=== PATIENT | female | born 1935 | race Caucasian/White ===

== ENCOUNTER → 2018-02-09 09:22 | Outpatient (CLI) | payer MEDICARE, OTHER, SELFPAY ==
[2018-02-09 09:40] VITALS: BP 161/68; PULSE 70; RESP 16; O2SAT 99; BMI 23.6
--- NOTE | 2018-02-09 11:05 | RAD_ITS ---
STUDY: X-RAY CHEST REASON FOR EXAM: Female, 82 years old. PICC line placement. TECHNIQUE: Single AP portable view of the chest. COMPARISON: None. FINDINGS: A right-sided PICC line catheter has been placed. The tip is at the junction of the superior vena cava and right atrium. Hyperinflation. Scattered calcified granulomas. There is no demonstrated pleural abnormality. Sternal cerclage wires are present from a prior sternotomy. A left-sided dual-chamber pacemaker is seen. Normal mediastinum and nilesh. Normal visualized pulmonary arteries. There is atherosclerotic calcification of the aortic arch with tortuosity. Normal visualized thoracic spine. Normal visualized ribs, clavicles, and shoulders. There is no demonstrated abnormality of the visualized soft tissue structures of the upper abdomen. RAD/CXR for Line Placement IMPRESSION: The tip of the right PICC line catheter is at the junction of the superior vena cava and right atrium. Electronically Signed: Abiodun Mock MD at 11:52 EST Tel [phone], Service support ,
== END ==
PROVIDERS: Family Provider Pathology Anatomic Pathology & Clinical Pathology; PCP Pathology Anatomic Pathology & Clinical Pathology; Referring Provider Internal Medicine Hematology & Oncology; Visit Provider Internal Medicine Hematology & Oncology
DX: C83.39 Diffuse large B-cell lymphoma, extranodal and solid organ sites (principal)
CPT/HCPCS: 36569; 71045

== ENCOUNTER → 2018-03-01 08:03 | Outpatient (CLI) | payer MEDICARE, OTHER, SELFPAY ==
[2018-02-09 09:40] VITALS: BMI 23.6
[2018-03-01 08:34] VITALS: BP 145/62; PULSE 85; RESP 16; TEMP 36.4; O2SAT 100; BMI 24.5
[2018-03-01 08:55] VITALS: BP 133/52; PULSE 62; RESP 16; TEMP 36.4; O2SAT 100
[2018-03-01 09:55] VITALS: BP 129/42; PULSE 60; RESP 16; TEMP 36.4; O2SAT 100
[2018-03-01 10:36] VITALS: BP 147/50; PULSE 68; RESP 16; TEMP 36.2; O2SAT 100
[2018-03-01] MEDS: Furosemide 20 MG/2 ML VIAL IV (10:42)
[2018-03-01 11:18] VITALS: BP 149/54; PULSE 67; RESP 16; TEMP 36.3; O2SAT 100
[2018-03-01 12:53] VITALS: BP 151/44; PULSE 62; RESP 16; TEMP 36.4; O2SAT 100
--- OUTSIDE RECORDS SUMMARY | 2018-04-17 01:06 | XMS RPT_ITS ---
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 Plan of Care Type Date Detail Appointment 03:45 PM Praveen Luna MD, [address] [facility], [address], [place], [address], Appointment 01:00 PM Praveen Luna MD, [address] [facility], [address], [place], [address], Appointment 08:30 AM Roberto Abernathy MD, [address] [facility] [address], [place], [address], Patient education \cps-sql1\CPS_PtEducation\ht n.pdf, \cps-sql1\CPS_PtEducation\ht n.pdf Medications Medication Instructions Start Stop Generic Name NDC Provider Date Date CEPHALEXIN 500 1 tablet every / CEPHALEXIN 38220188193 A Ricardo MG TABS 12 hours Jeremy BRIGGS CRESTOR 5 MG take 1 tablet / ROSUVASTATIN 87609402296 Melinda TABS once daily 24 CALCIUM [place] TOWNSEND CALCIUM 600+D take 1 tablet / CALCIUM 35966578267 Melinda TABS once daily 24 CARB-CHOLECALCI Mone LUISN FEROL TABS LISINOPRIL 20 take 1 tablet / LISINOPRIL 01154923174 Melinda MG TABS once daily 24 [place] SALES REVIEW CLERK FERROUS take 1 tablet / FERROUS SULFATE 52268636327 Melinda SULFATE 325 once daily 10 Mone LUISN (65 Fe) MG TABS SYSTANE 1 drop to both / PROPYLENE 74534437417 Melinda BALANCE SOLN eyes once daily 25 GLYCOL SOLN Mone SALES REVIEW CLERK ASPIRIN 81 MG take 1 tablet / ASPIRIN 43728876094 Melinda ORAL TABLET once daily 13 Mone SALES REVIEW CLERK AMIODARONE HCL take 1 tablet / AMIODARONE HCL 99727919636 Melinda 200 MG TABS once daily 13 Mone LUISN FUROSEMIDE 20 take 1 tablet / FUROSEMIDE 13767078443 Melinda MG TABS once daily 13 Mone LUISN POTASSIUM take 1 tablet / POTASSIUM 04666833952 Melinda CHLORIDE DOUGLAS once daily 13 CHLORIDE DOUGLAS Mone SALES REVIEW CLERK ER 20 MEQ CR CR-TABS WARFARIN take 1 tablet / WARFARIN SODIUM 80615486807 Melinda SODIUM 1 MG every other day, 13 Mone SALES REVIEW CLERK TABS alternate with 1/2 tablet Conditions or Problems Problem Name Problem Code Onset Status Entry Provider Comment Standard Annotate Date Date Description 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, Jeremy (clinical) History of 745952528 Active A H/O: Coumadin (SNOMED CT) 0 0 Ricardo anticoagulant therapy Jeremy therapy Cardiac 333231580 Active A Cardiac pacemaker (SNOMED CT) 0 0 Ricardo pacemaker in [place] situ Atrial 87135625 Active A Atrial fibrillation (SNOMED CT) 0 0 Ricardo fibrillation Jeremy BRIGGS H/O aortic 2102262957827 Active A 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 [place] replacement MD Infection of 877406330 Active Roberto M 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 of 390576987 Active Roberto M 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 Vital Signs Date Name Value Unit Description BMI (Body Mass 22.79 kg/m2 Body Mass Index Index) [Ratio] Preliminary vital sign data, not yet signed by the author as of BP Diastolic 87 mm[Hg] blood pressure, diastolic Preliminary vital sign data, not yet signed by the author as of BP Diastolic 72 mm[Hg] blood pressure, diastolic, second observation Preliminary vital sign data, not yet signed by the author as of BP Systolic 152 mm[Hg] blood pressure, systolic Preliminary vital sign data, not yet signed by the author as of BP Systolic 155 mm[Hg] blood pressure, systolic, second observation Preliminary vital sign data, not yet signed by the author as of Heart Rate 68 /min pulse rate E&M Preliminary vital sign data, not yet signed by the author as of Height 170 cm height in centimeters E&M Preliminary vital sign data, not yet signed by the author as of Height 67 [in_us] height E&M Preliminary vital sign data, not yet signed by the author as of Weight Measured 66 kg weight in kilograms E&M Preliminary vital sign data, not yet signed by the author as of Weight Measured 145 [lb_av] weight E&M Preliminary vital sign data, not yet signed by the author as of Results Date Name Value Unit Range Flag Description Office Visit: Follow-up by tran, Rm: MEDS REVIEW Done Documentation of current medications (procedure) Preliminary observation data, not yet signed by the author as of Preliminary observation data, not yet signed by the author as of Clinical Summary: [facility] account number Procedures Code Procedure Name Date Entry Date G8732 Pain assessment not documented - reason not given G8427 Current medications documented 1036F Tobacco screening was negative - non user G8420 BMI documented within normal parameters - no follow-up plan is required G8950 Blood pressure outside of normal parameters - follow-up documented [facility]-[id number] Patient Encounter Medications Administered No information available. Immunizations No information available. Advance Directives There may be information available, but it has not been provided by the sender. Assessments There may be information available, but it has not been provided by the sender. Review of Systems There may be information available, but it has not been provided by the sender. Family History There may be information available, but it has not been provided by the sender. History of Past Illness There may be information available, but it has not been provided by the sender. History of Present Illness There may be information available, but it has not been provided by the sender.
--- OUTSIDE RECORDS SUMMARY | 2018-04-17 01:06 | XMS RPT_ITS ---
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 on 12/12/2017 Preliminary chief complaint data, not yet signed by the author as of Instructions No information available. Plan of Care Type Date Detail Appointment 08:45 AM Roberto Abernathy MD, [address], [place], [address], Appointment 08:30 AM Roberto Abernathy MD, [address], [place], [address], Medications Medication Instructions Start Stop Generic Name NDC Provider Date Date OCUVITE EYE + one tablet once / MULTIPLE [id number] Roberto Graham MULTI TABS daily 01 VITAMINS-ANTHONYA Michela BRIGGS LS CRESTOR 5 MG take 1 tablet / ROSUVASTATIN 52444520223 Melinda TABS once daily 24 CALCIUM Mone TRAFFIC ROUTING ENGINEER CALCIUM 600+D take 1 tablet / CALCIUM 67491213836 Melinda TABS once daily 24 CARB-CHOLECALCI Mone TRAFFIC ROUTING ENGINEER FEROL TABS LISINOPRIL 20 take 1 tablet / LISINOPRIL 88203328883 Melinda MG TABS once daily 24 [place] TRAFFIC ROUTING ENGINEER FERROUS take 1 tablet / FERROUS SULFATE 31011257937 Melinda SULFATE 325 once daily 10 [place] TRAFFIC ROUTING ENGINEER (65 Fe) MG TABS SYSTANE 1 drop to both / PROPYLENE 62018762497 Melinda BALANCE SOLN eyes once daily 25 GLYCOL SOLN [place] TRAFFIC ROUTING ENGINEER ASPIRIN 81 MG take 1 tablet / ASPIRIN 56157550734 Melinda ORAL TABLET once daily 13 Mone TRAFFIC ROUTING ENGINEER AMIODARONE HCL take 1 tablet / AMIODARONE HCL 34254696997 Melinda 200 MG TABS once daily 13 [place] TRAFFIC ROUTING ENGINEER FUROSEMIDE 20 take 1 tablet / FUROSEMIDE 99371720396 Melinda MG TABS once daily 13 [place] TRAFFIC ROUTING ENGINEER POTASSIUM take 1 tablet / POTASSIUM 39590455746 Melinda CHLORIDE DOUGLAS once daily 13 CHLORIDE DOUGLAS Mone TRAFFIC ROUTING ENGINEER ER 20 MEQ CR CR-TABS WARFARIN take 1 tablet / WARFARIN SODIUM 59852347036 Melinda SODIUM 1 MG every other day, 13 [place] TRAFFIC ROUTING ENGINEER TABS alternate with 1/2 tablet Conditions or Problems Problem Name Problem Onset Status Entry Provider Comment Standard Annotate Code Date Date Description Infection of 759319288 Active Roberto M 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) /12/07 Michela total knee replacement MD joint prosthesis Presence of left 794485723 Active Roberto M Infection of artificial knee (SNOMED CT) /12/07 Michela total knee joint MD joint prosthesis Infection and 268039302 Active Roberto M Infection of inflammatory (SNOMED CT) /12/07 Michela total knee reaction due to MD joint internal left prosthesis knee prosthesis, initial encounter Primary 115882759 Active Roberto M Primary osteoarthritis (SNOMED CT) /04/04 Michela gonarthrosis of both knees MD , bilateral Allergies, Adverse Reactions, Alerts Allergy Name Reaction Start Date Severity Status Provider Description SPLENDA mouth swelling Critical Active Melinda Mone TRAFFIC ROUTING ENGINEER Social History No information available. Vital Signs Date Name Value Unit Description BMI (Body Mass 22.68 kg/m2 Body Mass Index Index) [Ratio] Preliminary vital sign data, not yet signed by the author as of BP Diastolic 68 mm[Hg] blood pressure, diastolic Preliminary vital sign data, not yet signed by the author as of BP Systolic 114 mm[Hg] blood pressure, systolic Preliminary vital sign data, not yet signed by the author as of Heart Rate 71 /min pulse rate E&M Preliminary vital sign data, not yet signed by the author as of Height 69 [in_us] height E&M Preliminary vital sign data, not yet signed by the author as of Height 175 cm height in centimeters E&M Preliminary vital sign data, not yet signed by the author as of Weight Measured 153 [lb_av] weight E&M Preliminary vital sign data, not yet signed by the author as of Weight Measured 70 kg weight in kilograms E&M Preliminary vital sign data, not yet signed by the author as of Results Date Name Value Unit Range Flag Description Office Visit: Postop - 1st visit, Rm: 2 MEDS REVIEW Done Documentation of current medications (procedure) Preliminary observation data, not yet signed by the author as of Preliminary observation data, not yet signed by the author as of XRAY HX of the right knee xray history on 12/29/[address] [facility] Preliminary observation data, not yet signed by the author as of Clinical Summary: [facility]ID [facility] account number Procedures Code Procedure Name Date Entry Date CPT-83773 XR KNEE 3VWS-RT G8730 Pain assessment documented as positive - follow-up documented G8427 Current medications documented 1036F Tobacco screening was negative - non user G8420 BMI documented within normal parameters - no follow-up plan is required G8783 Blood pressure within normal parameters - no follow-up required [facility]-[id number] Patient Encounter Medications Administered No information available. [...]
--- OUTSIDE RECORDS SUMMARY | 2018-04-17 01:06 | XMS RPT_ITS ---
:1935 Author Organization [employer] [facility] Address [address] [place] [address] Phone Care Team Providers Name Role Phone Michela BRIGGS, Roberto Graham Unavailable Reason for Visit Reason For Visit Description Start Date Follow-up by complaint Preliminary reason for visit data, not yet signed by the author as of right knee pain Preliminary reason for visit data, not yet signed by the author as of Chief Complaint Chief Complaint Description Start Date right knee pain Preliminary chief complaint data, not yet signed by the author as of Instructions Instruction Description Start Date Please follow-up with Primary Care Physician or Pathological Technician for treatment or adjustment of medication regarding elevated blood pressure. Plan of Care Type Date Detail Appointment 10:30 AM Roberto Abernathy MD, [address], [address], Patient education \cps-sql1\CPS_PtEducation\CD C_[email or web address].pdf, \cps-sql1\CPS_PtEducation\ht n.pdf Medications Medication Instructions Start Stop Generic Name NDC Provider Date Date OCUVITE EYE + one tablet once / MULTIPLE 09942701854 Roberto Graham MULTI TABS daily 01 VITAMINS-ANTHONYA Michela BRIGGS LS CRESTOR 5 MG take 1 tablet / ROSUVASTATIN 98759744878 Melinda TABS once daily 24 CALCIUM Mone TOWNSEND CALCIUM 600+D take 1 tablet / CALCIUM 89427680773 Melinda TABS once daily 24 CARB-CHOLECALCI Mone SUBWAREHOUSE SUPERVISOR FEROL TABS LISINOPRIL 20 take 1 tablet / LISINOPRIL 47837292735 Melinda MG TABS once daily 24 Mone SUBWAREHOUSE SUPERVISOR FERROUS take 1 tablet / FERROUS SULFATE 43740565325 Melinda SULFATE 325 once daily 10 [place] SUBWAREHOUSE SUPERVISOR (65 Fe) MG TABS SYSTANE 1 drop to both / PROPYLENE 24075375631 Melinda BALANCE SOLN eyes once daily 25 GLYCOL SOLN Mone SUBWAREHOUSE SUPERVISOR ASPIRIN 81 MG take 1 tablet / ASPIRIN 12361140666 Melinda ORAL TABLET once daily 13 [place] SUBWAREHOUSE SUPERVISOR AMIODARONE HCL take 1 tablet / AMIODARONE HCL 09449091407 Melinda 200 MG TABS once daily 13 Mone SUBWAREHOUSE SUPERVISOR FUROSEMIDE 20 take 1 tablet / FUROSEMIDE 66153346951 Melinda MG TABS once daily 13 Mone SUBWAREHOUSE SUPERVISOR POTASSIUM take 1 tablet / POTASSIUM 83259343099 Melinda CHLORIDE DOUGLAS once daily 13 CHLORIDE DOUGLAS Mone SUBWAREHOUSE SUPERVISOR ER 20 MEQ CR CR-TABS WARFARIN take 1 tablet / WARFARIN SODIUM 74581994967 Melinda SODIUM 1 MG every other day, 13 [place] SUBWAREHOUSE SUPERVISOR TABS alternate with 1/2 tablet Conditions or Problems Problem Name Problem Onset Status Entry Provider Comment Standard Annotate Code Date Date Description Primary 182524845 Active Roberto M Primary osteoarthritis (SNOMED CT) /16 04/04 Michela gonarthrosis of both knees MD , bilateral Allergies, Adverse Reactions, Alerts Allergy Name Reaction Start Date Severity Status Provider Description SPLENDA mouth swelling Critical Active Melinda Mone SUBWAREHOUSE SUPERVISOR Social History No information available. Vital Signs Date Name Value Unit Description BMI (Body Mass 22.68 kg/m2 Body Mass Index Index) [Ratio] Preliminary vital sign data, not yet signed by the author as of BP Diastolic 83 mm[Hg] blood pressure, diastolic Preliminary vital sign data, not yet signed by the author as of BP Diastolic 78 mm[Hg] blood pressure, diastolic, second observation Preliminary vital sign data, not yet signed by the author as of BP Systolic 156 mm[Hg] blood pressure, systolic Preliminary vital sign data, not yet signed by the author as of BP Systolic 152 mm[Hg] blood pressure, systolic, second observation Preliminary vital sign data, not yet signed by the author as of Heart Rate 78 /min pulse rate E&M Preliminary vital sign [...] Range Flag Description Office Visit: Follow-up by complaint, Rm: 4 MEDS REVIEW Done Documentation of current medications (procedure) Preliminary observation data, not yet signed by the author as of XRAY HX of the bilateral xray history knee on 08/18/2017 at [facility] Preliminary observation data, not yet signed by the author as of Preliminary observation data, not yet signed by the author as of Clinical Summary[facility] Office Visit: Follow-up by complaint, Rm: 5 MEDS REVIEW Done Documentation of current medications (procedure) XRAY HX of the bilateral xray history knee on 08/18/2017 at [facility] Clinical Summary: [facility] account number Procedures Code Procedure Name Date Entry Date CPT-12877 Major Joint or Bursa injection/aspiration - Left G8730 Pain assessment documented as positive - follow-up documented G8427 Current medications documented 1036F Tobacco screening was negative - non user G8420 BMI documented within normal parameters - no follow-up plan is required G8950 Blood pressure outside of normal parameters - follow-up documented 1006F Osteoarthritis symptoms and functional status assessed 1100F Fallen more than twice or injured themselves from a fall documented 3288F Falls risk assessment documented 0518F Falls plan of care documented [facility]-[id number] Patient Encounter Medications Administered No information available. [...]
--- OUTSIDE RECORDS SUMMARY | 2018-04-17 01:07 | XMS RPT_ITS ---
:1935 Author Organization [facility] [employer] Address [address] [place] [address] Phone Care Team Providers Name Role Phone Michela BRIGGS, Roberto Graham Unavailable Reason for Visit Reason For Visit Description Start Date Follow-up by complaint Preliminary reason for visit data, not yet signed by the author as of bilateral knee pain Preliminary reason for visit data, not yet signed by the author as of Chief Complaint Chief Complaint Description Start Date bilateral knee pain Preliminary chief complaint data, not yet signed by the author as of Instructions Instruction Description Start Date Please follow-up with Primary Care Physician or Machine Shop Instructor for treatment or adjustment of medication regarding elevated blood pressure. Plan of Care Type Date Detail Appointment 08:15 AM Roberto Abernathy MD, [address], [address], Patient education \cps-sql1\CPS_PtEducation\ht n.pdf Medications Medication Instructions Start Stop Generic Name NDC Provider Date Date MEDROL 4 MG Take as [id number] Roberto Graham TBPK directed 05 Michela BRIGGS OCUVITE EYE + one tablet once / MULTIPLE 66562432256 Roberto Graham MULTI TABS daily 01 VITAMINS-MINERALS Michela BRIGGS CRESTOR 5 MG take 1 tablet / ROSUVASTATIN CALCIUM 25545959725 Melinda TABS once daily 24 [place] AIRCRAFT QUALITY CONTROL INSPECTOR CALCIUM 600+D take 1 tablet / CALCIUM 19540827509 Melinda TABS once daily 24 CARB-CHOLECALCIFEROL Mone AIRCRAFT QUALITY CONTROL INSPECTOR TABS LISINOPRIL 20 take 1 tablet / LISINOPRIL 10204312568 Melinda MG TABS once daily 24 [place] AIRCRAFT QUALITY CONTROL INSPECTOR FERROUS take 1 tablet / FERROUS SULFATE 80731737820 Melinda SULFATE 325 once daily 10 [place] AIRCRAFT QUALITY CONTROL INSPECTOR (65 Fe) MG TABS SYSTANE 1 drop to both / PROPYLENE GLYCOL 83407347444 Melinda BALANCE SOLN eyes once daily 25 SOLN [place] AIRCRAFT QUALITY CONTROL INSPECTOR ASPIRIN 81 MG take 1 tablet / ASPIRIN 97488616751 Melinda ORAL TABLET once daily 13 [place] AIRCRAFT QUALITY CONTROL INSPECTOR AMIODARONE take 1 tablet / AMIODARONE HCL 57181243268 Melinda HCL 200 MG once daily 13 Mone AIRCRAFT QUALITY CONTROL INSPECTOR TABS FUROSEMIDE 20 take 1 tablet / FUROSEMIDE 80191519183 Melinda MG TABS once daily 13 M[place] AIRCRAFT QUALITY CONTROL INSPECTOR POTASSIUM take 1 tablet / POTASSIUM CHLORIDE 68173011279 Melinda CHLORIDE DOUGLAS once daily 13 [place] CR Mone AIRCRAFT QUALITY CONTROL INSPECTOR ER 20 MEQ CR-TABS WARFARIN take 1 tablet / WARFARIN SODIUM 21682914084 Melinda SODIUM 1 MG every other 13 Mone AIRCRAFT QUALITY CONTROL INSPECTOR TABS day, alternate with 1/2 tablet Conditions or Problems Problem Name Problem Onset Status Entry Provider Comment Standard Annotate Code Date Date Description Primary 912588361 Active Roberto M Primary osteoarthritis (SNOMED CT) /16 04/04 Michela gonarthrosis of both knees MD , bilateral Allergies, Adverse Reactions, Alerts Allergy Name Reaction Start Date Severity Status Provider Description SPLENDA mouth swelling Critical Active Melinda Mone AIRCRAFT QUALITY CONTROL INSPECTOR Social History No information available. Vital Signs Date Name Value Unit Description BMI (Body Mass 22.68 kg/m2 Body Mass Index Index) [Ratio] Preliminary vital sign data, not yet signed by the author as of BP Diastolic 80 mm[Hg] blood pressure, diastolic Preliminary vital sign data, not yet signed by the author as of BP Diastolic 74 mm[Hg] blood pressure, diastolic, second observation Preliminary vital sign data, not yet signed by the author as of BP Systolic 159 mm[Hg] blood pressure, systolic Preliminary vital sign data, not yet signed by the author as of BP Systolic 149 mm[Hg] blood pressure, systolic, second observation Preliminary vital sign data, not yet signed by the author as of Heart Rate 85 /min pulse rate E&M Preliminary vital sign [...] Range Flag Description Office Visit: Follow-up by tran Rm: 7 MEDS REVIEW Done Documentation of current medications (procedure) Preliminary observation data, not yet signed by the author as of XRAY HX of the bilateral xray history knee on 08/18/2017 at [facility] Preliminary observation data, not yet signed by the author as of Preliminary observation data, not yet signed by the author as of Clinical Summary: HMSPatientID [facility] account number Procedures Code Procedure Name Date Entry Date G8730 Pain assessment documented as positive - follow-up documented G8427 Current medications documented 1036F Tobacco screening was negative - non user G8420 BMI documented within normal parameters - no follow-up plan is required G8950 Blood pressure outside of normal parameters - follow-up documented 1006F Osteoarthritis symptoms and functional status assessed [facility]-[id number] Patient Encounter Medications Administered No information available. [...]
--- OUTSIDE RECORDS SUMMARY | 2018-04-17 01:07 | XMS RPT_ITS ---
:1935 Author Organization [employer] Address [address] [place] [address] Phone Care Team Providers Name Role Phone [...] Plan of Care Type Date Detail Appointment 09:30 AM Roberto Abernathy MD, [address], [address], Patient education \cps-sql1\CPS_PtEducation\CD C_[email or web address].pdf, \cps-sql1\CPS_PtEducation\ht n.pdf Medications Medication Instructions Start Stop Generic Name NDC Provider Date Date MEDROL 4 MG Take as / METHYLPREDNISOLONE [id number] Roberto Graham TBPK directed 05 Michela BRIGGS OCUVITE EYE + one tablet once / MULTIPLE [id number] Roberto Graham MULTI TABS daily 01 VITAMINS-MINERALS Michela BRIGGS CRESTOR 5 MG take 1 tablet / ROSUVASTATIN CALCIUM 18802317838 Melinda TABS once daily 24 Mone BATTERY CONTAINER TESTER CALCIUM 600+D take 1 tablet / CALCIUM 56322416387 Melinda TABS once daily 24 CARB-CHOLECALCIFEROL [place] BATTERY CONTAINER TESTER TABS LISINOPRIL 20 take 1 tablet / LISINOPRIL 25007434949 Melinda MG TABS once daily 24 Mone BATTERY CONTAINER TESTER FERROUS take 1 tablet / FERROUS SULFATE 06950546426 Melinda SULFATE 325 once daily 10 [place] BATTERY CONTAINER TESTER (65 Fe) MG TABS SYSTANE 1 drop to both / PROPYLENE GLYCOL 40379182139 Melinda BALANCE SOLN eyes once daily 25 SOLN Mone BATTERY CONTAINER TESTER ASPIRIN 81 MG take 1 tablet / ASPIRIN 72253972871 Melinda ORAL TABLET once daily 13 [place] BATTERY CONTAINER TESTER AMIODARONE take 1 tablet / AMIODARONE HCL 42067058383 Melinda HCL 200 MG once daily 13 [place] BATTERY CONTAINER TESTER TABS FUROSEMIDE 20 take 1 tablet / FUROSEMIDE 71682991857 Melinda MG TABS once daily 13 [place] BATTERY CONTAINER TESTER POTASSIUM take 1 tablet / POTASSIUM CHLORIDE 89198465646 Melinda CHLORIDE DOUGLAS once daily 13 DOUGLAS CR Mone BATTERY CONTAINER TESTER ER 20 MEQ CR-TABS WARFARIN take 1 tablet / WARFARIN SODIUM 14962076722 Melinda SODIUM 1 MG every other 13 Mone BATTERY CONTAINER TESTER TABS day, alternate with 1/2 tablet Conditions or Problems Problem Name Problem Onset Status Entry Provider Comment Standard Annotate Code Date Date Description Primary [id number] Active Roberto M 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 Vital Signs Date Name Value Unit Description BMI (Body Mass 22.68 kg/m2 Body Mass Index Index) [Ratio] Preliminary vital sign data, not yet signed by the author as of BP Diastolic 80 mm[Hg] blood pressure, diastolic Preliminary vital sign data, not yet signed by the author as of BP Diastolic 75 mm[Hg] blood pressure, diastolic, second observation Preliminary vital sign data, not yet signed by the author as of BP Systolic 144 mm[Hg] blood pressure, systolic Preliminary vital sign data, not yet signed by the author as of BP Systolic 148 mm[Hg] blood pressure, systolic, second observation Preliminary vital sign data, not yet signed by the author as of Heart Rate 65 /min pulse rate E&M Preliminary vital sign [...] Description Office Visit: Follow-up by complaint, Rm: 5 MEDS REVIEW Done Documentation of current medications (procedure) Preliminary observation data, not yet signed by the author as of Preliminary observation data, not yet signed by the author as of XRAY HX of the bilateral xray history knee on 08/18/2017 at [facility] Preliminary observation data, not yet signed by the author as of Clinical Summary: [facility] account number Procedures Code Procedure Name Date Entry Date CPT-41256 Major Joint or Bursa injection/aspiration - Right G8730 Pain assessment documented as positive - follow-up documented G8427 Current medications documented 1036F Tobacco screening was negative - non user G8420 BMI documented within normal parameters - no follow-up plan is required G8952 Blood pressure outside of normal parameters - follow-up not documented 1006F Osteoarthritis symptoms and functional status assessed 1100F Fallen more than twice or injured themselves from a fall documented 3288F Falls risk assessment documented 0518F Falls plan of care documented [facility]-[id number] Patient Encounter Medications Administered No information available. [...]
--- OUTSIDE RECORDS SUMMARY | 2018-04-17 01:07 | XMS RPT_ITS ---
:1935 Author Organization [employer] Address [address] [place] [address] Phone Care Team Providers Name Role Phone Michela BRIGGS, Roberto Graham Unavailable Reason for Visit Reason For Visit Description Start Date New Complaint Preliminary reason for visit data, not yet signed by the author as of bilateral knee pain Preliminary reason for visit data, not yet signed by the author as of Chief Complaint Chief Complaint Description Start Date bilateral knee pain Preliminary chief complaint data, not yet signed by the author as of Instructions No information available. Plan of Care Type Date Detail Appointment 10:00 AM Roberto Abernathy MD, [address], [place], [address], Appointment 08:15 AM Roberto Abernathy MD, [address], [place], [address], Medications Medication Instructions Start Stop Generic Name [facility] Provider Date Date OCUVITE EYE + one tablet once / MULTIPLE [id number] Roberto Graham MULTI TABS daily VITAMINS-MIRIAM Abernathy MD LS CRESTOR 5 MG take 1 tablet / ROSUVASTATIN 16262085647 Melinda TABS once daily 24 CALCIUM Mone LUISN CALCIUM 600+D take 1 tablet / CALCIUM 68050424674 Melinda TABS once daily 24 CARB-CHOLECALCI Mone EVENT MANAGEMENT CONSULTANT FEROL TABS LISINOPRIL 20 take 1 tablet / LISINOPRIL 48803485763 Melinda MG TABS once daily 24 Mone EVENT MANAGEMENT CONSULTANT FERROUS take 1 tablet / FERROUS SULFATE 46111672447 Melinda SULFATE 325 once daily 10 [place] EVENT MANAGEMENT CONSULTANT (65 Fe) MG TABS SYSTANE 1 drop to both / PROPYLENE 70476123930 Melinda BALANCE SOLN eyes once daily 25 GLYCOL SOLN Mone EVENT MANAGEMENT CONSULTANT ASPIRIN 81 MG take 1 tablet / ASPIRIN 33491979518 Melinda TABS once daily 13 [place] EVENT MANAGEMENT CONSULTANT AMIODARONE HCL take 1 tablet / AMIODARONE HCL 56953531034 Melinda 200 MG TABS once daily 13 Mone EVENT MANAGEMENT CONSULTANT FUROSEMIDE 20 take 1 tablet / FUROSEMIDE 17362586171 Melinda MG TABS once daily 13 Mone EVENT MANAGEMENT CONSULTANT POTASSIUM take 1 tablet / POTASSIUM 08340540924 Melinda CHLORIDE DOUGLAS once daily 13 CHLORIDE DOUGLAS Mone EVENT MANAGEMENT CONSULTANT ER 20 MEQ CR CR-TABS WARFARIN take 1 tablet / WARFARIN SODIUM 25979500448 Melinda SODIUM 1 MG every other day, 13 [place]one EVENT MANAGEMENT CONSULTANT TABS alternate with 1/2 tablet Conditions or Problems Problem Name Problem Onset Status Entry Provider Comment Standard Annotate Code Date Date Description Primary [id number] Active Roberto M 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 Vital Signs Date Name Value Unit Description BMI (Body Mass 22.68 kg/m2 Body Mass Index Index) [Ratio] Preliminary vital sign data, not yet signed by the author as of BP Diastolic 75 mm[Hg] blood pressure, diastolic Preliminary vital sign data, not yet signed by the author as of BP Systolic 136 mm[Hg] blood pressure, systolic Preliminary vital sign data, not yet signed by the author as of Heart Rate 83 /min pulse rate E&M Preliminary vital sign [...] Value Unit Range Flag Description Office Visit: New Complaint, Rm: 4 MEDS REVIEW Done Documentation of current medications (procedure) Preliminary observation data, not yet signed by the author as of Preliminary observation data, not yet signed by the author as of Clinical Summary: [facility] account number Clinical Lists Update: Preload Extended SMOK STATUS former smoker Tobacco smoking status IDIS Procedures Code Procedure Name Date Entry Date CPT-35219 XR KNEE 3VWS-RT CPT-27906 XR KNEE 3VWS-LT G8730 Pain assessment documented as positive - follow-up documented G8427 Current medications documented 1036F Tobacco screening was negative - non user G8420 BMI documented within normal parameters - no follow-up plan is required G8783 Blood pressure within normal parameters - no follow-up required 1006F Osteoarthritis symptoms and functional status assessed [facility]-[id number] Patient Encounter Medications Administered No information available. [...]
--- OUTSIDE RECORDS SUMMARY | 2018-04-17 01:08 | XMS RPT_ITS ---
:1935 Author Organization OHIP Support Name Relationship Address Phone KLINECT, LAMAR Unavailable Unavailable + KLINECT, LAMAR Unavailable Unavailable Unavailable Klinect, Zaid Unavailable Unavailable + KLINECT, LAMAR Unavailable Unavailable + R Unavailable Unavailable Unavailable KLINECT, LAMAR Unavailable Unavailable + R Unavailable Unavailable Unavailable KLINECT, LAMAR Unavailable Unavailable + KLINECT, LAMAR Unavailable Unavailable Unavailable KLINECT, LAMAR Unavailable Unavailable + KLINECT, LAMAR Unavailable Unavailable Unavailable KLINECT, LAMAR Unavailable Unavailable + KLINECT, LAMAR Unavailable Unavailable Unavailable KLINECT, LAMAR Unavailable Unavailable Unavailable KLINECT, LAMAR Unavailable Unavailable + KLINECT, LAMAR Unavailable Unavailable + KLINECT, LAMAR Unavailable Unavailable Unavailable Klinect, Zaid Unavailable Unavailable + KLINECT, LAMAR Unavailable Unavailable + KLINECT, LAMAR Unavailable Unavailable Unavailable KLINECT, LAMAR Unavailable Unavailable + KLINECT, LAMAR Unavailable Unavailable + KLINECT, LAMAR Unavailable Unavailable Unavailable KLINECT, LAMAR Unavailable Unavailable + KLINECT, LAMAR Unavailable Unavailable + KLINECT, LAMAR Unavailable Unavailable Unavailable KLINECT, LAMAR Unavailable Unavailable + KLINECT, LAMAR Unavailable Unavailable + KLINECT, LAMAR Unavailable Unavailable Unavailable KLINECT, LAMAR Unavailable Unavailable + KLINECT, LAMAR Unavailable Unavailable + KLINECT, LAMAR Unavailable Unavailable Unavailable KLINECT, LAMAR Unavailable Unavailable + KLINECT, LAMAR Unavailable Unavailable + KLINECT, LAMAR Unavailable Unavailable Unavailable KLINECT, LAMAR Unavailable Unavailable + KLINECT, LAMAR Unavailable Unavailable + KLINECT, LAMAR Unavailable Unavailable Unavailable KLINECT, LAMAR Unavailable Unavailable + KLINECT, LAMAR Unavailable Unavailable + KLINECT, LAMAR Unavailable Unavailable Unavailable KLINECT, LAMAR Unavailable Unavailable + KLINECT, LAMAR Unavailable Unavailable + KLINECT, LAMAR Unavailable Unavailable Unavailable KLINECT, LAMAR Unavailable Unavailable + KLINECT, LAMAR Unavailable Unavailable + KLINECT, LAMAR Unavailable Unavailable Unavailable KLINECT, LAMAR Unavailable Unavailable + KLINECT, LAMAR Unavailable Unavailable + KLINECT, LAMAR Unavailable Unavailable Unavailable KLINECT, LAMAR Unavailable Unavailable + KLINECT, LAMAR Unavailable Unavailable + KLINECT, LAMAR Unavailable Unavailable Unavailable KLINECT, LAMAR Unavailable Unavailable + KLINECT, LAMAR Unavailable Unavailable + KLINECT, LAMAR Unavailable Unavailable Unavailable KLINECT, LAMAR Unavailable Unavailable + KLINECT, LAMAR Unavailable Unavailable + KLINECT, LAMAR Unavailable Unavailable Unavailable KLINECT, LAMAR Unavailable Unavailable + KLINECT, LAMAR Unavailable Unavailable + KLINECT, LAMAR Unavailable Unavailable Unavailable Care Team Providers Name Role Phone ESTEVAN ALONZO Attending Unavailable Praveen LUNA Referring Unavailable Lu ROWE Primary Care Unavailable Ricardo Luna Attending Unavailable Rowe, Sathya Referring Unavailable Rowe, Sathya Primary Care Unavailable ALANA FAJARDO Attending Unavailable Rowe, Sathya Referring Unavailable Rowe, Sathya Primary Care Unavailable JULIENNE, ANDREA G Admitting Unavailable JULIENNE, ANDREA G Attending Unavailable MASCI, RAYMUNDO Morton Referring Unavailable MASCI, RAYMUNDO Morton Referring Unavailable Masci, aRymundo Attending Unavailable Masci, Raymundo Referring Unavailable Rowe, Red Primary Care Unavailable Masci, Raymundo Attending Unavailable Masci, Raymundo Referring Unavailable Rowe, Red Primary Care Unavailable MASCI, RAYMUNDO Morton Attending Unavailable MASCI, RAYMUNDO A Referring Unavailable MASCI, RAYMUNDO A Admitting Unavailable MASCI, RAYMUNDO Morton Attending Unavailable MASCI, RAYMUNDO A Referring Unavailable MASCI, RAYMUNDO A Referring Unavailable MASCI, RAYMUNDO A Referring Unavailable MASCI, RAYMUNDO A Referring Unavailable MASCI, RAYMUNDO A Referring Unavailable MASCI, RAYMUNDO A Referring Unavailable MASCI, RAYMUNDO A Referring Unavailable MASCI, RAYMUNDO A Referring Unavailable HILDA BARNETT (BIN WORKER) Attending Unavailable MASCI, RAYMUNDO Morton Referring Unavailable HILDA BARNETT (BIN WORKER) Referring Unavailable MASCI, RAYMUNDO A Referring Unavailable MASCI, RAYMUNDO A Attending Unavailable MASCI, RAYMUNDO A Referring Unavailable MASCI, RAYMUNDO A Referring Unavailable MASCI, RAYMUNDO A Referring Unavailable MASCI, RAYMUNDO A Referring Unavailable MASCI, RAYMUNDO A Attending Unavailable MASCI, RAYMUNDO A Referring Unavailable MASCI, RAYMUNDO A Referring Unavailable MASCI, RAYMUNDO A Referring Unavailable PARKER BRIGGS, THAN Attending Unavailable PARKER BRIGGS, THAN Primary Care Unavailable PARKER BRIGGS, THAN Attending Unavailable PARKER BRIGGS, THAN Primary Care Unavailable PARKER BRIGGS, THAN Attending Unavailable PARKER BRIGGS, THAN Primary Care Unavailable PARKER BRIGGS, THAN Attending Unavailable PARKER BRIGGS, THAN Primary Care Unavailable PARKER BRIGGS, THAN Attending Unavailable PARKER BRIGGS, THAN Primary Care Unavailable PARKER BRIGGS, THAN Attending Unavailable PARKER BRIGGS, THAN Primary Care Unavailable PARKER BRIGGS, THAN Attending Unavailable PARKER BRIGGS, THAN Primary Care Unavailable YADIRA NIELSON MD Attending Unavailable PARKER BRIGGS, THAN Primary Care Unavailable PARKER BRIGGS, THAN Attending Unavailable PARKER BRIGGS, THAN Primary Care Unavailable PARKER BRIGGS, THAN Attending Unavailable PARKER BRIGGS, THAN Primary Care Unavailable PARKER BRIGGS, THAN Attending Unavailable PARKER BRIGGS, THAN Primary Care Unavailable PARKER BRIGGS, THAN Attending Unavailable PARKER BRIGGS, THAN Primary Care Unavailable PARKER BRIGGS, THAN Attending Unavailable PARKER BRIGGS, THAN Primary Care Unavailable PARKER BRIGGS, THAN Attending Unavailable PARKER BRIGGS, THAN Primary Care Unavailable PARKER BRIGGS, THAN Attending Unavailable PARKER BRIGGS, THAN Primary Care Unavailable PARKER BRIGGS, THAN Attending Unavailable PARKER BRIGGS, THAN Primary Care Unavailable PARKER BRIGGS, THAN Attending Unavailable PARKER BRIGGS, THAN Primary Care Unavailable PARKER BRIGGS, THAN Attending Unavailable PARKER BRIGGS, THAN Primary Care Unavailable PARKER BRIGGS, THAN Attending Unavailable PARKER BRIGGS, THAN Primary Care Unavailable PARKER BRIGGS, THAN Attending Unavailable PARKER BRIGGS, THAN Primary Care Unavailable PROBLEMS PROBLEMS DATE TYPE CONDITION / CODE ATTENDING STATUS SOURCE 02/06/2018 Active 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 / [place] I11.0(ICD-10) Repository 02/06/2018 Active 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, lymph [place] nodes of inguinal Repository region and lower limb / C85.25(ICD-10) 02/06/2018 Active Nonrheumatic aortic NA Active [facility] valve disorder, Clinic Main unspecified / [place] I35.9(ICD-10) Repository 02/02/2018 Active Diffuse large b-cell NA Active [facility] lymphoma, extranodal Clinic Other and solid organ [place] sites / Repository C83.39(ICD-10) 01/11/2018 Admitting Disorder of the skin Cervino, Active [facility] Diagnosis and subcutaneous [facility] tissue, unspecified Repository / L98.9(ICD-10) 12/26/2017 Active Acute JULIENNE, Active [facility] posthemorrhagic [facility] Other anemia / D62(ICD-10) [place] Repository 12/26/2017 Active Paroxysmal atrial JULIENNE, Active [facility] fibrillation / [facility] Other I48.0(ICD-10) [place] Repository 12/26/2017 Active Presence of right JULIENNE, 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 HPI: The patient is a 83-year-old female with PMH significant for aortic valve replacement (bovine valve; on long-term warfarin) and recent infected knee replacement status post extended antibiotic therapy whose had a growth on her mid left upper arm for at least 3-4 months. More recently the mass on the arm had started to ooze blood and the patient underwent an evaluation. Biopsy completed by Dr. Luna at [facility]. 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 COMMENT: SUZIE-stained tissue sections show a markedly atypical infiltrate involving superficial and deep dermis, composed of large cells with vesicular chromatin and one to few nucleoli. Increased mitotic figures are seen. No epidermotropism is present. Immunohistochemical stains show the abnormal cell are CD20+, PAX5+, BCL6+, BCL2+ MUM1+and weak CD10+??with a proliferation index of 80-90% by Ki-67+ nuclei. The same population is negative for EBV (JONAH), light chains (JONAH), CD21, CD30, and CD15. Background T-cells are CD3+, CD4+, CD5+ and CD8+. 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 However, systemic workup is recommended to exclude secondary skin involvement by a primary yael/systemic DLBCL. Current therapy: 1) R-CHOP. Presents for ongoing oncologic management. Interim history: PET scan revealed liver metastasis. She required a 2 unit red blood cell transfusion on 02/28 which was partially week after her first cycle. She received the second cycle and had no untoward side effect other than occasional fatigue. She's not had any nausea or vomiting. Appetite seems to fluctuate. No episode of fever. No night sweats. Denies symptoms of cardiomyopathy including chest pain/pressure, palpitations, shortness of breath at rest or with exertion, lower extremity swelling/edema, PND or orthopnea. She has some occasional tingling around the knees. However she's had chronic knee pain for a while. She denies other symptoms of sensory neuropathy. PMH, medications and allergies personally reviewed by me today. Any changes documented in appropriate section. ROS: Constitutional: See above. Neuro: Denies WALKER, vertigo, dizziness and imbalance. HEENT: No recent change in voice, vision or hearing. Resp: Denies cough, wheeze and hemoptysis. CVS: See above. GI: Denies dysgeusia. Denies symptoms of stomatitis. Denies dysphagia and odynophagia. Denies reflux, n/v, change in bowel habits and abdominal pain. : Denies dysuria or gross hematuria. No symptoms of bladder outlet obstruction. Endo: Denies hot flashes. Denies polyuria and polydipsia. Denies heat and cold intolerance. Musculoskeletal: Denies bone, back, joint and muscular pain. Derm: Denies rash. Denies jaundice and diffuse pruritis. Heme: See above. Psych: Normal mood. PHYSICAL EXAM: Vitals: Blood pressure 155/66, pulse 65, temperature 36.6 ?C (97.9 ?F), temperature source Oral, weight 67.4 kg (148 lb 8 oz). Well-appearing and in no acute distress. EYES: Sclerae are anicteric bilaterally. ENT: Oral mucosa is unremarkable. There is no sign of thrush or mucositis. NECK: Supple. No enlargement of thyroid. LYMPHATIC: There is no palpable cervical, supraclavicular, axillary or inguinal adenopathy. RESPIRATORY: Inspiratory breath sounds are of normal intensity in all massey. No rales, wheezes or rhonchi. CARDIOVASCULAR: Rhythm is regular. Normal intensity S1/S2. Soft systolic murmur. ABDOMEN: The abdomen is nondistended. No organomegaly. No tenderness. Extremities: Tumor is resolved. Small area of ulceration without bleeding. NEUROLOGIC: [employer] or [employer] II-XII are grossly intact. No focal motor weakness. DTRs are symmetric and normal. MUSCULOSKELETAL: No muscle wasting. 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 -KPS is 100%. -Tolerating chemotherapy symptomatically well thus far, but has required RBC transfusion following first cycle. -Very good response thus far. No longer having life-threatening bleeding (she required a blood transfusion due to bleeding upfront). -Discussed plan to complete [address] scan of abdomen and pelvis following cycle #[address] scan with PET scan after cycle 6. Plan: -Okay for cycle #3 tomorrow. Will dose reduce vincristine due to previous need for transfusion. -Remove PICC after chemotherapy tomorrow. -Replace PICC for cycle #4. Raymundo Dozier DO CNOVSP Observed: 03/26/2018 Status: COMPLETED Source: [place] 10:30 AM [facility] REPOSITORY Visit (SP) Office ([place]) JENNIFER WHITLOCK ([id number]) 1935 F Date Time Provider Department 03/26/18 10:30 AM RAYMUNDO DOZIER During your visit today, we recorded the following information about you: Temperature Pulse Blood pressure Weight 97.9 degrees 65/minute 155/66 67.4 kg Raymundo Dozier DO 03/26/2018 11:16 AM Signed Diagnosis: 1) DLBC NHL. HPI: The patient is a 83-year-old female with PMH significant for aortic valve replacement (bovine valve; on long-term warfarin) and recent infected knee replacement status post extended antibiotic therapy whose had a growth on her mid left upper arm for at least 3-4 months. More recently the mass on the arm had started to ooze blood and the patient underwent an evaluation. Biopsy completed by Dr. Luna at [facility]. 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 COMMENT: SUZIE-stained tissue sections show a markedly atypical infiltrate involving superficial and deep dermis, composed of large cells with vesicular chromatin and one to few nucleoli. Increased mitotic figures are seen. No epidermotropism is present. Immunohistochemical stains show the abnormal cell are CD20+, PAX5+, BCL6+, BCL2+ MUM1+and weak CD10+??with a proliferation index of 80-90% by Ki-67+ nuclei. The same population is negative for EBV (JONAH), light chains (JONAH), CD21, CD30, and CD15. Background T-cells are CD3+, CD4+, CD5+ and CD8+. 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 However, systemic workup is recommended to exclude secondary skin involvement by a primary yael/systemic DLBCL. Current therapy: 1) R-CHOP. Presents for ongoing oncologic management. Interim history: PET scan revealed liver metastasis. She required a 2 unit red blood cell transfusion on 02/28 which was partially week after her first cycle. She received the second cycle and had no untoward side effect other than occasional fatigue. She's not had any nausea or vomiting. Appetite seems to fluctuate. No episode of fever. No night sweats. Denies symptoms of cardiomyopathy including chest pain/pressure, palpitations, shortness of breath at rest or with exertion, lower extremity swelling/edema, PND or orthopnea. She has some occasional tingling around the knees. However she's had chronic knee pain for a while. She denies other symptoms of sensory neuropathy. PMH, medications and allergies personally reviewed by me today. Any changes documented in appropriate section. ROS: Constitutional: See above. Neuro: Denies WALKER, vertigo, dizziness and imbalance. HEENT: No recent change in voice, vision or hearing. Resp: Denies cough, wheeze and hemoptysis. CVS: See above. GI: Denies dysgeusia. Denies symptoms of stomatitis. Denies dysphagia and odynophagia. Denies reflux, n/v, change in bowel habits and abdominal pain. : Denies dysuria or gross hematuria. No symptoms of bladder outlet obstruction. Endo: Denies hot flashes. Denies polyuria and polydipsia. Denies heat and cold intolerance. Musculoskeletal: Denies bone, back, joint and muscular pain. Derm: Denies rash. Denies jaundice and diffuse pruritis. Heme: See above. Psych: Normal mood. PHYSICAL EXAM: Vitals: Blood pressure 155/66, pulse 65, temperature 36.6 ?C (97.9 ?F), temperature source Oral, weight 67.4 kg (148 lb 8 oz). Well-appearing and in no acute distress. EYES: Sclerae are anicteric bilaterally. ENT: Oral mucosa is unremarkable. There is no sign of thrush or mucositis. NECK: Supple. No enlargement of thyroid. LYMPHATIC: There is no palpable cervical, supraclavicular, axillary or inguinal adenopathy. RESPIRATORY: Inspiratory breath sounds are of normal intensity in all massey. No rales, wheezes or rhonchi. CARDIOVASCULAR: Rhythm is regular. Normal intensity S1/S2. Soft systolic murmur. ABDOMEN: The abdomen is nondistended. No organomegaly. No tenderness. Extremities: Tumor is resolved. Small area of ulceration without bleeding. NEUROLOGIC: [employer] or [employer] II-XII are grossly intact. No focal motor weakness. DTRs are symmetric and normal. MUSCULOSKELETAL: No muscle wasting. 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 -KPS is 100%. -Tolerating chemotherapy symptomatically well thus far, but has required RBC transfusion following first cycle. -Very good response thus far. No longer having life-threatening bleeding (she required a blood transfusion due to bleeding upfront). -Discussed plan to complete [address] scan of abdomen and pelvis following cycle #[address] scan with PET scan after cycle 6. Plan: -Okay for cycle #3 tomorrow. Will dose reduce vincristine due to previous need for transfusion. -Remove PICC after chemotherapy tomorrow. -Replace PICC for cycle #4. 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 (HCC) [C83.39] Follow-up and Disposition History Recorded Prescriptions as of 03/26/2018 Sig: PREDNISONE 50 MG TABLET Take 2 tablets with breakfast* ONDANSETRON HCL 8 MG TABLET Take 1 tablet by mouth every * CEPHALEXIN 500 MG CAPSULE Take 500 mg by mouth twice da* WARFARIN 1 MG TABLET Take 0.5 tablets by mouth onc* FUROSEMIDE 80 MG TABLET Take 0.5 tablets by mouth onc* AMLODIPINE 5 MG TABLET Take 1 tablet by mouth once d* LACTOBACILLUS RHAMNOSUS GG 10* Take 1 capsule by mouth once * METOPROLOL TARTRATE 50 MG TAB* Take 1 tablet by mouth every * CYANOCOBALAMIN (VIT B-12) 1,0* Take 1 tablet by mouth once d* PANTOPRAZOLE 40 MG TABLET,DEL* Take 1 tablet by mouth DAILY * FERROUS SULFATE 325 MG (65 MG* Take 325 mg by mouth once rina* POTASSIUM CHLORIDE ER 20 MEQ * Take 20 mEq by mouth as direc* AMIODARONE 200 MG TABLET Take 200 mg by mouth once rina* CALCIUM PHOSPHATE-VITAMIN D3 * Take 2 tablets by mouth once * ROSUVASTATIN 5 MG TABLET Take 5 mg by mouth once daily. PRESERVISION LUTEIN ORAL Take 1 mg by mouth once daily. PROPYLENE GLYCOL 0.6 % EYE DR* Use 1 Drop in both eyes once * POLYETHYLENE GLYCOL 3350 17 G* Take 1 Packet by mouth once d* Patient not taking: Reported on 03/05/2018 Medication notes this encounter PREDNISONE 50 MG TABLET >> Teodora Copeland MA 03/26/2018 10:13 AM >> TEODORA COPELAND MA Mon Mar 26, 2018 10:13 AM Taking as directed. Problem List As Of Date 03/26/2018 Noted Resolved OA (osteoarthritis) of knee [M17.10] INVALID FOR* Knee pain, chronic [M25.569, G89.29] INVALID FOR* GI bleed [K92.2] INVALID FOR* Colitis [K52.9] INVALID FOR* Orthopedic aftercare [Z47.89] INVALID FOR*12/26/2017 Status post revision of total replacement of ri*INVALID FOR* Paroxysmal atrial fibrillation (HCC) [I48.0] INVALID FOR* Arm mass, left [R22.32] INVALID FOR* Acute blood loss anemia [D62] INVALID FOR* Leg mass, right [R22.41] INVALID FOR* Diffuse large B-cell lymphoma of extranodal sit*INVALID FOR* More... Diffuse follicle center lymphoma of extranodal *INVALID FOR* Encounter Status:Closed by RAYMUNDO DOZIER DO on 03/26/18 RAUL ABS GR + CBC Collected: 03/26/2018 Status: F Source: [place] 10:20 AM [facility] REPOSITORY TYPE CODE TESTS RESULT OUT OF REFERENCE UNITS RANGE LAB WWBC 3.70-11.00 k/uL Raul WBC 9.49 LAB WRBC 3.90-5.20 m/uL Low Raul RBC 3.17 LAB WHGB 11.5-15.5 g/dL Low Raul Hemoglobin 8.4 LAB WHCT 36.0-46.0 % Low Raul Hematocrit 27.5 LAB WMCV 80.0-100.0 fL Raul MCV 86.8 LAB WMCH 26.0-34.0 pg [place] MCH 26.5 LAB WMCHC 30.5-36.0 g/dL Raul MCHC 30.5 LAB WRDW 11.5-15.0 % Raul High RDW 16.4 LAB WPLT 150-400 k/uL [place] High Platelet Cnt 408 LAB WMPV 9.0-12.7 fL Raul MPV 10.7 Result Comment: Test performed at: [facility], [address] [place] [address] Rd[address] [place] [address]. LAB ABGRAN 1.45-7.50 k/uL Absol Gran 7.44 Count COMP METABOLIC PANEL Collected: 03/26/2018 Status: F Source: [place] 10:[address] [facility] [place] REPOSITORY TYPE CODE TESTS RESULT OUT OF REFERENCE UNITS RANGE LAB TP 6.3-8.0 g/dL Protein, Total 6.4 LAB ALB 3.9-4.9 g/dL Albumin Low 3.5 LAB CA 8.5-10.2 mg/dL Calcium, Total 9.5 LAB TBIL 0.2-1.3 mg/dL Bilirubin, Total 0.2 LAB ALKP 34-123 U/L Alkaline Phosphatase 95 LAB AST 13-35 U/L AST 13 LAB GLU 74-99 mg/dL Glucose High 118 LAB BUN 7-21 mg/dL BUN High 26 LAB CRET 0.58-0.96 mg/dL Creatinine High 1.14 LAB NA 136-144 mmol/L Sodium Low 134 LAB K 3.7-5.1 mmol/L Potassium 4.5 LAB CL 97-105 mmol/L Chloride 101 LAB CO2 22-30 mmol/L CO2 24 LAB AGAP mmol/L Anion Gap 9 LAB ALT 7-38 U/L ALT 7 LAB GFRAA eGFR- 55 Amer. LAB GFRNAA . eGFR-All Other Races 45 Result Comment: eGFR (Estimated GFR) Units of measure: mL/min/1.73 meters squared eGFR is derived from the reexpressed MDRD Study equation using the following parameters: serum creatinine, age, gender and race. The creatinine assay has been calibrated to be traceable to IDMS. An eGFR <60 mL/min/1.73m2 for >3 months is consistent with chronic kidney disease. Refer to KDOQI guidelines for clinical interpretation. In patients with unstable renal function, e.g. those with acute kidney injury, the eGFR may not accurately reflect actual GFR. CNOVSP Observed: 03/05/2018 Status: COMPLETED Source: [place] 10:30 AM [facility] REPOSITORY Visit (SP) Office ([place]) JENNIFER WHITLOCK ([id number]) 1935 F Date Time Provider Department 03/05/18 10:30 AM RAYMUNDO DOZIER During your visit today, we recorded the following information about you: Temperature Pulse Blood pressure Weight 98.5 degrees 62/minute 170/72 68.5 kg Maki Swann LPN 03/05/2018 10:38 AM Signed Est patient. Discuss recent labs, treatment tomorrow. Maki Dozier DO 03/05/2018 10:47 AM Signed Diagnosis: 1) DLBC NHL. HPI: The patient is a 83-year-old female with PMH significant for aortic valve replacement (bovine valve; on long-term warfarin) and recent infected knee replacement status post extended antibiotic therapy whose had a growth on her mid left upper arm for at least 3-4 months. More recently the mass on the arm had started to ooze blood and the patient underwent an evaluation. Biopsy completed by Dr. Luna at [facility]. 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 COMMENT: SUZIE-stained tissue sections show a markedly atypical infiltrate involving superficial and deep dermis, composed of large cells with vesicular chromatin and one to few nucleoli. Increased mitotic figures are seen. No epidermotropism is present. Immunohistochemical stains show the abnormal cell are CD20+, PAX5+, BCL6+, BCL2+ MUM1+and weak CD10+??with a proliferation index of 80-90% by Ki-67+ nuclei. The same population is negative for EBV (JONAH), light chains (JONAH), CD21, CD30, and CD15. Background T-cells are CD3+, CD4+, CD5+ and CD8+. 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 However, systemic workup is recommended to exclude secondary skin involvement by a primary yael/systemic DLBCL. Current therapy: 1) R-CHOP. Presents for ongoing oncologic management. Interim history: PET scan revealed liver metastasis. She had no symptom Rx side effects with her first cycle of chemotherapy. Specifically no nausea or vomiting. No episode of fever. No night sweats. Her appetite tends to fluctuate. She says one day she is not hungry the next day she is very hungry. Energy level doing good. She was able to show me a picture of the lesion on her left arm that was taken yesterday. There is now just granulation tissue with no further bleeding. The second nodule inferior to the main tumor is resolved. No symptoms of cardiomyopathy including chest pain/pressure, palpitations, shortness of breath at rest or with exertion, lower extremity swelling/edema, PND or orthopnea. PMH, medications and allergies personally reviewed by me today. Any changes documented in appropriate section. ROS: Constitutional: See above. Neuro: Denies WALKER, vertigo, dizziness and imbalance. HEENT: No recent change in voice, vision or hearing. Resp: Denies cough, wheeze and hemoptysis. CVS: See above. GI: Denies dysgeusia. Denies symptoms of stomatitis. Denies dysphagia and odynophagia. Denies reflux, n/v, change in bowel habits and abdominal pain. : Denies dysuria or gross hematuria. No symptoms of bladder outlet obstruction. Endo: Denies hot flashes. Denies polyuria and polydipsia. Denies heat and cold intolerance. Musculoskeletal: Denies bone, back, joint and muscular pain. Derm: Denies rash. Denies jaundice and diffuse pruritis. Heme: See above. Psych: Normal mood. PHYSICAL EXAM: Vitals: Blood pressure 170/72, pulse 62, temperature 36.9 ?C (98.5 ?F), temperature source Temporal Artery, weight 68.5 kg (151 lb). Well-appearing and in no acute distress. EYES: Sclerae are anicteric bilaterally. ENT: Oral mucosa is unremarkable. There is no sign of thrush or mucositis. NECK: Supple. No enlargement of thyroid. LYMPHATIC: There is no palpable cervical, supraclavicular, axillary or inguinal adenopathy. RESPIRATORY: Inspiratory breath sounds are of normal intensity in all massey. No rales, wheezes or rhonchi. CARDIOVASCULAR: Rhythm is regular. Normal intensity S1/S2. Soft systolic murmur. ABDOMEN: The abdomen is nondistended. No organomegaly. No tenderness. Extremities: Dressing was not taken down today. But the obvious previous tumor mass has resolved. There is no blood on the bandages. NEUROLOGIC: [employer] or [employer] II-XII are grossly intact. No focal motor weakness. DTRs are symmetric and normal. MUSCULOSKELETAL: No muscle wasting. 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 -KPS is 100%. -Tolerating chemotherapy very well thus far. -Excellent response to first cycle. No longer having life- threatening bleeding (she required a blood transfusion due to bleeding upfront). -Discussed plan to complete [address] scan of abdomen and pelvis following cycle #[address] scan with PET scan after cycle 6. Plan: -Okay for cycle #2 tomorrow. 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) [C83.39] Follow-up and Disposition History Recorded Prescriptions as of 03/05/2018 Sig: AMIODARONE 200 MG TABLET Take 200 mg by mouth once rina* AMLODIPINE 5 MG TABLET Take 1 tablet by mouth once d* CALCIUM PHOSPHATE-VITAMIN D3 * Take 2 tablets by mouth once * CEPHALEXIN 500 MG CAPSULE Take 500 mg by mouth twice da* CYANOCOBALAMIN (VIT B-12) 1,0* Take 1 tablet by mouth once d* FERROUS SULFATE 325 MG (65 MG* Take 325 mg by mouth once rina* FUROSEMIDE 80 MG TABLET Take 0.5 tablets by mouth onc* LACTOBACILLUS RHAMNOSUS GG 10* Take 1 capsule by mouth once * METOPROLOL TARTRATE 50 MG TAB* Take 1 tablet by mouth every * ONDANSETRON HCL 8 MG TABLET Take 1 tablet by mouth every * PANTOPRAZOLE 40 MG TABLET,DEL* Take 1 tablet by mouth DAILY * POTASSIUM CHLORIDE ER 20 MEQ * Take 20 mEq by mouth as direc* PREDNISONE 50 MG TABLET Take 2 tablets with breakfast* PROPYLENE GLYCOL 0.6 % EYE DR* Use 1 Drop in both eyes once * ROSUVASTATIN 5 MG TABLET Take 5 mg by mouth once daily. PRESERVISION LUTEIN ORAL Take 1 mg by mouth once daily. WARFARIN 1 MG TABLET Take 0.5 tablets by mouth onc* POLYETHYLENE GLYCOL 3350 17 G* Take 1 Packet by mouth once d* Patient not taking: Reported on 03/05/2018 Medication notes this encounter PREDNISONE 50 MG TABLET >> Maki Swann LPN 03/05/2018 9:44 AM >> MAKI SWANN LPN [facility] Mar 05, 2018 9:44 AM Patient states she is no taking >> Maki Swann LPN 03/05/2018 9:44 AM >> MAKI SWANN LPN Mar 05, 2018 9:44 AM Patient states she is not taking >> Maki Swann LPN 03/05/2018 9:48 AM >> MAKI SWANN LPN Mar 05, 2018 9:48 AM Patient unaware she was supposed to take with every treatment. Will pickle processor refill today. ASPIRIN 81 MG CHEWABLE TABLET >> Maki Swann LPN 03/05/2018 9:42 AM >> MAKI SWANN LPN Mar 05, 2018 9:42 AM On hold Problem List As Of Date 03/05/2018 Noted Resolved OA (osteoarthritis) of knee [M17.10] INVALID FOR* Knee pain, chronic [M25.569, G89.29] INVALID FOR* GI bleed [K92.2] INVALID FOR* Colitis [K52.9] INVALID FOR* Orthopedic aftercare [Z47.89] INVALID FOR*12/26/2017 Status post revision of total replacement of ri*INVALID FOR* Paroxysmal atrial fibrillation (HCC) [I48.0] INVALID FOR* Arm mass, left [R22.32] INVALID FOR* Acute blood loss anemia [D62] INVALID FOR* Leg mass, right [R22.41] INVALID FOR* Diffuse large B-cell lymphoma of extranodal sit*INVALID FOR* More... Diffuse follicle center lymphoma of extranodal *INVALID FOR* Visit Notes: >> Maki Swann LPN Mon Mar 05, 2018 9:51 AM Status: Signed Est patient. Discuss recent labs, treatment tomorrow. Maki Swann LPN Encounter Status:Closed by RAYMUNDO DOZIER DO on 03/05/18 PROGRESS Observed: 03/05/2018 Status: COMPLETED Source: [place] 10:29 AM [facility] REPOSITORY HNO ID: [id number] Author: Raymundo Dozier Service: (none) Author Type: Physician Type: Progress Notes Filed: 03/05/2018 10:47 AM Note Text: Diagnosis: 1) DLBC NHL. HPI: The patient is a 83-year-old female with PMH significant for aortic valve replacement (bovine valve; on long-term warfarin) and recent infected knee replacement status post extended antibiotic therapy whose had a growth on her mid left upper arm for at least 3-4 months. More recently the mass on the arm had started to ooze blood and the patient underwent an evaluation. Biopsy completed by Dr. Luna at [facility]. 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 COMMENT: SUZIE-stained tissue sections show a markedly atypical infiltrate involving superficial and deep dermis, composed of large cells with vesicular chromatin and one to few nucleoli. Increased mitotic figures are seen. No epidermotropism is present. Immunohistochemical stains show the abnormal cell are CD20+, PAX5+, BCL6+, BCL2+ MUM1+and weak CD10+??with a proliferation index of 80-90% by Ki-67+ nuclei. The same population is negative for EBV (JONAH), light chains (JONAH), CD21, CD30, and CD15. Background T-cells are CD3+, CD4+, CD5+ and CD8+. 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 However, systemic workup is recommended to exclude secondary skin involvement by a primary yael/systemic DLBCL. Current therapy: 1) R-CHOP. Presents for ongoing oncologic management. Interim history: PET scan revealed liver metastasis. She had no symptom Rx side effects with her first cycle of chemotherapy. Specifically no nausea or vomiting. No episode of fever. No night sweats. Her appetite tends to fluctuate. She says one day she is not hungry the next day she is very hungry. Energy level doing good. She was able to show me a picture of the lesion on her left arm that was taken yesterday. There is now just granulation tissue with no further bleeding. The second nodule inferior to the main tumor is resolved. No symptoms of cardiomyopathy including chest pain/pressure, palpitations, shortness of breath at rest or with exertion, lower extremity swelling/edema, PND or orthopnea. PMH, medications and allergies personally reviewed by me today. Any changes documented in appropriate section. ROS: Constitutional: See above. Neuro: Denies WALKER, vertigo, dizziness and imbalance. HEENT: No recent change in voice, vision or hearing. Resp: Denies cough, wheeze and hemoptysis. CVS: See above. GI: Denies dysgeusia. Denies symptoms of stomatitis. Denies dysphagia and odynophagia. Denies reflux, n/v, change in bowel habits and abdominal pain. : Denies dysuria or gross hematuria. No symptoms of bladder outlet obstruction. Endo: Denies hot flashes. Denies polyuria and polydipsia. Denies heat and cold intolerance. Musculoskeletal: Denies bone, back, joint and muscular pain. Derm: Denies rash. Denies jaundice and diffuse pruritis. Heme: See above. Psych: Normal mood. PHYSICAL EXAM: Vitals: Blood pressure 170/72, pulse 62, temperature 36.9 ?C (98.5 ?F), temperature source Temporal Artery, weight 68.5 kg (151 lb). Well-appearing and in no acute distress. EYES: Sclerae are anicteric bilaterally. ENT: Oral mucosa is unremarkable. There is no sign of thrush or mucositis. NECK: Supple. No enlargement of thyroid. LYMPHATIC: There is no palpable cervical, supraclavicular, axillary or inguinal adenopathy. RESPIRATORY: Inspiratory breath sounds are of normal intensity in all massey. No rales, wheezes or rhonchi. CARDIOVASCULAR: Rhythm is regular. Normal intensity S1/S2. Soft systolic murmur. ABDOMEN: The abdomen is nondistended. No organomegaly. No tenderness. Extremities: Dressing was not taken down today. But the obvious previous tumor mass has resolved. There is no blood on the bandages. NEUROLOGIC: [employer] or [employer] II-XII are grossly intact. No focal motor weakness. DTRs are symmetric and normal. MUSCULOSKELETAL: No muscle wasting. 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 -KPS is 100%. -Tolerating chemotherapy very well thus far. -Excellent response to first cycle. No longer having life-threatening bleeding (she required a blood transfusion due to bleeding upfront). -Discussed plan to complete [address] scan of abdomen and pelvis following cycle #[address] scan with PET scan after cycle 6. Plan: -Okay for cycle #2 tomorrow. Raymundo oDzier DO COMP METABOLIC PANEL Collected: 03/05/2018 Status: F Source: [place] 9:46 AM [facility] REPOSITORY TYPE CODE TESTS RESULT OUT OF REFERENCE UNITS RANGE LAB TP 6.3-8.0 g/dL Protein, Total 6.3 LAB ALB 3.9-4.9 g/dL Albumin Low 3.4 LAB CA 8.5-10.2 mg/dL Calcium, Total 9.1 LAB TBIL 0.2-1.3 mg/dL Bilirubin, Total 0.2 LAB ALKP 34-123 U/L Alkaline Phosphatase 95 LAB AST 13-35 U/L AST 13 LAB GLU 74-99 mg/dL Glucose High 107 LAB BUN 7-21 mg/dL BUN 15 LAB CRET 0.58-0.96 mg/dL Creatinine High 0.98 LAB NA 136-144 mmol/L Sodium Low 135 LAB K 3.7-5.1 mmol/L Potassium 4.6 LAB CL 97-105 mmol/L Chloride 103 LAB CO2 22-30 mmol/L CO2 23 LAB AGAP mmol/L Anion Gap 9 LAB ALT 7-38 U/L ALT 9 LAB GFRAA eGFR- >60 Amer. LAB GFRNAA . eGFR-All Other Races 54 Result Comment: eGFR (Estimated GFR) Units of measure: mL/min/1.73 meters squared eGFR is derived from the reexpressed MDRD Study equation using the following parameters: serum creatinine, age, gender and race. The creatinine assay has been calibrated to be traceable to IDMS. An eGFR <60 mL/min/1.73m2 for >3 months is consistent with chronic kidney disease. Refer to KDOQI guidelines for clinical interpretation. In patients with unstable renal function, e.g. those with acute kidney injury, the eGFR may not accurately reflect actual GFR. [facility] ABS GR + CBC Collected: 03/05/2018 Status: F Source: [place] 9:45 AM [facility] REPOSITORY TYPE CODE TESTS RESULT OUT OF REFERENCE UNITS RANGE LAB WWBC 3.70-11.00 k/uL [place] WBC 9.34 LAB WRBC 3.90-5.20 m/uL Low [place] RBC 3.52 LAB WHGB 11.5-15.5 g/dL Low [place] Hemoglobin 9.3 LAB WHCT 36.0-46.0 % Low [place] Hematocrit 30.5 LAB WMCV 80.0-100.0 fL [place] MCV 86.6 LAB WMCH 26.0-34.0 pg [place] MCH 26.4 LAB WMCHC 30.5-36.0 g/dL [place] MCHC 30.5 LAB WRDW 11.5-15.0 % [place] High RDW 16.8 LAB WPLT 150-400 k/uL [place] High Platelet Cnt 430 LAB WMPV 9.0-12.7 fL [place] MPV 9.7 Result Comment: Test performed at: [facility], [address] [place] [address]. LAB ABGRAN 1.45-7.50 k/uL Absol Gran 7.19 Count TYPE AND SCREEN Collected: 02/28/2018 Status: F Source: [place] 11:25 AM [facility] [place] Order Comment: PRETRANSFUSION HGB = 6.7 HCT = 22.6 PERFORMED AT [facility] CMV NEG?* N Give When? 03-01-18 @ 0830 Irradiated? N Leukodepleted? Y Reason for Type AND Screen/Red Cells: ANEMIA TYPE CODE TESTS RESULT OUT OF RANGE REFERENCE UNITS LAB B10.0800 O Normal BLOOD TYPE GEL POSITIVE LAB B100.4000 Normal Antibody NEGATIVE Screen Performed By: #### B101.7450 #### [facility] [address] [place], [address] RC Collected: 02/28/2018 Status: F Source: [place] 11:25 AM [facility] [place] TYPE CODE TESTS RESULT OUT OF REFERENCE UNITS RANGE LAB U100.0000 [id number] TRANSFUSED PRODUCT: T AND S with Crossmatch, Red Cells COUNT: 2 Performed By: #### U100.0000 #### Non-[facility] - refer to report for specific site CNOVSP Observed: 02/28/2018 Status: COMPLETED Source: [place] 10:30 AM [facility] REPOSITORY Visit (SP) Office ([place]) CHINYEREJENNIFER ROSENTHAL Praveen ([id number]) 1935 F Date Time Provider Department 02/28/18 10:30 AM HILDA BARNETT During your visit today, we recorded the following information about you: Temperature Pulse Blood pressure Weight 98.4 degrees 62/minute 151/70 69.2 kg Hilda Barnett APRN.CNP 03/02/2018 11:50 AM Signed Chief Complaint Patient presents with: Established Patient HPI: Jennifer Whitlock is a 83 year old female who presents here today for aisha visit. Per Dr. Dozier's previous note: H/o aortic valve replacement (bovine valve; on long-term warfarin) and recent infected knee replacement status post extended antibiotic therapy whose had a growth on her mid left upper arm for at least 3-4 months. ? More recently the mass on the arm has started to lose blood and the patient underwent an evaluation. Biopsy completed by Dr. Luna at [facility]. ? 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 COMMENT: SUZIE-stained tissue sections show a markedly atypical infiltrate involving superficial and deep dermis, composed of large cells with vesicular chromatin and one to few nucleoli. Increased mitotic figures are seen. No epidermotropism is present. Immunohistochemical stains show the abnormal cell are CD20+, PAX5+, BCL6+, BCL2+ MUM1+and weak CD10+??with a proliferation index of 80-90% by Ki-67+ nuclei. The same population is negative for EBV (JONAH), light chains (JONAH), CD21, CD30, and CD15. Background T-cells are CD3+, CD4+, CD5+ and CD8+. 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 However, systemic workup is recommended to exclude secondary skin involvement by a primary yael/systemic DLBCL. ? Her son has been wrapping the lesion with an abdominal pad and Kerlix dressing due to the continuous oozing of blood. The patient's performance status is very good. She still cares for her own home and is very active around the house and enjoys getting out. She's capable of all her ADLs and IADLs. She denies shortness of breath at rest and with exertion. She has no other symptoms suggestive of cardiac issues including chest pain/pressure, palpitations, shortness of breath at rest or with exertion, lower extremity swelling/edema, PND or orthopnea. No other unusual bleeding or unexplained bruising. No baseline neuropathy. Appetite is been normal. She hasn't been experiencing recurrent fevers. No night sweats. Current therapy:[facility] First cycle 02/13/18. Per son bleeding from left upper arm is much less. I'm ok. Appetite:good Energy level:fine Denies fevers. Mouth:denies sores Resp:denies cough or sob, denies valentin Cardiac:denies chest pain/palpitations GI:denies abd pain, n/v, moving bowels regularly :denies dysuria/hematuria Extrem:denies pain Neuro:denies symptoms of neuropathy Skin:denies rashes, LUE wound bleeding much less with dressing changes Heme:denies bleeding otherwise The ROS is otherwise negative. Past medical history, appointments, medications, allergies reviewed. No changes. EXAM: BP 151/70 Pulse 62 Temp 36.9 ?C (98.4 ?F) (Oral) Wt 69.2 kg (152 lb 8 oz) BMI 24.61 kg/m? APPEARANCE Well appearing, alert, in no acute distress, well- hydrated, well nourished. MOUTH no mucositis HEART RRR with normal S1 and S2, no murmurs LUNG clear to auscultation LYMPH NODES No cervical lymphadenopathy, No supraclavicular lymphadenopathy and No axillary lymphadenopathy. ABDOMEN bowel sounds normoactive, soft, non-tender, non-distended, without organomegaly or palpable masses EXTREMITIES No edema, LUE wrapped with pressure dressing NEURO Awake, alert and oriented x 3, Normal gait and No involuntary motions. SKIN Skin color, texture, turgor normal, no suspicious rashes or lesions LABS: Component Latest Ref Rng AND Units 02/28/2018 WBC, [place] 3.70 - 11.00 k/uL 8.93 RBC, [place] 3.90 - 5.20 m/uL 2.64 (L) Hemoglobin, [place] 11.5 - 15.5 g/dL 6.7 (L) Hematocrit, [place] 36.0 - 46.0 % 22.6 (L) MCV, [place] 80.0 - 100.0 fL 85.6 MCH, [place] 26.0 - 34.0 pg 25.4 (L) MCHC, [place] 30.5 - 36.0 g/dL 29.6 (L) RDW, [place] 11.5 - 15.0 % 17.3 (H) Platelet Cnt, [place] 150 - 400 k/uL 279 MPV, [place] 9.0 - 12.7 fL 10.2 Absol Gran Count 1.45 - 7.50 k/uL 7.51 (H) ASSESSMENT/PLAN: 1. 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 tolerated first cycle well. Now anemic and will require blood transfusion. - Reviewed labs with pt/son/Dr. Dozier. - Continue dressing changes. - 2 units PRBC's @[facility] per Dr. Dozier's orders. - Follow up as scheduled. - Pt. aware to call office with any questions/concerns. The patient indicates understanding of these issues and agrees with the plan. Discussed case with Dr. Dozier and agrees with treatment plan. 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) [C83.39] Follow-up and Disposition History Recorded Prescriptions as of 02/28/2018 Sig: AMIODARONE 200 MG TABLET Take 200 mg by mouth once rina* AMLODIPINE 5 MG TABLET Take 1 tablet by mouth once d* ASPIRIN 81 MG CHEWABLE TABLET Take 1 tablet by mouth once d* CALCIUM PHOSPHATE-VITAMIN D3 * Take 2 tablets by mouth once * CEPHALEXIN 500 MG CAPSULE Take 500 mg by mouth twice da* CYANOCOBALAMIN (VIT B-12) 1,0* Take 1 tablet by mouth once d* FERROUS SULFATE 325 MG (65 MG* Take 325 mg by mouth once rina* FUROSEMIDE 80 MG TABLET Take 0.5 tablets by mouth onc* LACTOBACILLUS RHAMNOSUS GG 10* Take 1 capsule by mouth once * METOPROLOL TARTRATE 50 MG TAB* Take 1 tablet by mouth every * ONDANSETRON HCL 8 MG TABLET Take 1 tablet by mouth every * PANTOPRAZOLE 40 MG TABLET,DEL* Take 1 tablet by mouth DAILY * POLYETHYLENE GLYCOL 3350 17 G* Take 1 Packet by mouth once d* POTASSIUM CHLORIDE ER 20 MEQ * Take 20 mEq by mouth as direc* PREDNISONE 50 MG TABLET Take 2 tablets with breakfast* PROPYLENE GLYCOL 0.6 % EYE DR* Use 1 Drop in both eyes once * ROSUVASTATIN 5 MG TABLET Take 5 mg by mouth once daily. PRESERVISION LUTEIN ORAL Take 1 mg by mouth once daily. WARFARIN 1 MG TABLET Take 0.5 tablets by mouth onc* Medication notes this encounter WARFARIN 1 MG TABLET >> Teodora Copeland MA 02/28/2018 9:38 AM >> TEODORA COPELAND MA MonFeb 28, 2018 9:38 AM Take 1 mg on Sun, Mon AND 0.5 mg the other days. Problem List As Of Date 02/28/2018 Noted Resolved OA (osteoarthritis) of knee [M17.10] INVALID FOR* Knee pain, chronic [M25.569, G89.29] INVALID FOR* GI bleed [K92.2] INVALID FOR* Colitis [K52.9] INVALID FOR* Orthopedic aftercare [Z47.89] INVALID FOR*12/26/2017 Status post revision of total replacement of ri*INVALID FOR* Paroxysmal atrial fibrillation (HCC) [I48.0] INVALID FOR* Arm mass, left [R22.32] INVALID FOR* Acute blood loss anemia [D62] INVALID FOR* Leg mass, right [R22.41] INVALID FOR* Diffuse large B-cell lymphoma of extranodal sit*INVALID FOR* More... Diffuse follicle center lymphoma of extranodal *INVALID FOR* Encounter Status:Closed by HILDA BARNETT CNP on 03/02/18 PROGRESS Observed: 02/28/2018 Status: COMPLETED Source: [place] 10:27 AM [facility] REPOSITORY HNO ID: [id number] Author: Hilda Barnett Service: (none) Author Type: Nurse Practitioner Type: Progress Notes Filed: 03/02/2018 11:50 AM Note Text: Chief Complaint Patient presents with: Established Patient HPI: Jennifer Whitlock is a 83 year old female who presents here today for aisha visit. Per Dr. Dozier's previous note: H/o aortic valve replacement (bovine valve; on long-term warfarin) and recent infected knee replacement status post extended antibiotic therapy whose had a growth on her mid left upper arm for at least 3-4 months. ? More recently the mass on the arm has started to lose blood and the patient underwent an evaluation. Biopsy completed by Dr. Luna at [facility]. ? 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 COMMENT: SUZIE-stained tissue sections show a markedly atypical infiltrate involving superficial and deep dermis, composed of large cells with vesicular chromatin and one to few nucleoli. Increased mitotic figures are seen. No epidermotropism is present. Immunohistochemical stains show the abnormal cell are CD20+, PAX5+, BCL6+, BCL2+ MUM1+and weak CD10+??with a proliferation index of 80-90% by Ki-67+ nuclei. The same population is negative for EBV (JONAH), light chains (JONAH), CD21, CD30, and CD15. Background T-cells are CD3+, CD4+, CD5+ and CD8+. 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 However, systemic workup is recommended to exclude secondary skin involvement by a primary yael/systemic DLBCL. ? Her son has been wrapping the lesion with an abdominal pad and Kerlix dressing due to the continuous oozing of blood. The patient's performance status is very good. She still cares for her own home and is very active around the house and enjoys getting out. She's capable of all her ADLs and IADLs. She denies shortness of breath at rest and with exertion. She has no other symptoms suggestive of cardiac issues including chest pain/pressure, palpitations, shortness of breath at rest or with exertion, lower extremity swelling/edema, PND or orthopnea. No other unusual bleeding or unexplained bruising. No baseline neuropathy. Appetite is been normal. She hasn't been experiencing recurrent fevers. No night sweats. Current therapy:RCHOP First cycle 02/13/18. Per son bleeding from left upper arm is much less. I'm ok. Appetite:good Energy level:fine Denies fevers. Mouth:denies sores Resp:denies cough or sob, denies valentin Cardiac:denies chest pain/palpitations GI:denies abd pain, n/v, moving bowels regularly :denies dysuria/hematuria Extrem:denies pain Neuro:denies symptoms of neuropathy Skin:denies rashes, LUE wound bleeding much less with dressing changes Heme:denies bleeding otherwise The ROS is otherwise negative. Past medical history, appointments, medications, allergies reviewed. No changes. EXAM: BP 151/70 Pulse 62 Temp 36.9 ?C (98.4 ?F) (Oral) Wt 69.2 kg (152 lb 8 oz) BMI 24.61 kg/m? APPEARANCE Well appearing, alert, in no acute distress, well-hydrated, well nourished. MOUTH no mucositis HEART RRR with normal S1 and S2, no murmurs LUNG clear to auscultation LYMPH NODES No cervical lymphadenopathy, No supraclavicular lymphadenopathy and No axillary lymphadenopathy. ABDOMEN bowel sounds normoactive, soft, non-tender, non-distended, without organomegaly or palpable masses EXTREMITIES No edema, LUE wrapped with pressure dressing NEURO Awake, alert and oriented x 3, Normal gait and No involuntary motions. SKIN Skin color, texture, turgor normal, no suspicious rashes or lesions LABS: Component Latest Ref Rng AND Units 02/28/2018 WBC, [place] 3.70 - 11.00 k/uL 8.93 RBC, Raul 3.90 - 5.20 m/uL 2.64 (L) Hemoglobin, Raul 11.5 - 15.5 g/dL 6.7 (L) Hematocrit, Raul 36.0 - 46.0 % 22.6 (L) MCV, [place] 80.0 - 100.0 fL 85.6 MCH, [place] 26.0 - 34.0 pg 25.4 (L) MCHC, [place] 30.5 - 36.0 g/dL 29.6 (L) RDW, [place] 11.5 - 15.0 % 17.3 (H) Platelet Cnt, [place] 150 - 400 k/uL 279 MPV, [place] 9.0 - 12.7 fL 10.2 Absol Gran Count 1.45 - 7.50 k/uL 7.51 (H) ASSESSMENT/PLAN: 1. 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 tolerated first cycle well. Now anemic and will require blood transfusion. - Reviewed labs with pt/son/Dr. Dozier. - Continue dressing changes. - 2 units PRBC's @[facility] per Dr. Dozier's orders. - Follow up as scheduled. - Pt. aware to call office with any questions/concerns. The patient indicates understanding of these issues and agrees with the plan. Discussed case with Dr. Dozier and agrees with treatment plan. Hilda Barnett APRN.BIN WORKER [place] ABS GR + CBC Collected: 02/28/2018 Status: F Source: [place] 9:[address] [facility] [place] REPOSITORY TYPE CODE TESTS RESULT OUT OF REFERENCE UNITS RANGE LAB WWBC 3.70-11.00 k/uL [place] WBC 8.93 LAB WRBC 3.90-5.20 m/uL Low [place] RBC 2.64 LAB WHGB 11.5-15.5 g/dL Low [place]ul Hemoglobin 6.7 Result Comment: URGENT BHAVIN,[id number],BYMADDIETT LAB WHCT 36.0-46.0 % [place] Low Hematocrit 22.6 LAB WMCV 80.0-100.0 fL [place] MCV 85.6 LAB WMCH 26.0-34.0 pg [place] MCH Low 25.4 LAB WMCHC 30.5-36.0 g/dL [place] Low MCHC 29.6 Result Comment: Result checked and verified LAB WRDW 11.5-15.0 % High Raul RDW 17.3 LAB WPLT 150-400 k/uL Raul 279 Platelet Cnt LAB WMPV 9.0-12.7 fL Raul MPV 10.2 Result Comment: Test performed at: [facility], [address] [place] [address] Rd[address] [place] [address]. LAB ABGRAN 1.45-7.50 k/uL High Absol 7.51 Gran Count PROGRESS Observed: 02/12/2018 Status: COMPLETED Source: [place] 3:[address] [facility] REPOSITORY HNO ID: [id number] Author: Sara Peterson (Sw) Service: (none) Author Type: Gem Cutter Type: Progress Notes Filed: 02/12/2018 4:07 PM Note Text: PSYCHOSOCIAL ASSESSMENT Date of Service: February 12, 2018 Jennifer Whitlock is a 82 year old female being seen for initial social work assessment. Diagnosis: Diffuse Large B-Cell Lymphoma of extranodal site excluding spleen and other solid organs New Primary Oncologist: Dr. Dozier Radiation Oncologist: ALIZA Goals of Care: Palliative care Today's visit includes: self/patient and friend Family History of Cancer: Other *SUPPORT NETWORK: Marital status: Parent(s): Mother is and Father is Child/Children: No cardiac care unit nurse arrangements needed: No Siblings: 2 brother(s) Grandchild(jerry): none Home Health Provider: No Community Services: No Heidy Identified: Yes Sabianism/Spirituality: Jehovah'S Witness Are these practices or beliefs that may affect or influence treatment? No *EMPLOYMENT/FINANCIAL/HEALTH INSURANCE: Employment: Retired Income source: Social Security Insurance: Medicare with co-insurance Prescription coverage: Yes COBRA Is the patient appropriate for referral to [facility] COBRA Assistance program? No Financial Distress: No : No *LIVING ARRANGEMENTS: Type: House- independent ranch Resides with: Alone *FUNCTIONAL STATUS: Cognitive limitations: none Physical limitations: cane and high level fatigue Language barrier: No Hearing Impaired: Yes hearing aids Speech Impaired: No Visual Impairments: Yes, glasses Literacy Issues: No Special considerations/accommodations needed: No MENTAL HEALTH HISTORY: Yes Diagnosis: Anxiety Treatment: medication History of combat/trauma: No Substance Use and Treatment History: denied History of Abuse: No Issues with: ? Sleep:Yes ? Eating:Yes ? Exercising: N/A ? Stress Management: No *ADVANCE DIRECTIVES/LEGAL DOCUMENTS: Living Will: Yes Health Care Durable Power of Vp Celebrity Services: Yes Scanned into [employer]: No Guardianship: NA Scanned into [employer]:NA *COPING STATUS: Coping Strengths: supportive relationships with friends spirituality successful managing past crises hopefulness self advocate strong problem-solving skills ability to plan able to follow direction consistently over time able to communicate effectively Current affect/mood: appropriate History of Loss: Yes, mother and father Adjustment to diagnosis: reflecting understanding, responding appropriately and accepting help *BARRIERS/CARE CHALLENGES: Hearing Impaired Limited support systems Are barriers/care challenges identified likely to have an impact on the patient's quality of life during treatment? Yes Practical Concerns Physical Concerns *CLINICAL IMPRESSION: NIKO met with patient and her friend/dump truck driver off [address] following her chemotherapy education appointment. Patient reports she has no children, is , and has two brothers that live out of state. Patient reports her friend who came with her today is helpful and has agreed to drive her to appointments. Patient reports she has increased fatigue and difficulty sleeping. Patient reports decreased appetite and anxiety in the mornings. Patient takes an anti-anxiety pill that helps her feel better later in the day. Patient reports she has Advance Directives and is agreeable to bringing this in at her next appointment. SW offered to update this document for her if needed in the future. Patient will look at it and let SW know. NIKO oriented patient to services and provided her with contact information if needed. INTERVENTIONS/REFERRALS TO BE PROVIDED: Monitor patient response to treatment Communicate pertinent medical/psychosocial information to Cancer Center team Provide emotional support to patient/family Referral to community resource Assist with financial support applications Education Relaxation Techniques Provided education on distress and screening process Continue follow up as needed Resources and Referrals: ? Internal: [facility] ? External: [facility] PLAN: Follow up appointment with NIKO in: SANDRA Haro CNSW Observed: 02/12/2018 Status: COMPLETED Source: [place] 12:00 AM [facility] REPOSITORY Social Work (BING) JENNIFER WHITLOCK ([id number]) 1935 F Date Time Provider Department 02/12/18 SARA PETERSON (SW) During your visit today, we recorded the following information about you: SANDRA Cullen 02/12/2018 4:07 PM Signed PSYCHOSOCIAL ASSESSMENT Date of Service: February 12, 2018 Jennifer Whitlock is a 82 year old female being seen for initial social work assessment. Diagnosis: Diffuse Large B-Cell Lymphoma of extranodal site excluding spleen and other solid organs New Primary Oncologist: Dr. Dozier Radiation Oncologist: ALIZA Goals of Care: Palliative care Today's visit includes: self/patient and friend Family History of Cancer: Other *SUPPORT NETWORK: Marital status: Parent(s): Mother is and Father is Child/Children: No cardiac care unit nurse arrangements needed: No Siblings: 2 brother(s) Grandchild(jerry): none Home Health Provider: No Community Services: No Heidy Identified: Yes Sabianism/Spirituality: Jehovah'S Witness Are these practices or beliefs that may affect or influence treatment? No *EMPLOYMENT/FINANCIAL/HEALTH INSURANCE: Employment: Retired Income source: Social Security Insurance: Medicare with co-insurance Prescription coverage: Yes COBRA Is the patient appropriate for referral to [facility] COBRA Assistance program? No Financial Distress: No [place]: No *LIVING ARRANGEMENTS: Type: House- independent ranch Resides with: Alone *FUNCTIONAL STATUS: Cognitive limitations: none Physical limitations: cane and high level fatigue Language barrier: No Hearing Impaired: Yes hearing aids Speech Impaired: No Visual Impairments: Yes, glasses Literacy Issues: No Special considerations/accommodations needed: No MENTAL HEALTH HISTORY: Yes Diagnosis: Anxiety Treatment: medication History of combat/trauma: No Substance Use and Treatment History: denied History of Abuse: No Issues with: ? Sleep:Yes ? Eating:Yes ? Exercising: N/A ? Stress Management: No *ADVANCE DIRECTIVES/LEGAL DOCUMENTS: Living Will: Yes Health Care Durable Power of Vp Celebrity Services: Yes Scanned into [facility]: No Guardianship: NA Scanned into [facility]:NA *COPING STATUS: Coping Strengths: supportive relationships with friends spirituality successful managing past crises hopefulness self advocate strong problem-solving skills ability to plan able to follow direction consistently over time able to communicate effectively Current affect/mood: appropriate History of Loss: Yes, mother and father Adjustment to diagnosis: reflecting understanding, responding appropriately and accepting help *BARRIERS/CARE CHALLENGES: Hearing Impaired Limited support systems Are barriers/care challenges identified likely to have an impact on the patient's quality of life during treatment? Yes Practical Concerns Physical Concerns *CLINICAL IMPRESSION: SW met with patient and her friend/dump truck driver [place] [address] following her chemotherapy education appointment. Patient reports she has no children, is , and has two brothers that live out of state. Patient reports her friend who came with her today is helpful and has agreed to drive her to appointments. Patient reports she has increased fatigue and difficulty sleeping. Patient reports decreased appetite and anxiety in the mornings. Patient takes an anti-anxiety pill that helps her feel better later in the day. Patient reports she has Advance Directives and is agreeable to bringing this in at her next appointment. SW offered to update this document for her if needed in the future. Patient will look at it and let SW know. SW oriented patient to services and provided her with contact information if needed. INTERVENTIONS/REFERRALS TO BE PROVIDED: Monitor patient response to treatment Communicate pertinent medical/psychosocial information to Cancer Center team Provide emotional support to patient/family Referral to community resource Assist with financial support applications Education Relaxation Techniques Provided education on distress and screening process Continue follow up as needed Resources and Referrals: ? Internal: [facility] ? External: [facility] PLAN: Follow up appointment with NIKO in: SANDRA Haro Allergies As of Date: 02/12/2018 Noted Allergy Reaction SWEETA 12/02/2011 4 - Hives Comments: Splenda Date Reviewed: 02/12/2018 Reviewed by: Wilma Duran, RN, RN - Fully Assessed Reason for Visit: Psychosocial Assessment [[id number]] Prescriptions as of 02/12/2018 Sig: PREDNISONE 50 MG TABLET Take 2 tablets with breakfast* ONDANSETRON HCL 8 MG TABLET Take 1 tablet by mouth every * CEPHALEXIN 500 MG CAPSULE Take 500 mg by mouth twice da* WARFARIN 1 MG TABLET Take 0.5 tablets by mouth onc* FUROSEMIDE 80 MG TABLET Take 0.5 tablets by mouth onc* AMLODIPINE 5 MG TABLET Take 1 tablet by mouth once d* LACTOBACILLUS RHAMNOSUS GG 10* Take 1 capsule by mouth once * METOPROLOL TARTRATE 50 MG TAB* Take 1 tablet by mouth every * POLYETHYLENE GLYCOL 3350 17 G* Take 1 Packet by mouth once d* CYANOCOBALAMIN (VIT B-12) 1,0* Take 1 tablet by mouth once d* ASPIRIN 81 MG CHEWABLE TABLET Take 1 tablet by mouth once d* PANTOPRAZOLE 40 MG TABLET,DEL* Take 1 tablet by mouth DAILY * FERROUS SULFATE 325 MG (65 MG* Take 325 mg by mouth once rina* POTASSIUM CHLORIDE ER 20 MEQ * Take 20 mEq by mouth as direc* AMIODARONE 200 MG TABLET Take 200 mg by mouth once rina* CALCIUM PHOSPHATE-VITAMIN D3 * Take 2 tablets by mouth once * ROSUVASTATIN 5 MG TABLET Take 5 mg by mouth once daily. PRESERVISION LUTEIN ORAL Take 1 mg by mouth once daily. PROPYLENE GLYCOL 0.6 % EYE DR* Use 1 Drop in both eyes once * Problem List As Of Date 02/12/2018 Noted Resolved OA (osteoarthritis) of knee [M17.10] INVALID FOR* Knee pain, chronic [M25.569, G89.29] INVALID FOR* GI bleed [K92.2] INVALID FOR* Colitis [K52.9] INVALID FOR* Orthopedic aftercare [Z47.89] INVALID FOR*12/26/2017 Status post revision of total replacement of ri*INVALID FOR* Paroxysmal atrial fibrillation (HCC) [I48.0] INVALID FOR* Arm mass, left [R22.32] INVALID FOR* Acute blood loss anemia [D62] INVALID FOR* Leg mass, right [R22.41] INVALID FOR* Diffuse large B-cell lymphoma of extranodal sit*INVALID FOR* More... Diffuse follicle center lymphoma of extranodal *INVALID FOR* Encounter Status:Closed by SARA PETERSON on 02/12/18 CXR FOR LINE PLACEMENT Observed: 02/09/2018 Status: F Source: [place] 11:05 AM [facility] [place] [facility] [address] [place] [address] CXR for Line Placement MR#: [id number] Acct: [id number] Name: JENNIFER WHITLOCK Rep #: [id number] : 1935 F 82 From: Abiodun Mock MD PCP: Red Rowe MD Status: REG CLI Study: CXR for Line Placement Date of Exam: 02/09/18 Exam# [id number] Ordering Dr: Abiodun Mock MD STUDY: X-RAY CHEST REASON FOR EXAM: Female, 82 years old. PICC line placement. TECHNIQUE: Single AP portable view of the chest. COMPARISON: None. FINDINGS: A right-sided PICC line catheter has been placed. The tip is at the junction of the superior vena cava and right atrium. Hyperinflation. Scattered calcified granulomas. There is no demonstrated pleural abnormality. Sternal cerclage wires are present from a prior sternotomy. A left-sided dual-chamber pacemaker is seen. Normal mediastinum and nilesh. Normal visualized pulmonary arteries. There is atherosclerotic calcification of the aortic arch with tortuosity. Normal visualized thoracic spine. Normal visualized ribs, clavicles, and shoulders. There is no demonstrated abnormality of the visualized soft tissue structures of the upper abdomen. RAD/CXR for Line Placement IMPRESSION: The tip of the right PICC line catheter is at the junction of the superior vena cava and right atrium. Electronically Signed: Abiodun Mock MD at 11:52 EST Tel [phone], Service support , CC: Abiodun Mock MD; Red Rowe MD Drying And Winding Supervisor: Signed NURSING PROG Observed: 02/07/2018 Status: COMPLETED Source: [place] 2:[address] [facility] [place] REPOSITORY HNO ID: [id number] Author: Fauzia Amanda (Rn) KIERRA Hamilton Service: Nursing Author Type: Registered Nurse Type: Nursing Progress Note Filed: 02/07/2018 2:55 PM Note Text: Patient did not experience a fall prior to discharge. Patient did not experience a burn prior to discharge. Fauzia Hamilton RN NURSING PROG Observed: 02/07/2018 Status: COMPLETED Source: [place] 2:55 PM [facility] REPOSITORY HNO ID: [id number] Author: Fauzia Amanda (Rn) KIERRA Hamilton Service: Nursing Author Type: Registered Nurse Type: Nursing Progress Note Filed: 02/07/2018 3:02 PM Note Text: Patient discharged home with right hip dressing dry and intact from bone marrow biopsy. Left upper arm dressing dry and intact upon discharge. Fauzia Hamilton RN LD Collected: 02/07/2018 Status: F Source: [facility] 2:42 PM [facility] REPOSITORY TYPE CODE TESTS RESULT OUT OF RANGE REFERENCE UNITS LAB LD 135-214 U/L High LD 230 URIC ACID Collected: 02/07/2018 Status: F Source: [place] 2:42 PM [facility] REPOSITORY TYPE CODE TESTS RESULT OUT OF RANGE REFERENCE UNITS LAB URIC 2.5-6.6 mg/dL High Uric Acid 9.3 COMP METABOLIC PANEL Collected: 02/07/2018 Status: F Source: [place] 2:42 PM [facility] REPOSITORY TYPE CODE TESTS RESULT OUT OF REFERENCE UNITS RANGE LAB TP 6.3-8.0 g/dL Protein, Total 6.6 LAB ALB 3.9-4.9 g/dL Albumin Low 3.3 LAB CA 8.5-10.2 mg/dL Calcium, Total 9.4 LAB TBIL 0.2-1.3 mg/dL Bilirubin, Total 0.2 LAB ALKP 34-123 U/L Alkaline Phosphatase 95 LAB AST 13-35 U/L AST 18 LAB GLU 74-99 mg/dL Glucose High 104 LAB BUN 7-21 mg/dL BUN High 31 LAB CRET 0.58-0.96 mg/dL Creatinine High 1.34 LAB NA 136-144 mmol/L Sodium Low 134 LAB K 3.7-5.1 mmol/L Potassium 4.6 LAB CL 97-105 mmol/L Chloride 102 LAB CO2 22-30 mmol/L CO2 23 LAB AGAP mmol/L Anion Gap 9 LAB ALT 7-38 U/L ALT 13 LAB GFRAA eGFR- 46 Amer. LAB GFRNAA . eGFR-All Other Races 38 Result Comment: eGFR (Estimated GFR) Units of measure: mL/min/1.73 meters squared eGFR is derived from the reexpressed MDRD Study equation using the following parameters: serum creatinine, age, gender and race. The creatinine assay has been calibrated to be traceable to IDMS. An eGFR <60 mL/min/1.73m2 for >3 months is consistent with chronic kidney disease. Refer to KDOQI guidelines for clinical interpretation. In patients with unstable renal function, e.g. those with acute kidney injury, the eGFR may not accurately reflect actual GFR. HEPATITIS REMOTE PANEL Collected: 02/07/2018 Status: F Source: [place] 2:42 PM [facility] REPOSITORY TYPE CODE TESTS RESULT OUT OF REFERENCE UNITS RANGE LAB AHBCOT Negative Hep B Core Ab,Total Negative LAB AHCV Negative Hepatitis C Ab Negative IA LAB HBSAGR Negative HBsAg Negative LAB AHBSAG Negative HepB Surface Ab,Qual Negative Result Comment: NEGATIVE Performed By: #### HREMOP #### [facility] [address] [id number] NURSING PROG Observed: 02/07/2018 Status: COMPLETED Source: [place] 2:40 PM [facility] REPOSITORY HNO ID: [id number] Author: Fauzia Amanda (Rn) KIERRA Hamilton Service: Nursing Author Type: Registered Nurse Type: Nursing Progress Note Filed: 02/07/2018 2:40 PM Note Text: Lab here to draw lab work. Fauzia Hamilton RN NURSING PROG Observed: 02/07/2018 Status: COMPLETED Source: [place] 2:02 PM [facility] REPOSITORY HNO ID: [id number] Author: Fauzia ReyesRn) KIERRA Hamilton Service: Nursing Author Type: Registered Nurse Type: Nursing Progress Note Filed: 02/07/2018 2:11 PM Note Text: Milagros Trujillo Rn at bedside with patient to change left upper arm dressing. Dr. Dozier aware. Fauzia Hamilotn RN NURSING PROG Observed: 02/07/2018 Status: COMPLETED Source: [place] 1:59 PM [facility] REPOSITORY HNO ID: [id number] Author: Milagros ReyesRn) KIERRA Trujillo Service: Nursing Author Type: Registered Nurse Type: Nursing Progress Note Filed: 02/07/2018 2:27 PM Note Text: Patient did not experience a fall within the Intraoperative area. Patient did not experience a burn within the Intraoperative area. Milagros Trujillo RN OPERATIVE NO Observed: 02/07/2018 Status: COMPLETED Source: [place] 1:42 PM [facility] REPOSITORY HNO ID: [id number] Author: Raymundo Dozier Service: Hematology/Oncology Author Type: Physician Type: Operative Report Filed: 02/07/2018 2:02 PM Note Text: SURGEON 1: Raymundo Dozier D.O. INDUSTRIAL HEALTH ENGINEER 1: None. OPERATION: Bone marrow aspiration and biopsy. ANESTHESIA: Moderate sedation. PREOPERATIVE DIAGNOSIS: DLBC NHL. POSTOPERATIVE DIAGNOSIS: Same. OPERATIVE INDICATIONS: Initial staging for DLBC NHL. OPERATIVE FINDINGS: None. OPERATIVE PROCEDURE: The patient was brought to the operating room. After an audible time-out was performed, the patient was positioned in the left lateral decubitus position. A total of 2 mg of Versed and 50 mcg of fentanyl were administered IV to achieve conscious sedation. The skin over the right PSIS was prepped with chlorhexidine and isopropyl alcohol solution. The skin was infiltrated with 1% lidocaine and anesthesia was carried down to the periosteum of the bone. The marrow space was entered with a 4 in [employer] biopsy drill set. Approximately 0.5 mL was aspirated. Then, 10 mL were withdrawn for flow cytometry and FISH studies if indicated. The needle was then advanced and approximately 5 mm core was obtained without difficulty. Light pressure was applied to achieve hemostasis. A dressing was applied. ESTIMATED BLOOD LOSS: None. DRAINS: Not applicable. SPECIMENS: Bone marrow aspirate and core biopsy sample. COMPLICATIONS: None. START TIME: 13:50. STOP TIME: 13:56. Raymundo Dozier DO NURSING PROG Observed: 02/07/2018 Status: COMPLETED Source: [place] 1:40 PM [facility] REPOSITORY HNO ID: [id number] Author: Fauzia ReyesRn) KIERRA Hamilton Service: Nursing Author Type: Registered Nurse Type: Nursing Progress Note Filed: 02/07/2018 1:41 PM Note Text: [facility] PRE-OP NURSING HAND OFF NOTE SBAR Hand off given to Ashtyn Lim RN. Hand off was communicated verbally and at the patient's bedside and all questions were answered. FALLS/WHITTAKER Patient did not experience a fall within the Preoperative area. Patient did not experience a burn within the Preoperative area. Fauzia Hamilton RN FLOW CYTO HOLD Collected: 02/07/2018 Status: F Source: [place] SAMPLE 1:25 PM [facility] REPOSITORY TYPE CODE TESTS RESULT OUT OF REFERENCE UNITS RANGE LAB FLOHLD A bone marrow sample was Flow received for potential Cyto Hold flow cytometry Sample studies. Following morphologic review of the bone marrow, flow cytometric studies will be ordered by the hematopathologist if testing is indicated. Please see the corresponding bone marrow surgical pathology report. Result Comment: [id number] Performed By: #### LORI MCCORMICK #### [facility] [employer] [address] [place], [place] [address] DNA EXTRACTION (BUFFY) Collected: 02/07/2018 Status: F Source: [place] 1:25 [facility] REPOSITORY TYPE CODE TESTS RESULT OUT OF REFERENCE UNITS RANGE LAB NUCBC DNA Extration BC (NOTE) Result Comment: This specimen was received and successfully processed for future DNA purification should molecular testing be needed. Specimens will be available for 3 years from the date of collection. To order testing on this specimen for [facility] patients, please place an [facility] order for DNA and RNA Extractions for Clinical Testing ([id number]). To order testing for patients outside of the [facility] system, please request DNA and RNA Extraction for Clinical Testing, order code [id number]. If additional paperwork is required for testing, please send completed forms via secure email to . Performed By: #### ANNY NUCBUF #### [facility] [employer] [address] [place], [place] [address] SURGICAL PATHOLOGY Observed: 02/07/2018 Status: C Source: [place] 1:25 [facility] REPOSITORY ADDITIONAL PROCEDURES PRESENT Specimen originated from [facility] Specimen #: [id number] Submitting Physician: RAYMUNDO DOZIER M.D. ([id number]) FINAL DIAGNOSIS BONE MARROW, ASPIRATE SMEARS, CORE BIOPSY AND CLOT SECTION WITH TOUCH IMPRINT AND PERIPHERAL BLOOD (A-C): - NORMOCELLULAR BONE MARROW (20-30%) WITH TRILINEAGE HEMATOPOIESIS. - STAINABLE IRON PRESENT. - NORMOCYTIC ANEMIA; THROMBOCYTOSIS. - NO MORPHOLOGIC EVIDENCE OF INVOLVEMENT BY LYMPHOMA. 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 Correlation with the clinical findings and pending cytogenetic studies is suggested. PERIPHERAL BLOOD: CBC (02/07/18): WBC 7.93 k/uL; Hgb 9.3 g/dL; MCV 84.4 fL; RDW 17 %; Plts 410 k/uL Differential (%): Neuts 85 ; Lymphs 12 ; Monos 2 ; Eos 1 ; Baso 0 Morphology/Interpretation: Normocytic anemia with anisocytosis and few ovalocytes. Thrombocytosis. BONE MARROW ASPIRATE Normal % (0-2) 1 % Blasts (1-5) 2 % Promyelo (32-72) 60% Myelos/Metas/Bands/Segs (1-6) 1 % Eosinophils (0-1) 0 % Basophils (0-4) 1 % Monocytes (13-37) 16% Erythroid precursors (7-23) 15% Lymphocytes (0-2) 4 % Plasma cells Myeloid/Erythro (1.5-4): 4.1 Cells counted: 300 Iron stain result: Present; no ring sideroblasts. Specimen Quality: Adequate. Megakaryocytes: Normal morphology. Erythropoiesis: Progressive maturation. Granulopoiesis: Complete maturation. BONE MARROW BIOPSY: Adequacy: Adequate. Cellularity: Normal, approximately 20-30%. ME ratio: Normal. Hematopoiesis: Trilineage maturation. Megakaryocytes: Adequate. Megakaryocyte morphology: Normal. Lymphoid infiltrate: None. Bone trabeculae: Unremarkable. Other: Immunostains are performed to evaluate the plasma cells. These show that plasma cells are positive for CD138 and appear polytypic for kappa and lambda. CLOT SECTION: Marrow particles: Many. Morphology: Similar to biopsy with one small lymphoid aggregate composed of small lymphocytes. ANCILLARY TESTS: Flow cytometry: Performed. Cytogenetics: Pending. FISH: N/A Molecular: Buffy coat stored. Laboratory Developed Test (LDT) Disclaimer: Positive and negative controls stain appropriately. Performance characteristics of immunohistochemical, immunofluorescent and chromogenic in-situ hybridization tests have been determined by [facility]'s [facility] Pathology and Laboratory Medicine [place] ([facility]) in a manner consistent with CLIA requirements. One or more of these tests have not been cleared or approved by the FDA. [facility] is regulated under CLIA as qualified to perform high-complexity testing. These tests are used for clinical purposes. They should not be regarded as investigational or for research. SO/02/09/18 Emmy Zhang M.D. (Electronic Signature) SPECIMEN SUBMITTED A: BONE MARROW, ASPIRATE RPIC B: BONE MARROW, BIOPSY RPIC C: BONE MARROW, CLOT RPIC ADDITIONAL PROCEDURE(S) CYTOGENETICS Date Ordered: 02/07/2018 Date Reported: 02/16/2018 Procedure Results and Interpretation (NOTE) Performing Pathologist: Dr. Edmar Mcgrath MD Interpretation: Lab Analysis No: [id number] Doctor/Pathologist: [facility] No: [id number] Clinical diagnosis: DLBCL Specimen Type: Bone Marrow Number of cells counted: 20 Number of cells analyzed: 20 Number of cells karyotyped: 2 Banding resolution: 400 Banding method: G-banding DIAGNOSIS: 46,XX[20] INTERPRETATION: normal, female karyotype COMMENT: Ten metaphase cells were analyzed from the culture stimulated with ODN and ten metaphase cells were analyzed from the 24 hour unstimulated culture. Twenty cells analyzed showed a 46,XX karyotype. There was no significant numerical chromosome abnormality and no structural change detected within the limits of resolution. Pathologist Interpretation: Edmar Mcgrath MD Performed by [facility] Pathology and Laboratory Medicine [place] Molecular Pathology Section Cytogenetics Lab, [id number] [facility] [place] [address] Toll free: Procedure Pathologist: Emmy Zhang M.D. Electronic Signature CLINICAL DATA DIFFUSE LARGE B CELL LYMPHOMA GROSS DESCRIPTION A. Received are air-dried bone marrow aspirate smears. Submitted for light microscopy. B. Received in formalin is one segment of cylindrical tissue measuring 1.2 x 0.2 x 0.2 cm, brown and of a firm consistency. Totally submitted in formalin in one cassette after decalcification. C. Received in formalin are multiple brown, soft segment of hemorrhagic material aggregating to 1.8 x 1.8 x 1.5 cm. Totally submitted in one cassette. Gross examination performed at [facility], [address] [place] [address] 02/07/2018 10:59:35 PM Date of Report: 02/12/2018 Date of Procedure: 02/07/2018 Date of Receipt: 02/07/2018 Submitted by: RAYMUNDO DOZIER M.D. ([id number]) Location: [facility] Diagnostic interpretation performed at [place] [address]. CHROMOSOME BM Collected: 02/07/2018 Status: F Source: [place] 1:[address] [facility] REPOSITORY TYPE CODE TESTS RESULT OUT OF REFERENCE UNITS RANGE LAB CRBM Chromosome (NOTE) Analysis Result Comment: Performing Pathologist: Dr. Edmar Mcgrath MD Interpretation: Lab Analysis No: [id number] Doctor/Pathologist: [facility] No: [id number] Clinical diagnosis: DLBCL Specimen Type: Bone Marrow Number of cells counted: 20 Number of cells analyzed: 20 Number of cells karyotyped: 2 Banding resolution: 400 Banding method: G-banding DIAGNOSIS: 46,XX[20] INTERPRETATION: normal, female karyotype COMMENT: Ten metaphase cells were analyzed from the culture stimulated with ODN and ten metaphase cells were analyzed from the 24 hour unstimulated culture. Twenty cells analyzed showed a 46,XX karyotype. There was no significant numerical chromosome abnormality and no structural change detected within the limits of resolution. Pathologist Interpretation: Edmar Mcgrath MD Performed by [facility] Pathology and Laboratory Medicine [place] Molecular Pathology Section Cytogenetics Lab, [id number] [place] [address] Toll free: Performed By: #### CHRBMH #### [facility] [address] [place], [place] [address] CBC AND DIFFERENTIAL Collected: 02/07/2018 Status: F Source: [place] 1:[address] [facility] [place] REPOSITORY TYPE CODE TESTS RESULT OUT OF REFERENCE UNITS RANGE LAB WBC 3.70-11.00 k/uL WBC 7.93 LAB RBC 3.90-5.20 m/uL Low RBC 3.71 LAB HGB 11.5-15.5 g/dL Low Hemoglobin 9.3 LAB HCT 36.0-46.0 % Low Hematocrit 31.3 LAB MCV 80.0-100.0 fL MCV 84.4 LAB MCH 26.0-34.0 pG Low MCH 25.1 LAB MCHC 30.5-36.0 g/dL Low MCHC 29.7 LAB RDWCV 11.5-15.0 % RDW-CV High 17.0 LAB PLTCT 150-400 k/uL Platelet High Count 410 LAB MPV 9.0-12.7 fL MPV 11.6 LAB ANEUT % Neut% 77.4 LAB AANEUT 1.45-7.50 k/uL Abs Neut 6.14 LAB ALYMP % Lymph% 10.6 LAB AALYMP 1.00-4.00 k/uL Low Abs Lymph 0.84 LAB AMONO % Kane% 9.7 LAB AAMONO <0.87 k/uL Abs Kane 0.77 LAB AEOS % Eosin% 1.3 LAB AAEOS <0.46 k/uL Abs Eosin 0.10 LAB ABASO % Baso% 1.0 LAB AABASO <0.11 k/uL Abs Baso 0.08 LAB AUNRBC 0 /100 WBC NRBCs 0.0 LAB ABNRBC <0.01 k/uL Absolute nRBC <0.01 LAB DTYP DTYPE Auto Diff Performed By: #### CBCDIF #### [facility] [address] [place], [place] [address] NURSING PROG Observed: 02/07/2018 Status: COMPLETED Source: [place] 1:[address] [facility] REPOSITORY HNO ID: [id number] Author: Fauzia Amanda (Rn) KIERRA Hamilton Service: Nursing Author Type: Registered Nurse Type: Nursing Progress Note Filed: 02/07/2018 1:06 PM Note Text: PRE OP LEARNING ASSESSMENT PROCEDURE/SURGERY: SURGERY: Bone marrow biopsy READINESS TO LEARN COGNITIVE ABILITY: Alert and oriented MOTIVATION TO LEARN: Eager FAMILY SUPPORT: High - Very involved in pt care PATIENT LEARNS BEST BY: Written Instruction - Hand-outs Verbal Instruction FACTORS AFFECTING LEARNING: None PHYSICAL LIMITATIONS AFFECTING LEARNING: None Electronically Signed By: Fauzia Hamilton RN In Department: AMBULATORY SURGERY PT ED Observed: 02/07/2018 Status: COMPLETED Source: [place] 1:[address] [facility] [place] REPOSITORY HNO ID: [id number] Author: Fauzia ReyesRn) KIERRA Hamilton Service: Nursing Author Type: Registered Nurse Type: Patient Education Filed: 02/07/2018 1:05 PM Note Text: POST OP LEARNING RESPONSE INSTRUCTION PROVIDED TO: Patient and grandcamter METHOD OF INSTRUCTION: Verbal instruction PATIENT / FAMILY RESPONSE: Verbalizes understanding of: INFECTION MANAGEMENT-Signs and symptoms of an infection and importance of contacting the physician PAIN MANAGEMENT-Effective strategies to manage pain in addition to pain medication PHYSICAL RESTRICTIONS-Physical restrictions and recommendations after discharge from the hospital POST-PROCEDURE INSTRUCTIONS-Correct actions to take to reduce post procedure complications PATIENT SAFETY PRINCIPLES WORSENING CONDITION-Signs and symptoms of a worsening condition that warrant a call to the physician FOLLOW-UP PLAN: Patient instructed to call with any further issues Follow up phone call. SUPPLEMENTAL MATERIAL: Procedure discharge instructions REFERRAL (RECOMMENDATION): None Electronically Signed By: Fauzia Hamilton RN In Department: AMBULATORY SURGERY NM PET/CT SKULL-THIGH Observed: 02/06/2018 Status: F Source: [place] 1:[address] 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 INDICATION: Study performed for initial treatment strategy. TECHNIQUE: F18-FDG administered IV was followed about 60 minutes later by PET imaging from eyes to proximal thighs. Free breathing low dose CT was performed without contrast for attenuation correction and anatomic localization. FDG radionuclide dose: 10.[address] Dose-Length Product (DLP): 305 mGy*cm. CT Dose Reduction Employed: Automated exposure control (AEC) was used COMPARISON: None available. CORRELATION: None. RESULT: Reference values: Liver (maximum SUV 3.2). Mediastinal blood pool (maximum SUV 2.5). NECK: Physiologic FDG uptake seen in the visualized brain, parapharyngeal soft tissues, base of tongue, vocal cords, and salivary glands. No hypermetabolic cervical lymphadenopathy or masses. No focal hypermetabolic thyroid lesion. CHEST: Physiologic FDG uptake in the heart and mediastinum. Lungs and tracheobronchial tree: No hypermetabolic pulmonary consolidation, mass or nodules. Pleura: There is a hypermetabolic 1.9 x 1.4 cm pleural-based nodularity in the posterior right hemithorax (maximum SUV 17.9, series 3:138, series 4:131). Mediastinum and Lymph nodes: No hypermetabolic axillary, hilar, or mediastinal lymphadenopathy. No mediastinal mass. Chest wall: Unremarkable. ABDOMEN AND PELVIS: Physiologic FDG uptake seen in the and GI tracts. Liver: There is a 1.8 x 1.5 cm focus of elevated FDG activity in the lateral segment of the left hepatic lobe (maximum SUV 17.0, series 3:114, series 4:171). Biliary: No bile duct dilation. Spleen: No hypermetabolic mass. No splenomegaly. Pancreas: No mass or duct dilation. Adrenals: No hypermetabolic mass. Kidneys: No stones, hydronephrosis, or hypermetabolic lesions. GI tract: No dilation or wall thickening. Lymph nodes: No hypermetabolic abdominal or pelvic lymphadenopathy. Mesentery/Peritoneum: No ascites or mass. Vasculature: Vascular patency cannot be assessed due to lack of IV contrast. BONES AND SOFT TISSUES: There is a large hypermetabolic cutaneous mass of the proximal left upper arm, measuring 6.8 x 3.1 cm (maximum SUV 16.9, series 3:189, series 4:50). There is a second smaller collection of elevated FDG activity more distal on the left upper arm, but is outside of the CT [id number]. No suspicious FDG avid osseous foci are detected. Status post sternotomy. The imaged portions of the skeleton disclose age-related degenerative changes, with no detectable destructive lytic or sclerotic lesions. ====== IMPRESSION: 1. NECK: No FDG avid neoplastic process. No hypermetabolic mass, adenopathy, or fluid collection. 2. CHEST: Hypermetabolic pleural-based nodularity in the right posterior hemithorax. No hypermetabolic adenopathy, or fluid collection. 3. ABDOMEN/PELVIS: Hypermetabolic hepatic lesion. No hypermetabolic adenopathy, or fluid collection. 4. BONES AND SOFT TISSUES: Hypermetabolic cutaneous mass of the proximal left upper extremity. No suspicious FDG avid osseous process. Drying And Winding Supervisor: ROMEO Transcribe Date/Time: Feb 06 2018 2:15P Dictated by : BOUBACAR MOHR MD This examination was interpreted and the report reviewed and electronically signed by: BOUBACAR MOHR MD on Feb 06 2018 2:29PM EST [id number] Observed: 02/02/2018 Status: COMPLETED Source: [place] 12:00 AM [facility] REPOSITORY Patient:Jennifer Whitlock MRN: <[id number]> Height:5' 6[verified [(1.676 m) Weight:148 lb (67.132 kg) Outpatient Medications as of 02/07/18: predniSONE (DELTASONE) 50 mg tab ondansetron (ZOFRAN) 8 mg tablet cephALEXin (KEFLEX) 500 mg capsule warfarin (COUMADIN) 1 mg tablet furosemide (LASIX) 80 mg tablet amLODIPine (NORVASC) 5 mg tablet lactobacillus rhamnosus (CULTURELLE) 10 billion cell capsule metoprolol tartrate, short acting, (LOPRESSOR) 50 mg tablet polyethylene glycol 3350 (MIRALAX, GLYCOLAX) 17 gram packet cyanocobalamin (VITAMIN B-12) 1,000 mcg tab aspirin 81 mg chewable tablet pantoprazole DR (PROTONIX) 40 mg tablet ferrous sulfate 325 mg (65 mg iron) tablet potassium chloride ER (K-DUR, KLOR-CON) 20 mEq tablet amiodarone (PACERONE) 200 mg tablet calcium phosphate-vitamin D3 (CITRACAL + D3, CALCIUM PHOS,) 250 mg calcium- 250 unit chew rosuvastatin (CRESTOR) 5 mg tablet VIT C/MICHELINE AC/LUT/COPPER/ZNOX (PRESERVISION LUTEIN ORAL) propylene glycol (SYSTANE BALANCE) 0.6 % drop Admission/Clinic Administered Medications as of 02/07/18: lidocaine 10 mg/mL (1 %) 1-2 mg injection (XYLOCAINE) lactated ringers infusion Problem List: OA (osteoarthritis) of knee [M17.10] Knee pain, chronic [M25.569, G89.29] GI bleed [K92.2] Colitis [K52.9] 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] Paroxysmal atrial fibrillation (HCC) [I48.0] Arm mass, left [R22.32] Acute blood loss anemia [D62] Leg mass, right [R22.41] 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 [facility] scheduling notified on 02/01/18 to call us to schedule, voice message left with their office. Checked on status of this today and nothing scheduled, but also noticed order hasn't been placed. Please advise. Raymundo Dozier DO 02/06/2018 2:36 PM Signed Order for PICC placed. DO Emily Shah Psr 02/06/2018 3:02 PM Signed Left message for [facility] to call our office to schedule PICC line for Monday, 02/09 in the pm. Marta Najera LPN, KRISTIAN 02/06/2018 3:32 PM Signed [facility] states pt. GFR must be over 45 for Picc placement, this pt. Last GFR was 26. [facility] states it will not be done on Monday. KRISTIAN Lott DO 02/06/2018 3:45 PM Signed Can you please ask them how we get a PICC line placed by the PICC nurse using just ultrasound? DO Marta Shah LPN, LPN 02/06/2018 4:07 PM Signed They will do only using U/S but state the GFR still has to be above 45, that is their standard of care. Has to do with the viability of veins Schedulers are working on getting scheduled at [facility] for Monday, as per Dr. Dozier direction. KRISTIAN Lott Psr 02/07/2018 7:48 AM Signed Left message yesterday at 4:20 (they leave at 4:00) with Interventional Radiology nurses to please call our office to setup PICC for 02/09 at [facility]. This PSS faxed over order, demographics, and insurance card information. Sindy Lopez Psr 02/07/2018 9:37 AM Signed [facility] called and stated that Jennifer has been scheduled Monday02/09/18 @ 9:30am for a PICC Line placement. Sindy Lopez Psr Progress Notes ([facility]): Marcio Whitlock PSR 02/05/2018 9:26 AM Signed Pharmacy called requesting Doctor clarification on patient meds. Pharmacy states that Patient has a current RX for Amiodarone, and there can be a reaction with a newly prescribed Zofran (ondansetron). Please advise pharmacy thanks Marcio Whitlock PSR Raymundo Dozier DO 02/05/2018 10:06 AM Signed It is okay for her to take the Zofran on an as-needed basis for nausea should she have any. The dose of Zofran at 8 mg is considerably lower than the doses previously used intravenously with chemotherapy. DO Maki Shah LPN 02/05/2018 10:11 AM Signed Clarified with pharmacy. Maki Swann LPN PROGRESS Observed: 02/01/2018 Status: COMPLETED Source: [place] 11:55 AM [facility] REPOSITORY HNO ID: [id number] Author: Raymundo Dozier Service: (none) Author Type: Physician Type: Progress Notes Filed: 02/05/2018 8:34 AM Note Text: Consult requested by Dr. Rowe for my opinion and recommendations regarding a patient with cutaneous diffuse large B-cell lymphoma. The impression and plan will be communicated by way of the shared electronic record. HPI: The patient is a 82-year-old female is a past medical history significant for aortic valve replacement (bovine valve; on long-term warfarin) and recent infected knee replacement status post extended antibiotic therapy whose had a growth on her mid left upper arm for at least 3-4 months. More recently the mass on the arm has started to lose blood and the patient underwent an evaluation. Biopsy completed by Dr. Luna at [facility]. 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 COMMENT: SUZIE-stained tissue sections show a markedly atypical infiltrate involving superficial and deep dermis, composed of large cells with vesicular chromatin and one to few nucleoli. Increased mitotic figures are seen. No epidermotropism is present. Immunohistochemical stains show the abnormal cell are CD20+, PAX5+, BCL6+, BCL2+ MUM1+and weak CD10+??with a proliferation index of 80-90% by Ki-67+ nuclei. The same population is negative for EBV (JONAH), light chains (JONAH), CD21, CD30, and CD15. Background T-cells are CD3+, CD4+, CD5+ and CD8+. 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 However, systemic workup is recommended to exclude secondary skin involvement by a primary yael/systemic DLBCL. Her son has been wrapping the lesion with an abdominal pad and Kerlix dressing due to the continuous oozing of blood. The patient's performance status is very good. She still cares for her own home and is very active around the house and enjoys getting out. She's capable of all her ADLs and IADLs. She denies shortness of breath at rest and with exertion. She has no other symptoms suggestive of cardiac issues including chest pain/pressure, palpitations, shortness of breath at rest or with exertion, lower extremity swelling/edema, PND or orthopnea. No other unusual bleeding or unexplained bruising. No baseline neuropathy. Appetite is been normal. She hasn't been experiencing recurrent fevers. No night sweats. PMH, medications and allergies personally reviewed by me today. Any changes documented in appropriate section. ROS: Constitutional: See above. Neuro: Denies WALKER, vertigo, dizziness and imbalance. HEENT: No recent change in voice, vision or hearing. Resp: Denies cough, wheeze and hemoptysis. CVS: See above. GI: Denies dysgeusia. Denies symptoms of stomatitis. Denies dysphagia and odynophagia. Denies reflux, n/v, change in bowel habits and abdominal pain. : Denies dysuria or gross hematuria. No symptoms of bladder outlet obstruction. Endo: Denies hot flashes. Denies polyuria and polydipsia. Denies heat and cold intolerance. Musculoskeletal: Denies bone, back, joint and muscular pain. Derm: Denies rash. Denies jaundice and diffuse pruritis. Heme: See above. Psych: Normal mood. PHYSICAL EXAM: Vitals: Blood pressure 186/86, pulse 87, temperature 36.5 ?C (97.7 ?F), height 167.6 cm (5' 6), weight 67.1 kg (148 lb). Well-appearing and in no acute distress. EYES: Sclerae are anicteric bilaterally. ENT: Oral mucosa is unremarkable. There is no sign of thrush or mucositis. NECK: Supple. No enlargement of thyroid. LYMPHATIC: There is no palpable cervical, supraclavicular, axillary or inguinal adenopathy. RESPIRATORY: Inspiratory breath sounds are of normal intensity in all massey. No rales, wheezes or rhonchi. CARDIOVASCULAR: Rhythm is regular. Normal intensity S1/S2. Soft systolic murmur. ABDOMEN: The abdomen is nondistended. No organomegaly. No tenderness. Extremities: Dressings were undone. There is a large malignant mass of the mid posterior left upper arm. It is oozing blood. No clear evidence of infection. The mass was not examined very long secondary to not stop oozing. There is a smaller satellite tumor just below the mass measuring approximately 2-3 cm in diameter. SKIN: No jaundice or rash otherwise. NEUROLOGIC: department head college or university II-XII are grossly intact. No focal motor weakness. DTRs are symmetric and normal. MUSCULOSKELETAL: No muscle wasting. 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 -KPS is 90%. -I had an in-depth and lengthy discussion with the patient and her son today regarding the urgent nature and need for further workup and institution of treatment for this disease. She has no constitutional symptoms or exam findings suggesting lymphoma elsewhere but requires complete staging including bone marrow biopsy, PET scan and repeat echocardiogram given her history of aortic valve disease. -Bone marrow biopsy complicated by her ongoing need for anticoagulation so I asked her to hold aspirin. She will continue Coumadin. Her situation is also complicated by her recent infected knee replacement. -I discussed with the patient and her son the natural history, treated course, and prognosis of DLBC. Further prognostic information pending. Also discussed the rationale, logistics, potential risks (including ), benefits and alternatives, as well as the personnel involved in the administration of R-CHOP. I answered her questions in detail and she verbalized understanding and agreed with the recommended therapy. Please see the electronic consent document for details of doses and schedule. Plan: -Chemotherapy teaching. -Rx for prednisone and Zofran. -Echocardiogram. -Bone marrow biopsy on Monday. -PET scan at [facility] on Monday afternoon. -Advised treatment start next Monday but she wants to defer until the following Monday. Total vegf-wh-vugo time was >60 minutes with greater than 45 minutes spent discussing the issues outlined above and/or coordinating care. Raymundo Dozier DO CNOVSP Observed: 02/01/2018 Status: COMPLETED Source: [place] 11:10 AM [facility] REPOSITORY Visit (SP) Office ([place]) JENNIFER WHITLOCK ([id number]) 1935 F Date Time Provider Department 02/01/18 11:10 AM RAYMUNDO DOZIER During your visit today, we recorded the following information about you: Temperature Pulse Blood pressure Weight 97.7 degrees 87/minute 186/86 67.1 kg Height 1.676 m Marta Trotter KRISTIAN Najera, ACTIVITIES MANAGER 02/01/2018 11:57 AM Signed New patient, discuss recent DX: lymphoma Raymundo Dozier, 02/05/2018 8:34 AM Signed Consult requested by Dr. Rowe for my opinion and recommendations regarding a patient with cutaneous diffuse large B-cell lymphoma. The impression and plan will be communicated by way of the shared electronic record. HPI: The patient is a 82-year-old female is a past medical history significant for aortic valve replacement (bovine valve; on long-term warfarin) and recent infected knee replacement status post extended antibiotic therapy whose had a growth on her mid left upper arm for at least 3-4 months. More recently the mass on the arm has started to lose blood and the patient underwent an evaluation. Biopsy completed by Dr. Luna at [facility]. 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 COMMENT: SUZIE-stained tissue sections show a markedly atypical infiltrate involving superficial and deep dermis, composed of large cells with vesicular chromatin and one to few nucleoli. Increased mitotic figures are seen. No epidermotropism is present. Immunohistochemical stains show the abnormal cell are CD20+, PAX5+, BCL6+, BCL2+ MUM1+and weak CD10+??with a proliferation index of 80-90% by Ki-67+ nuclei. The same population is negative for EBV (JONAH), light chains (JONAH), CD21, CD30, and CD15. Background T-cells are CD3+, CD4+, CD5+ and CD8+. 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 However, systemic workup is recommended to exclude secondary skin involvement by a primary yael/systemic DLBCL. Her son has been wrapping the lesion with an abdominal pad and Kerlix dressing due to the continuous oozing of blood. The patient's performance status is very good. She still cares for her own home and is very active around the house and enjoys getting out. She's capable of all her ADLs and IADLs. She denies shortness of breath at rest and with exertion. She has no other symptoms suggestive of cardiac issues including chest pain/pressure, palpitations, shortness of breath at rest or with exertion, lower extremity swelling/edema, PND or orthopnea. No other unusual bleeding or unexplained bruising. No baseline neuropathy. Appetite is been normal. She hasn't been experiencing recurrent fevers. No night sweats. PMH, medications and allergies personally reviewed by me today. Any changes documented in appropriate section. ROS: Constitutional: See above. Neuro: Denies WALKER, vertigo, dizziness and imbalance. HEENT: No recent change in voice, vision or hearing. Resp: Denies cough, wheeze and hemoptysis. CVS: See above. GI: Denies dysgeusia. Denies symptoms of stomatitis. Denies dysphagia and odynophagia. Denies reflux, n/v, change in bowel habits and abdominal pain. : Denies dysuria or gross hematuria. No symptoms of bladder outlet obstruction. Endo: Denies hot flashes. Denies polyuria and polydipsia. Denies heat and cold intolerance. Musculoskeletal: Denies bone, back, joint and muscular pain. Derm: Denies rash. Denies jaundice and diffuse pruritis. Heme: See above. Psych: Normal mood. PHYSICAL EXAM: Vitals: Blood pressure 186/86, pulse 87, temperature 36.5 ?C (97.7 ?F), height 167.6 cm (5' 6), weight 67.1 kg (148 lb). Well-appearing and in no acute distress. EYES: Sclerae are anicteric bilaterally. ENT: Oral mucosa is unremarkable. There is no sign of thrush or mucositis. NECK: Supple. No enlargement of thyroid. LYMPHATIC: There is no palpable cervical, supraclavicular, axillary or inguinal adenopathy. RESPIRATORY: Inspiratory breath sounds are of normal intensity in all massey. No rales, wheezes or rhonchi. CARDIOVASCULAR: Rhythm is regular. Normal intensity S1/S2. Soft systolic murmur. ABDOMEN: The abdomen is nondistended. No organomegaly. No tenderness. Extremities: Dressings were undone. There is a large malignant mass of the mid posterior left upper arm. It is oozing blood. No clear evidence of infection. The mass was not examined very long secondary to not stop oozing. There is a smaller satellite tumor just below the mass measuring approximately 2-3 cm in diameter. SKIN: No jaundice or rash otherwise. NEUROLOGIC: department head college or [employer] II-XII are grossly intact. No focal motor weakness. DTRs are symmetric and normal. MUSCULOSKELETAL: No muscle wasting. 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 -KPS is 90%. -I had an in-depth and lengthy discussion with the patient and her son today regarding the urgent nature and need for further workup and institution of treatment for this disease. She has no constitutional symptoms or exam findings suggesting lymphoma elsewhere but requires complete staging including bone marrow biopsy, PET scan and repeat echocardiogram given her history of aortic valve disease. -Bone marrow biopsy complicated by her ongoing need for anticoagulation so I asked her to hold aspirin. She will continue Coumadin. Her situation is also complicated by her recent infected knee replacement. -I discussed with the patient and her son the natural history, treated course, and prognosis of DLBC. Further prognostic information pending. Also discussed the rationale, logistics, potential risks (including ), benefits and alternatives, as well as the personnel involved in the administration of R-CHOP. I answered her questions in detail and she verbalized understanding and agreed with the recommended therapy. Please see the electronic consent document for details of doses and schedule. Plan: -Chemotherapy teaching. -Rx for prednisone and Zofran. -Echocardiogram. -Bone marrow biopsy on Monday. -PET scan at [facility] on Monday afternoon. -Advised treatment start next Monday but she wants to defer until the following Monday. Total dcem-vo-fduc time was >60 minutes with greater than 45 minutes spent discussing the issues outlined above and/or coordinating care. 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) [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] Order(s):RAUL CBC AND DIFF [SQWCBCDF] Order #: [id number] FUTURE COMP METABOLIC PANEL [SQCMP] Order #: [id number] FUTURE LD LACTATE DEHYDRO [SQLD6] Order #: [id number] FUTURE URIC ACID BLOOD [SQURIC] Order #: [id number] FUTURE HEP REMOTE PANEL BL [SQHREMOP] Order #: [id number] FUTURE NM PET/CT SKULL-THIGH [3636657] Order #: [id number] FUTURE CT ABD/PEL W IVCON [[id number]] Order #: [id number] FUTURE CT CHEST W IVCON [[id number]] Order #: [id number] FUTURE [] iv contrast (will be provided with radiology test)CT Chest ABD/PEL-Inject, intravenously, once for 1 dose.No IV access, insert saline lock prior to the beginning of sedation, infusion, injection of imaging exam. Discontinue saline lock post exam. If Pt. has a central line or IVAD, may access for administration according to line specific nursing protocol. Once exam is complete flush line and de-access according to line specific nursing protocol in the CT contrast administration guidelines link.Disp: 1 EachRfl: 0 [] enteric contrast (will be provided with radiology test)For CT CHESTABD/PEL W IVCON Routine order Administer, As Directed One Time Only, via Oral, Rectal, both Oral and Rectal, Enteric Tube, Stoma or Indwelling Catheter, Enteric Contrast as designated per enteric contrast guidelinesDisp: 1 EachRfl: 0 ECHO [[id number]] Order #: [id number]: 1 FUTURE predniSONE (DELTASONE) 50 mg tabTake 2 tablets with breakfast daily for 5 days in a row beginning on the first day of each chemotherapy treatment.Disp: 10 tabletRfl: 5 ondansetron (ZOFRAN) 8 mg tabletTake 1 tablet by mouth every 8 hours as needed for Nausea/Vomiting.Disp: 30 tabletRfl: 2 Follow-up and Disposition History Recorded Prescriptions as of 02/01/2018 Sig: CEPHALEXIN 500 MG CAPSULE Take 500 mg by mouth twice da* WARFARIN 1 MG TABLET Take 0.5 tablets by mouth onc* FUROSEMIDE 80 MG TABLET Take 0.5 tablets by mouth onc* AMLODIPINE 5 MG TABLET Take 1 tablet by mouth once d* LACTOBACILLUS RHAMNOSUS GG 10* Take 1 capsule by mouth once * METOPROLOL TARTRATE 50 MG TAB* Take 1 tablet by mouth every * POLYETHYLENE GLYCOL 3350 17 G* Take 1 Packet by mouth once d* CYANOCOBALAMIN (VIT B-12) 1,0* Take 1 tablet by mouth once d* ASPIRIN 81 MG CHEWABLE TABLET Take 1 tablet by mouth once d* PANTOPRAZOLE 40 MG TABLET,DEL* Take 1 tablet by mouth DAILY * FERROUS SULFATE 325 MG (65 MG* Take 325 mg by mouth once rina* POTASSIUM CHLORIDE ER 20 MEQ * Take 20 mEq by mouth as direc* AMIODARONE 200 MG TABLET Take 200 mg by mouth once rina* CALCIUM PHOSPHATE-VITAMIN D3 * Take 2 tablets by mouth once * ROSUVASTATIN 5 MG TABLET Take 5 mg by mouth once daily. PRESERVISION LUTEIN ORAL Take 1 mg by mouth once daily. PROPYLENE GLYCOL 0.6 % EYE DR* Use 1 Drop in both eyes once * PREDNISONE 50 MG TABLET Take 2 tablets with breakfast* ONDANSETRON HCL 8 MG TABLET Take 1 tablet by mouth every * IV CONTRAST (RADIOLOGY PROCED* CT Chest ABD/PEL-Inject, intr* ENTERIC CONTRAST (RADIOLOGY P* For CT CHESTABD/PEL W IVCON R* Problem List As Of Date 02/01/2018 Noted Resolved OA (osteoarthritis) of knee [M17.10] INVALID FOR* Knee pain, chronic [M25.569, G89.29] INVALID FOR* GI bleed [K92.2] INVALID FOR* Colitis [K52.9] INVALID FOR* Orthopedic aftercare [Z47.89] INVALID FOR*12/26/2017 Status post revision of total replacement of ri*INVALID FOR* Paroxysmal atrial fibrillation (HCC) [I48.0] INVALID FOR* Arm mass, left [R22.32] INVALID FOR* Acute blood loss anemia [D62] INVALID FOR* Leg mass, right [R22.41] INVALID FOR* Visit Notes: >> Marta Najera LPN [facility] Feb 01, 2018 11:29 AM Status: Signed New patient, discuss recent DX: lymphoma Encounter Status:Closed by RAYMUNDO DOZIER DO on 02/05/18 AMB OFFICE-PROGRESS Observed: 01/30/2018 Status: F Source: [facility] NOTES-PROVIDER 10:56 AM [facility] REPOSITORY Patient: JENNIFER WHITLOCK Age: 82 years Sex: Female : 1935 Associated Diagnoses: None Author: PARKER BRIGGS, SOTO Visit Information Visit type: Scheduled follow-up. Accompanied by: No one. Source of history: Self. Referral source: Self. History limitation: None. Chief Complaint Follow-up appointment because of hypertension, paroxysmal atrial fibrillation, hyperlipidemia and is status post aortic valve replacement for aortic stenosis. Patient had a right knee surgery done and has been recovering very well. She denies any cardiac symptoms and has been fairly active. Chart and medications reviewed. Review of Systems Constitutional: No fever, No chills, No sweats. Eye: Negative. Ear/Nose/Mouth/Throat: Negative. Respiratory: No shortness of breath, No cough. Cardiovascular: No chest pain, No syncope. Gastrointestinal: No nausea, No vomiting. Genitourinary: Negative. Gynecologic Hematology/Lymphatics: No bruising tendency, No bleeding tendency. Endocrine: Negative. Musculoskeletal: Negative. Integumentary: No rash, No abrasions. Psychiatric: No anxiety, No depression. Health Status Allergies: Allergies (2) Active Reaction No Known Medication Allergies None Documented splenda artificial sugar None Documented Current medications: Home Medications (17) Active amiodarone 200 mg oral tablet See Instructions amLODIPine 2.5 mg oral tablet See Instructions aspirin 81 mg oral tablet 81 mg = 1 tab(s), ORAL, DAILY cephalexin 500 mg oral tablet , ORAL, BID Citracal-D (calcium citrate 200mg- vit D 250 units) oral tab 2 tabs, ORAL, DAILY cyanocobalamin 1000 mcg oral tablet 1,000 mcg = 1 tabs, ORAL, DAILY Feosol 325 mg (65 mg elemental iron) oral tablet 325 mg = 1 tab(s), ORAL, DAILY furosemide 40 mg oral tablet 40 mg = 1 tabs, ORAL, DAILY Klor-Con M20 oral tablet, extended release 20 mEq = 1 tab(s), ORAL, BID lactobacillus rhamnosus Metoprolol Succinate ER 50 mg oral tablet, extended release See Instructions MiraLax , ORAL, DAILY pantoprazole 40 mg oral delayed release tablet 40 mg = 1 tabs, ORAL, DAILY PreserVision oral capsule 1 caps, ORAL, DAILY rosuvastatin 5 mg oral tablet 1 tabs, ORAL, DAILY Systane Balance ophthalmic solution 1 drops, Both Eyes, DAILY warfarin 1 mg oral tablet See Instructions Problem list: Active Problems (17) Aortic stenosis Aortic Valve Disorder Atherosclerosis Arteries Extrem W/Interm Claudication Atrial fibrillation Bradyarrhythmia Dehydration History of underactive thyroid Hyperlipidemia Hypertension Benign Hypertension Unspec Hypertensive Heart Disease Benign W/Heart Failure Mitral Valve Disorder Orthostatic dizziness Paroxysmal atrial fibrillation Rheumatic Aortic Stenosis S/P AVR (aortic valve replacement) Shortness of breath on exertion Histories Past Medical History: No qualifying data available Family History: Father: () Age at unknown. [place]ittaker of multiple sites Brother Cancer. High blood pressure.. Mother: Family History of Heart disease. Brother: Brothers Diabetes.. Procedure history: VALVE [id number] in 2014 at 80 Years. PACEMAKER IMPLANT in 2014 at 80 Years. ECHOCARDIOGRAM on 07/11/2014 at 79 Years. Cardiac Rehab on 12/03/2013 at 78 Years. KNEE REPLACEMENT on 11/18/2013 at 78 Years. Operative Result Knee Surgery on 09/14/2011 at 76 Years. Bilateral cataract extraction with lens implant. Bilateral total knee replacement. Social History Social & Psychosocial Habits Alcohol 01/07/2014 Risk Assessment: Denies Alcohol Use Other Comment: Daily Caffeine: Consumes on average 2 cups of regular coffee per day - 01/07/2014 13:31 - Amrita Ivan Substance Abuse 01/07/2014 Risk Assessment: Denies Substance Abuse Tobacco 01/07/2014 Use: Former smoker Comment: QUIT 30 YRS AGO - 01/07/2014 13:31 - Amrita Ivan . Physical Examination Temperature 97.3 (10:44) Systolic Blood Pressure 140 (10:54) Diastolic Blood Pressure 70 (10:54) Pulse 70 (10:44) SpO2 No result Respiratory Rate No result VS/Measurements Documented vital signs, Vital Signs (last 24 hrs) Last Charted Heart Rate Apical 70 bpm (JAN 30 10:43) SBP 140 mmHg (JAN 30 10:54) DBP 70 mmHg (JAN 30 10:54) Weight 68 kg (JAN 30 10:43) Height 168 cm (JAN 30 10:43) BMI 24.09 (JAN 30 10:43) General: Alert and oriented, No acute distress. Skin: No cyanosis, Not jaundiced. Eye: Normal conjunctiva. HENT: Normocephalic. Neck: Supple, Non-tender, No carotid bruit, No jugular venous distention, No lymphadenopathy, No thyromegaly. Respiratory: Symmetrical chest wall expansion, No chest wall tenderness. Breath sounds: Bilateral, Anterior, Posterior, No wheezing, No crackles present. Cardiovascular: Normal rate, Regular rhythm, No murmur, No gallop, Good pulses equal in all extremities, Normal peripheral perfusion, No edema. Gastrointestinal: Soft, Non-tender, Normal bowel sounds, No organomegaly. Genitourinary: No costovertebral angle tenderness. Lymphatics: No lymphadenopathy neck, axilla, groin. Musculoskeletal: Normal range of motion, Normal strength, No tenderness, No deformity. Integumentary: Warm. Neurologic: Alert, Oriented, No focal deficits. Psychiatric: Cooperative, Normal judgment. Review / Management No qualifying data available Impression and Plan 1. Blood pressure is controlled. 2. Paroxysmal atrial fibrillation remained in normal sinus rhythm. 3. Hyperlipidemia controlled with Crestor. 4. Status post AVR for aortic stenosis. Plan. 1. Advised to increase activity and continue all medications. 2. Follow-up appointment in 3 months. Electronically signed by Dr. Cassie Rowe. PHONE MSG Observed: 01/29/2018 Status: F Source: [facility] 8:07 AM [facility] REPOSITORY Entered by SOTO ROWE MD on January 29, 2018 08:07:54 EST From: SOTO ROWE MD To: [id number] Sent: 01/29/2018 08:07:54 EST Subject: Medication Management Submitted: Complete:rosuvastatin (rosuvastatin 5 mg oral tablet) Signed by SOTO ROWE MD 01/29/2018 08:07:00 Approved rosuvastatin (ROSUVASTATIN CALCIUM 5 MG TAB) TAKE 1 TABLET BY MOUTH ONCE DAILY Qty: 90 TB Days Supply: 90 Refills: 3 Substitutions Allowed Route To Pharmacy - [id number] Patient matched by SOTO ROWE MD on 01/29/2018 08:07:39 EST From: [id number] To: SOTO ROWE MD Sent: January 27, 2018 1:04:54 AM EST Subject: Medication Management Due: January 28, 2018 1:04:54 AM EST On Hold Pending Signature Drug: rosuvastatin (rosuvastatin 5 mg oral tablet) TAKE 1 TABLET BY MOUTH ONCE DAILY Quantity: 90 TB Days Supply: 90 Refills: 3 Substitutions Allowed Notes from Pharmacy: Dispensed Drug: rosuvastatin (rosuvastatin 5 mg oral tablet) TAKE 1 TABLET BY MOUTH ONCE DAILY Quantity: 90 TB Days Supply: 90 Refills: 3 Substitutions Allowed Notes from Pharmacy: Observed: 01/11/2018 Status: F Source: [facility] [facility] SURGICAL PATHOLOGY 3:00 PM SYSTEM REPOSITORY [id number] [facility] PATHOLOGY AND LABORATORY MEDICINE [address] [place] [address] FINAL SURGICAL PATHOLOGY REPORT NAME: JENNIFER WHITLOCK : 1935 82 Y F BILLING NO.: [id number] LOCATION: 1SPO PROCEDURE 01/11/2018 DATE: SURGEON: Praveen LUNA M.D. RECEIVED 01/11/2018 DATE: ATTENDING: Praveen LUNA M.D. REPORT DATE: 01/16/2018 COPIES TO: DIAGNOSIS: LEFT UPPER ARM SKIN LESION, BIOPSY: -LARGE B-CELL LYMPHOMA, SUGGESTIVE OF PRIMARY CUTANEOUS DIFFUSE LARGE B-CELL LYMPHOMA, LEG TYPE. SEE COMMENT. COMMENT: H&E-stained tissue sections show a markedly atypical infiltrate involving superficial and deep dermis, composed of large cells with vesicular chromatin and one to few nucleoli. Increased mitotic figures are seen. No epidermotropism is present. Immunohistochemical stains show the abnormal cell are CD20+, PAX5+, BCL6+, BCL2+ MUM1+and weak CD10+ with a proliferation index of 80-90% by Ki-67+ nuclei. The same population is negative for EBV (JONAH), light chains (JONAH), CD21, CD30, and CD15. Background T-cells are CD3+, CD4+, CD5+ and CD8+. 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 However, systemic workup is recommended to exclude secondary skin involvement by a primary yael/systemic DLBCL. MAINTENANCE DISPATCHER/MAINTENANCE DISPATCHER <Sign Out Dr. Robert> TEDDY COOK M.D. CLINICAL INFORMATION: Lesion left upper arm SPECIMEN: LESION, BIOPSY, NOS , upper arm GROSS DESCRIPTION: Lesion left upper arm Received in formalin are two flat, white-levy skin segments one measuring 1.0 x 1.0 and the second measuring 1.2 x 1.2 cm. Each segment is sectioned and entirely submitted separately in a total of two cassettes. (bits ns, 2) JCK/JUVENTINO Disclaimer: The following statement applies to all immunohistochemistry, in situ hybridization, molecular studies, and immunofluorescence testing. The use of one or more reagents in the above tests is regulated as an analyte specific reagent (ASR). These tests were developed and their performance characteristics determined by the clinical laboratories of [facility]. They have not been cleared by the US Food and Drug Administration (FDA). The FDA has determined that such clearance or approval is not necessary. All the above immunostains were performed on paraffin embedded tissue. Appropriate positive and negative controls (where applicable) were run in parallel with the patient's specimen; these controls showed expected staining pattern, with acceptable intensity of staining. Immunohistochemical assays have not been validated on decalcified tissues. Results should be interpreted with caution given the raised possibility of false negativity on decalcified specimens. Professional Performing Location: [address] [address]. DEPARTMENT OF PATHOLOGY AND LABORATORY MEDICINE [place], [place] [address] CBC AND DIFFERENTIAL Collected: 12/30/2017 Status: F Source: [place] 11:15 AM [facility] REPOSITORY TYPE CODE TESTS RESULT OUT OF REFERENCE UNITS RANGE LAB WBC 3.70-11.00 k/uL WBC 8.76 LAB RBC 3.90-5.20 m/uL Low RBC 3.75 LAB HGB 11.5-15.5 g/dL Low Hemoglobin 9.3 LAB HCT 36.0-46.0 % Low Hematocrit 31.5 LAB MCV 80.0-100.0 fL MCV 84.0 LAB MCH 26.0-34.0 pG Low MCH 24.8 LAB MCHC 30.5-36.0 g/dL Low MCHC 29.5 LAB RDWCV 11.5-15.0 % RDW-CV High 16.7 LAB PLTCT 150-400 k/uL Platelet High Count 424 LAB MPV 9.0-12.7 fL MPV 10.9 LAB ANEUT % Neut% 77.5 LAB AANEUT 1.45-7.50 k/uL Abs Neut 6.79 LAB ALYMP % Lymph% 9.9 LAB AALYMP 1.00-4.00 k/uL Low Abs Lymph 0.87 LAB AMONO % Kane% 9.8 LAB AAMONO <0.87 k/uL Abs Kane 0.86 LAB AEOS % Eosin% 1.5 LAB AAEOS <0.46 k/uL Abs Eosin 0.13 LAB ABASO % Baso% 1.3 LAB AABASO <0.11 k/uL Abs Baso High 0.11 LAB AUNRBC 0 /100 WBC NRBCs 0.0 LAB ABNRBC <0.01 k/uL Absolute nRBC <0.01 LAB DTYP DTYPE Auto Diff Performed By: #### CBCDIF, BMP #### [facility] [address] [place], [place] [address] BASIC METABOLIC PANL Collected: 12/30/2017 Status: F Source: [place] 11:[address] [facility] REPOSITORY TYPE CODE TESTS RESULT OUT OF REFERENCE UNITS RANGE LAB GLU 74-99 mg/dL Glucose 80 Result Comment: The [place] Diabetes Association (ADA) provides guidance for cutoff values for fasting glucose and random glucose. The ADA defines fasting as no caloric intake for at least 8 hours. Fas ting plasma glucose results between 100 to 125 mg/dL indicate increased risk for diabetes (prediabetes). Fasting plasma glucose results greater than or equal to 126 mg/dL meet the criteria for diagnosis of diabetes. In the absence of unequivocal hyperglycemia, results should be confirmed by repeat testing. In a patient with classic symptoms of hyperglycemia or hyperglycemic crisis, random plasma glucose results greater than or equal to 200 mg/dL meet the criteria for diagnosis of diabetes. Reference: Standards of Medical Care in Diabetes 2016, [place] [employer] Association. Diabetes Care. 2016.39(Suppl 1). LAB BUN 7-21 mg/dL BUN High 25 LAB CRET 0.58-0.96 mg/dL Creatinine High 1.86 LAB NA 136-144 mmol/L Sodium 138 LAB K 3.7-5.1 mmol/L Potassium 5.1 LAB CL 97-105 mmol/L Low Chloride 96 LAB CO2 22-30 mmol/L CO2 26 LAB AGAP 9-18 mmol/L Anion Gap 16 LAB CA 8.5-10.2 mg/dL Calcium, Total 9.1 LAB GFRAA eGFR- Amer. 31 LAB GFRNAA . eGFR-All Other Races 26 Result Comment: eGFR (Estimated GFR) Units of measure: mL/min/1.73 meters squared eGFR is derived from the reexpressed MDRD Study equation using the following parameters: serum creatinine, age, gender and race. The creatinine assay has been calibrated to be traceable to IDMS. An eGFR <60 mL/min/1.73m2 for >3 months is consistent with chronic kidney disease. Refer to KDOQI guidelines for clinical interpretation. In patients with unstable renal function, e.g. those with acute kidney injury, the eGFR may not accurately reflect actual GFR. Performed By: #### CBCDIF, BMP #### [facility] [address] [place] [id number] SOCIAL WORK Observed: 12/27/2017 Status: COMPLETED Source: [place] 3:18 PM [facility] REPOSITORY HNO ID: [id number] Author: TOMMY Tabares (Sw) Service: Social Work Author Type: Gem Cutter Type: Social Work Filed: 12/27/2017 3:20 PM Note Text: SOCIAL WORK PROGRESS NOTE Name: Jennifer Whitlock Patient discharged home. VNS to start care 12/28-12/29. Signature: TOMMY Tabares Date: December 27, 2017 Time: 3:19 PM NURSING PROG Observed: 12/27/2017 Status: COMPLETED Source: [place] 1:00 PM [facility] REPOSITORY HNO ID: [id number] Author: Chel ReyesRn) KIERRA Lopez Service: Nursing Author Type: Registered Nurse Type: Nursing Progress Note Filed: 12/27/2017 3:22 PM Note Text: Spoke with Dr Ivan office, Elyse Chavarria. Stated Dr wanted picc line dc'd and started on Cephalexin/Kelflex po 500 mg 4 times a day. dispense 100 capsules for 28 days,Dr Ivan will see patient on January 24, [address] Lopez and Dr carrillo are in. SOCIAL WORK Observed: 12/27/2017 Status: COMPLETED Source: [place] 12:26 PM [facility] REPOSITORY HNO ID: [id number] Author: TOMMY Tabares (Sw) Service: Social Work Author Type: Gem Cutter Type: Social Work Filed: 12/27/2017 12:29 PM Note Text: SOCIAL WORK PROGRESS NOTE Name: Jennifer Whitlock Patient's ID physician has changed antibiotic order to an oral medication, so patient will not be coming in for IV treatment. She will need home nursing for dressing changes. Is agreeable to PT/OT, but will probably not need them for very long. Referral sent to [facility]. Signature: TOMMY Tabares Date: December 27, 2017 Time: 12:26 PM THERAPY NT Observed: 12/27/2017 Status: COMPLETED Source: [place] 11:[address] [facility] [place] REPOSITORY HNO ID: [id number] Author: Jewell (Pt) IVONNE Cooper Service: Physical Therapy Author Type: Physical Therapist Type: Therapy (PT/OT/Speech/Resp) Filed: 12/27/2017 11:17 AM Note Text: Physical Therapy [facility] Treatment and Discharge Summary SERVICE DATE: 12/27/2017 SERVICE TIME: 1030 to 1105 ROOM: [place] [address] Therapy Services Discharged (date): 12/27/17 Discharged To: Home Home Exercise Program Status: Independent Ability To Apply Precautions Upon Discharge: Independent Recommended Discharge Disposition: Outpatient Physical Therapy Anticipated Discharge Needs: Physical Assist at Home;Equipment PT Recommendations to Nursing: Ambulate with device;To bathroom;OOB for Meals Device: Wheeled Walker Precautions/Activity Restrictions: Total Knee Replacement Isolation Type: None ASSESSMENT : Pt walker met goals and ROM is slowly progressing toward goals. PT will benefit from outpatient PT to continue to address ROM, strength, and balance. Left message with Dr. Abernathy;s office to fax script for PT to [facility] outpatient department. Patient Disposition at Start of Session: Supine in Bed Patient Disposition at End of Session: Supine in Bed;Call Bansal in Reach Tolerated Full Session Without limitations Physical Therapy Problem List: Decreased Range Of Motion;Decreased Strength;Functional Mobility Impairment Patient /Caregiver Goals: Go Home Learning/Educational Needs: Discharge Plan;Equipment;Family Education/Training;Functional Activities/Mobility Goals for Plan of Care: Able to perform HEP with: Independent (met) Transfer supine to/from sit with: Independent (met) Transfer sit to/from stand with: Independent (met) Ambulate with: Independent (met) Distance: 200 Device: Wheeled Walker ROM: 5-110 (partially met) Progress Toward Goals: Progressing as expected Rehab Potential: Good PLAN: Treatment Frequency (times per week): 7 Treatment Duration (number): 2 Weeks Treatment Interventions: Joint Mobility;Strengthening;Functional Mobility Training Plan of Care developed with: Patient TREATMENT INTERVENTIONS: Therapy Diagnosis: Abnormalities of gait and mobility-other Interventions Provided: Therapeutic Exercise (22045);Gait Training (52024) Therapeutic Exercise (07063) Treatment Minutes: 30 2 units Skilled Intervention(s): Instruction in therapeutic exercise per HEP/flowsheet. Handouts provided and reviewed Gait Training (54491) Treatment Minutes: 5 0 units Skilled Intervention(s): Instruction in correction of gait deviations and Pt instructed to continue using walker at home until PT clears her to use cane. Pt also instructed not to drive until she is off the wlaker and cleared by MD/PT Reviewed D/C instructions handout Total Timed Code Treatment Minutes: 35 Total Treatment Time (minutes): 35 SUBJECTIVE: Current Hospital Course: Chart reviewed and no significant medical updates relevant to therapy were noted Reason for Physical Therapy Consult : s/p revision of R TKR. Presents for skilled for mobility training post operatively Relevant Past Medical History: R TKR 3 years ago, CAD, DJD, HTN, OA, Pacemaker, [place] Patient Report: Patient is waiting on Dr. Ivan office to [employer] lack of IV antibiotic coverage before she leaves today. Otherwise no c/o or concerns. Home Environment Patient Lives With: Self/Alone Assistance Available: PRN Entry To Home: No Stairs Number Of Stairs To Bed/Bath: 0 Tub/Shower Type: tub shower combo Laundry: pt does, light cooking. Son does most of it Equipment Owned: Cane;Commode-Raised;Shower Chair;Wheeled Walker Prior Functional Level: Within Functional Limits OBJECTIVE: CURRENT FUNCTIONAL STATUS: Gross Motor Function Range of Motion: WFL Except;Right LE Measurement Right Knee ROM: 9-105 Strength: WFL Except;Right LE Measurement Right Hip Flexion Strength: 4/5 Right Hip Extension Strength: 4+/5 Right Knee Flexion Strength: 4+/5 Right Knee Extension Strength: 4/5 Right Ankle Dorsiflexion Strength: 4+/5 Functional Mobility Assist Level Additional Information Rolling Independent Supine to Sit Independent Sit to Supine Independent Scooting Modified Independent Sit to Stand Supervision Stand to Sit Supervision Bed to Chair Supervision Bed To Chair Transfer Type: Stand Pivot Bed To Chair Transfer Equipment: Wheeled Walker Toilet/Commode Contact Guard Assistance Gait Independent Gait Device: Wheeled Walker Gait Distance (feet): 250 Stairs Contact Guard Assistance (vc for sequence) Stairs Device: Rail (bilateral) Number of Stairs: 4 Curb Step Car Transfer Gait Deviations Right Lower Extremity: Knee flexion during stance increased Gait Deviations Left Lower Extremity: Knee flexion during stance increased General Gait Deviations: Rahel decreased;Flexed trunk posture Please see discipline specific clinical documentation flowsheet for complete details for this therapy evaluation/treatment. SIGNATURE: Jewell Cooper PT PATIENT NAME: Jennifer Whitlock DATE: December 27, 2017 TIME: 11:13 AM THERAPY NT Observed: 12/27/2017 Status: COMPLETED Source: [place] 10:[address] [facility] [place] REPOSITORY HNO ID: [id number] Author: Phuong (Ot) GISELL Llanos Service: Occupational Therapy Author Type: Occupational Therapist Type: Therapy (PT/OT/Speech/Resp) Filed: 12/27/2017 10:33 AM Note Text: Occupational Therapy [facility] Treatment And Discharge SERVICE DATE: 12/27/2017 SERVICE TIME: 944 ROOM: [place] [address] Recommended Discharge Disposition: Home OT Recommended Discharge Equipment: Dressing Stick;Long Handled Sponge;Wheeled Walker;Dining Service Inspector;Shower Bench;To Be Determined OT Recommendations to Nursing: ADL?s in chair;OOB for meals Precautions/Activity Restrictions: Total Knee Replacement Isolation Type: None ASSESSMENT: Patient presents with discharge this date. Requires skilled OT for review of discharge instrutions and review of home IADL mobility and shower/tub recommendations.. Patient Disposition at Start of Session: Supine in Bed;Call Bansal in Reach Patient Disposition at End of Session: Supine in Bed;Call Bansal in Reach Tolerated Full Session Fatigue Occupational Therapy Problem List: Education Deficit;Safety Deficits;Impaired Self Care;Balance Impaired Patient /Caregiver Goals: Go Home Learning/Educational Needs: Discharge Plan;Equipment;Functional Activities/Mobility;Plan of Care;Precautions;Rehabilitation Techniques and Procedures;Safety;Self Care Goals for Plan of Care: Lower Body Bathing with: Stand By Assistance (MET) Lower Body Dressing with: Supervision (MET) Chair Transfer with: Modified Independent (MET) Toilet Transfer with: Modified Independent (MET) Tub Transfer with: Contact Guard Assistance (MET) Kitchen Mobility Tasks with: Supervision (MET) Demonstrate Competence With Education with: Independent (MET) Progress Toward Goals: Progressing as expected Rehab Potential: Excellent PLAN: Treatment Frequency (times per week): 5 Treatment Duration (number): 2 Weeks Treatment Interventions: Education;Self Care / Home Management;Functional Mobility Training;Balance Training Plan of Care developed with: Patient TREATMENT INTERVENTIONS: Therapy Diagnosis: Reduced mobility-other;Decreased activities of daily living (ADL);Muscle Weakness (generalized);Unsteadiness on feet Interventions Provided: Therapeutic Activity (05802) Therapeutic Activity (79858) Treatment Minutes: 27 2 units Skilled Intervention(s): Education with pt on discharge instructions and recommendations for home. Pt initially going to have home OT but now will be going for outpatient therapy. Discussed shower/tub options and importance of having someone with her when she is getting in and out of shower and for supervision during shower. Total Timed Code Treatment Minutes: 27 Total Treatment Time (minutes): 27 SUBJECTIVE: Current Hospital Course: Chart reviewed and no significant medical updates relevant to therapy were noted Reason for Occupational Therapy Consult: Pt had a total knee revision on RLE Relevant Past Medical History: R TKR 3 years ago, CAD, DJD, HTN, OA, Pacemaker, RI Patient Report: Pt reports that her son lives next door and will be bringing her in for outpatient IV therapy and OT/PT. Home Environment Patient Lives With: Self/Alone Assistance Available: PRN Entry To Home: No Stairs Number Of Stairs To Bed/Bath: 0 Tub/Shower Type: tub shower combo Laundry: pt does, light cooking. Son does most of it Equipment Owned: Cane;Commode-Raised;Shower Chair;Wheeled Walker Prior Functional Level: Within Functional Limits OBJECTIVE: Gross Motor Function Hand Dominance: Right Range of Motion: WFL Strength: WFL Except (4-/5 bilateral shoulders) Current Activities of Daily Living Assist Level Feeding Independent Grooming Set Up Bathing Upper Body Set Up Bathing Lower Body Stand By Assistance (standing aspects) Dressing Upper Body Set Up Dressing Lower Body Supervision (without use of adaptive equipment) Toileting Supervision Instrumental Activities of Daily Living Assist Level Meal/Beverage Prep (reviewed verbally with pt having good recall.) Light Cleaning Total Assistance Laundry Total Assistance Medication Management with Strategies Functional Mobility Assist Level Rolling Supervision Supine to Sit Supervision Sit to Supine Supervision Scooting Independent Sit to Stand Supervision Stand to Sit Supervision Bed to Chair Supervision Stand Pivot Wheeled Walker;Gait Belt Toilet/Commode Supervision Tub Transfer (discussed options for ext tub bench and shower chair.) Shower Transfer Functional Mobility Supervision Wheeled Walker Car Transfer Balance: Dynamic Standing Dynamic Standing Balance: Supervision Activity Tolerance: Standing Activity Standing Activity: UBE Standing Activity Tolerance (in minutes): 2.5 (pt complained of feeling weak today; nsg notifed) Please see discipline specific clinical documentation flowsheet for complete details for this therapy evaluation/treatment. SIGNATURE: Phuong Llanos OTR/Unique PATIENT NAME: Jennifer Whitlock DATE: December 27, 2017 TIME: 10:27 AM NURSING PROG Observed: 12/26/2017 Status: COMPLETED Source: [place] 7:36 PM [facility] REPOSITORY HNO ID: [id number] Author: Juan ReyesRn) KIERRA Singleton Service: Nursing Author Type: Registered Nurse Type: Nursing Progress Note Filed: 12/26/2017 7:37 PM Note Text: Outpatient atb infusions scheduled starting on 12/28 at 1630 per the pt's sons' request. CNDS Observed: 12/26/2017 Status: COMPLETED Source: [place] 5:44 PM [facility] REPOSITORY HNO ID: [id number] Author: Andrea Lopez Service: General Internal Medicine Author Type: Physician Type: Discharge Summaries Filed: 12/27/2017 12:59 PM Note Text: DISCHARGE SUMMARY PATIENT NAME: Jennifer Whitlock ADMISSION DATE: 12/16/2017 DISCHARGE DATE: 12/27/2017 ATTENDING PHYSICIAN: Andrea Lopez Code Status: Not on file Highest Readmission Risk Score: 25 The 30 day readmissions risk score is derived from an internally validated risk model which evaluates patient level characteristics, utilization history, medication orders and lab results up until the day of discharge. Patients with a score of 40 or above are considered highest risk for readmission. Specific patient level drivers will be listed at the bottom of the summary. REASON FOR HOSPITALIZATION: Orthopedic aftercare, status post right knee revision DIAGNOSIS: Principal Problem (Resolved): Orthopedic aftercare Active Problems: Status post revision of total replacement of right knee Paroxysmal atrial fibrillation (HCC) Arm mass, left Acute blood loss anemia Leg mass, right OPERATIONS DURING HOSPITALIZATION: None PROCEDURES DURING HOSPITALIZATION: Transfusion(s); packed red blood cells HOSPITAL COURSE: The patient came as a transfer from [facility] for physical and occupational therapy following a right total knee revision due to infection. She was maintained on rocephin during her admission. The patient had a known wound on her left arm which was bleeding and she was transfused 1 unit PRBCs. Her coumadin was held after discussion with her business development sales executive and her hemoglobin stabilized. She did have some swelling in her right leg and an US was completed and negative. She otherwise remained stable without further complications. It was felt she could go home with [facility]. The patient declined C, however, and preferred outpatient antibiotic administration and therapy which were organized prior to discharge. The patient was instructed to hold her coumadin until follow up. Addendum 12/27/17 12:57 - The patient's Rocephin was denied by insurance, so the patient's infectious disease provider changed her to oral keflex for 28 days. Due to this, the patient no longer needed outpatient infusion therapy, and agreed to [facility] for wound care and therapy which was ordered. The patient's PICC line was removed prior to discharge since it was no longer needed. She has a follow up with her infectious disease provider on January 24. Transitions of Care Critical Issues: LAB MONITORING NEEDED: CBC, INR, BMP on 12/29 SPECIALIST FOLLOW-UP: Cardiology and Orthopedics LABS AND PROCEDURES PENDING AT DISCHARGE: No pending results. CONSULTING TEAMS DURING HOSPITALIZATION: Physical and occupational therapy, social studies teacher PATIENT CONDITION AT DISCHARGE: Fair DISCHARGE DISPOSITION: Home with self care, outpatient therapy Discharge Physical Exam: VITAL SIGNS: BP 133/58 Pulse 72 Temp 37.1 ?C (98.7 ?F) (Oral) Resp 18 Ht 175.3 cm (5' 9) Wt 70.4 kg (155 lb 1.6 oz) SpO2 95% BMI 22.90 kg/m? GENERAL: Alert, no distress, cooperative, laying in bed SKIN: Skin color, texture, turgor normal. No rashes. HEAD/SINUSES: No significant findings, atraumatic, normocephalic LUNGS: Lungs clear to auscultation, Good diaphragmatic excursion CARDIAC: Normal S1 and S2; no rubs, positive 3/6 systolic murmur. ABDOMEN: Abdomen soft, non-tender, BS normal, No masses or organomegaly EXTREMITIES: Incision healing well with no?discharge. Mild tenderness and swelling?around incision site. ?Patient has a soft nodule palpable over the lateral side of the right knee. It is not fluctuant. The nodule previously noted on her right calf has resolved. NEURO: Negative. ?Alert and oriented x3 INFORMATION PROVIDED TO PATIENT: (To pull info documented from the DC Instruct Orderset Complete O/S First): Hold coumadin until follow up. Repeat labs on 12/29. Supplies or Equipment I need Supplies or Equipment None DIET: Resume pre-hospital diet ACTIVITY: Limited to: Therapy recommendations May walk with a walker WOUND/SURGICAL SITE CARE: Wound/Surgical Site Care Wound/Surgical Site care Keep your dressing clean and dry. You may change your dressing daily beginning on 12/27/2017 ALLERGIES Allergen Reactions - Sweeta Hives Splenda DISCHARGE MEDICATION: Current Discharge Medication List START taking these medications cephALEXin (KEFLEX) 500 mg Take 500 mg by mouth four times daily. Qty: 112 capsule Refills: 0 traMADol (ULTRAM) 50 mg Take 50 mg by mouth twice daily as needed for Pain. Qty: 6 tablet Refills: 0 Associated Diagnoses:Status post revision of total replacement of right knee amLODIPine (NORVASC) 5 mg Take 5 mg by mouth once daily. CONTINUE these medications which have CHANGED warfarin (COUMADIN) 0.5 mg Take 0.5 mg by mouth once daily. Qty: 30 tablet Refills: 0 furosemide (LASIX) 40 mg Take 40 mg by mouth once daily. Qty: 30 tablet Refills: 3 CONTINUE these medications which have NOT CHANGED lactobacillus rhamnosus (CULTURELLE) 1 capsule Take 1 capsule by mouth once daily. Refills: 0 metoprolol tartrate (short acting) (LOPRESSOR) 50 mg Take 50 mg by mouth every 12 hours. Refills: 0 polyethylene glycol 3350 (MIRALAX, GLYCOLAX) 17 g Take 17 g by mouth once daily. Refills: 0 cyanocobalamin (VITAMIN B-12) 1,000 mcg Take 1,000 mcg by mouth once daily. Refills: 0 aspirin 81 mg Take 81 mg by mouth once daily. Refills: [address] (PROTONIX) 40 mg Take 40 mg by mouth DAILY (6 AM). Refills: 0 Comments: Sent to pharmacy ferrous sulfate 325 mg Take 325 mg by mouth once daily. potassium chloride ER (K-DUR, KLOR-CON) 20 mEq Take 20 mEq by mouth as directed. Takes 1 tablet twice a day on Monday, Monday, and Monday amiodarone (PACERONE) 200 mg Take 200 mg by mouth once daily. calcium phosphate-vitamin D3 2 tablets Take 2 tablets by mouth once daily. rosuvastatin (CRESTOR) 5 mg Take 5 mg by mouth once daily. VIT C/MICHELINE AC/LUT/COPPER/ZNOX (PRESERVISION LUTEIN ORAL) 1 mg Take 1 mg by mouth once daily. propylene glycol 1 Drop Use 1 Drop in both eyes once daily. FUTURE APPOINTMENTS: Follow Up with PCP: Sathya Rowe MD Follow Up with Orthopedics and cardiology No future appointments. The patient's risk for 30-day readmission is determined using the following contributing factors: Pt variables contributing to increased readmission risk: 19 Most Recent BUN Result 17 Active Medication Orders 9.3 First Resulted Calcium During Admission 1 Insurance - Medicare 1 Discharge Disposition - Home 1 History of Anemia 1 Active Anticoagulant TIME OF CARE: Discharge Management: I personally spent greater than 30 minutes involved in the discharge management of this patient. SIGNATURE: Andrea Lopez MD PAGER/CONTACT #: DATE: December 26, 2017 TIME: 5:44 PM SOCIAL WORK Observed: 12/26/2017 Status: COMPLETED Source: [place] 4:28 PM [facility] REPOSITORY HNO ID: [id number] Author: TOMMY Tabares (Sw) Service: Social Work Author Type: Gem Cutter Type: Social Work Filed: 12/26/2017 4:33 PM Note Text: SOCIAL WORK PROGRESS NOTE Name: Jennifer Whitlock Patient told that her son would prefer to bring her to [facility] every day for her IV antibiotic. He is concerned about ding it properly at home. Nursing (Juan) has left a message for patient's ID physician (Dr Morgan) regarding this. Trying to determine cost to patient is she comes as an outpatient. Signature: TOMMY Tabares Date: December 26, 2017 Time: 4:29 PM THERAPY NT Observed: 12/26/2017 Status: COMPLETED Source: [place] 2:59 PM [facility] REPOSITORY HNO ID: [id number] Author: Jewell ReyesPtChai Cooper PT Service: Physical Therapy Author Type: Physical Therapist Type: Therapy (PT/OT/Speech/Resp) Filed: 12/26/2017 3:06 PM Note Text: Physical Therapy [facility] Treatment SERVICE DATE: 12/26/2017 SERVICE TIME: 1415 to 1449 ROOM: [place] [address] Recommended Discharge Disposition: Home PT Anticipated Discharge Needs: Physical Assist at Home;Equipment PT Recommendations to Nursing: Ambulate with device;To bathroom;OOB for Meals Device: Wheeled Walker Precautions/Activity Restrictions: Total Knee Replacement Isolation Type: None ASSESSMENT : Patient with decreased safety awareness this session; tried to park walker off to the side and walk away from it to go to bed. Pt also appears to have memory issues, as SW reported to PT that she talked to patient about not being able to have home PT if she does outpatient IV antibiotic infusions but pt did not recall this with PT. Pt also stated she would just drive herself to PT; this PT informed pt that she had to be cleared by the MD to drive again. Patient Disposition at Start of Session: Supine in Bed Patient Disposition at End of Session: Supine in Bed;Call Bansal in Reach Tolerance Limited By (feeling nauseous) Physical Therapy Problem List: Decreased Range Of Motion;Decreased Strength;Functional Mobility Impairment Patient /Caregiver Goals: Go Home Learning/Educational Needs: Discharge Plan;Equipment;Family Education/Training;Functional Activities/Mobility Goals for Plan of Care: Able to perform HEP with: Independent Transfer supine to/from sit with: Independent Transfer sit to/from stand with: Independent Ambulate with: Independent Distance: 200 Device: Wheeled Walker ROM: 5-110 Progress Toward Goals: Progressing as expected Rehab Potential: Good PLAN: Treatment Frequency (times per week): 7 Treatment Duration (number): 2 Weeks Treatment Interventions: Joint Mobility;Strengthening;Functional Mobility Training Plan of Care developed with: Patient TREATMENT INTERVENTIONS: Therapy Diagnosis: Abnormalities of gait and mobility-other Interventions Provided: Therapeutic Exercise (31484);Gait Training (91463) Therapeutic Exercise (42903) Treatment Minutes: 22 1 unit Skilled Intervention(s): Instruction in therapeutic exercise seated HS stretch 1min, seated SLR 10x, standing HS curls, hip abd and hip ext 10x ea Verbal and tactile cuing provided for technique Gait Training (69383) Treatment Minutes: 12 1 unit Skilled Intervention(s): Instruction in sit to stand technique with proper hand placement and body positioning at edge of bed/chair, Instruction in stand to sit technique with LE's touching chair/bed and reaching back for surface and vc for safety with walker in patient's room when approaching bed. VC for increased heelstrike and TKR in stance phase; vc for nonreciprocal steps on the stairs. Total Timed Code Treatment Minutes: 34 Total Treatment Time (minutes): 34 SUBJECTIVE: Current Hospital Course: Chart reviewed and no significant medical updates relevant to therapy were noted Reason for Physical Therapy Consult : s/p revision of R TKR. Presents for skilled for mobility training post operatively Relevant Past Medical History: R TKR 3 years ago, CAD, DJD, HTN, OA, Pacemaker, [place] Patient Report: Patient claims she does not know about doing outpatient PT vs home PT if she comes for outpatient IV infusions; appeared to think she could have home PT. Also states she would drive herself to outpatient PT. This PT advised against that until she sees her surgeon. Home Environment Patient Lives With: Self/Alone Assistance Available: PRN Entry To Home: No Stairs Number Of Stairs To Bed/Bath: 0 Tub/Shower Type: tub shower combo Laundry: pt does, light cooking. Son does most of it Equipment Owned: Cane;Commode-Raised;Shower Chair;Wheeled Walker Prior Functional Level: Within Functional Limits OBJECTIVE: CURRENT FUNCTIONAL STATUS: Gross Motor Function Range of Motion: WFL Except;Right LE Measurement Right Knee ROM: 12* ext (10 ater stretching) Strength: WFL Except;Right LE Measurement Right Hip Flexion Strength: 4/5 Right Hip Extension Strength: 4+/5 Right Knee Flexion Strength: 4+/5 Right Knee Extension Strength: 4/5 Right Ankle Dorsiflexion Strength: 4+/5 Functional Mobility Assist Level Additional Information Rolling Independent Supine to Sit Independent Sit to Supine Independent Scooting Modified Independent Sit to Stand Supervision Stand to Sit Supervision Bed to Chair Supervision Bed To Chair Transfer Type: Stand Pivot Bed To Chair Transfer Equipment: Wheeled Walker Toilet/Commode Contact Guard Assistance Gait Supervision Gait Device: Wheeled Walker Gait Distance (feet): 250 Stairs Contact Guard Assistance (vc for sequence) Stairs Device: Rail (bilateral) Number of Stairs: 4 Curb Step Car Transfer Gait Deviations Right Lower Extremity: Knee flexion during stance increased Gait Deviations Left Lower Extremity: Knee flexion during stance increased General Gait Deviations: Rahel decreased;Flexed trunk posture Please see discipline specific clinical documentation flowsheet for complete details for this therapy evaluation/treatment. SIGNATURE: Jewell Cooper PT PATIENT NAME: Jennifer Whitlock DATE: December 26, 2017 TIME: 2:59 PM SOCIAL WORK Observed: 12/26/2017 Status: COMPLETED Source: [facility] 2:32 PM [facility] REPOSITORY HNO ID: [id number] Author: TOMMY Tabares (Sw) Service: Social Work Author Type: Gem Cutter Type: Social Work Filed: 12/26/2017 2:39 PM Note Text: MULTIDISCIPLINARY ROUNDS SERVICE DATE: 12/26/2017 ADMISSION DATE: 12/16/2017 SERVICE TIME: 0840 AM ANTICIPATED D/C DATE: 12/27/17 Problem List: ACTIVE PROBLEM LIST Oa (Osteoarthritis) of Knee Knee Pain, Chronic GI Bleed Colitis Orthopedic Aftercare Status Post Revision of Total Replacement of Right Knee Paroxysmal Atrial Fibrillation (Hcc) Arm Mass, Left Acute Blood Loss Anemia Leg Mass, Right Attendees Present at Rounds: Occupational Therapy: Jyoti Dhillon Physical Therapy: Jewell Cooper Gem Cutter: Manuela Jack Staff Nurse: Juan Woods Needs Discussed on Rounds: Discharge Needs Mobility Pain Plan of Care Anticipated Discharge Disposition: Home with Home Health Care Last Vitals: BP 136/46 Pulse 65 Temp (Src) 98.5 (Oral) Resp 18 Ht 5' 9 (1.75m) Wt 155 lb 1.6 oz (70.4kg) SpO2 97% BMI 22.89 kg/(m2). Per Nurse, Patient having no pain. Lt arm bleeds when dressing changed. Can't address what's to be done for arm until knee is better. PT: SBA transfers and to walk with WW, progressing well. Can be discharged when medically cleared. OT: Independent to SBA for bed mobility. SBA for ADL's. Meeting goals. Nursing: Discharge Planning Intervention(s) Plan: Assess Patient/Family Individual Needs Cultural Spirituality and Values;Assess Home Environment;Coordinate Discharge Planning;Encourage Patient/Family to Express Fears and Concerns to Help Identify Feeling Related to Identified Problems;Post Discharge Services;Recommending Equipment for Discharge;Social Work Assessment Discharge Planning Goals/Outcomes: Patient Will be Discharged to an Appropriate Safe Level of Care Discharge Planning Goal Target Achievement Date: 12/29/17Knowledge Deficit Intervention(s) Plan: Encourage Verbalization of Questions and Concerns;Explain Scheduling and Routine of Care, Test and Procedures;Monitor Lab Values / Test Results Knowledge Deficit Goals/Outcomes: Patient Verbalizes Understanding of Condition, Disease Process and Treatment Knowledge Deficit Goal Target Achievement Date: 12/29/17 Mobility Intervention(s) Plan: Advance Mobility;Encourage Patient/Family to Participate in Care;Energy conservation/Fatigue Management Mobility Patient/Family Goals: Demonstrates ability to complete transfers with least level of assist. Mobility Goal Target Achievement Date: 12/29/17 Pain Intervention(s) Plan: Pain Assessment, Management, Reassessment Per Scoring Tool;Provide Quiet and Restful Environment;Review Current Medication and Medication History and Administer Medications as Ordered Pain Goals/Outcomes: Decrease in Pain Level per Scoring Tool Pain Goal Target Achievement Date: 12/29/17 Safety Intervention(s) Plan: Employ Safe Mobility;Maintain a Safe Environment Safety Goals/Outcomes: Maintain Patient Safety Safety Goal Target Achievement Date: 12/29/17elf Care Intervention(s) Plan: Assess for Self Care Deficits;Encourage Patient/Family to Participate in Activities of Daily Living;Energy conservation/Fatigue Management Self Care Goals/Outcome: Exhibits Increased Interest and Assume Responsibility for Patient's Own/Family Learning by Beginning to Look for Information and Ask Questions Self Care Goal Target Achievement Date: 12/29/17 Skin Intervention(s) Plan: Assess and Document Skin Condition per Protocol;Administer Treatments and Medications;Skin Care and Pressure Ulcer Prevention Protocol Skin Goals/Outcomes: Patient's Skin Integrity Maintained or Improved Skin Goal Target Achievement Date: 12/29/17 DOCUMENTED BY: TOMMY Tabares PATIENT NAME: Jennifer Whitlock DATE: December 26, 2017 TIME: 2:32 PM CSN: [id number] NURSING PROG Observed: 12/26/2017 Status: COMPLETED Source: [facility] 2:08 PM [facility] REPOSITORY HNO ID: [id number] Author: Juan ReyesRn) KIERRA Singleton Service: Nursing Author Type: Registered Nurse Type: Nursing Progress Note Filed: 12/26/2017 2:10 PM Note Text: Contacted the office of dr ivan ID for rx for outpt ceftriaxone and labs. Spoke with Crystal and sudha ivan at [phone]. THERAPY NT Observed: 12/26/2017 Status: COMPLETED Source: [facility] 1:58 PM [facility] REPOSITORY HNO ID: [id number] Author: Jyoti ReyesOtChai Dhillon OT Service: Occupational Therapy Author Type: Occupational Therapist Type: Therapy (PT/OT/Speech/Resp) Filed: 12/26/2017 2:13 PM Note Text: Occupational Therapy [facility] SERVICE DATE: 12/26/2017 SERVICE TIME: 902 to 1044 ROOM: [place] [address] Recommended Discharge Disposition: Home OT Recommended Discharge Equipment: Dressing Stick;Long Handled Sponge;Wheeled Walker;Dining Service Inspector;Shower Bench;To Be Determined OT Recommendations to Nursing: ADL?s in chair;OOB for meals Precautions/Activity Restrictions: Total Knee Replacement Isolation Type: None ASSESSMENT: Patient presents with improved ability to complete toileting tasks at a supervised level as well as complete donning/doffing shoes at a stand by assist/supervised level. Improvement continues in her ability to complete overall ADLs and functional mobility skills. Standing tolerance limited today by pt's fatigue; nursing notified.. Requires skilled OT for completion of ADL training, functional mobility training, balance, standing tolerance, and strengthening. Will instruct family as needed prior to discharge, which will be soon once cleared medically to return home.. Patient Disposition at Start of Session: Other: See Comment (in bathroom) Patient Disposition at End of Session: OOB in Chair;Call Bansal in Reach Tolerance Limited By Fatigue Occupational Therapy Problem List: Education Deficit;Safety Deficits;Impaired Self Care;Balance Impaired Patient /Caregiver Goals: Go Home Learning/Educational Needs: Discharge Plan;Equipment;Functional Activities/Mobility;Plan of Care;Precautions;Rehabilitation Techniques and Procedures;Safety;Self Care Goals for Plan of Care: Lower Body Bathing with: Stand By Assistance Lower Body Dressing with: Supervision Chair Transfer with: Modified Independent Toilet Transfer with: Modified Independent Tub Transfer with: Contact Guard Assistance Kitchen Mobility Tasks with: Supervision Demonstrate Competence With Education with: Independent Progress Toward Goals: Progressing as expected Rehab Potential: Excellent PLAN: Treatment Frequency (times per week): 5 Treatment Duration (number): 2 Weeks Treatment Interventions: Education;Self Care / Home Management;Functional Mobility Training;Balance Training Plan of Care developed with: Patient TREATMENT INTERVENTIONS: Therapy Diagnosis: Reduced mobility-other;Decreased activities of daily living (ADL);Muscle Weakness (generalized);Unsteadiness on feet Interventions Provided: Therapeutic Exercise (94361);Therapeutic Activity (15465);Self Fdc Management (07382) Therapeutic Exercise (71315) Treatment Minutes: 10 1 unit Skilled Intervention(s): Instruction in therapeutic exercise including UBE in standing with cues for proper posture. Pt tolerated standing for 2.5 minutes then needed to sit and rest; then completed another 1.5 minutes in standing before needing to sit again. Pt reported feeling weak and tired today; nursing notified after session completed. Pt worked on sit to stand exercises x5 reps, and ambulated in hallway around the unit at a stand by assist level. Therapeutic Activity (08336) Treatment Minutes: 20 1 unit Skilled Intervention(s): Instruction in sit to and from stand technique with proper hand placement and body positioning at edge of bed/chair Education with pt in homegoing recommendations including use of toilet safety frame around her toilet at home that already has an elevated toilet seat on it; instructed pt that this will increase her safety and ease of toilet transfers; recommended that pt wait for home therapy to instruct her in tub transfers before attempting tub transfers as she may require grab bars or even an extended tub bench. Pt given handouts re: bathroom equipment and stated understanding of all information presented. Self Fdc Management (67759) Treatment Minutes: 10 1 unit Skilled Intervention(s): Provided instruction, cuing and facilitation for lower body dressing including doffing socks and donning shoes which were completed with supervision after set up without use of adaptive equipment; pt did need one verbal cue to not cross her legs when donning shoes Education in proper safety awareness in toileting skills with pt at a supervised level overall with use of commode frame over toilet. Discussed use of toilet safety frame at home as previously noted. 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 Son does most of it Equipment Owned: Cane;Commode-Raised;Shower Chair;Wheeled Walker Prior Functional Level: Within Functional Limits OBJECTIVE: Gross Motor Function Hand Dominance: Right Range of Motion: WFL Strength: WFL Except (4-/5 bilateral shoulders) Current Activities of Daily Living Assist Level Feeding Independent Grooming Set Up Bathing Upper Body Set Up Bathing Lower Body Stand By Assistance (standing aspects) Dressing Upper Body Set Up Dressing Lower Body Supervision (without use of adaptive equipment) Toileting Supervision Instrumental Activities of Daily Living Assist Level Meal/Beverage Prep Stand By Assistance (basic kitchen mobility skills after instruction) Light Cleaning Total Assistance Laundry Total Assistance Medication Management with Strategies Functional Mobility Assist Level Rolling Supervision Supine to Sit Supervision Sit to Supine Supervision Scooting Independent Sit to Stand Supervision Stand to Sit Supervision Bed to Chair Supervision Stand Pivot Wheeled Walker;Gait Belt Toilet/Commode Supervision Tub Transfer Supervision (with and without bench) Shower Transfer Functional Mobility Supervision Wheeled Walker Car Transfer Balance: Dynamic Standing Dynamic Standing Balance: Supervision Activity Tolerance: Standing Activity Standing Activity: UBE Standing Activity Tolerance (in minutes): 2.5 (pt complained of feeling weak today; nsg notifed) Please see discipline specific clinical documentation flowsheet for complete details for this therapy evaluation/treatment. SIGNATURE: MECHE Abraham/Unique PATIENT NAME: Jennifer Whitlock DATE: December 26, 2017 TIME: 1:58 PM THERAPY NT Observed: 12/26/2017 Status: COMPLETED Source: [facility] 11:[address] [facility] [place] REPOSITORY O ID: [id number] Author: Jewell (Pt) IVONNE Cooper Service: Physical Therapy Author Type: Physical Therapist Type: Therapy (PT/OT/Speech/Resp) Filed: 12/26/2017 11:16 AM Note Text: Physical Therapy [facility] SERVICE DATE: 12/26/2017 SERVICE TIME: 1030 to 1110 ROOM: [place] [address] Recommended Discharge Disposition: Home PT Anticipated Discharge Needs: Physical Assist at Home;Equipment PT Recommendations to Nursing: Ambulate with device;To bathroom;OOB for Meals Device: Wheeled Walker Precautions/Activity Restrictions: Total Knee Replacement Isolation Type: None ASSESSMENT : Patient presents with poor extension ROM, with patient tendency to keep knee tense in a flexed position, thus overusing hamstrings. Requires skilled PT for instruction in knee extension stretching for HEP. Patient Disposition at Start of Session: Supine in Bed Patient Disposition at End of Session: Supine in Bed;Call Bansal in Reach Tolerated Full Session Without limitations Physical Therapy Problem List: Decreased Range Of Motion;Decreased Strength;Functional Mobility Impairment Patient /Caregiver Goals: Go Home Learning/Educational Needs: Discharge Plan;Equipment;Family Education/Training;Functional Activities/Mobility Goals for Plan of Care: Able to perform HEP with: Independent Transfer supine to/from sit with: Independent Transfer sit to/from stand with: Independent Ambulate with: Independent Distance: 200 Device: Wheeled Walker ROM: 5-110 Progress Toward Goals: Progressing as expected Rehab Potential: Good PLAN: Treatment Frequency (times per week): 7 Treatment Duration (number): 2 Weeks Treatment Interventions: Joint Mobility;Strengthening;Functional Mobility Training Plan of Care developed with: Patient TREATMENT INTERVENTIONS: Therapy Diagnosis: Abnormalities of gait and mobility-other Interventions Provided: Therapeutic Exercise (97706);Gait Training (47149) Therapeutic Exercise (60743) Treatment Minutes: 30 2 units Skilled Intervention(s): Instruction in therapeutic exercise per flowsheet Gait Training (03753) Treatment Minutes: 10 1 unit Skilled Intervention(s): Instruction in correction of gait deviations and Facilitation of gait with cane, with CGA due to decreased balance; verbal cues provided during maneuvering in room with walker for safety Total Timed Code Treatment Minutes: 40 Total Treatment Time (minutes): 40 SUBJECTIVE: Current Hospital Course: Chart reviewed and no significant medical updates relevant to therapy were noted Reason for Physical Therapy Consult : s/p revision of R TKR. Presents for skilled for mobility training post operatively Relevant Past Medical History: R TKR 3 years ago, CAD, DJD, HTN, OA, Pacemaker, [place] Patient Report: Patient admits to feeling general weakness, attributable to not eating much Home Environment Patient Lives With: Self/Alone Assistance Available: PRN Entry To Home: No Stairs Number Of Stairs To Bed/Bath: 0 Tub/Shower Type: tub shower combo Laundry: pt does, light cooking. Son does most of it Equipment Owned: Cane;Commode-Raised;Shower Chair;Wheeled Walker Prior Functional Level: Within Functional Limits OBJECTIVE: CURRENT FUNCTIONAL STATUS: Gross Motor Function Range of Motion: WFL Except;Right LE Measurement Right Knee ROM: 12* ext (10 ater stretching) Strength: WFL Except;Right LE Measurement Right Hip Flexion Strength: 4/5 Right Hip Extension Strength: 4+/5 Right Knee Flexion Strength: 4+/5 Right Knee Extension Strength: 4/5 Right Ankle Dorsiflexion Strength: 4+/5 Functional Mobility Assist Level Additional Information Rolling Independent Supine to Sit Independent Sit to Supine Independent Scooting Modified Independent Sit to Stand Supervision Stand to Sit Supervision Bed to Chair Supervision Bed To Chair Transfer Type: Stand Pivot Bed To Chair Transfer Equipment: Wheeled Walker Toilet/Commode Contact Guard Assistance Gait Contact Guard Assistance Gait Device: Cane Gait Distance (feet): 100 Stairs Stand By Assistance Stairs Device: Rail Number of Stairs: 4 Curb Step Car Transfer Gait Deviations Right Lower Extremity: Knee flexion during stance increased Gait Deviations Left Lower Extremity: Knee flexion during stance increased General Gait Deviations: Rahel decreased;Flexed trunk posture Please see discipline specific clinical documentation flowsheet for complete details for this therapy evaluation/treatment. SIGNATURE: Jewell Cooper PT PATIENT NAME: Jennifer Whitlock DATE: December 26, 2017 TIME: 11:14 AM NURSING PROG Observed: 12/26/2017 Status: COMPLETED Source: [facility] 10:49 AM [facility] REPOSITORY HNO ID: [id number] Author: Tracey Saenz RN Service: Nursing Author Type: Registered Nurse Type: Nursing Progress Note Filed: 12/26/2017 2:27 PM Note Text: Nursing Progress Note Patient Name: Jennifer Whitlock Patient Location: [place] [address]/[id number]-* Daily Note: CBC and BMP results were faxed to Dr. Rahul Ivan office. This note was completed by: Tracey Saenz RN NURSING PROG Observed: 12/26/2017 Status: COMPLETED Source: [facility] 8:00 AM [facility] REPOSITORY HNO ID: [id number] Author: Tracey Saenz RN Service: Nursing Author Type: Registered Nurse Type: Nursing Progress Note Filed: 12/26/2017 2:25 PM Note Text: Nursing Progress Note Patient Name: Jennifer Whitlock Patient Location: [place] [address]/[id number]-* Daily Note: Pt sitting up in bed eating breakfast. All treatments and procedures were explained to pt. Pt verbalized understanding. Discussed possible discharge plans with pt. Informed pt that I would have NIKO Tabares to come and speak to her regarding possible discharge plans. Pt verbalized understanding. No other questions or concerns were voiced at this time. This note was completed by: Tracey Saenz RN NURSING PROG Observed: 12/25/2017 Status: COMPLETED Source: [place] 4:01 PM [facility] REPOSITORY HNO ID: [id number] Author: Celina (Rn) KIERRA Wright Service: ASSESSMENT Author Type: Registered Nurse Type: Nursing Progress Note Filed: 12/25/2017 4:03 PM Note Text: Dr. Knowles made aware of patients INR of 1.19. Hgb 8.0. No new orders at this time. Dr. Lopez will see patient tomorrow. THERAPY NT Observed: 12/25/2017 Status: COMPLETED Source: [facility] 3:32 PM [facility] REPOSITORY HNO ID: [id number] Author: Fiorella (Pt) IVONNE Conway Service: Physical Therapy Author Type: Physical Therapist Type: Therapy (PT/OT/Speech/Resp) Filed: 12/25/2017 3:36 PM Note Text: Physical Therapy [facility] SERVICE DATE: 12/25/2017 SERVICE TIME: 1440 to 1520 ROOM: [place] [address] Recommended Discharge Disposition: Home PT Anticipated Discharge Needs: Physical Assist at Home;Equipment PT Recommendations to Nursing: Ambulate with device;To bathroom;OOB for Meals Device: Wheeled Walker Precautions/Activity Restrictions: Total Knee Replacement Isolation Type: None ASSESSMENT : Patient presents with impaired mobility AND activity tolerance s/p R TKA revision. Requires skilled PT for improved mobility to prepare for return home to [facility]. Patient Disposition at Start of Session: Supine in Bed Patient Disposition at End of Session: Supine in Bed;Call Bansal in Reach Tolerated Full Session Fatigue Physical Therapy Problem List: Decreased Range Of Motion;Decreased Strength;Functional Mobility Impairment Patient /Caregiver Goals: Go Home Learning/Educational Needs: Discharge Plan;Equipment;Family Education/Training;Functional Activities/Mobility Goals for Plan of Care: Able to perform HEP with: Independent Transfer supine to/from sit with: Independent Transfer sit to/from stand with: Independent Ambulate with: Independent Distance: 200 Device: Wheeled Walker ROM: 5-110 Progress Toward Goals: Progressing as expected Rehab Potential: Good PLAN: Treatment Frequency (times per week): 7 Treatment Duration (number): 2 Weeks Treatment Interventions: Joint Mobility;Strengthening;Functional Mobility Training Plan of Care developed with: Patient TREATMENT INTERVENTIONS: Therapy Diagnosis: Abnormalities of gait and mobility-other Interventions Provided: Therapeutic Exercise (17453);Gait Training (60679) Therapeutic Exercise (13728) Treatment Minutes: 25 2 units Skilled Intervention(s): Instruction in therapeutic exercise : see flow sheet for details. Verbal and tactile cuing provided for exercise technique. Gait Training (96690) Treatment Minutes: 15 1 unit Skilled Intervention(s): Instruction in sit to stand technique with proper hand placement and body positioning at edge of bed/chair, Instruction in stand to sit technique with LE's touching chair/bed and reaching back for surface, Instruction in sequencing, gait pattern, Instruction in stair negotiation and Instruction in use of equipment, cues for sequence and pattern Total Timed Code Treatment Minutes: 40 Total Treatment Time (minutes): 40 SUBJECTIVE: Current Hospital Course: Chart reviewed and no significant medical updates relevant to therapy were noted Reason for Physical Therapy Consult : s/p revision of R TKR. Presents for skilled for mobility training post operatively Relevant Past Medical History: R TKR 3 years ago, CAD, DJD, HTN, OA, Pacemaker, [place] Patient Report: pt asking when when she can go home. Pt says she will probably use a cane at home. Home Environment Patient Lives With: Self/Alone Assistance Available: PRN Entry To Home: No Stairs Number Of Stairs To Bed/Bath: 0 Tub/Shower Type: tub shower combo Laundry: pt does, light cooking. Son does most of it Equipment Owned: Cane;Commode-Raised;Shower Chair;Wheeled Walker Prior Functional Level: Within Functional Limits OBJECTIVE: CURRENT FUNCTIONAL STATUS: Gross Motor Function Range of Motion: WFL Except;Right LE Measurement Right Knee ROM: 5-115 Strength: WFL Except;Right LE Measurement Right Hip Flexion Strength: 4/5 Right Hip Extension Strength: 4+/5 Right Knee Flexion Strength: 4+/5 Right Knee Extension Strength: 4/5 Right Ankle Dorsiflexion Strength: 4+/5 Functional Mobility Assist Level Additional Information Rolling Independent Supine to Sit Independent Sit to Supine Independent Scooting Modified Independent Sit to Stand Supervision Stand to Sit Supervision Bed to Chair Supervision Bed To Chair Transfer Type: Stand Pivot Bed To Chair Transfer Equipment: Wheeled Walker Toilet/Commode Contact Guard Assistance Gait Supervision Gait Device: Wheeled Walker;Cane Gait Distance (feet): 300' with WW, 150' with SPC Stairs Stand By Assistance Stairs Device: Rail Number of Stairs: 4 Curb Step Car Transfer Gait Deviations Right Lower Extremity: Knee flexion during stance increased Gait Deviations Left Lower Extremity: Knee flexion during stance increased General Gait Deviations: Rahel decreased;Flexed trunk posture Please see discipline specific clinical documentation flowsheet for complete details for this therapy evaluation/treatment. SIGNATURE: Fiorella Conway PT PATIENT NAME: Jennifer Whitlock DATE: December 25, 2017 TIME: 3:32 PM THERAPY NT Observed: 12/25/2017 Status: COMPLETED Source: [place] 11:35 AM [facility] REPOSITORY O ID: [id number] Author: Juana Hilliard PT ASSIST Service: Physical Therapy Author Type: Nanofabrication Specialist Type: Therapy (PT/OT/Speech/Resp) Filed: 12/25/2017 11:38 AM Note Text: Attestation signed by Jewell Cooper PT at 12/25/2017 3:09 PM I reviewed and agree with the documentation corresponding to this therapy visit. SIGNATURE: Jewell Cooper PT DATE: December 25, 2017 TIME: 3:09 PM Physical Therapy [facility] SERVICE DATE: 12/25/2017 SERVICE TIME: 1050 to 1130 ROOM: [place] [address] Recommended Discharge Disposition: Home PT Anticipated Discharge Needs: Physical Assist at Home;Equipment PT Recommendations to Nursing: Ambulate with device;To bathroom;OOB for Meals Device: Wheeled Walker Precautions/Activity Restrictions: Total Knee Replacement Isolation Type: None ASSESSMENT : Patient presents with patient completed supine, seated and standing ex. amb. 100'+ continues to required vc for posture and gait instruction. Requires skilled PT for vc for TKR protocol ex. and stretching to increase ROM. Patient Disposition at Start of Session: Supine in Bed Patient Disposition at End of Session: Supine in Bed;Call Bansal in Reach Tolerated Full Session Fatigue Physical Therapy Problem List: Decreased Range Of Motion;Decreased Strength;Functional Mobility Impairment Patient /Caregiver Goals: Go Home Learning/Educational Needs: Discharge Plan;Equipment;Family Education/Training;Functional Activities/Mobility Goals for Plan of Care: Able to perform HEP with: Independent Transfer supine to/from sit with: Independent Transfer sit to/from stand with: Independent Ambulate with: Independent Distance: 200 Device: Wheeled Walker ROM: 5-110 Progress Toward Goals: Progressing as expected Rehab Potential: Good PLAN: Treatment Frequency (times per week): 7 Treatment Duration (number): 2 Weeks Treatment Interventions: Joint Mobility;Strengthening;Functional Mobility Training Plan of Care developed with: Patient TREATMENT INTERVENTIONS: Therapy Diagnosis: Abnormalities of gait and mobility-other Interventions Provided: Therapeutic Exercise (35015);Gait Training (47137) Therapeutic Exercise (49415) Treatment Minutes: 30 2 units Skilled Intervention(s): Instruction in therapeutic exercise vc for ex. tech and increased ROM ex. Per flow sheet Gait Training (42809) Treatment Minutes: 15 1 unit Skilled Intervention(s): Instruction in sit to stand technique with proper hand placement and body positioning at edge of bed/chair, Instruction in stand to sit technique with LE's touching chair/bed and reaching back for surface and Instruction in sequencing, gait pattern Total Timed Code Treatment Minutes: 45 Total Treatment Time (minutes): 45 SUBJECTIVE: Current Hospital Course: Chart reviewed and no significant medical updates relevant to therapy were noted Reason for Physical Therapy Consult : s/p revision of R TKR. Presents for skilled for mobility training post operatively Relevant Past Medical History: R TKR 3 years ago, CAD, DJD, HTN, OA, Pacemaker, [place] Patient Report:patient states her knees were never able to be perfectly straight rated R Knee discomfort 2/10 Home Environment Patient Lives With: Self/Alone Assistance Available: PRN Entry To Home: No Stairs Number Of Stairs To Bed/Bath: 0 Tub/Shower Type: tub shower combo Laundry: pt does, light cooking. Son does most of it Equipment Owned: Cane;Commode-Raised;Shower Chair;Wheeled Walker Prior Functional Level: Within Functional Limits OBJECTIVE: CURRENT FUNCTIONAL STATUS: Gross Motor Function Range of Motion: WFL Except;Right LE Measurement Right Knee ROM: 8-110 degrees Strength: WFL Except;Right LE Measurement Right Hip Flexion Strength: 4/5 Right Hip Extension Strength: 4+/5 Right Knee Flexion Strength: 4+/5 Right Knee Extension Strength: 4/5 Right Ankle Dorsiflexion Strength: 4+/5 Functional Mobility Assist Level Additional Information Rolling Independent Supine to Sit Independent Sit to Supine Independent Scooting Modified Independent Sit to Stand Supervision Stand to Sit Supervision Bed to Chair Supervision Bed To Chair Transfer Type: Stand Pivot Bed To Chair Transfer Equipment: Wheeled Walker Toilet/Commode Contact Guard Assistance Gait Stand By Assistance Gait Device: Wheeled Walker Gait Distance (feet): 100' Stairs Curb Step Car Transfer Gait Deviations Right Lower Extremity: Heel strike during initial stance decreased;Push-off during terminal stance decreased;Knee flexion during stance increased General Gait Deviations: Rahel decreased;Flexed trunk posture Please see discipline specific clinical documentation flowsheet for complete details for this therapy evaluation/treatment. SIGNATURE: Juana Hilliard PTA PATIENT NAME: Jennifer Whitlock DATE: December 25, 2017 TIME: 11:35 AM MDRD EGFR Collected: 12/25/2017 Status: F Source: [facility] 5:20 AM HEALTH SYSTEM REPOSITORY TYPE CODE TESTS RESULT OUT OF RANGE REFERENCE UNITS LAB LGFRF(LOINC >60mL/min/1.73m ) 2 eGFR 33.62 Result Comment: If the patient is , multiply the result by 1.210. Performed By: #### LGFR #### [place] [address] HEMOGRAM/DIFF Collected: 12/25/2017 Status: F Source: [facility] 5:20 AM HEALTH SYSTEM REPOSITORY TYPE CODE TESTS RESULT OUT OF REFERENCE UNITS RANGE LAB LWBC(LOINC 4.8-10.8 thou/cmm ) WBC 7.8 LAB LRBC(LOINC 4.20-5.40 mil/cmm ) Low RBC 3.24 LAB LHGB(LOINC 12.0-16.0 g/dL ) Low Hgb 8.0 LAB LHCT(LOINC 37.0-47.0 % ) Low Hct 26.9 LAB LMCV(LOINC 81.0-99.0 fl ) MCV 83.0 LAB LMCH(LOINC 27.0-31.0 pg ) Low MCH 24.7 LAB LMCHC(LOIN 32.0-36.0 % C) Low MCHC 29.7 LAB LRDW(LOINC 11.5-15.9 % ) RDW High 16.5 LAB LPLT(LOINC 150-400 thou/cmm ) Platelet 337 LAB LMPV(LOINC 7.1-10.5 fl ) MPV 10.5 LAB LSEGT(LOIN % C) Seg Neutrophil 72.2 LAB LLYMP(LOIN % C) Lymphocyte 12.5 LAB LMNO(LOINC % ) Monocyte 12.2 LAB NETTE(LOINC % ) Eosinophil 2.7 LAB LBASO(LOIN % C) Basophil 0.4 LAB LSEGN(LOIN 3.00-5.67 thou/cmm C) Abs. Neut (ANC) 5.63 LAB LLYMN(LOIN 1.50-3.65 thou/cmm C) Low Abs. Lymph 0.98 LAB LMONN(LOIN 0.20-1.00 thou/cmm C) Abs. Kane 0.95 LAB LEOSN(LOIN 0.00-0.41 thou/cmm C) Abs. Eosin 0.21 LAB LBASN(LOIN 0.00-0.08 thou/cmm C) Abs. Baso 0.03 Performed By: #### LCBCD #### [facility] [address] [place] [address] BASIC PANEL Collected: 12/25/2017 Status: F Source: [facility] 5:20 AM HEALTH SYSTEM REPOSITORY TYPE CODE TESTS RESULT OUT OF REFERENCE UNITS RANGE LAB COVERSTITCH MACHINE OPERATOR(LOINC) 136-145 mEq/L Low Sodium Blood 134 LAB LK(LOINC) 3.5-5.1 mEq/L Potassium Blood 4.0 LAB LCL(LOINC) 98-107 mEq/L Chloride Blood 101 LAB LCO2(LOINC 21-32 mEq/L ) CO2 Blood 28 LAB LGLU(LOINC 70-99 mg/dL ) Glucose Blood 93 LAB LBUN(LOINC 7-25 mg/dL ) BUN Blood 19 LAB LCREA(LOIN 0.51-0.95 mg/dL C) High Creatinine Blood 1.56 LAB LCA(LOINC) 8.5-10.1 mg/dL Calcium Blood 8.6 LAB LANGP(LOIN 8-20 C) Anion Gap 10 LAB LBNCR(LOIN 10-20 C) BUN/Creatinine 12 Ratio Performed By: #### LP8 #### [place] [address] PROTIME Collected: 12/25/2017 Status: F Source: [facility] 5:20 AM HEALTH SYSTEM REPOSITORY TYPE CODE TESTS RESULT OUT OF REFERENCE UNITS RANGE LAB LPTI(LOINC 9.7-13.0 sec ) Prothrombin Time 12.0 LAB LINR(LOINC 0.90-1.30 ) INR 1.19 Result Comment: Note: Reference Range Change Vitamin K Antagonist (VKA) Therapeutic Range: INR 2 to 3 (Target INR of 2.5) Note: For patients treated with VKA drugs, such as warfarin, the [employer] [employer] 2012 Guideline recommends a therapeutic INR range of 2 to 3 (target INR of 2.5). This recommendation includes high-risk patients with antiphospholipid syndrome with previous arterial or venous thromboembolism, current-generation mechanical or bioprosthetic aortic heart valve replacement. VKA Therapeutic Range for some Mechanical Valve Replacement: INR 2.5 to 3.5 (Target INR of 3) Note: Patients with mechanical aortic valve replacement and additional risk factors for thromboembolic events (atrial fibrillation, previous thromboembolism, LV dysfunction, hypercoagulable conditions) or an older generation mechanical AVR (i.e., ball in-Cage) or any mechanical MVR should have a INR therapeutic range of 2.5 to 3.5 target INR of 3). Faisal GH, et al. Chest 2012; 141:7S-47S Michelle FOSTER et al. [facility] 2017; 70: 252-289 Performed By: #### LPT #### [facility] [address] [place] [id number] THERAPY NT Observed: 12/24/2017 Status: COMPLETED Source: [place] 9:[address] [facility] [place] REPOSITORY HNO ID: [id number] Author: Jewell (Pt) IVONNE Cooper Service: Physical Therapy Author Type: Physical Therapist Type: Therapy (PT/OT/Speech/Resp) Filed: 12/25/2017 3:10 PM Note Text: Physical Therapy [facility] SERVICE DATE: 12/24/2017 SERVICE TIME: 834 to 914 ROOM: [place] [address] Recommended Discharge Disposition: Home PT Anticipated Discharge Needs: Physical Assist at Home;Equipment PT Recommendations to Nursing: Ambulate with device;To bathroom;OOB for Meals Device: Wheeled Walker Precautions/Activity Restrictions: Total Knee Replacement Isolation Type: None ASSESSMENT : Patient presents with feeling better fatigued, able to maintain correct posture during ambulation, increased heel strike on R LE, increased step length , completed ex. SLR with good tech. Requires skilled PT for vc for increasing quad facilitation , vc for tech with ex.. Patient Disposition at Start of Session: Supine in Bed Patient Disposition at End of Session: Supine in Bed;Call Bansal in Reach Tolerated Full Session Fatigue Physical Therapy Problem List: Decreased Range Of Motion;Decreased Strength;Functional Mobility Impairment Patient /Caregiver Goals: Go Home Learning/Educational Needs: Discharge Plan;Equipment;Family Education/Training;Functional Activities/Mobility Goals for Plan of Care: Able to perform HEP with: Independent Transfer supine to/from sit with: Independent Transfer sit to/from stand with: Independent Ambulate with: Independent Distance: 200 Device: Wheeled Walker ROM: 5-110 Progress Toward Goals: Progressing as expected Rehab Potential: Good PLAN: Treatment Frequency (times per week): 7 Treatment Duration (number): 2 Weeks Treatment Interventions: Joint Mobility;Strengthening;Functional Mobility Training Plan of Care developed with: Patient TREATMENT INTERVENTIONS: Therapy Diagnosis: Abnormalities of gait and mobility-other Interventions Provided: Therapeutic Exercise (39282);Gait Training (41853) Therapeutic Exercise (37375) Treatment Minutes: 30 2 units Skilled Intervention(s): Instruction in therapeutic exercise vc for tech. per flow sheet Gait Training (28299) Treatment Minutes: 10 1 unit Skilled Intervention(s): Instruction in sit to stand technique with proper hand placement and body positioning at edge of bed/chair, Instruction in stand to sit technique with LE's touching chair/bed and reaching back for surface and Instruction in correction of gait deviations Total Timed Code Treatment Minutes: 40 Total Treatment Time (minutes): 40 SUBJECTIVE: Current Hospital Course: Chart reviewed and no significant medical updates relevant to therapy were noted Reason for Physical Therapy Consult : s/p revision of R TKR. Presents for skilled for mobility training post operatively Relevant Past Medical History: R TKR 3 years ago, CAD, DJD, HTN, OA, Pacemaker, [place] Patient Report: patient rates pain 04/29 , no other c/o Home Environment Patient Lives With: Self/Alone Assistance Available: PRN Entry To Home: No Stairs Number Of Stairs To Bed/Bath: 0 Tub/Shower Type: tub shower combo Laundry: pt does, light cooking. Son does most of it Equipment Owned: Cane;Commode-Raised;Shower Chair;Wheeled Walker Prior Functional Level: Within Functional Limits OBJECTIVE: CURRENT FUNCTIONAL STATUS: Gross Motor Function Range of Motion: WFL Except;Right LE Measurement Right Knee ROM: 8-110 degrees Strength: WFL Except;Right LE Measurement Right Hip Flexion Strength: 4/5 Right Hip Extension Strength: 4+/5 Right Knee Flexion Strength: 4+/5 Right Knee Extension Strength: 4/5 Right Ankle Dorsiflexion Strength: 4+/5 Functional Mobility Assist Level Additional Information Rolling Independent Supine to Sit Independent Sit to Supine Independent Scooting Modified Independent Sit to Stand Supervision Stand to Sit Supervision Bed to Chair Supervision Bed To Chair Transfer Type: Stand Pivot Bed To Chair Transfer Equipment: Wheeled Walker Toilet/Commode Contact Guard Assistance Gait Stand By Assistance Gait Device: Wheeled Walker Gait Distance (feet): 100'+ Stairs Curb Step Car Transfer Gait Deviations Right Lower Extremity: Heel strike during initial stance decreased;Push-off during terminal stance decreased;Knee flexion during stance increased General Gait Deviations: Rahel decreased;Flexed trunk posture Please see discipline specific clinical documentation flowsheet for complete details for this therapy evaluation/treatment. SIGNATURE: Juana Hilliard PTA PATIENT NAME: Jennifer Whitlock DATE: December 24, 2017 TIME: 9:22 AM HEMOGRAM/DIFF Collected: 12/24/2017 Status: F Source: [facility] 5:25 AM HEALTH SYSTEM REPOSITORY TYPE CODE TESTS RESULT OUT OF REFERENCE UNITS RANGE LAB LWBC(LOINC 4.8-10.8 thou/cmm ) WBC 7.2 LAB LRBC(LOINC 4.20-5.40 mil/cmm ) Low RBC 3.17 LAB LHGB(LOINC 12.0-16.0 g/dL ) Low Hgb 7.7 LAB LHCT(LOINC 37.0-47.0 % ) Low Hct 26.5 LAB LMCV(LOINC 81.0-99.0 fl ) MCV 83.6 LAB LMCH(LOINC 27.0-31.0 pg ) Low MCH 24.3 LAB LMCHC(LOIN 32.0-36.0 % C) Low MCHC 29.1 LAB LRDW(LOINC 11.5-15.9 % ) RDW High 16.6 LAB LPLT(LOINC 150-400 thou/cmm ) Platelet 309 LAB LMPV(LOINC 7.1-10.5 fl ) MPV 10.4 LAB LSEGT(LOIN % C) Seg Neutrophil 71.7 LAB LLYMP(LOIN % C) Lymphocyte 12.6 LAB LMNO(LOINC % ) Monocyte 11.6 LAB NETTE(LOINC % ) Eosinophil 3.5 LAB LBASO(LOIN % C) Basophil 0.6 LAB LSEGN(LOIN 3.00-5.67 thou/cmm C) Abs. Neut (ANC) 5.16 LAB LLYMN(LOIN 1.50-3.65 thou/cmm C) Low Abs. Lymph 0.91 LAB LMONN(LOIN 0.20-1.00 thou/cmm C) Abs. Kane 0.84 LAB LEOSN(LOIN 0.00-0.41 thou/cmm C) Abs. Eosin 0.25 LAB LBASN(LOIN 0.00-0.08 thou/cmm C) Abs. Baso 0.04 Performed By: #### LCBCD #### [facility] [address] [place] [address] THERAPY NT Observed: 12/23/2017 Status: COMPLETED Source: [place] 12:45 PM [facility] REPOSITORY HNO ID: [id number] Author: Juana Hilliard, PT ASSIST Service: Physical Therapy Author Type: Nanofabrication Specialist Type: Therapy (PT/OT/Speech/Resp) Filed: 12/23/2017 12:47 PM Note Text: Attestation signed by Jewell Cooper PT at 12/25/2017 3:15 PM I reviewed and agree with the documentation corresponding to this therapy visit. SIGNATURE: Jewell Cooper PT DATE: December 25, 2017 TIME: 3:15 PM Physical Therapy [facility] SERVICE DATE: 12/23/2017 SERVICE TIME: 1230 to 1240 ROOM: [place] [address] Recommended Discharge Disposition: Home PT Anticipated Discharge Needs: Physical Assist at Home;Equipment PT Recommendations to Nursing: Ambulate with device;To bathroom;OOB for Meals Device: Wheeled Walker Precautions/Activity Restrictions: Total Knee Replacement Isolation Type: None ASSESSMENT : Patient presents with very fatigued agreed to ambulate continues to required vc for posture and gait deviations. Requires skilled PT for vc for safety and gait instruction during ambulation. Patient Disposition at Start of Session: OOB in Chair;Call Bansal in Reach Patient Disposition at End of Session: Supine in Bed;Call Bansal in Reach Tolerated Full Session Fatigue Physical Therapy Problem List: Decreased Range Of Motion;Decreased Strength;Functional Mobility Impairment Patient /Caregiver Goals: Go Home Learning/Educational Needs: Discharge Plan;Equipment;Family Education/Training;Functional Activities/Mobility Goals for Plan of Care: Able to perform HEP with: Independent Transfer supine to/from sit with: Independent Transfer sit to/from stand with: Independent Ambulate with: Independent Distance: 200 Device: Wheeled Walker ROM: 5-110 Progress Toward Goals: Progressing as expected Rehab Potential: Good PLAN: Treatment Frequency (times per week): 7 Treatment Duration (number): 2 Weeks Treatment Interventions: Joint Mobility;Strengthening;Functional Mobility Training Plan of Care developed with: Patient TREATMENT INTERVENTIONS: Therapy Diagnosis: Abnormalities of gait and mobility-other Interventions Provided: Gait Training (76259) Gait Training (76092) Treatment Minutes: 10 1 unit Skilled Intervention(s): Instruction in sit to stand technique with proper hand placement and body positioning at edge of bed/chair, Instruction in stand to sit technique with LE's touching chair/bed and reaching back for surface and Instruction in correction of gait deviations Total Timed Code Treatment Minutes: 10 Total Treatment Time (minutes): 10 SUBJECTIVE: Current Hospital Course: Chart reviewed and no significant medical updates relevant to therapy were noted Reason for Physical Therapy Consult : s/p revision of R TKR. Presents for skilled for mobility training post operatively Relevant Past Medical History: R TKR 3 years ago, CAD, DJD, HTN, OA, Pacemaker, [place] Patient Report: denies pain reports tingling and very fatigued wanted to lay down Home Environment Patient Lives With: Self/Alone Assistance Available: PRN Entry To Home: No Stairs Number Of Stairs To Bed/Bath: 0 Tub/Shower Type: tub shower combo Laundry: pt does, light cooking. Son does most of it Equipment Owned: Cane;Commode-Raised;Shower Chair;Wheeled Walker Prior Functional Level: Within Functional Limits OBJECTIVE: CURRENT FUNCTIONAL STATUS: Gross Motor Function Range of Motion: WFL Except;Right LE Measurement Right Knee ROM: 8-110 degrees Strength: WFL Except;Right LE Measurement Right Hip Flexion Strength: 4/5 Right Hip Extension Strength: 4+/5 Right Knee Flexion Strength: 4+/5 Right Knee Extension Strength: 4/5 Right Ankle Dorsiflexion Strength: 4+/5 Functional Mobility Assist Level Additional Information Rolling Independent Supine to Sit Independent Sit to Supine Independent Scooting Independent Sit to Stand Supervision Stand to Sit Stand By Assistance Bed to Chair Supervision Bed To Chair Transfer Type: Stand Pivot Bed To Chair Transfer Equipment: Wheeled Walker Toilet/Commode Contact Guard Assistance Gait Stand By Assistance Gait Device: Wheeled Walker Gait Distance (feet): 100'+ Stairs Curb Step Car Transfer Gait Deviations Right Lower Extremity: Heel strike during initial stance decreased;Push-off during terminal stance decreased;Knee flexion during stance increased General Gait Deviations: Rahel decreased;Flexed trunk posture Please see discipline specific clinical documentation flowsheet for complete details for this therapy evaluation/treatment. SIGNATURE: Juana Hilliard PTA PATIENT NAME: Jennifer Whitlock DATE: December 23, 2017 TIME: 12:45 PM THERAPY NT Observed: 12/23/2017 Status: COMPLETED Source: [place] 10:14 AM [facility] REPOSITORY HNO ID: [id number] Author: Juana Hilliard PT ASSIST Service: Physical Therapy Author Type: Nanofabrication Specialist Type: Therapy (PT/OT/Speech/Resp) Filed: 12/23/2017 10:17 AM Note Text: Attestation signed by Jewell Cooper PT at 12/25/2017 3:14 PM I reviewed and agree with the documentation corresponding to this therapy visit. SIGNATURE: Jewell Cooper PT DATE: December 25, 2017 TIME: 3:14 PM Physical Therapy [facility] SERVICE DATE: 12/23/2017 SERVICE TIME: 919 to 1009 ROOM: [place] [address] Recommended Discharge Disposition: Home PT Anticipated Discharge Needs: Physical Assist at Home;Equipment PT Recommendations to Nursing: Ambulate with device;To bathroom;OOB for Meals Device: Wheeled Walker Precautions/Activity Restrictions: Total Knee Replacement Isolation Type: None ASSESSMENT : Patient presents with able to correct posture and gait w/vc, continues to state my leg will never be straight i. Requires skilled PT for vc for ex. and increasing ROM. Patient Disposition at Start of Session: Supine in Bed Patient Disposition at End of Session: (taken to commode call lite within reach) Tolerated Full Session (nauseated) Physical Therapy Problem List: Decreased Range Of Motion;Decreased Strength;Functional Mobility Impairment Patient /Caregiver Goals: Go Home Learning/Educational Needs: Discharge Plan;Equipment;Family Education/Training;Functional Activities/Mobility Goals for Plan of Care: Able to perform HEP with: Independent Transfer supine to/from sit with: Independent Transfer sit to/from stand with: Independent Ambulate with: Independent Distance: 200 Device: Wheeled Walker ROM: 5-110 Progress Toward Goals: Progressing as expected Rehab Potential: Good PLAN: Treatment Frequency (times per week): 7 Treatment Duration (number): 2 Weeks Treatment Interventions: Joint Mobility;Strengthening;Functional Mobility Training Plan of Care developed with: Patient TREATMENT INTERVENTIONS: Therapy Diagnosis: Abnormalities of gait and mobility-other Interventions Provided: Therapeutic Exercise (72930);Gait Training (49813) Therapeutic Exercise (69009) Treatment Minutes: 30 2 units Skilled Intervention(s): Instruction in therapeutic exercise vc for tech , THR Protocol Gait Training (50108) Treatment Minutes: 20 1 unit Skilled Intervention(s): Instruction in sit to stand technique with proper hand placement and body positioning at edge of bed/chair, Instruction in stand to sit technique with LE's touching chair/bed and reaching back for surface and Instruction in correction of gait deviations Total Timed Code Treatment Minutes: 50 Total Treatment Time (minutes): 50 SUBJECTIVE: Current Hospital Course: Chart reviewed and no significant medical updates relevant to therapy were noted Reason for Physical Therapy Consult : s/p revision of R TKR. Presents for skilled for mobility training post operatively Relevant Past Medical History: R TKR 3 years ago, CAD, DJD, HTN, OA, Pacemaker, [place] Patient Report: her pain level is 1-2/10 today she feels somewhat better feels maybe the meds are helping , edema is still present patient hoping this will leave soon Home Environment Patient Lives With: Self/Alone Assistance Available: PRN Entry To Home: No Stairs Number Of Stairs To Bed/Bath: 0 Tub/Shower Type: tub shower combo Laundry: pt does, light cooking. Son does most of it Equipment Owned: Cane;Commode-Raised;Shower Chair;Wheeled Walker Prior Functional Level: Within Functional Limits OBJECTIVE: CURRENT FUNCTIONAL STATUS: Gross Motor Function Range of Motion: WFL Except;Right LE Measurement Right Knee ROM: 8-110 degrees Strength: WFL Except;Right LE Measurement Right Hip Flexion Strength: 4/5 Right Hip Extension Strength: 4+/5 Right Knee Flexion Strength: 4+/5 Right Knee Extension Strength: 4/5 Right Ankle Dorsiflexion Strength: 4+/5 Functional Mobility Assist Level Additional Information Rolling Independent Supine to Sit Independent Sit to Supine Independent Scooting Independent Sit to Stand Supervision Stand to Sit Stand By Assistance Bed to Chair Supervision Bed To Chair Transfer Type: Stand Pivot Bed To Chair Transfer Equipment: Wheeled Walker Toilet/Commode Contact Guard Assistance Gait Stand By Assistance Gait Device: Wheeled Walker Gait Distance (feet): 100'+ Stairs Curb Step Car Transfer Gait Deviations Right Lower Extremity: Heel strike during initial stance decreased;Push-off during terminal stance decreased;Knee flexion during stance increased General Gait Deviations: Rahel decreased;Flexed trunk posture Please see discipline specific clinical documentation flowsheet for complete details for this therapy evaluation/treatment. SIGNATURE: Juana Hilliard PTA PATIENT NAME: Jennifer Whitlock DATE: December 23, 2017 TIME: 10:14 AM HEMOGRAM/MANUAL DIFF Collected: 12/23/2017 Status: F Source: [place] 5:25 AM [facility] REPOSITORY TYPE CODE TESTS RESULT OUT OF REFERENCE UNITS RANGE LAB LWBC(LOIN 4.8-10.8 thou/cmm C) WBC 6.0 LAB LRBC(LOIN 4.20-5.40 mil/cmm C) RBC Low 3.18 LAB LHGB(LOIN 12.0-16.0 g/dL C) Hgb Low 7.8 LAB LHCT(LOIN 37.0-47.0 % C) Hct Low 26.4 LAB LMCV(LOIN 81.0-99.0 fl C) MCV 83.0 LAB LMCH(LOIN 27.0-31.0 pg C) MCH Low 24.5 LAB LMCHC(ELISA 32.0-36.0 % NC) MCHC Low 29.5 LAB LRDW(LOIN 11.5-15.9 % C) RDW High 16.8 LAB LPLT(LOIN 150-400 thou/cmm C) Platelet 304 LAB LMPV(LOIN 7.1-10.5 fl C) MPV High 10.7 LAB LDTYP(ELISA NC) Diff Type Manual Diff LAB LSEGT(ELISA % NC) Seg Neutrophil 69.0 LAB LLYMP(ELISA % NC) Lymphocyte 14.0 LAB LMNO(LOIN % C) Monocyte 12.0 LAB NETTE(LOIN % C) Eosinophil 1.0 LAB LBASO(ELISA % NC) Basophil 4.0 LAB LSEGN(ELISA 3.00-5.67 thou/cmm NC) Abs. Neut (ANC) 4.14 LAB LLYMN(ELISA 1.50-3.65 thou/cmm NC) Abs. Lymph Low 0.84 LAB LMONN(ELISA 0.20-1.00 thou/cmm NC) Abs. Kane 0.72 LAB LEOSN(ELISA 0.00-0.41 thou/cmm NC) Abs. Eosin 0.06 LAB LBASN(ELISA 0.00-0.08 thou/cmm NC) Abs. Baso High 0.24 LAB LPLES(ELISA NC) Platelet Estimate Normal LAB LANIS(ELISA NC) Anisocytosis Moderate LAB LHYPO(ELISA NC) Hypochromasia Slight LAB LPOIK(ELISA NC) Poikilocytosis Few LAB LELIP(ELISA NC) Elliptocytosis Few LAB LPLTM(ELISA NC) Platelet Morphology Giant plts Performed By: #### LMCBD #### [place] [address] THERAPY NT Observed: 12/22/2017 Status: COMPLETED Source: [place] 1:[address] [facility] REPOSITORY HNO ID: [id number] Author: SELAM Ang Ot Service: Occupational Therapy Author Type: Occupational Therapist Type: Therapy (PT/OT/Speech/Resp) Filed: 12/22/2017 1:29 PM Note Text: Occupational Therapy [facility] SERVICE DATE: 12/22/2017 SERVICE TIME: 1245 to 1320 ROOM: [place] [address] Recommended Discharge Disposition: Home OT Recommended Discharge Equipment: Dressing Stick;Long Handled Sponge;Wheeled Walker;Dining Service Inspector;Shower Bench;To Be Determined OT Recommendations to Nursing: ADL?s in chair;OOB for meals Precautions/Activity Restrictions: Total Knee Replacement Isolation Type: None ASSESSMENT: Patient presents with impaired transfers and generalized UB weakness.. Requires skilled OT for transfer training and UB strengthening.. Patient Disposition at Start of Session: OOB in Chair Patient Disposition at End of Session: OOB in Chair;Call Bansal in Reach Tolerated Full Session Occupational Therapy Problem List: Education Deficit;Safety Deficits;Impaired Self Care;Balance Impaired Patient /Caregiver Goals: Go Home Learning/Educational Needs: Discharge Plan;Equipment;Functional Activities/Mobility;Plan of Care;Precautions;Rehabilitation Techniques and Procedures;Safety;Self Care Goals for Plan of Care: Lower Body Bathing with: Stand By Assistance Lower Body Dressing with: Supervision Chair Transfer with: Modified Independent Toilet Transfer with: Modified Independent Tub Transfer with: Contact Guard Assistance Kitchen Mobility Tasks with: Supervision Demonstrate Competence With Education with: Independent Progress Toward Goals: Progressing as expected Rehab Potential: Excellent PLAN: Treatment Frequency (times per week): 5 Treatment Duration (number): 2 Weeks Treatment Interventions: Education;Self Care / Home Management;Functional Mobility Training;Balance Training Plan of Care developed with: Patient TREATMENT INTERVENTIONS: Therapy Diagnosis: Reduced mobility-other;Decreased activities of daily living (ADL);Muscle Weakness (generalized);Unsteadiness on feet Interventions Provided: Therapeutic Activity (55206);Therapeutic Exercise (94499) Therapeutic Exercise (75235) Treatment Minutes: 20 1 unit Skilled Intervention(s): Education in UB strengthening. Completed shoulder flexion 2# x10 reps. Shoulder abduction 2# x 8 reps, Scapular protraction/retraction 2# x 10 reps, Internal/external rotation 2# x 10 reps, elbow flexion 2# x 15 reps. Therapeutic Activity (31621) Treatment Minutes: 15 1 unit Skilled Intervention(s): Instruction in sit to and from stand technique with proper hand placement and body positioning at edge of bed/chair Education with use of tub transfer bench and hand placement when performing transfers in and out of tub. Total Timed Code Treatment Minutes: 35 Total Treatment Time (minutes): 35 SUBJECTIVE: Current Hospital Course: Chart reviewed and no significant medical updates relevant to therapy were noted Reason for Occupational Therapy Consult: Pt had a total knee revision on RLE Patient Report: I am still not feeling very good today. I ate some canned fruit and it was too sweet. I don't eat very many sweets normally. Home Environment Patient Lives With: Self/Alone Assistance Available: PRN Entry To Home: No Stairs Number Of Stairs To Bed/Bath: 0 Tub/Shower Type: tub shower combo Laundry: pt does, light cooking. Son does most of it Equipment Owned: Cane;Commode-Raised;Shower Chair;Wheeled Walker Prior Functional Level: Within Functional Limits OBJECTIVE: Gross Motor Function Hand Dominance: Right Range of Motion: WFL Strength: WFL Except (4-/5 bilateral shoulders) Current Activities of Daily Living Assist Level Feeding Independent Grooming Set Up Bathing Upper Body Set Up Bathing Lower Body Minimal Assistance Dressing Upper Body Set Up Dressing Lower Body Stand By Assistance (verbal cues for proper use of long shoe horn) Toileting Stand By Assistance Instrumental Activities of Daily Living Assist Level Meal/Beverage Prep Stand By Assistance (basic kitchen mobility skills after instruction) Light Cleaning Total Assistance Laundry Total Assistance Medication Management with Strategies Functional Mobility Assist Level Rolling Supervision Supine to Sit Supervision Sit to Supine Supervision Scooting Independent Sit to Stand Supervision Stand to Sit Supervision Bed to Chair Supervision Stand Pivot Wheeled Walker;Gait Belt Toilet/Commode Stand By Assistance Tub Transfer Supervision (with and without bench) Shower Transfer Functional Mobility Supervision Wheeled Walker Car Transfer Please see discipline specific clinical documentation flowsheet for complete details for this therapy evaluation/treatment. SIGNATURE: MECHE Ang/Unique PATIENT NAME: Jennifer Whitlock DATE: December 22, 2017 TIME: 1:25 PM THERAPY NT Observed: 12/22/2017 Status: COMPLETED Source: [place] 10:[address] [facility] [place] REPOSITORY O ID: [id number] Author: Annette (Pt) IVONNE Koenig Service: Physical Therapy Author Type: Physical Therapist Type: Therapy (PT/OT/Speech/Resp) Filed: 12/22/2017 10:55 AM Note Text: Physical Therapy [facility] Treatment SERVICE DATE: 12/22/2017 SERVICE TIME: 0920 to 1000 ROOM: [place] [address] Recommended Discharge Disposition: Home PT Anticipated Discharge Needs: Physical Assist at Home;Equipment PT Recommendations to Nursing: Ambulate with device;To bathroom;OOB for Meals Device: Wheeled Walker Precautions/Activity Restrictions: Total Knee Replacement Isolation Type: None ASSESSMENT : Patient presents with nausea this am with decline in activity tolerance. Requires skilled PT for mobility training and knee ROM.. Patient Disposition at Start of Session: OOB in Chair Patient Disposition at End of Session: Supine in Bed;Call Bansal in Reach Tolerance Limited By (nauseated) Physical Therapy Problem List: Decreased Range Of Motion;Decreased Strength;Functional Mobility Impairment Patient /Caregiver Goals: Go Home Learning/Educational Needs: Discharge Plan;Equipment;Family Education/Training;Functional Activities/Mobility Goals for Plan of Care: Able to perform HEP with: Independent Transfer supine to/from sit with: Independent Transfer sit to/from stand with: Independent Ambulate with: Independent Distance: 200 Device: Wheeled Walker ROM: 5-110 Progress Toward Goals: Progressing as expected Rehab Potential: Good PLAN: Treatment Frequency (times per week): 7 Treatment Duration (number): 2 Weeks Treatment Interventions: Joint Mobility;Strengthening;Functional Mobility Training Plan of Care developed with: Patient TREATMENT INTERVENTIONS: Therapy Diagnosis: Abnormalities of gait and mobility-other Interventions Provided: Therapeutic Activity (94617) Therapeutic Exercise (49317) Treatment Minutes: 25 2 units Skilled Intervention(s): Instruction in therapeutic exercise per flow sheet Gait Training (87550) Treatment Minutes: 15 1 unit Skilled Intervention(s): Instruction in correction of gait deviations Total Timed Code Treatment Minutes: 40 Total Treatment Time (minutes): 40 SUBJECTIVE: Current Hospital Course: Chart reviewed and no significant medical updates relevant to therapy were noted Reason for Physical Therapy Consult : s/p revision of R TKR. Presents for skilled for mobility training post operatively Relevant Past Medical History: R TKR 3 years ago, CAD, DJD, HTN, OA, Pacemaker, [place] Patient Report: c/o nausea today. Had episode of emesis just prior to PT session. States due to too much sweets for breakfast. Home Environment Patient Lives With: Self/Alone Assistance Available: PRN Entry To Home: No Stairs Number Of Stairs To Bed/Bath: 0 Tub/Shower Type: tub shower combo Laundry: pt does, light cooking. Son does most of it Equipment Owned: Cane;Commode-Raised;Shower Chair;Wheeled Walker Prior Functional Level: Within Functional Limits OBJECTIVE: CURRENT FUNCTIONAL STATUS: Gross Motor Function Range of Motion: WFL Except;Right LE Measurement Right Knee ROM: 8-110 degrees Strength: WFL Except;Right LE Measurement Right Hip Flexion Strength: 4/5 Right Hip Extension Strength: 4+/5 Right Knee Flexion Strength: 4+/5 Right Knee Extension Strength: 4/5 Right Ankle Dorsiflexion Strength: 4+/5 Functional Mobility Assist Level Additional Information Rolling Independent Supine to Sit Modified Independent (HOB flat; use of rail) Sit to Supine Independent Scooting Independent Sit to Stand Supervision Stand to Sit Stand By Assistance Bed to Chair Supervision Bed To Chair Transfer Type: Stand Pivot Bed To Chair Transfer Equipment: Wheeled Walker Toilet/Commode Gait Stand By Assistance Gait Device: Wheeled Walker Gait Distance (feet): 150 Stairs Curb Step Car Transfer Gait Deviations Right Lower Extremity: Heel strike during initial stance decreased;Push-off during terminal stance decreased;Knee flexion during stance increased General Gait Deviations: Rahel decreased;Flexed trunk posture Please see discipline specific clinical documentation flowsheet for complete details for this therapy evaluation/treatment. SIGNATURE: Annette Koenig PT PATIENT NAME: Jennifer Whitlock DATE: December 22, 2017 TIME: 10:52 AM HEMOGRAM/DIFF Collected: 12/22/2017 Status: F Source: [facility] 5:15 AM HEALTH SYSTEM REPOSITORY TYPE CODE TESTS RESULT OUT OF REFERENCE UNITS RANGE LAB LWBC(LOINC 4.8-10.8 thou/cmm ) WBC 7.9 LAB LRBC(LOINC 4.20-5.40 mil/cmm ) Low RBC 3.11 LAB LHGB(LOINC 12.0-16.0 g/dL ) Low Hgb 7.7 LAB LHCT(LOINC 37.0-47.0 % ) Low Hct 25.7 LAB LMCV(LOINC 81.0-99.0 fl ) MCV 82.6 LAB LMCH(LOINC 27.0-31.0 pg ) Low MCH 24.8 LAB LMCHC(LOIN 32.0-36.0 % C) Low MCHC 30.0 LAB LRDW(LOINC 11.5-15.9 % ) RDW High 17.2 LAB LPLT(LOINC 150-400 thou/cmm ) Platelet 303 LAB LMPV(LOINC 7.1-10.5 fl ) MPV High 10.7 LAB LSEGT(LOIN % C) Seg Neutrophil 70.3 LAB LLYMP(LOIN % C) Lymphocyte 11.7 LAB LMNO(LOINC % ) Monocyte 14.4 LAB NETTE(LOINC % ) Eosinophil 3.2 LAB LBASO(LOIN % C) Basophil 0.4 LAB LSEGN(LOIN 3.00-5.67 thou/cmm C) Abs. Neut (ANC) 5.56 LAB LLYMN(LOIN 1.50-3.65 thou/cmm C) Low Abs. Lymph 0.92 LAB LMONN(LOIN 0.20-1.00 thou/cmm C) Abs. High Kane 1.14 LAB LEOSN(LOIN 0.00-0.41 thou/cmm C) Abs. Eosin 0.25 LAB LBASN(LOIN 0.00-0.08 thou/cmm C) Abs. Baso 0.03 Performed By: #### LCBCD #### [place] [address] NURSING PROG Observed: 12/21/2017 Status: COMPLETED Source: [place] 6:20 PM [facility] REPOSITORY HNO ID: [id number] Author: Tracey ReyesRnChai Saenz RN Service: Nursing Author Type: Registered Nurse Type: Nursing Progress Note Filed: 12/21/2017 6:22 PM Note Text: Nursing Progress Note Patient Name: Jennifer Whitlock Patient Location: [place] [address] [address] Daily Note: Spoke with Katelynn from Dr.Joseph Ivan office regarding appointment. Appointment for Dr. Ivan office is Jan.24 at 9 am. Address [address] [place] [id number]. This note was completed by: Tracey Saenz RN THERAPY NT Observed: 12/21/2017 Status: COMPLETED Source: [place] 5:05 PM [facility] REPOSITORY HNO ID: [id number] Author: Jyoti Dhillon OT Service: Occupational Therapy Author Type: Occupational Therapist Type: Therapy (PT/OT/Speech/Resp) Filed: 12/21/2017 5:09 PM Note Text: Occupational Therapy [facility] SERVICE DATE: 12/21/2017 SERVICE TIME: 1126 to 1207 ROOM: [place] [address] Recommended Discharge Disposition: Home OT Recommended Discharge Equipment: Dressing Stick;Long Handled Sponge;Wheeled Walker;Dining Service Inspector;Shower Bench;To Be Determined OT Recommendations to Nursing: ADL?s in chair;OOB for meals Precautions/Activity Restrictions: Total Knee Replacement Isolation Type: None ASSESSMENT: Patient presents with ability to complete basic kitchen mobility skills at a stand by assist level after instruction given today. Pt needs further practice in use of long shoe horn in donning shoes. Pt improved toileting skills to a stand by assist level today.. Requires skilled OT for continued ADL training, functional mobility training including shower transfers, balance, standing tolerance activities, strengthening, family instruction as needed.. Patient Disposition at Start of Session: Supine in Bed;Call Bansal in Reach Patient Disposition at End of Session: OOB in Chair;Call Bansal in Reach Tolerated Full Session Occupational Therapy Problem List: Education Deficit;Safety Deficits;Impaired Self Care;Balance Impaired Patient /Caregiver Goals: Go Home Learning/Educational Needs: Discharge Plan;Equipment;Functional Activities/Mobility;Plan of Care;Precautions;Rehabilitation Techniques and Procedures;Safety;Self Care Goals for Plan of Care: Lower Body Bathing with: Stand By Assistance Lower Body Dressing with: Supervision Chair Transfer with: Modified Independent Toilet Transfer with: Modified Independent Tub Transfer with: Contact Guard Assistance Kitchen Mobility Tasks with: Supervision Demonstrate Competence With Education with: Independent Progress Toward Goals: Progressing as expected Rehab Potential: Excellent PLAN: Treatment Frequency (times per week): 5 Treatment Duration (number): 2 Weeks Treatment Interventions: Education;Self Care / Home Management;Functional Mobility Training;Balance Training Plan of Care developed with: Patient TREATMENT INTERVENTIONS: Therapy Diagnosis: Reduced mobility-other;Decreased activities of daily living (ADL);Muscle Weakness (generalized);Unsteadiness on feet Interventions Provided: Self Fdc Management (59005) Self Fdc Management (83771) Treatment Minutes: 40 3 units Skilled Intervention(s): Provided instruction, cuing and facilitation for lower body dressing with use of long shoe horn to javier shoes Education in proper safety awareness and hand placement in toileting tasks. Pt also instructed in proper safety awarenss and walker management in kitchen mobility skills including retrieval lof items from above and below waist level from fridge and cupboards, proper technique to transport items, strategies for safe set up of kitchen to facilitate increased ease of tasks, and equipment recommendations including walker bag. Total Timed Code Treatment Minutes: 40 Total Treatment Time (minutes): 41 SUBJECTIVE: Current Hospital Course: Chart reviewed and no significant medical updates relevant to therapy were noted Reason for Occupational Therapy Consult: Pt had a total knee revision on RLE Patient Report: Pt states she feels she will be able to do light meal prep at home without difficulty Home Environment Patient Lives With: Self/Alone Assistance Available: PRN Entry To Home: No Stairs Number Of Stairs To Bed/Bath: 0 Tub/Shower Type: tub shower combo Laundry: pt does, light cooking. Son does most of it Equipment Owned: Cane;Commode-Raised;Shower Chair;Wheeled Walker Prior Functional Level: Within Functional Limits OBJECTIVE: Gross Motor Function Hand Dominance: Right Range of Motion: WFL Strength: WFL Except (4-/5 bilateral shoulders) Current Activities of Daily Living Assist Level Feeding Independent Grooming Set Up Bathing Upper Body Set Up Bathing Lower Body Minimal Assistance Dressing Upper Body Set Up Dressing Lower Body Stand By Assistance (verbal cues for proper use of long shoe horn) Toileting Stand By Assistance Instrumental Activities of Daily Living Assist Level Meal/Beverage Prep Stand By Assistance (basic kitchen mobility skills after instruction) Light Cleaning Total Assistance Laundry Total Assistance Medication Management with Strategies Functional Mobility Assist Level Rolling Supervision Supine to Sit Supervision Sit to Supine Supervision Scooting Independent Sit to Stand Stand By Assistance Stand to Sit Stand By Assistance Bed to Chair Stand By Assistance Stand Pivot Wheeled Walker Toilet/Commode Stand By Assistance Tub Transfer Shower Transfer Functional Mobility Car Transfer Please see discipline specific clinical documentation flowsheet for complete details for this therapy evaluation/treatment. SIGNATURE: MECHE Abraham/Unique PATIENT NAME: Jennifer Whitlock DATE: December 21, 2017 TIME: 5:05 PM NURSING PROG Observed: 12/21/2017 Status: COMPLETED Source: [place] 5:[address] [facility] [place] REPOSITORY HNO ID: [id number] Author: Tracey (Rn) KIERRA Saenz Service: Nursing Author Type: Registered Nurse Type: Nursing Progress Note Filed: 12/21/2017 6:23 PM Note Text: Nursing Progress Note Patient Name: Jennifer Whitlock Patient Location: /-* Daily Note: Call received from Dr. Lopez regarding hold of coumadin. This note was completed by: Tracey Saenz RN THERAPY NT Observed: 12/21/2017 Status: COMPLETED Source: [place] 3:42 PM [facility] REPOSITORY HNO ID: [id number] Author: Jewell ReyesPtChai Cooper PT Service: Physical Therapy Author Type: Physical Therapist Type: Therapy (PT/OT/Speech/Resp) Filed: 12/21/2017 3:43 PM Note Text: Physical Therapy [facility] SERVICE DATE: 12/21/2017 SERVICE TIME: 1500 to 1540 ROOM: [place] [address] Recommended Discharge Disposition: Home PT Anticipated Discharge Needs: Physical Assist at Home;Equipment PT Recommendations to Nursing: Ambulate with device;To bathroom;OOB for Meals Device: Wheeled Walker Precautions/Activity Restrictions: Total Knee Replacement Isolation Type: None ASSESSMENT : Patient with dificulty relaxing hamstrings; very tight and restricting extension ROM Patient Disposition at Start of Session: Supine in Bed;Call Bansal in Reach Patient Disposition at End of Session: Supine in Bed;Call Bansal in Reach Tolerated Full Session Without limitations Physical Therapy Problem List: Decreased Range Of Motion;Decreased Strength;Functional Mobility Impairment Patient /Caregiver Goals: Go Home Learning/Educational Needs: Discharge Plan;Equipment;Family Education/Training;Functional Activities/Mobility Goals for Plan of Care: Able to perform HEP with: Independent Transfer supine to/from sit with: Independent Transfer sit to/from stand with: Independent Ambulate with: Independent Distance: 200 Device: Wheeled Walker ROM: 5-110 Progress Toward Goals: Progressing as expected Rehab Potential: Good PLAN: Treatment Frequency (times per week): 7 Treatment Duration (number): 2 Weeks Treatment Interventions: Joint Mobility;Strengthening;Functional Mobility Training Plan of Care developed with: Patient TREATMENT INTERVENTIONS: Therapy Diagnosis: Abnormalities of gait and mobility-other Interventions Provided: Therapeutic Activity (46515) Therapeutic Exercise (79827) Treatment Minutes: 25 2 units Skilled Intervention(s): Instruction in therapeutic exercise per flowsheet Therapeutic Activity (50794) Treatment Minutes: 5 0 units Skilled Intervention(s): Instructed patient in supine to and from sit pushing with upper extremities to sit up Instruction in sit to stand technique with proper hand placement and body positioning at edge of bed/chair Instruction in stand to sit technique with lower extremities touching chair/bed and reaching back for surface Gait Training (36015) Treatment Minutes: 10 1 unit Skilled Intervention(s): Instruction in correction of gait deviations Total Timed Code Treatment Minutes: 40 Total Treatment Time (minutes): 40 SUBJECTIVE: Current Hospital Course: Chart reviewed; Patient had US to right calf; negative for DVT Reason for Physical Therapy Consult : s/p revision of R TKR. Presents for skilled for mobility training post operatively Relevant Past Medical History: R TKR 3 years ago, CAD, DJD, HTN, OA, Pacemaker, [place] Patient Report: Patient agreeable to PT Home Environment Patient Lives With: Self/Alone Assistance Available: PRN Entry To Home: No Stairs Number Of Stairs To Bed/Bath: 0 Tub/Shower Type: tub shower combo Laundry: pt does, light cooking. Son does most of it Equipment Owned: Cane;Commode-Raised;Shower Chair;Wheeled Walker Prior Functional Level: Within Functional Limits OBJECTIVE: CURRENT FUNCTIONAL STATUS: Gross Motor Function Range of Motion: WFL Except;Right LE Measurement Right Knee ROM: 8 degrees extension Strength: WFL Except;Right LE Measurement Right Hip Flexion Strength: 4/5 Right Hip Extension Strength: 4+/5 Right Knee Flexion Strength: 4+/5 Right Knee Extension Strength: 4/5 Right Ankle Dorsiflexion Strength: 4+/5 Functional Mobility Assist Level Additional Information Rolling Independent Supine to Sit Modified Independent (HOB flat; use of rail) Sit to Supine Independent Scooting Independent Sit to Stand Contact Guard Assistance Stand to Sit Stand By Assistance Bed to Chair Contact Guard Assistance Bed To Chair Transfer Type: Stand Pivot Bed To Chair Transfer Equipment: Wheeled Walker Toilet/Commode Gait Stand By Assistance Gait Device: Wheeled Walker Gait Distance (feet): 150, 100 Stairs Curb Step Car Transfer Gait Deviations Right Lower Extremity: Heel strike during initial stance decreased;Push-off during terminal stance decreased;Knee flexion during stance increased General Gait Deviations: Rahel decreased;Flexed trunk posture Please see discipline specific clinical documentation flowsheet for complete details for this therapy evaluation/treatment. SIGNATURE: Jewell Cooper PT PATIENT NAME: Jennifer Whitlock DATE: December 21, 2017 TIME: 3:42 PM US DVT LOWER RIGHT Observed: 12/21/2017 Status: F Source: [facility] 2:41 PM HEALTH SYSTEM REPOSITORY Performed at [facility] APPROVED BY: Carmina Purvis MD RIGHT LOWER EXTREMITY DEEP VENOUS DUPLEX DOPPLER ULTRASOUND CLINICAL HISTORY: Recent total knee replacement. Right leg pain. COMPARISON: None TECHNIQUE: Levy scale with compression maneuvers, Color Doppler and Spectral Doppler of the femoral, popliteal, peroneal and posterior tibial veins; augmentation in the femoral veins. Images were obtai valentino and stored in a permanent archive. RESULT: RIGHT LOWER EXTREMITY: Deep veins- External Iliac Vein: Normal Femoral vein: Patent and compressible, normal respiratory phasicity and response to augmentation. Popliteal vein: Patent and compressible, normal respiratory phasicity and response to augmentation. Peroneal veins: visualized segments patent Posterior tibial veins: visualized segments patent Superficial veins- Greater saphenous: Patent at insertion into common femoral vein; not otherwise assessed. Left Lower Extremity (comparison): Femoral vein: Patent and compressible, normal respiratory phasicity and response to augmentation. IMPRESSION: NEGATIVE STUDY FOR ACUTE RIGHT LOWER EXTREMITY DVT. PROGRESS Observed: 12/21/2017 Status: COMPLETED Source: [place] 1:[address] [facility] REPOSITORY O ID: [id number] Author: Andrea Lopez Service: General Internal Medicine Author Type: Physician Type: Progress Notes Filed: 12/21/2017 4:36 PM Note Text: INPATIENT PROGRESS NOTE SERVICE DATE: 12/21/2017 SERVICE TIME: 1240 PRIMARY SERVICE: Swing Subjective CHIEF COMPLAINT: Orthopedic aftercare, status post right knee revision INTERVAL HPI: No events overnight. The patient was given a 1 unit PRBC transfusion which she tolerated without difficulty. This morning, the patient was noted to have more energy and worked well with therapy. Per nursing, the patient's arm mass has not been bleeding as much today. The patient denies any pain. She has no questions or concerns today. Current hospital medications: ondansetron orally disintegrating 4 mg tab(s) (ZOFRAN ODT) 4 mg ORAL q 6 H PRN 0.9% NaCl 2-10 mL 2-10 mL INTRAVENOUS q 12 H acetaminophen 650 mg tab(s) (TYLENOL) 650 mg ORAL q 6 H PRN oxyCODONE-acetaminophen 5-325 mg 1 tablet (PERCOCET) 1 tablet ORAL BID PRN oxyCODONE-acetaminophen 5-325 mg 1 tablet (PERCOCET) 1 tablet ORAL q 6 H PRN traMADol 50 mg tab(s) (ULTRAM) 50 mg ORAL q 6 H PRN amiodarone 200 mg tab(s) (PACERONE) 200 mg ORAL DAILY warfarin 0.5 mg tab(s) (COUMADIN) 0.5 mg ORAL DAILY metoprolol tartrate (short acting) 50 mg tab(s) (LOPRESSOR) 50 mg ORAL q 12 H ferrous sulfate 325 mg tab(s) 325 mg ORAL DAILY polyethylene glycol 3350 17 g packet (MIRALAX, GLYCOLAX) 17 g ORAL DAILY aspirin 81 mg chewable tab(s) 81 mg ORAL DAILY potassium chloride ER 20 mEq tab(s) (K-DUR, KLOR-CON) 20 mEq ORAL DAILY cyanocobalamin 1,000 mcg tab(s) (VITAMIN B-12) 1,000 mcg ORAL DAILY amLODIPine 5 mg tab(s) (NORVASC) 5 mg ORAL DAILY atorvastatin 10 mg tab(s) (LIPITOR) 10 mg ORAL AT BEDTIME furosemide 40 mg tab(s) (LASIX) 40 mg ORAL DAILY cefTRIAXone iv piggyback 2 g in dextrose (iso-osmotic) 50 mL (ROCEPHIN) 2 g INTRAVENOUS q 24 H Objective PHYSICAL EXAM: BP 148/56 Pulse 63 Temp (Src) 98 (Oral) Resp 16 Ht 5' 9 (1.75m) Wt 155 lb 1.6 oz (70.4kg) SpO2 98% BMI 22.89 kg/(m2). Physical Exam Performed GENERAL: Alert, no distress, cooperative, sitting up in the chair SKIN: Skin color, texture, turgor normal. No rashes. HEAD/SINUSES: No significant findings, atraumatic, normocephalic LUNGS: Lungs clear to auscultation, Good diaphragmatic excursion CARDIAC: Normal S1 and S2; no rubs, positive 3/6 systolic murmur. ABDOMEN: Abdomen soft, non-tender, BS normal, No masses or organomegaly EXTREMITIES: Incision healing well with no discharge. Mild tenderness and swelling around incision site. ?Patient has a soft nodule palpable over the lateral side of the right knee. It is not fluctuant. She also has a nodule palpable over her right calf. Neither are tender, erythematous, or warm to touch. NEURO: Negative. ?Alert and oriented x3 DATA: Diagnostic tests reviewed for today's visit: Most recent labs Admission on 12/16/2017 Component Date Value Ref Range Status - Prothrombin Time 12/18/2017 20.6* 9.7 - 13.0 sec Final - INR 12/18/2017 2.11* 0.90 - 1.30 Final Comment: Note: Reference Range Change Vitamin K Antagonist (VKA) Therapeutic Range: INR 2 to 3 (Target INR of 2.5) Note: For patients treated with VKA drugs, such as warfarin, the [place] [employer] 2012 Guideline recommends a therapeutic INR range of 2 to 3 (target INR of 2.5). This recommendation includes high-risk patients with antiphospholipid syndrome with previous arterial or venous thromboembolism, current-generation mechanical or bioprosthetic aortic heart valve replacement. VKA Therapeutic Range for some Mechanical Valve Replacement: INR 2.5 to 3.5 (Target INR of 3) Note: Patients with mechanical aortic valve replacement and additional risk factors for thromboembolic events (atrial fibrillation, previous thromboembolism, LV dysfunction, hypercoagulable conditions) or an older generation mechanical AVR (i.e., ball in-Cage) or any mechanical MVR should have a INR therapeutic range of 2.5 to 3.5 target INR of 3). Faisal GH, et al. Chest 2012; 141:7S-47 S Michelle FOSTER et al. JACC 2017; 70: 252-289 - Sodium 12/18/2017 134* 136 - 145 mEq/L Final - Potassium 12/18/2017 4.1 3.5 - 5.1 mEq/L Final - Chloride 12/18/2017 106 98 - 107 mEq/L Final - CO2 12/18/2017 30 21 - 32 mEq/L Final - Glucose 12/18/2017 93 70 - 99 mg/dL Final - BUN 12/18/2017 34* 7 - 25 mg/dL Final - Creatinine 12/18/2017 1.43* 0.51 - 0.95 mg/dL Final - Calcium 12/18/2017 9.3 8.5 - 10.1 mg/dL Final - Anion Gap 12/18/2017 2* 8 - 20 Final - BUN/CREATININE RATIO 12/18/2017 24* 10 - 20 Final - WBC 12/18/2017 7.2 4.8 - 10.8 thou/cmm Final - RBC 12/18/2017 2.83* 4.20 - 5.40 mil/cmm Final - HGB 12/18/2017 7.0* 12.0 - 16.0 g/dL Final - Hematocrit 12/18/2017 24.1* 37.0 - 47.0 % Final - MCV 12/18/2017 85.2 81.0 - 99.0 fl Final - MCH 12/18/2017 24.7* 27.0 - 31.0 pg Final - MCHC 12/18/2017 29.0* 32.0 - 36.0 % Final - RDW 12/18/2017 16.0* 11.5 - 15.9 % Final - Platelet Count 12/18/2017 355 150 - 400 thou/cmm Final - MPV 12/18/2017 10.0 7.1 - 10.5 fl Final - Diff Type 12/18/2017 Manual Diff Final - Seg Neutrophil 12/18/2017 75.0 % Final - Lymphocyte 12/18/2017 13.0 % Final - Monocyte 12/18/2017 9.0 % Final - Eosinophil 12/18/2017 3.0 % Final - Basophil 12/18/2017 0.0 % Final - Abs. Neut(Anc) 12/18/2017 5.39 3.00 - 5.67 thou/cmm Final - Abs. Lymph 12/18/2017 0.94* 1.50 - 3.65 thou/cmm Final - Abs. Kane 12/18/2017 0.65 0.20 - 1.00 thou/cmm Final - Abs. Eosin 12/18/2017 0.22 0.00 - 0.41 thou/cmm Final - Abs. Baso 12/18/2017 0.00 0.00 - 0.08 thou/cmm Final - Platelet Estimate 12/18/2017 Normal Final - Anisocytosis 12/18/2017 Few Final - Hypochromasia 12/18/2017 Few Final - eGFR 12/18/2017 37.17 >60mL/min/1.73m2 Final If the patient is , multiply the result by 1.210. - HGB 12/18/2017 7.8* 12.0 - 16.0 g/dL Final - Hematocrit 12/18/2017 26.8* 37.0 - 47.0 % Final - HGB 12/19/2017 7.6* 12.0 - 16.0 g/dL Final - Hematocrit 12/19/2017 26.3* 37.0 - 47.0 % Final - HGB 12/20/2017 6.6* 12.0 - 16.0 g/dL Final - Hematocrit 12/20/2017 22.8* 37.0 - 47.0 % Final - HGB 12/20/2017 7.1* 12.0 - 16.0 g/dL Final - Hematocrit 12/20/2017 24.3* 37.0 - 47.0 % Final - ABO Group 12/20/2017 O Final - RH Type 12/20/2017 Positive Final - Antibody Screen 12/20/2017 NEGATIVE Final - Blood Bank Comment 12/20/2017 Out Patient Final - Xmatch Unit 1 12/20/2017 see below Final Compatible - WBC 12/20/2017 8.4 4.8 - 10.8 thou/cmm Final - RBC 12/20/2017 3.14* 4.20 - 5.40 mil/cmm Final - HGB 12/20/2017 7.7* 12.0 - 16.0 g/dL Final - Hematocrit 12/20/2017 26.1* 37.0 - 47.0 % Final - MCV 12/20/2017 83.1 81.0 - 99.0 fl Final - MCH 12/20/2017 24.5* 27.0 - 31.0 pg Final - MCHC 12/20/2017 29.5* 32.0 - 36.0 % Final - RDW 12/20/2017 17.0* 11.5 - 15.9 % Final - Platelet Count 12/20/2017 299 150 - 400 thou/cmm Final - MPV 12/20/2017 10.1 7.1 - 10.5 fl Final - Diff Type 12/20/2017 Manual Diff Final - Seg Neutrophil 12/20/2017 70.1 % Final - Lymphocyte 12/20/2017 11.0 % Final - Monocyte 12/20/2017 16.0 % Final - Eosinophil 12/20/2017 2.5 % Final - Basophil 12/20/2017 0.4 % Final - Abs. Neut(Anc) 12/20/2017 5.90* 3.00 - 5.67 thou/cmm Final - Abs. Lymph 12/20/2017 0.92* 1.50 - 3.65 thou/cmm Final - Abs. Kane 12/20/2017 1.34* 0.20 - 1.00 thou/cmm Final - Abs. Eosin 12/20/2017 0.21 0.00 - 0.41 thou/cmm Final - Abs. Baso 12/20/2017 0.03 0.00 - 0.08 thou/cmm Final - Platelet Estimate 12/20/2017 Normal Final - Anisocytosis 12/20/2017 Slight Final - Poikilocytosis 12/20/2017 Few Final - Elliptocytosis 12/20/2017 Few Final - Hypochromasia 12/20/2017 Few Final - Prothrombin Time 12/21/2017 16.2* 9.7 - 13.0 sec Final - INR 12/21/2017 1.63* 0.90 - 1.30 Final Comment: Note: Reference Range Change Vitamin K Antagonist (VKA) Therapeutic Range: INR 2 to 3 (Target INR of 2.5) Note: For patients treated with VKA drugs, such as warfarin, the [place] [employer] 2012 Guideline recommends a therapeutic INR range of 2 to 3 (target INR of 2.5). This recommendation includes high-risk patients with antiphospholipid syndrome with previous arterial or venous thromboembolism, current-generation mechanical or bioprosthetic aortic heart valve replacement. VKA Therapeutic Range for some Mechanical Valve Replacement: INR 2.5 to 3.5 (Target INR of 3) Note: Patients with mechanical aortic valve replacement and additional risk factors for thromboembolic events (atrial fibrillation, previous thromboembolism, LV dysfunction, hypercoagulable conditions) or an older generation mechanical AVR (i.e., ball in-Cage) or any mechanical MVR should have a INR therapeutic range of 2.5 to 3.5 target INR of 3). Faisal BLACK, et al. Chest 2012; 141:7S-47 S Michelle RA, et al. [facility] 2017; 70: 252-289 - Sodium 12/21/2017 133* 136 - 145 mEq/L Final - Potassium 12/21/2017 4.1 3.5 - 5.1 mEq/L Final - Chloride 12/21/2017 102 98 - 107 mEq/L Final - CO2 12/21/2017 29 21 - 32 mEq/L Final - Glucose 12/21/2017 90 70 - 99 mg/dL Final - BUN 12/21/2017 24 7 - 25 mg/dL Final - Creatinine 12/21/2017 1.48* 0.51 - 0.95 mg/dL Final - Calcium 12/21/2017 8.6 8.5 - 10.1 mg/dL Final - Anion Gap 12/21/2017 6* 8 - 20 Final - BUN/CREATININE RATIO 12/21/2017 16 10 - 20 Final - WBC 12/21/2017 7.1 4.8 - 10.8 thou/cmm Final - RBC 12/21/2017 3.01* 4.20 - 5.40 mil/cmm Final - HGB 12/21/2017 7.3* 12.0 - 16.0 g/dL Final - Hematocrit 12/21/2017 25.1* 37.0 - 47.0 % Final - MCV 12/21/2017 83.4 81.0 - 99.0 fl Final - MCH 12/21/2017 24.3* 27.0 - 31.0 pg Final - MCHC 12/21/2017 29.1* 32.0 - 36.0 % Final - RDW 12/21/2017 17.4* 11.5 - 15.9 % Final - Platelet Count 12/21/2017 298 150 - 400 thou/cmm Final - MPV 12/21/2017 10.5 7.1 - 10.5 fl Final - Diff Type 12/21/2017 Manual Diff Final - Seg Neutrophil 12/21/2017 76.0 % Final - Lymphocyte 12/21/2017 11.0 % Final - Monocyte 12/21/2017 10.0 % Final - Eosinophil 12/21/2017 3.0 % Final - Basophil 12/21/2017 0.0 % Final - Abs. Neut(Anc) 12/21/2017 5.40 3.00 - 5.67 thou/cmm Final - Abs. Lymph 12/21/2017 0.78* 1.50 - 3.65 thou/cmm Final - Abs. Kane 12/21/2017 0.71 0.20 - 1.00 thou/cmm Final - Abs. Eosin 12/21/2017 0.21 0.00 - 0.41 thou/cmm Final - Abs. Baso 12/21/2017 0.00 0.00 - 0.08 thou/cmm Final - Platelet Estimate 12/21/2017 Normal Final - Anisocytosis 12/21/2017 Moderate Final - Polychromasia 12/21/2017 Few Final - Basophilic Stippling 12/21/2017 Few Final - Hypochromasia 12/21/2017 Slight Final - Stomatocytosis 12/21/2017 Few Final - eGFR 12/21/2017 35.73 >60mL/min/1.73m2 Final If the patient is , multiply the result by 1.210. Assessment/Plan Principal Problem: ??Orthopedic aftercare POA: Yes ?Assessment AND?Plan: Continue physical and occupational therapy. ? Active Problems: ??Status post revision of total replacement of right knee POA: Yes ?Assessment AND?Plan: As above. ?Will continue IV antibiotics and pain medications as needed. ?Will repeat CBC in am. ?Will follow up on PT/OT recommendations. ?Paroxysmal atrial fibrillation (HCC) POA: Yes ?Assessment AND?Plan: Stable. ?Continue home medications. ?Labs ordered every Monday and Monday. INR slightly subtherapeutic today, likely due to transfusion. ? ??Arm mass, Left POA: Yes ?Assessment AND?Plan: Continue dressing care. ?Nurse reports bleeding has decreased. ?Patient is asymptomatic. Surgery is aware of the mass and monitoring. Further management cannot be completed until her knee infection is resolved. ? Acute blood loss anemia POA: Yes Assessment AND Plan: Patient is s/p 1 unit PRBC. HH did not show significant improvement. Will repeat in am and transfuse further as necessary. Patient updated and agreeable. Leg mass, right POA: No Assessment AND Plan: Unclear etiology. Was not previously appreciated. Will get an US of the leg for assessment. Will make further recommendations, if any, after review. Resolved Problems: * No resolved hospital problems. * Medication and Non-Pharmacologic VTE Prophylaxis/Anticoagulants Anticoagulant AND Antiplatelet Medications Start Dose Route Frequency Ordered Stop 12/16/17 1500 warfarin 0.5 mg tab(s) (COUMADIN) 0.5 mg ORAL DAILY 12/16/17 1448 -- 12/16/17 1500 aspirin 81 mg chewable tab(s) 81 mg ORAL DAILY 12/16/17 1448 -- 12/16/17 174 vte non-pharmacologic prophylaxis - none indicated (al,oh) 12/16/171744 vte current anticoag therapy (al,oh) 12/16/171744 activity - mobilize patient (al,id) VTE Prophylaxis: VTE prophylaxis appropriate FULL CODE Disposition - The patient is hemodynamically stable. Will follow up on PT/OT recommendations. Will attempt to reach patient's business development sales executive to discuss transfusions and coumadin use to see if it can be held for now. Anticipate discharge home with [facility] pending no complications. SIGNATURE: Andrea Lopez MD PATIENT NAME: Jennifer Whitlock DATE: December 21, 2017 TIME: 1:08 PM PAGER: Addendum 12/21/17 16:32 - Spoke with Dr. Beaulieu who was covering for patient's business development sales executive Dr. Rowe regarding the patient's history of atrial fibrillation on coumadin and amiodarone as well as a valve replacement which the patient reports is a cow valve and her recent bleeding requiring a blood transfusion. Inquired whether we were safe to hold her coumadin. He reported that if her rhythm is in sinus, then we can hold her coumadin. Confirmed that she was in face in sinus rhythm. Will hold coumadin and monitor. THERAPY NT Observed: 12/21/2017 Status: COMPLETED Source: [place] 12:18 PM [facility] REPOSITORY O ID: [id number] Author: Jewell Cooper PT Service: Physical Therapy Author Type: Physical Therapist Type: Therapy (PT/OT/Speech/Resp) Filed: 12/21/2017 12:19 PM Note Text: Physical Therapy [facility] Treatment SERVICE DATE: 12/21/2017 SERVICE TIME: 1010 to 1045 ROOM: [place] [address] Recommended Discharge Disposition: Home PT Anticipated Discharge Needs: Physical Assist at Home;Equipment PT Recommendations to Nursing: Ambulate with device;To bathroom;OOB for Meals Device: Wheeled Walker Precautions/Activity Restrictions: Total Knee Replacement Isolation Type: None ASSESSMENT : Patient with improved activity tolerance today. Extension ROM continues to be very limited Patient Disposition at Start of Session: Supine in Bed;Call Bansal in Reach Patient Disposition at End of Session: Supine in Bed;Call Bansal in Reach Tolerated Full Session Without limitations Physical Therapy Problem List: Decreased Range Of Motion;Decreased Strength;Functional Mobility Impairment Patient /Caregiver Goals: Go Home Learning/Educational Needs: Discharge Plan;Equipment;Family Education/Training;Functional Activities/Mobility Goals for Plan of Care: Able to perform HEP with: Independent Transfer supine to/from sit with: Independent Transfer sit to/from stand with: Independent Ambulate with: Independent Distance: 200 Device: Wheeled Walker ROM: 5-110 Progress Toward Goals: Progressing as expected Rehab Potential: Good PLAN: Treatment Frequency (times per week): 7 Treatment Duration (number): 2 Weeks Treatment Interventions: Joint Mobility;Strengthening;Functional Mobility Training Plan of Care developed with: Patient TREATMENT INTERVENTIONS: Therapy Diagnosis: Abnormalities of gait and mobility-other Interventions Provided: Therapeutic Exercise (92209);Gait Training (54523) Therapeutic Exercise (55151) Treatment Minutes: 20 1 unit Skilled Intervention(s): Instruction in therapeutic exercise per flowsheet Gait Training (17427) Treatment Minutes: 10 1 unit Skilled Intervention(s): Instruction in correction of gait deviations Total Timed Code Treatment Minutes: 30 Total Treatment Time (minutes): 35 SUBJECTIVE: Current Hospital Course: Chart reviewed; Pt received blood yesterday, Hgb now down to 7.3 Reason for Physical Therapy Consult : s/p revision of R TKR. Presents for skilled for mobility training post operatively Relevant Past Medical History: R TKR 3 years ago, CAD, DJD, HTN, OA, Pacemaker, [place] Patient Report: Patient without c/o Home Environment Patient Lives With: Self/Alone Assistance Available: PRN Entry To Home: No Stairs Number Of Stairs To Bed/Bath: 0 Tub/Shower Type: tub shower combo Laundry: pt does, light cooking. Son does most of it Equipment Owned: Cane;Commode-Raised;Shower Chair;Wheeled Walker Prior Functional Level: Within Functional Limits OBJECTIVE: CURRENT FUNCTIONAL STATUS: Gross Motor Function Range of Motion: WFL Except;Right LE Measurement Right Knee ROM: 8 degrees extension Strength: WFL Except;Right LE Measurement Right Hip Flexion Strength: 4/5 Right Hip Extension Strength: 4+/5 Right Knee Flexion Strength: 4+/5 Right Knee Extension Strength: 4/5 Right Ankle Dorsiflexion Strength: 4+/5 Functional Mobility Assist Level Additional Information Rolling Independent Supine to Sit Modified Independent (HOB flat; use of rail) Sit to Supine Independent Scooting Independent Sit to Stand Stand By Assistance Stand to Sit Stand By Assistance Bed to Chair Contact Guard Assistance Bed To Chair Transfer Type: Stand Pivot Bed To Chair Transfer Equipment: Wheeled Walker Toilet/Commode Gait Stand By Assistance Gait Device: Wheeled Walker Gait Distance (feet): 150, 100 Stairs Curb Step Car Transfer Gait Deviations Right Lower Extremity: Heel strike during initial stance decreased;Push-off during terminal stance decreased;Knee flexion during stance increased General Gait Deviations: Rahel decreased;Flexed trunk posture Please see discipline specific clinical documentation flowsheet for complete details for this therapy evaluation/treatment. SIGNATURE: Jewell Cooper PT PATIENT NAME: Jennifer Whitlock DATE: December 21, 2017 TIME: 12:18 PM HEMOGRAM/DIFF Collected: 12/21/2017 Status: P Source: [facility] 5:53 AM HEALTH SYSTEM REPOSITORY TYPE CODE TESTS RESULT OUT OF REFERENCE UNITS RANGE LAB LWBC(LOINC) 4.8-10.8 thou/cmm WBC 7.1 LAB LRBC(LOINC) 4.20-5.40 mil/cmm Low RBC 3.01 LAB LHGB(LOINC) 12.0-16.0 g/dL Low Hgb 7.3 LAB LHCT(LOINC) 37.0-47.0 % Low Hct 25.1 LAB LMCV(LOINC) 81.0-99.0 fl MCV 83.4 LAB LMCH(LOINC) 27.0-31.0 pg Low MCH 24.3 LAB LMCHC(LOINC 32.0-36.0 % ) Low MCHC 29.1 LAB LRDW(LOINC) 11.5-15.9 % High RDW 17.4 LAB LPLT(LOINC) 150-400 thou/cmm Platelet 298 LAB LMPV(LOINC) 7.1-10.5 fl MPV 10.5 Performed By: #### LCBCD #### [facility] [address] [place] [address] PROTIME Collected: 12/21/2017 Status: F Source: [facility] 5:53 AM HEALTH SYSTEM REPOSITORY TYPE CODE TESTS RESULT OUT OF REFERENCE UNITS RANGE LAB LPTI(LOINC 9.7-13.0 sec ) Prothrombin High Time 16.2 LAB LINR(LOINC 0.90-1.30 ) INR High 1.63 Result Comment: Note: Reference Range Change Vitamin K Antagonist (VKA) Therapeutic Range: INR 2 to 3 (Target INR of 2.5) Note: For patients treated with VKA drugs, such as warfarin, the [place] [employer] 2012 Guideline recommends a therapeutic INR range of 2 to 3 (target INR of 2.5). This recommendation includes high-risk patients with antiphospholipid syndrome with previous arterial or venous thromboembolism, current-generation mechanical or bioprosthetic aortic heart valve replacement. VKA Therapeutic Range for some Mechanical Valve Replacement: INR 2.5 to 3.5 (Target INR of 3) Note: Patients with mechanical aortic valve replacement and additional risk factors for thromboembolic events (atrial fibrillation, previous thromboembolism, LV dysfunction, hypercoagulable conditions) or an older generation mechanical AVR (i.e., ball in-Cage) or any mechanical MVR should have a INR therapeutic range of 2.5 to 3.5 target INR of 3). Faisal GH, et al. Chest 2012; 141:7S-47S Michelle RA et al. JAC 2017; 70: 252-289 Performed By: #### LPT #### [facility] [address] [place] [address] BASIC PANEL Collected: 12/21/2017 Status: F Source: [facility] 5:53 AM HEALTH SYSTEM REPOSITORY TYPE CODE TESTS RESULT OUT OF REFERENCE UNITS RANGE LAB COVERSTITCH MACHINE OPERATOR(LOINC) 136-145 mEq/L Low Sodium Blood 133 LAB LK(LOINC) 3.5-5.1 mEq/L Potassium Blood 4.1 LAB LCL(LOINC) 98-107 mEq/L Chloride Blood 102 LAB LCO2(LOINC 21-32 mEq/L ) CO2 Blood 29 LAB LGLU(LOINC 70-99 mg/dL ) Glucose Blood 90 LAB LBUN(LOINC 7-25 mg/dL ) BUN Blood 24 LAB LCREA(LOIN 0.51-0.95 mg/dL C) High Creatinine Blood 1.48 LAB LCA(LOINC) 8.5-10.1 mg/dL Calcium Blood 8.6 LAB LANGP(LOIN 8-20 C) Low Anion Gap 6 LAB LBNCR(LOIN 10-20 C) BUN/Creatinine 16 Ratio Performed By: #### LP8 #### [place] [id number] HEMOGRAM/DIFF Collected: 12/20/2017 Status: P Source: [facility] 9:15 PM HEALTH SYSTEM REPOSITORY TYPE CODE TESTS RESULT OUT OF REFERENCE UNITS RANGE LAB LWBC(LOINC) 4.8-10.8 thou/cmm WBC 8.4 LAB LRBC(LOINC) 4.20-5.40 mil/cmm Low RBC 3.14 LAB LHGB(LOINC) 12.0-16.0 g/dL Low Hgb 7.7 LAB LHCT(LOINC) 37.0-47.0 % Low Hct 26.1 LAB LMCV(LOINC) 81.0-99.0 fl MCV 83.1 LAB LMCH(LOINC) 27.0-31.0 pg Low MCH 24.5 LAB LMCHC(LOINC 32.0-36.0 % ) Low MCHC 29.5 LAB LRDW(LOINC) 11.5-15.9 % High RDW 17.0 LAB LPLT(LOINC) 150-400 thou/cmm Platelet 299 LAB LMPV(LOINC) 7.1-10.5 fl MPV 10.1 Performed By: #### LCBCD #### [place] [id number] NURSING PROG Observed: 12/20/2017 Status: COMPLETED Source: [place] 7:[address] [facility] [place] REPOSITORY HNO ID: [id number] Author: Sandee (Rn) KIERRA Ohara Service: ASSESSMENT Author Type: Registered Nurse Type: Nursing Progress Note Filed: 12/20/2017 8:45 PM Note Text: Pt sitting up in bed, call light within reach, tolerating infusion of PRBC well, no c/o pain. Lungs clear, HR regular, PICC sight CDI, no sx of infiltration.} 2011 PRBC completed, PICC flushed with 20 ml NS, sight CDI, no sx of infiltration, Pt tolerated well, no complaints at this time. NURSING PROG Observed: 12/20/2017 Status: COMPLETED Source: [place] 5:00 PM [facility] REPOSITORY HNO ID: [id number] Author: Tracey (Rn) KIERRA Saenz Service: Nursing Author Type: Registered Nurse Type: Nursing Progress Note Filed: 12/20/2017 7:59 PM Note Text: Nursing Progress Note Patient Name: Jennifer Whitlock Patient Location: /-* Daily Note: Call received from Dr. Lopez. Updated on pt's condition. Discussed soft cupcake size area that was noted to pt's right outer knee. No redness noted. Dr. Lopez assessed earlier . Will continue to monitor area. No new orders were received at this time. This note was completed by: Tracey Saenz RN CNNURSE Observed: 12/20/2017 Status: COMPLETED Source: [place] 5:00 PM [facility] Nurse Visit (LDINF) CHINYEREJENNIFER LORENZO ([id number]) 1935 F Date Time Provider Department 12/20/17 5:00 PM TREATMENT ROOM [facility] 3 LDINF During your visit today, we recorded the following information about you: Referring Provider: ANDREA LOPEZ [[id number]] Allergies As of Date: 12/20/2017 Noted Allergy Reaction SWEETA 12/02/2011 4 - Hives Comments: Splenda Date Reviewed: 12/20/2017 Reviewed by: Sandee ReyesRn) KIERRA Ohara - Fully Assessed Reason for Visit: Transfusion [880] Visit Diagnosis:Acute blood loss anemia [D62] Prescriptions as of 12/20/2017 Sig: LACTOBACILLUS RHAMNOSUS GG 10* Take 1 capsule by mouth once * WARFARIN 3 MG TABLET Take 1 tablet by mouth once d* METOPROLOL TARTRATE 50 MG TAB* Take 1 tablet by mouth every * POLYETHYLENE GLYCOL 3350 17 G* Take 1 Packet by mouth once d* CYANOCOBALAMIN (VIT B-12) 1,0* Take 1 tablet by mouth once d* ASPIRIN 81 MG CHEWABLE TABLET Take 1 tablet by mouth once d* PANTOPRAZOLE 40 MG TABLET,DEL* Take 1 tablet by mouth DAILY * FERROUS SULFATE 325 MG (65 MG* Take 325 mg by mouth once rina* POTASSIUM CHLORIDE ER 20 MEQ * Take 20 mEq by mouth as direc* AMIODARONE 200 MG TABLET Take 200 mg by mouth once rina* FUROSEMIDE 80 MG TABLET Take 1 tablet by mouth once d* CALCIUM PHOSPHATE-VITAMIN D3 * Take 2 tablets by mouth once * ROSUVASTATIN 5 MG TABLET Take 5 mg by mouth once daily. PRESERVISION LUTEIN ORAL Take 1 mg by mouth once daily. PROPYLENE GLYCOL 0.6 % EYE DR* Use 1 Drop in both eyes once * Problem List As Of Date 12/20/2017 Noted Resolved OA (osteoarthritis) of knee [M17.10] INVALID FOR* Knee pain, chronic [M25.569, G89.29] INVALID FOR* GI bleed [K92.2] INVALID FOR* Colitis [K52.9] INVALID FOR* Orthopedic aftercare [Z47.89] INVALID FOR* Status post revision of total replacement of ri*INVALID FOR* Paroxysmal atrial fibrillation (HCC) [I48.0] INVALID FOR* Arm mass, left [R22.32] INVALID FOR* Acute blood loss anemia [D62] INVALID FOR* Encounter Status:Closed by GABE EMANUEL on 12/21/17 NURSING PROG Observed: 12/20/2017 Status: COMPLETED Source: [place] 4:[address] [facility] REPOSITORY HNO ID: [id number] Author: Tracey ReyesRn) KIERRA Saenz Service: Nursing Author Type: Registered Nurse Type: Nursing Progress Note Filed: 12/20/2017 7:57 PM Note Text: Nursing Progress Note Patient Name: Jennifer Whitlock Patient Location: [place] [address] [address] Daily Note: Pt resting quietly in bed. All treatments and procedures were explained. Pt verbalized understanding. Pt to receive 1 unit of blood this evening and a repeat cbc to be done after transfusion. No questions or concerns were voiced at this time. This note was completed by: Tracey Saenz RN THERAPY NT Observed: 12/20/2017 Status: COMPLETED Source: [place] 2:14 PM [facility] REPOSITORY HNO ID: [id number] Author: Jewell ReyesPt) IVONNE Cooper Service: Physical Therapy Author Type: Physical Therapist Type: Therapy (PT/OT/Speech/Resp) Filed: 12/20/2017 2:15 PM Note Text: Physical Therapy [facility] Treatment SERVICE DATE: 12/20/2017 SERVICE TIME: 1340 to 1412 ROOM: [place] [address] Recommended Discharge Disposition: Home PT Anticipated Discharge Needs: Physical Assist at Home;Equipment PT Recommendations to Nursing: Ambulate with device;To bathroom;OOB for Meals Device: Wheeled Walker Precautions/Activity Restrictions: Total Knee Replacement Isolation Type: None ASSESSMENT : Patient with low Hgb and feeling ill; thus decreased exercise tolerance today. Patient Disposition at Start of Session: Supine in Bed;Call Bansal in Reach Patient Disposition at End of Session: Supine in Bed;Call Bansal in Reach Tolerance Limited By (feeling unwell) Physical Therapy Problem List: Decreased Range Of Motion;Decreased Strength;Functional Mobility Impairment Patient /Caregiver Goals: Go Home Learning/Educational Needs: Discharge Plan;Equipment;Family Education/Training;Functional Activities/Mobility Goals for Plan of Care: Able to perform HEP with: Independent Transfer supine to/from sit with: Independent Transfer sit to/from stand with: Independent Ambulate with: Independent Distance: 200 Device: Wheeled Walker ROM: 5-110 Progress Toward Goals: Progressing as expected Rehab Potential: Good PLAN: Treatment Frequency (times per week): 7 Treatment Duration (number): 2 Weeks Treatment Interventions: Joint Mobility;Strengthening;Functional Mobility Training Plan of Care developed with: Patient TREATMENT INTERVENTIONS: Therapy Diagnosis: Abnormalities of gait and mobility-other Interventions Provided: Therapeutic Exercise (29604);Gait Training (29378) Therapeutic Exercise (98191) Treatment Minutes: 15 1 unit Skilled Intervention(s): Instruction in therapeutic exercise per flowsheet Gait Training (53933) Treatment Minutes: 15 1 unit Skilled Intervention(s): Instruction in correction of gait deviations Total Timed Code Treatment Minutes: 30 Total Treatment Time (minutes): 32 SUBJECTIVE: Current Hospital Course: Chart reviewed; Per RN, pt to receive 1 unit of blood later today. Reason for Physical Therapy Consult : s/p revision of R TKR. Presents for skilled for mobility training post operatively Relevant Past Medical History: R TKR 3 years ago, CAD, DJD, HTN, OA, Pacemaker, [place] Patient Report: Patient agreeable to PT but doesn;t feel well Home Environment Patient Lives With: Self/Alone Assistance Available: PRN Entry To Home: No Stairs Number Of Stairs To Bed/Bath: 0 Tub/Shower Type: tub shower combo Laundry: pt does, light cooking. Son does most of it Equipment Owned: Cane;Commode-Raised;Shower Chair;Wheeled Walker Prior Functional Level: Within Functional Limits OBJECTIVE: CURRENT FUNCTIONAL STATUS: Gross Motor Function Range of Motion: WFL Except;Right LE Measurement Right Knee ROM: 10 degrees extension Strength: WFL Except;Right LE Measurement Right Hip Flexion Strength: 4/5 Right Hip Extension Strength: 4+/5 Right Knee Flexion Strength: 4+/5 Right Knee Extension Strength: 4/5 Right Ankle Dorsiflexion Strength: 4+/5 Functional Mobility Assist Level Additional Information Rolling Independent Supine to Sit Modified Independent (HOB flat; use of rail) Sit to Supine Independent Scooting Independent Sit to Stand Stand By Assistance Stand to Sit Stand By Assistance Bed to Chair Contact Guard Assistance Bed To Chair Transfer Type: Stand Pivot Bed To Chair Transfer Equipment: Wheeled Walker Toilet/Commode Gait Stand By Assistance Gait Device: Wheeled Walker Gait Distance (feet): 150, 100 Stairs Curb Step Car Transfer Gait Deviations Right Lower Extremity: Heel strike during initial stance decreased;Push-off during terminal stance decreased;Knee flexion during stance increased General Gait Deviations: Rahel decreased;Flexed trunk posture Please see discipline specific clinical documentation flowsheet for complete details for this therapy evaluation/treatment. SIGNATURE: Jewell Cooper PT PATIENT NAME: Jennifer Whitlock DATE: December 20, 2017 TIME: 2:14 PM PROGRESS Observed: 12/20/2017 Status: COMPLETED Source: [place] 1:04 PM [facility] REPOSITORY HNO ID: [id number] Author: Andrea Lopez Service: General Internal Medicine Author Type: Physician Type: Progress Notes Filed: 12/20/2017 1:42 PM Note Text: INPATIENT PROGRESS NOTE SERVICE DATE: 12/20/2017 SERVICE TIME: 1215 PRIMARY SERVICE: Swing Subjective CHIEF COMPLAINT: Acute blood loss anemia/nausea INTERVAL HPI: Overnight, the patient had an episode of emesis. She was given zofran which did help her symptoms. This morning, the patient continues to complain of nausea without further vomiting. Zofran continues to help. The patient did decline physical and occupational therapy today. She denies any diarrhea, abdominal pain, chest pain or shortness of breath. The patient's hemoglobin has been steadily declining so the patient will be getting a transfusion. She is agreeable with the plan and had no questions about it. Current hospital medications: ondansetron orally disintegrating 4 mg tab(s) (ZOFRAN ODT) 4 mg ORAL q 6 H PRN 0.9% NaCl 2-10 mL 2-10 mL INTRAVENOUS q 12 H acetaminophen 650 mg tab(s) (TYLENOL) 650 mg ORAL q 6 H PRN oxyCODONE-acetaminophen 5-325 mg 1 tablet (PERCOCET) 1 tablet ORAL BID PRN oxyCODONE-acetaminophen 5-325 mg 1 tablet (PERCOCET) 1 tablet ORAL q 6 H PRN traMADol 50 mg tab(s) (ULTRAM) 50 mg ORAL q 6 H PRN amiodarone 200 mg tab(s) (PACERONE) 200 mg ORAL DAILY warfarin 0.5 mg tab(s) (COUMADIN) 0.5 mg ORAL DAILY metoprolol tartrate (short acting) 50 mg tab(s) (LOPRESSOR) 50 mg ORAL q 12 H ferrous sulfate 325 mg tab(s) 325 mg ORAL DAILY polyethylene glycol 3350 17 g packet (MIRALAX, GLYCOLAX) 17 g ORAL DAILY aspirin 81 mg chewable tab(s) 81 mg ORAL DAILY potassium chloride ER 20 mEq tab(s) (K-DUR, KLOR-CON) 20 mEq ORAL DAILY cyanocobalamin 1,000 mcg tab(s) (VITAMIN B-12) 1,000 mcg ORAL DAILY amLODIPine 5 mg tab(s) (NORVASC) 5 mg ORAL DAILY atorvastatin 10 mg tab(s) (LIPITOR) 10 mg ORAL AT BEDTIME furosemide 40 mg tab(s) (LASIX) 40 mg ORAL DAILY cefTRIAXone iv piggyback 2 g in dextrose (iso-osmotic) 50 mL (ROCEPHIN) 2 g INTRAVENOUS q 24 H Objective PHYSICAL EXAM: BP 145/49 Pulse 61 Temp (Src) 98.2 (Oral) Resp 16 Ht 5' 9 (1.75m) Wt 155 lb 1.6 oz (70.4kg) SpO2 98% BMI 22.89 kg/(m2). Physical Exam Performed GENERAL: Alert, no distress, cooperative, lying in bed SKIN: Skin color, texture, turgor normal. No rashes. HEAD/SINUSES: No significant findings, atraumatic, normocephalic LUNGS: Lungs clear to auscultation, Good diaphragmatic excursion CARDIAC: Normal S1 and S2; no rubs, positive 3/6 systolic murmur. ABDOMEN: Abdomen soft, non-tender, BS normal, No masses or organomegaly EXTREMITIES: Incision healing well with no discharge. Mild tenderness and swelling around incision site. No surrounding erythema or increased warmth. Left arm mass is dressed with an ALYCE wrap in place. NEURO: Negative. ?Alert and oriented x3 DATA: Diagnostic tests reviewed for today's visit: Most recent labs Assessment/Plan Principal Problem: ??Orthopedic aftercare POA: Yes ?Assessment AND?Plan: Continue physical and occupational therapy. ? Active Problems: ??Status post revision of total replacement of right knee POA: Yes ?Assessment AND?Plan: As above. ?Will continue IV antibiotics and pain medications as needed. ?CBC ordered weekly. ?Will follow up on PT/OT recommendations. ?Paroxysmal atrial fibrillation (HCC) POA: Yes ?Assessment AND?Plan: Stable. ?Continue home medications. ?Labs ordered every Monday and Monday. ? Arm mass, Left POA: Yes Assessment AND Plan: Continue dressing care. Area continues to bleed. Patient is asymptomatic. Surgery is aware of the mass and monitoring. Further management cannot be completed until her knee infection is resolved. Acute blood loss anemia POA: Yes Assessment AND Plan: HH is slowly trending downward. Will transfuse the patient 1 unit PRBC. Consent explained and signed by patient. Type and cross completed. Will repeat blood work after completion of transfusion. Resolved Problems: * No resolved hospital problems. * Medication and Non-Pharmacologic VTE Prophylaxis/Anticoagulants Anticoagulant AND Antiplatelet Medications Start Dose Route Frequency Ordered Stop 12/16/17 1500 warfarin 0.5 mg tab(s) (COUMADIN) 0.5 mg ORAL DAILY 12/16/17 1448 -- 12/16/17 1500 aspirin 81 mg chewable tab(s) 81 mg ORAL DAILY 12/16/17 1448 -- 12/16/17 174 vte non-pharmacologic prophylaxis - none indicated (al,id) 12/16/171744 vte current anticoag therapy (al,id) 12/16/171744 activity - mobilize [place] ([place]) VTE Prophylaxis: VTE prophylaxis appropriate FULL CODE ? Disposition - The patient is hemodynamically stable. ?Will follow up on PT/OT recommendations. ?Anticipate discharge home with [facility] in 7-10 days pending no complications. SIGNATURE: Andrea Lopez MD PATIENT NAME: Jennifer Whitlock DATE: December 20, 2017 TIME: 1:04 PM PAGER: THERAPY NT Observed: 12/20/2017 Status: COMPLETED Source: [place] 11:02 AM [facility] REPOSITORY HNO ID: [id number] Author: Jyoti Dhillon OT Service: Occupational Therapy Author Type: Occupational Therapist Type: Therapy (PT/OT/Speech/Resp) Filed: 12/20/2017 11:03 AM Note Text: OCCUPATIONAL THERAPY MISSED VISIT SERVICE DATE: 12/20/2017 SERVICE TIME: 1037 to 1038 ROOM: [place] [address] Attempted Treatment. Patient not seen due to Illness (pt feeling nauseated; also is to receive blood transfusion per nursing due to low Hgb. SIGNATURE: MECHE Abraham/L PATIENT NAME: Jennifer Whitlock DATE: December 20, 2017 TIME: 11:03 AM THERAPY NT Observed: 12/20/2017 Status: COMPLETED Source: [place] 9:44 AM [facility] REPOSITORY HNO ID: [id number] Author: Juana Hilliard PT ASSIST Service: Physical Therapy Author Type: Nanofabrication Specialist Type: Therapy (PT/OT/Speech/Resp) Filed: 12/20/2017 9:44 AM Note Text: Attestation signed by Jewell Cooper PT at 12/20/2017 11:34 AM I reviewed and agree with the documentation corresponding to this therapy visit. SIGNATURE: Jewell Cooper PT DATE: December 20, 2017 TIME: 11:34 AM PHYSICAL THERAPY MISSED VISIT SERVICE DATE: 12/20/2017 SERVICE TIME: 929 to 934 ROOM: [place] [address] Attempted Treatment. Patient not seen due to Illness (nauseated fatigued). SIGNATURE: Juana Hilliard PTA PATIENT NAME: Jennifer Whitlock DATE: December 20, 2017 TIME: 9:44 AM NURSING PROG Observed: 12/20/2017 Status: COMPLETED Source: [place] 7:02 AM [facility] REPOSITORY HNO ID: [id number] Author: Cindy (Rn) South, RN Service: Nursing Author Type: Registered Nurse Type: Nursing Progress Note Filed: 12/20/2017 7:07 AM Note Text: Nursing Progress Note Patient Name: Jennifer Whitlock Patient Location: [place] [address]/[id number]-* Daily Note:Dr. Lopez paged through the answering service to update on redraw of her HANDH at 7.1. This note was completed by: Cindy Dia RN HGB Collected: 12/20/2017 Status: F Source: [facility] 6:40 AM HEALTH SYSTEM REPOSITORY TYPE CODE TESTS RESULT OUT OF RANGE REFERENCE UNITS LAB LHGBI(LOINC 12.0-16.0 g/dL ) Low Hgb 7.1 Performed By: #### LHGBI #### [place] [address] HCT Collected: 12/20/2017 Status: F Source: [facility] 6:40 AM HEALTH SYSTEM REPOSITORY TYPE CODE TESTS RESULT OUT OF RANGE REFERENCE UNITS LAB LHCTI(LOINC 37.0-47.0 % ) Low Hct 24.3 Performed By: #### LHCTI #### [place] [address] TYPE AND SCREEN Collected: 12/20/2017 Status: F Source: [facility] 6:40 AM HEALTH SYSTEM REPOSITORY TYPE CODE TESTS RESULT OUT OF REFERENCE UNITS RANGE LAB ABO(LOINC) O ABO Group LAB METAL BUFFER(LOINC ) RH Type Positive LAB ABSCR(LOIN C) Antibody NEGATIVE Screen LAB BBCMT(LOIN C) Comment Out Patient Performed By: #### T&S #### [place] [address] RBC PRODUCTS Collected: 12/20/2017 Status: F Source: [facility] 6:40 AM HEALTH SYSTEM REPOSITORY TYPE CODE TESTS RESULT OUT OF REFERENCE UNITS RANGE LAB UNIT1(LOINC ) Xmatch Unit 1 see below Result Comment: Compatible Performed By: #### RBCPS #### [place] [address] NURSING PROG Observed: 12/20/2017 Status: COMPLETED Source: [place] 6:16 AM [facility] REPOSITORY HNO ID: [id number] Author: Cindy Ames) KIERRA Dia Service: Nursing Author Type: Registered Nurse Type: Nursing Progress Note Filed: 12/20/2017 6:26 AM Note Text: Nursing Progress Note Patient Name: Jennifer Whitlock [id number] Daily Note: Dr. Lopez returned call and order stat labs and a type and screen. This note was completed by: Cindy Dia RN NURSING PROG Observed: 12/20/2017 Status: COMPLETED Source: [place] 6:14 AM [facility] REPOSITORY O ID: [id number] Author: Cindy (Rn) KIERRA Dia Service: Nursing Author Type: Registered Nurse Type: Nursing Progress Note Filed: 12/20/2017 6:16 AM Note Text: Nursing Progress Note Patient Name: Jennifer Whitlock Patient Location: [place] [id number]-* Daily Note: Doctor called through answering service to update on critical lab results. This note was completed by: Cindy Dia RN HGB Collected: 12/20/2017 Status: F Source: [facility] 5:54 AM HEALTH SYSTEM REPOSITORY TYPE CODE TESTS RESULT OUT OF RANGE REFERENCE UNITS LAB LHGBI(LOINC 12.0-16.0 g/dL ) Low alert Hgb 6.6 Performed By: #### LHGBI #### [place] [address] HCT Collected: 12/20/2017 Status: F Source: [facility] 5:54 AM HEALTH SYSTEM REPOSITORY TYPE CODE TESTS RESULT OUT OF RANGE REFERENCE UNITS LAB LHCTI(LOINC 37.0-47.0 % ) Low Hct 22.8 Performed By: #### LHCTI #### [place] [address] THERAPY NT Observed: 12/19/2017 Status: COMPLETED Source: [place] 4:04 PM [facility] REPOSITORY HNO ID: [id number] Author: Bindu Duran Service: Physical Therapy Author Type: Nanofabrication Specialist Type: Therapy (PT/OT/Speech/Resp) Filed: 12/19/2017 4:06 PM Note Text: Attestation signed by Jewell Yeager) IVONNE Cooper at 12/20/2017 11:35 AM I reviewed and agree with the documentation corresponding to this therapy visit. SIGNATURE: Jewell Cooper PT DATE: December 20, 2017 TIME: 11:35 AM Physical Therapy [facility] SERVICE DATE: 12/19/2017 SERVICE TIME: 1450 to 1515 ROOM: [place] [address] Recommended Discharge Disposition: Home PT Anticipated Discharge Needs: Physical Assist at Home;Equipment PT Recommendations to Nursing: Ambulate with device;To bathroom;OOB for Meals Device: Wheeled Walker Precautions/Activity Restrictions: Total Knee Replacement Isolation Type: None ASSESSMENT : Patient presents with mildly improved R knee extension upon heelstrike, however, does not maintain this during stance phase. Requires skilled PT for progressing R knee ROM, strength, and function. Patient Disposition at Start of Session: Supine in Bed;Call Bansal in Reach Patient Disposition at End of Session: Supine in Bed;Call Bansal in Reach Tolerated Full Session Physical Therapy Problem List: Decreased Range Of Motion;Decreased Strength;Functional Mobility Impairment Patient /Caregiver Goals: Go Home Learning/Educational Needs: Discharge Plan;Equipment;Family Education/Training;Functional Activities/Mobility Goals for Plan of Care: Able to perform HEP with: Independent Transfer supine to/from sit with: Independent Transfer sit to/from stand with: Independent Ambulate with: Independent Distance: 200 Device: Wheeled Walker ROM: 5-110 Progress Toward Goals: Progressing as expected Rehab Potential: Good PLAN: Treatment Frequency (times per week): 7 Treatment Duration (number): 2 Weeks Treatment Interventions: Joint Mobility;Strengthening;Functional Mobility Training Plan of Care developed with: Patient TREATMENT INTERVENTIONS: Therapy Diagnosis: Abnormalities of gait and mobility-other Interventions Provided: Therapeutic Exercise (42628);Gait Training (07150) Therapeutic Exercise (80398) Treatment Minutes: 13 1 unit Skilled Intervention(s): Instruction in therapeutic exercise see flow sheet Verbal and tactile cuing provided Gait Training (44903) Treatment Minutes: 10 1 unit Skilled Intervention(s): Instruction in correction of gait deviations Total Timed Code Treatment Minutes: 23 Total Treatment Time (minutes): 25 SUBJECTIVE: Current Hospital Course: Chart reviewed and no significant medical updates relevant to therapy were noted Reason for Physical Therapy Consult : s/p revision of R TKR. Presents for skilled for mobility training post operatively Relevant Past Medical History: R TKR 3 years ago, CAD, DJD, HTN, OA, Pacemaker, [place] Patient Report: Pt requests return to bed at end of PT. Home Environment Patient Lives With: Self/Alone Assistance Available: PRN Entry To Home: No Stairs Number Of Stairs To Bed/Bath: 0 Tub/Shower Type: tub shower combo Laundry: pt does, light cooking. Son does most of it Equipment Owned: Cane;Commode-Raised;Shower Chair;Wheeled Walker Prior Functional Level: Within Functional Limits OBJECTIVE: CURRENT FUNCTIONAL STATUS: Gross Motor Function Range of Motion: WFL Except;Right LE Measurement Right Knee ROM: 10 degrees extension Strength: WFL Except;Right LE Measurement Right Hip Flexion Strength: 4/5 Right Hip Extension Strength: 4+/5 Right Knee Flexion Strength: 4+/5 Right Knee Extension Strength: 4/5 Right Ankle Dorsiflexion Strength: 4+/5 Functional Mobility Assist Level Additional Information Rolling Independent Supine to Sit Modified Independent (HOB flat; use of rail) Sit to Supine Independent Scooting Independent Sit to Stand Stand By Assistance Stand to Sit Stand By Assistance Bed to Chair Contact Guard Assistance Bed To Chair Transfer Type: Stand Pivot Bed To Chair Transfer Equipment: Wheeled Walker Toilet/Commode Gait Stand By Assistance Gait Device: Wheeled Walker Gait Distance (feet): 175'x1; 50'x1 Stairs Curb Step Car Transfer Gait Deviations Right Lower Extremity: Weight bearing decreased;Heel strike during initial stance decreased;Knee flexion during stance increased General Gait Deviations: Rahel decreased;Flexed trunk posture Please see discipline specific clinical documentation flowsheet for complete details for this therapy evaluation/treatment. SIGNATURE: Bindu Duran PTA PATIENT NAME: Jennifer Whitlock DATE: December 19, 2017 TIME: 4:04 PM THERAPY NT Observed: 12/19/2017 Status: COMPLETED Source: [place] 3:11 PM [facility] RE[facility] HNO ID: [id number] Author: Jyoti (Ot) GISELL Dhillon Service: Occupational Therapy Author Type: Occupational Therapist Type: Therapy (PT/OT/Speech/Resp) Filed: 12/19/2017 3:23 PM Note Text: Occupational Therapy [facility] SERVICE DATE: 12/19/2017 SERVICE TIME: 1300 to 1340 ROOM: [place] [address] Recommended Discharge Disposition: Home OT Recommended Discharge Equipment: Dressing Stick;Long Handled Sponge;Wheeled Walker;Dining Service Inspector;Shower Bench;To Be Determined OT Recommendations to Nursing: ADL?s in chair;OOB for meals Precautions/Activity Restrictions: Total Knee Replacement Isolation Type: None ASSESSMENT: Patient presents with good ability to complete lower body dressing tasks without use of adaptive equipment and with adherence to knee precautions. Pt has improved in ability to move sit to stand at a stand by assist level.. Requires skilled OT for continued ADL training, functional mobility training, balance training, standing tolerance and strengthening, and caregiver instruction prior to discharge.. Patient Disposition at Start of Session: OOB in Chair;Call Bansal in Reach Patient Disposition at End of Session: Supine in Bed;Call Bansal in Reach Tolerated Full Session Occupational Therapy Problem List: Education Deficit;Safety Deficits;Impaired Self Care;Balance Impaired Patient /Caregiver Goals: Go Home Learning/Educational Needs: Discharge Plan;Equipment;Functional Activities/Mobility;Plan of Care;Precautions;Rehabilitation Techniques and Procedures;Safety;Self Care Goals for Plan of Care: Lower Body Bathing with: Stand By Assistance Lower Body Dressing with: Supervision Chair Transfer with: Modified Independent Toilet Transfer with: Modified Independent Tub Transfer with: Contact Guard Assistance Kitchen Mobility Tasks with: Supervision Demonstrate Competence With Education with: Independent Progress Toward Goals: Progressing as expected Rehab Potential: Excellent PLAN: Treatment Frequency (times per week): 5 Treatment Duration (number): 2 Weeks Treatment Interventions: Education;Self Care / Home Management;Functional Mobility Training;Balance Training Plan of Care developed with: Patient TREATMENT INTERVENTIONS: Therapy Diagnosis: Reduced mobility-other;Decreased activities of daily living (ADL);Muscle Weakness (generalized);Unsteadiness on feet Interventions Provided: Therapeutic Activity (48840);Self Fdc Management (67289) Therapeutic Activity (64242) Treatment Minutes: 15 1 unit Skilled Intervention(s): Instructed patient in sit to supine using safe, effective technique Instruction in sit to and from stand technique with proper hand placement and body positioning at edge of bed/chair Education with pt in possible equipment needs for home including elevated toilet seat with armrests, extended tub bench, commercial energy auditor. Discussed homegoing issues such as letting her dogs go outside using proper technique for doors; discussed safety issues re: dogs and caring for them during the day. Self Fdc Management (21684) Treatment Minutes: 25 2 units Skilled Intervention(s): Instructed in post-op instructions during ADLs including knee precautions Provided instruction, cuing and facilitation for lower body dressing including donning/doffing socks, tie shoes, and pants over feet using proper technique; no adaptive equipment was needed for pt to properly complete these tasks/skills. Total Timed Code Treatment Minutes: 40 Total Treatment Time (minutes): 40 SUBJECTIVE: Current Hospital Course: Chart reviewed and no significant medical updates relevant to therapy were noted Reason for Occupational Therapy Consult: Pt had a total knee revision on RLE Patient Report: Pt states her son will assist her with some meals at times and for shopping/laundry/housework. Home Environment Patient Lives With: Self/Alone Assistance Available: PRN Entry To Home: No Stairs Number Of Stairs To Bed/Bath: 0 Tub/Shower Type: tub shower combo Laundry: pt does, light cooking. Son does most of it Equipment Owned: Cane;Commode-Raised;Shower Chair;Wheeled Walker Prior Functional Level: Within Functional Limits OBJECTIVE: Gross Motor Function Hand Dominance: Right Range of Motion: WFL Strength: WFL Except (4-/5 bilateral shoulders) Current Activities of Daily Living Assist Level Feeding Independent Grooming Set Up Bathing Upper Body Set Up Bathing Lower Body Minimal Assistance Dressing Upper Body Set Up Dressing Lower Body Stand By Assistance (to javier/doff pants, shoes, socks without equipment) Toileting Contact Guard Assistance Instrumental Activities of Daily Living Assist Level Meal/Beverage Prep Total Assistance Light Cleaning Total Assistance Laundry Total Assistance Medication Management with Strategies Functional Mobility Assist Level Rolling Supervision Supine to Sit Supervision Sit to Supine Supervision Scooting Independent Sit to Stand Stand By Assistance Stand to Sit Stand By Assistance Bed to Chair Contact Guard Assistance Stand Pivot Wheeled Walker Toilet/Commode Contact Guard Assistance Tub Transfer Shower Transfer Functional Mobility Car Transfer Please see discipline specific clinical documentation flowsheet for complete details for this therapy evaluation/treatment. SIGNATURE: Jyoti Dhillon OTR/L PATIENT NAME: Jennifer Whitlock DATE: December 19, 2017 TIME: 3:12 PM SOCIAL WORK Observed: 12/19/2017 Status: COMPLETED Source: [place] 3:01 PM [facility] REPOSITORY HNO ID: [id number] Author: TOMMY Tabares (Sw) Service: Social Work Author Type: Gem Cutter Type: Social Work Filed: 12/19/2017 3:03 PM Note Text: SOCIAL WORK PROGRESS NOTE Name: Jennifer Whitlock Per patient's insruction, NIKO had Registration change patient's contact information so son (Lamar Amor) would be primary contact and dtr-in-law (Ginna Amor) would be second contact. Signature: TOMMY Tabares Date: December 19, 2017 Time: 3:01 PM SOCIAL WORK Observed: 12/19/2017 Status: COMPLETED Source: [place] 2:38 PM [facility] REPOSITORY HNO ID: [id number] Author: TOMMY Tabares (Sw) Service: Social Work Author Type: Gem Cutter Type: Social Work Filed: 12/19/2017 2:47 PM Note Text: CARE MANAGEMENT: ASSESSMENT AND DISCHARGE PLAN SERVICE DATE: 12/19/2017 SERVICE TIME: 5721-4028 PRIMARY CARE PHYSICIAN: Sathya Rowe MD ADMISSION STATUS: Inpatient Swing MEDICAL: Patient/Employee'S Representative Stated Goals: To return home to life as it was Health Insurance: MEDICARE A AND B Medicare, [facility] Health Issues Impacting Discharge Plan: None Last Admission Date: Previous admit date: 07/24/2016 Is this Within the Past 30 days? No Advance Directive: n/a Health Literacy: 1. How often do you need to have someone help you when you read instructions, pamphlets, or other written material from your doctor or pharmacy? Never - 1 2. How confident are you filling out medical forms by yourself? Extremely - 1 If Patient scores > 3 on either question, the following interventions were put into place: Patient did not score > 3 FUNCTIONAL AND COGNITIVE/BEHAVIORAL PRIOR TO ADMISSION: Baseline Mental Status: Alert AND Oriented, Person, Place , Time and Situation Functional Status: Independent Does Patient Currently Receive Any Community Services or Home Care? None Equipment Prior to Admission: Bedside Commode Cane - Unknown type Tub bench/chair Walker Wheelchair Has the Patient Been in a [facility] Facility in the Past 30 days? No SOCIAL: Living Arrangement: Home Lives With: Alone Financial Resources: Retired Primary Contact: Extended Emergency Contact Information Primary Emergency Contact: Ginna Amor Address: [address] [place], [place] [phone] Relation: Child Secondary Emergency Contact: Lamar Whitlock [address] Mobile Relation: Son Supportive: Yes Other Important Patient Contacts: None Caregiver Assessment: Caregiver is ready, willing and able to meet the patient's needs as recommended by the inter-professional team? to be determined Patient's transition needs and plan for meeting these needs: PT/OT Does the patient have an acute stroke diagnosis, or has the patient had a stroke during this admission? No Medication Adherence: I am convinced of the importance of my prescription medication: Agree completely - 0 I worry that my prescription medication will do more harm than good to me Disagree completely - 0 I feel financially burdened by my [id number] expenses for my prescription medication: Disagree completely - 0 Patient is categorized as low risk < 2 Are you interested in bedside delivery of your medications? n/a Food Concerns: In the Last Month, Have You had Trouble Getting Food? No trouble getting food During the Last Month, Have You Worried Whether Your Food Would Run Out Before You Had Enough Money to Buy More? No Is the Patient Psychosocially Complex? No ASSESSMENT AND PLAN: Medical Needs: 2 or more chronic diseases and Fall risk or frequent falls Psychosocial Needs: None FREEDOM OF CHOICE EXPLAINED: Yes and patient expressed understanding POTENTIAL TRANSITION PLANS Home OT/PT Patient ok to use previous HHC ([facility] No restoration call requested. Declined visit from hip hop performers. Patient told SW that her son, Lamar should be primary contact and dtr-in-law, Ginna, should be second. SIGNATURE: TOMMY Tabares PATIENT NAME: Jennifer Whitlock DATE: December 19, 2017 TIME: 2:38 PM PAGER/CONTACT #: [phone] THERAPY NT Observed: 12/19/2017 Status: COMPLETED Source: [place] 12:59 PM [facility] REPOSITORY O ID: [id number] Author: Bindu Duran Service: Physical Therapy Author Type: Nanofabrication Specialist Type: Therapy (PT/OT/Speech/Resp) Filed: 12/19/2017 1:03 PM Note Text: Attestation signed by Jewell Cooper PT at 12/19/2017 2:58 PM I reviewed and agree with the documentation corresponding to this therapy visit. SIGNATURE: Jewell Cooper PT DATE: December 19, 2017 TIME: 2:58 PM Physical Therapy [facility] Treatment SERVICE DATE: 12/19/2017 SERVICE TIME: 1118 to 1200 ROOM: [place] [address] Recommended Discharge Disposition: Home PT Anticipated Discharge Needs: Physical Assist at Home;Equipment PT Recommendations to Nursing: Ambulate with device;To bathroom;OOB for Meals Device: Wheeled Walker Precautions/Activity Restrictions: Total Knee Replacement Isolation Type: None ASSESSMENT : Patient presents with challenge with achieving/maintaining R terminal knee extension with heelstrike during amb. Requires skilled PT for progression of ROM, strength, and function. Patient Disposition at Start of Session: OOB in Chair Patient Disposition at End of Session: OOB in Chair;Call Bansal in Reach (iceman placed on the R knee) Tolerated Full Session Physical Therapy Problem List: Decreased Range Of Motion;Decreased Strength;Functional Mobility Impairment Patient /Caregiver Goals: Go Home Learning/Educational Needs: Discharge Plan;Equipment;Family Education/Training;Functional Activities/Mobility Goals for Plan of Care: Able to perform HEP with: Independent Transfer supine to/from sit with: Independent Transfer sit to/from stand with: Independent Ambulate with: Independent Distance: 200 Device: Wheeled Walker ROM: 5-110 Progress Toward Goals: Progressing as expected Rehab Potential: Good PLAN: Treatment Frequency (times per week): 7 Treatment Duration (number): 2 Weeks Treatment Interventions: Joint Mobility;Strengthening;Functional Mobility Training Plan of Care developed with: Patient TREATMENT INTERVENTIONS: Therapy Diagnosis: Abnormalities of gait and mobility-other Interventions Provided: Therapeutic Exercise (07991);Gait Training (02196) Therapeutic Exercise (15002) Treatment Minutes: 23 2 units Skilled Intervention(s): Instruction in therapeutic exercise see flow sheet Verbal and tactile cuing provided for correct exercise performance Gait Training (96026) Treatment Minutes: 18 1 unit Skilled Intervention(s): Instruction in correction of gait deviations Total Timed Code Treatment Minutes: 41 Total Treatment Time (minutes): 43 SUBJECTIVE: Current Hospital Course: Chart reviewed and no significant medical updates relevant to therapy were noted Reason for Physical Therapy Consult : s/p revision of R TKR. Presents for skilled for mobility training post operatively Relevant Past Medical History: R TKR 3 years ago, CAD, DJD, HTN, OA, Pacemaker, [place] Patient Report: Pt agreeable to PT. Mild c/o right knee pain noted. Home Environment Patient Lives With: Self/Alone Assistance Available: PRN Entry To Home: No Stairs Number Of Stairs To Bed/Bath: 0 Tub/Shower Type: tub shower combo Laundry: pt does, light cooking. Son does most of it Equipment Owned: Cane;Commode-Raised;Shower Chair;Wheeled Walker Prior Functional Level: Within Functional Limits OBJECTIVE: CURRENT FUNCTIONAL STATUS: Gross Motor Function Range of Motion: WFL Except;Right LE Measurement Right Knee ROM: 18-106 Strength: WFL Except;Right LE Measurement Right Hip Flexion Strength: 4/5 Right Hip Extension Strength: 4+/5 Right Knee Flexion Strength: 4+/5 Right Knee Extension Strength: 4/5 Right Ankle Dorsiflexion Strength: 4+/5 Functional Mobility Assist Level Additional Information Rolling Independent Supine to Sit Independent Sit to Supine Independent Scooting Independent Sit to Stand Stand By Assistance Stand to Sit Stand By Assistance Bed to Chair Contact Guard Assistance Bed To Chair Transfer Type: Stand Pivot Bed To Chair Transfer Equipment: Wheeled Walker Toilet/Commode Gait Contact Guard Assistance Gait Device: Wheeled Walker Gait Distance (feet): 250'x1; 50'x1 Stairs Curb Step Car Transfer Gait Deviations Right Lower Extremity: Weight bearing decreased;Heel strike during initial stance decreased General Gait Deviations: Rahel decreased;Flexed trunk posture Please see discipline specific clinical documentation flowsheet for complete details for this therapy evaluation/treatment. SIGNATURE: Bindu Duran PTA PATIENT NAME: Jennifer Whitlock DATE: December 19, 2017 TIME: 1:00 PM SOCIAL WORK Observed: 12/19/2017 Status: COMPLETED Source: [place] 10:48 AM [facility] REPOSITORY [facility] ID: [id number] Author: TOMMY Tabares (Sw) Service: Social Work Author Type: Gem Cutter Type: Social Work Filed: 12/19/2017 10:52 AM Note Text: MULTIDISCIPLINARY ROUNDS SERVICE DATE: 12/19/2017 ADMISSION DATE: 12/16/2017 SERVICE TIME: 10:48 AM ANTICIPATED D/C DATE: To be determined Problem List: ACTIVE PROBLEM LIST Oa (Osteoarthritis) of Knee Knee Pain, Chronic GI Bleed Colitis Orthopedic Aftercare Status Post Revision of Total Replacement of Right Knee Paroxysmal Atrial Fibrillation (Hcc) Arm Mass, Left Attendees Present at Rounds: Occupational Therapy: Jyoti Dhillon Physical Therapy: Jewell Cooper Gem Cutter: Manuela Jack Staff Nurse: Patricia Woods Needs Discussed on Rounds: Mobility Anticipated Discharge Disposition: Home with Home Health Care Last Vitals: BP 113/40 Pulse 63 Temp (Src) 98.1 (Oral) Resp 16 Ht 5' 9 (1.75m) Wt 155 lb 1.6 oz (70.4kg) SpO2 98% BMI 22.89 kg/(m2). PT: CGA for transfers and walking with WW. OT: Moves well, able to bend to feet. Assistant Therapy Aide Note: 100% meal intake, heart healthy diet. Patient education provided. Nursing: Discharge Planning Intervention(s) Plan: Coordinate Discharge Planning Discharge Planning Goals/Outcomes: Exhibits Increased Interest and Assume Responsibility for Patient's Own/Family Learning by Beginning to Look for Information and Ask Questions Discharge Planning Goal Target Achievement Date: 12/23/17Knowledge Deficit Intervention(s) Plan: Encourage Verbalization of Questions and Concerns Knowledge Deficit Goals/Outcomes: Verbalizes/Demonstrates Knowledge and Understanding of Provided Instructions Knowledge Deficit Goal Target Achievement Date: 12/23/17 Mobility Intervention(s) Plan: Advance Mobility Mobility Patient/Family Goals: Demonstrates ability to complete transfers with least level of assist. Mobility Goal Target Achievement Date: 12/23/17 Pain Intervention(s) Plan: Pain Assessment, Management, Reassessment Per Scoring Tool Pain Goals/Outcomes: Patient Verbalizes Acceptable Level of Comfort and is Able to Carry Out Activities of Daily Living Pain Goal Target Achievement Date: 12/23/17 Safety Intervention(s) Plan: Maintain a Safe Environment Safety Goals/Outcomes: Maintain Patient Safety Safety Goal Target Achievement Date: 12/23/17elf Care Intervention(s) Plan: Assess for Self Care Deficits Self Care Goals/Outcome: Patient Will Perform Activities of Daily Living Appropriate with Physical Capabilities Self Care Goal Target Achievement Date: 12/23/17 Skin Intervention(s) Plan: Assess and Document Skin Condition per Protocol Skin Goals/Outcomes: Patient's Skin Integrity Maintained or Improved Skin Goal Target Achievement Date: 12/23/17 DOCUMENTED BY: TOMMY Tabares PATIENT NAME: Jennifer Whitlock DATE: December 19, 2017 TIME: 10:48 AM CSN: [id number] PROGRESS Observed: 12/19/2017 Status: COMPLETED Source: [place] 10:[address] [facility] [place] REPOSITORY [facility] ID: [id number] Author: Andrea Lopez Service: General Internal Medicine Author Type: Physician Type: Progress Notes Filed: 12/19/2017 10:44 AM Note Text: INPATIENT PROGRESS NOTE SERVICE DATE: 12/19/2017 SERVICE TIME: 1000 PRIMARY SERVICE: Swing Subjective CHIEF COMPLAINT: Orthopedic aftercare, status post right knee revision INTERVAL HPI: No events overnight. The patient denies any pain at this time and reports that she is anxious to go home. She complains that the bed is uncomfortable, but otherwise has no other questions or concerns. Per nursing, the patient's left arm mass continues to bleed. The patient denies any pain associated with it. Current hospital medications: 0.9% NaCl 2-10 mL 2-10 mL INTRAVENOUS q 12 H acetaminophen 650 mg tab(s) (TYLENOL) 650 mg ORAL q 6 H PRN oxyCODONE-acetaminophen 5-325 mg 1 tablet (PERCOCET) 1 tablet ORAL BID PRN oxyCODONE-acetaminophen 5-325 mg 1 tablet (PERCOCET) 1 tablet ORAL q 6 H PRN traMADol 50 mg tab(s) (ULTRAM) 50 mg ORAL q 6 H PRN amiodarone 200 mg tab(s) (PACERONE) 200 mg ORAL DAILY warfarin 0.5 mg tab(s) (COUMADIN) 0.5 mg ORAL DAILY metoprolol tartrate (short acting) 50 mg tab(s) (LOPRESSOR) 50 mg ORAL q 12 H ferrous sulfate 325 mg tab(s) 325 mg ORAL DAILY polyethylene glycol 3350 17 g packet (MIRALAX, GLYCOLAX) 17 g ORAL DAILY aspirin 81 mg chewable tab(s) 81 mg ORAL DAILY potassium chloride ER 20 mEq tab(s) (K-DUR, KLOR-CON) 20 mEq ORAL DAILY cyanocobalamin 1,000 mcg tab(s) (VITAMIN B-12) 1,000 mcg ORAL DAILY amLODIPine 5 mg tab(s) (NORVASC) 5 mg ORAL DAILY atorvastatin 10 mg tab(s) (LIPITOR) 10 mg ORAL AT BEDTIME furosemide 40 mg tab(s) (LASIX) 40 mg ORAL DAILY cefTRIAXone iv piggyback 2 g in dextrose (iso-osmotic) 50 mL (ROCEPHIN) 2 g INTRAVENOUS q 24 H Objective PHYSICAL EXAM: BP 113/40 Pulse 63 Temp (Src) 98.1 (Oral) Resp 16 Ht 5' 9 (1.75m) Wt 155 lb 1.6 oz (70.4kg) SpO2 98% BMI 22.89 kg/(m2). Physical Exam Performed GENERAL: Alert, no distress, cooperative, sitting up in the chair SKIN: Skin color, texture, turgor normal. No rashes. HEAD/SINUSES: No significant findings, atraumatic, normocephalic LUNGS: Lungs clear to auscultation, Good diaphragmatic excursion CARDIAC: Normal S1 and S2; no rubs, positive 3/6 systolic murmur. ABDOMEN: Abdomen soft, non-tender, BS normal, No masses or organomegaly EXTREMITIES: Incision healing well with minimal bloody discharge. Mild tenderness around incision site. No surrounding erythema or increased warmth. Post surgical scar on left knee. Left arm mass is dressed with an ALYCE wrap in place. NEURO: Negative. Alert and oriented x3 DATA: Diagnostic tests reviewed for today's visit: Most recent labs Assessment/Plan Principal Problem: Orthopedic aftercare POA: Yes Assessment AND Plan: Continue physical and occupational therapy. ? Active Problems: Status post revision of total replacement of right knee POA: Yes Assessment AND Plan: As above. Will continue IV antibiotics and pain medications as needed. CBC ordered weekly. Will follow up on PT/OT recommendations. ? Paroxysmal atrial fibrillation (HCC) POA: Yes Assessment AND Plan: Stable. Continue home medications. Labs ordered every Monday and Monday. Arm mass, Left POA: Yes Assessment AND Plan: Continue dressing care. Area continues to bleed. Will monitor HH and transfuse as necessary. Patient is asymptomatic. ? Resolved Problems: * No resolved hospital problems. * Medication and Non-Pharmacologic VTE Prophylaxis/Anticoagulants Anticoagulant AND Antiplatelet Medications Start Dose Route Frequency Ordered Stop 12/16/17 1500 warfarin 0.5 mg tab(s) (COUMADIN) 0.5 mg ORAL DAILY 12/16/17 1448 -- 12/16/17 1500 aspirin 81 mg chewable tab(s) 81 mg ORAL DAILY 12/16/17 1448 -- 12/16/17 1745 vte non-pharmacologic prophylaxis - none indicated (al,oh) 12/16/17 1745 vte current anticoag therapy (al,id) 12/16/17 1745 activity - mobilize patient (al,id) VTE Prophylaxis: VTE prophylaxis appropriate FULL CODE ? Disposition - The patient is hemodynamically stable. Will follow up on PT/OT recommendations. Anticipate discharge home with [facility] in 7-10 days pending no complications. SIGNATURE: Andrea Lopez MD PATIENT NAME: Jennifer Whitlock DATE: December 19, 2017 TIME: 10:35 AM PAGER: JUAN Collected: 12/19/2017 Status: F Source: [facility] 10:15 AM HEALTH SYSTEM REPOSITORY TYPE CODE TESTS RESULT OUT OF RANGE REFERENCE UNITS LAB LHGBI(LOINC 12.0-16.0 g/dL ) Low Hgb 7.6 Performed By: #### LHGBI #### [facility] [address] [place], [place] [address] HCT Collected: 12/19/2017 Status: F Source: [facility] 10:15 AM HEALTH SYSTEM REPOSITORY TYPE CODE TESTS RESULT OUT OF RANGE REFERENCE UNITS LAB LHCTI(LOINC 37.0-47.0 % ) Low Hct 26.3 Performed By: #### LHCTI #### [facility] [address] [place], [place] [address] NURSING PROG Observed: 12/19/2017 Status: COMPLETED Source: [place] 8:00 AM [facility] REPOSITORY [facility] ID: [id number] Author: Tracey Saenz RN Service: Nursing Author Type: Registered Nurse Type: Nursing Progress Note Filed: 12/19/2017 2:47 PM Note Text: Nursing Progress Note Patient Name: Jennifer Whitlock Patient Location: [place] [address] [address] Daily Note: Pt resting quietly in bed. All treatments and procedures were explained. Pt verbalized understanding. Pt assisted up to BR using walker. Gait steady. Pt assisted back to chair at bedside for breakfast. Pt questioning how long that she would need to stay. Explained to pt that she should talk to physical therapy . Explained to pt that therapy could give her an idea of how long she may need to stay. Pt verbalized understanding. No other requests or concerns were voiced. This note was completed by: Tracey Saenz RN THERAPY NT Observed: 12/18/2017 Status: COMPLETED Source: [place] 4:04 PM [facility] REPOSITORY [facility] ID: [id number] Author: Juana Hilliard, PT ASSIST Service: Physical Therapy Author Type: Nanofabrication Specialist Type: Therapy (PT/OT/Speech/Resp) Filed: 12/18/2017 4:06 PM Note Text: Attestation signed by Jewell Cooper PT at 12/19/2017 9:28 AM I reviewed and agree with the documentation corresponding to this therapy visit. SIGNATURE: Jewell Cooper PT DATE: December 19, 2017 TIME: 9:28 AM Physical Therapy [facility] Treatment SERVICE DATE: 12/18/2017 SERVICE TIME: 1515 to 1600 ROOM: [place] [address] Recommended Discharge Disposition: Home PT Anticipated Discharge Needs: Physical Assist at Home;Equipment PT Recommendations to Nursing: Ambulate with device;To bathroom;OOB for Meals Device: Wheeled Walker Precautions/Activity Restrictions: Total Knee Replacement Isolation Type: None ASSESSMENT : Patient presents with difficulty increasing heel strike R LE , and correcting posture during ambulation, completed supine and seated ex. w/vc. Requires skilled PT for vc for ex. tech reps, gait instruction. Patient Disposition at Start of Session: OOB in Chair Patient Disposition at End of Session: Supine in Bed;Call Bansal in Reach Tolerated Full Session Physical Therapy Problem List: Decreased Range Of Motion;Decreased Strength;Functional Mobility Impairment Patient /Caregiver Goals: Go Home Learning/Educational Needs: Discharge Plan;Equipment;Family Education/Training;Functional Activities/Mobility Goals for Plan of Care: Able to perform HEP with: Independent Transfer supine to/from sit with: Independent Transfer sit to/from stand with: Independent Ambulate with: Independent Distance: 200 Device: Wheeled Walker ROM: 5-110 Progress Toward Goals: Progressing as expected Rehab Potential: Good PLAN: Treatment Frequency (times per week): 7 Treatment Duration (number): 2 Weeks Treatment Interventions: Joint Mobility;Strengthening;Functional Mobility Training Plan of Care developed with: Patient TREATMENT INTERVENTIONS: Therapy Diagnosis: Abnormalities of gait and mobility-other Interventions Provided: Therapeutic Exercise (94271);Gait Training (08407) Therapeutic Exercise (35296) Treatment Minutes: 30 2 units Skilled Intervention(s): Instruction in therapeutic exercise for tech, reps ex supine and seated per flow sheet per TKR protocol Gait Training (23941) Treatment Minutes: 15 1 unit Skilled Intervention(s): Instruction in sit to stand technique with proper hand placement and body positioning at edge of bed/chair, Instruction in stand to sit technique with LE's touching chair/bed and reaching back for surface and Instruction in sequencing, gait pattern Total Timed Code Treatment Minutes: 45 Total Treatment Time (minutes): 45 SUBJECTIVE: Current Hospital Course: Chart reviewed and no significant medical updates relevant to therapy were noted Reason for Physical Therapy Consult : s/p revision of R TKR. Presents for skilled for mobility training post operatively Relevant Past Medical History: R TKR 3 years ago, CAD, DJD, HTN, OA, Pacemaker, [place] Patient Report: she has never had full extension in the RLE no complaints Home Environment Patient Lives With: Self/Alone Assistance Available: PRN Entry To Home: No Stairs Number Of Stairs To Bed/Bath: 0 Tub/Shower Type: tub shower combo Laundry: pt does, light cooking. Son does most of it Equipment Owned: Cane;Commode-Raised;Shower Chair;Wheeled Walker Prior Functional Level: Within Functional Limits OBJECTIVE: CURRENT FUNCTIONAL STATUS: Gross Motor Function Range of Motion: WFL Except;Right LE Measurement Right Knee ROM: 7-102 Strength: WFL Except;Right LE Measurement Right Hip Flexion Strength: 4/5 Right Hip Extension Strength: 4+/5 Right Knee Flexion Strength: 4+/5 Right Knee Extension Strength: 4/5 Right Ankle Dorsiflexion Strength: 4+/5 Functional Mobility Assist Level Additional Information Rolling Independent Supine to Sit Modified Independent Sit to Supine Independent Scooting Modified Independent Sit to Stand Stand By Assistance Stand to Sit Stand By Assistance Bed to Chair Contact Guard Assistance Bed To Chair Transfer Type: Stand Pivot Bed To Chair Transfer Equipment: Wheeled Walker Toilet/Commode Gait Contact Guard Assistance Gait Device: Wheeled Walker Gait Distance (feet): 70' Stairs Curb Step Car Transfer Gait Deviations Right Lower Extremity: Weight bearing decreased;Knee flexion during stance increased Please see discipline specific clinical documentation flowsheet for complete details for this therapy evaluation/treatment. SIGNATURE: Juana Hilliard PTA PATIENT NAME: Jennifer Whitlock DATE: December 18, 2017 TIME: 4:04 PM THERAPY NT Observed: 12/18/2017 Status: COMPLETED Source: [place] 2:[address] [facility] REPOSITORY [facility] ID: [id number] Author: Phuong (Ot) GISELL Llanos Service: Occupational Therapy Author Type: Occupational Therapist Type: Therapy (PT/OT/Speech/Resp) Filed: 12/18/2017 2:25 PM Note Text: Occupational Therapy [facility] Evaluation SERVICE DATE: 12/18/2017 SERVICE TIME: 1315 to 1355 ROOM: [place] [address] Recommended Discharge Disposition: Home OT Recommended Discharge Equipment: Dressing Stick;Long Handled Sponge;Wheeled Walker;Dining Service Inspector;Shower Bench;To Be Determined OT Recommendations to Nursing: ADL?s in chair;OOB for meals Precautions/Activity Restrictions: Total Knee Replacement Isolation Type: None ASSESSMENT: Patient presents with revision of right total knee replacement and is WBAT. She has supportive family that have been assisting with home activities with pt only responsible for making simple breakfast and plating leftovers. She shows decreased balance, need for review of transfer sequence with assistive device, need for ADLtraining.. Requires skilled OT for obtaining max level of independence for return home.. Patient Disposition at Start of Session: OOB in Chair;Call Bansal in Reach Patient Disposition at End of Session: OOB in Chair;Call Bansal in Reach Tolerated Full Session Occupational Therapy Problem List: Education Deficit;Safety Deficits;Impaired Self Care;Balance Impaired Patient /Caregiver Goals: Go Home Learning/Educational Needs: Discharge Plan;Equipment;Functional Activities/Mobility;Plan of Care;Precautions;Rehabilitation Techniques and Procedures;Safety;Self Care Goals for Plan of Care: Lower Body Bathing with: Stand By Assistance Lower Body Dressing with: Supervision Chair Transfer with: Modified Independent Toilet Transfer with: Modified Independent Tub Transfer with: Contact Guard Assistance Kitchen Mobility Tasks with: Supervision Demonstrate Competence With Education with: Independent Progress Toward Goals: Progressing as expected Rehab Potential: Excellent PLAN: Treatment Frequency (times per week): 5 Treatment Duration (number): 2 Weeks Treatment Interventions: Education;Self Care / Home Management;Functional Mobility Training;Balance Training Plan of Care developed with: Patient TREATMENT INTERVENTIONS: Therapy Diagnosis: Reduced mobility-other;Decreased activities of daily living (ADL) Interventions Provided: Evaluation;Therapeutic Activity (12415) $ Evaluation-Low (46320) Billed Units: 1 unit Therapeutic Activity (20337) Treatment Minutes: 10 1 unit Skilled Intervention(s): Instructed patient in supine to and from sit pushing with upper extremities to sit up Instruction in sit to and from stand technique with proper hand placement and body positioning at edge of bed/chair Total Timed Code Treatment Minutes: 10 Total Treatment Time (minutes): 40 SUBJECTIVE: Current Hospital Course: Chart reviewed and no significant medical updates relevant to therapy were noted PAST MEDICAL HISTORY Diagnosis Date - Anemia - Aortic valve disorder aortic stenosis - C. difficile diarrhea - CAD (coronary artery disease) - Diverticulitis 07/21/2016 - DJD (degenerative joint disease) - Dyslipidemia - Hypertension - Hyponatremia - OA (osteoarthritis) of knee 11/27/2013 - Osteopenia - Pacemaker - Pulmonary granuloma (HCC) - Renal insufficiency PAST SURGICAL HISTORY Procedure Laterality Date - HEART SURGERY HX - JOINT REPLACEMENT HX 2013 rt total knee - OTHER SURGICAL HISTORY (PLEASE SPECIFY) HX aortic valve - PACEMAKER - PICC LINE INSERT/CONSULT 07/30/2016 - REVISION OF KNEE JOINT Right - TOTAL KNEE REPLACEMENT 2012 Knee replacement, total Lt. hReason for Occupational Therapy Consult: Pt had a total knee revision on RLE Patient Report: Pt is very pleasant and motivated. She is anxious to return home and seems to have good support at from family that live next door. Home Environment Patient Lives With: Self/Alone Assistance Available: PRN Entry To Home: No Stairs Number Of Stairs To Bed/Bath: 0 Tub/Shower Type: tub shower combo Laundry: pt does, light cooking. Son does most of it Equipment Owned: Cane;Commode-Raised;Shower Chair;Wheeled Walker Prior Functional Level: Within Functional Limits OBJECTIVE: Gross Motor Function Hand Dominance: Right Range of Motion: WFL Strength: WFL Except (4-/5 bilateral shoulders) Current Activities of Daily Living Assist Level Feeding Grooming Set Up Bathing Upper Body Set Up Bathing Lower Body Minimal Assistance Dressing Upper Body Set Up Dressing Lower Body Minimal Assistance Toileting Contact Guard Assistance Instrumental Activities of Daily Living Assist Level Meal/Beverage Prep Total Assistance Light Cleaning Total Assistance Laundry Total Assistance Medication Management with Strategies Functional Mobility Assist Level Rolling Supervision Supine to Sit Supervision Sit to Supine Supervision Scooting Independent Sit to Stand Contact Guard Assistance Stand to Sit Contact Guard Assistance Bed to Chair Contact Guard Assistance Stand Pivot Wheeled Walker Toilet/Commode Contact Guard Assistance Tub Transfer Shower Transfer Functional Mobility Car Transfer Please see discipline specific clinical documentation flowsheet for complete details for this therapy evaluation/treatment. SIGNATURE: Phuong Llanos, OTR/L PATIENT NAME: Jennifer Whitlock DATE: December 18, 2017 TIME: 2:17 PM NURSING PROG Observed: 12/18/2017 Status: COMPLETED Source: [place] 12:30 PM [facility] REPOSITORY HNO ID: [id number] Author: Tracey ReyesRn) KIERRA Saenz Service: Nursing Author Type: Registered Nurse Type: Nursing Progress Note Filed: 12/18/2017 4:09 PM Note Text: Nursing Progress Note Patient Name: Jennifer Whitlock Patient Location: [place] [address] [address] Daily Note: Updated Dr. Lopez on pt's condition. Reviewed Hgb results with Dr. Lopez. No new orders were received. This note was completed by: Tracey Saenz RN NUTRITION Observed: 12/18/2017 Status: COMPLETED Source: [place] 10:58 AM [facility] REPOSITORY HNO ID: [id number] Author: Bob Allen RD Service: Nutrition Therapy Author Type: Registered Dietitian Type: Nutrition Filed: 12/18/2017 11:08 AM Note Text: NUTRITION THERAPY INITIAL ASSESSMENT SERVICE DATE: 12/18/2017 SERVICE TIME: 1059 RECOMMENDED MALNUTRITION DIAGNOSIS: NO MALNUTRITION IDENTIFIED NUTRITION CARE PLAN: IIntervention Provide diet as ordered adapted to preferences and tolerances. Encourage intake, no additions necessary at this time. Nutrition education provided for therapeutic diet. Pt given dietitian?s contact information. Reviewed current labs, progress and treatment notes. Monitor and Evaluation Goal: Meet >75% of estimated needs Follow up at weekly rounds and when consulted. Discharge Nutrition Recommendations: Diet: Heart Healthy as tolerated and desired Per HPI: Orthopedic aftercare Paroxysmal atrial fibrillation (HCC) Status post revision of total replacement of right knee Current Diet Order DIET HEART HEALTHY Order Specific Question: Heart Healthy Answer: 2 GM SODIUM (<200 MG CHOL / LOW SAT FAT) Nutritional Intake Prior to Admission: >75% estimated energy needs over the past 1 month(s) GI symptoms: none Nutrition Abdominal Exam: and not assessed ANTHROPOMETRICS Height: 175.3 cm (5' 9) Admission Weight: 70.4 kg (155 lb 1.6 oz) Current Weight: 70.4 kg (155 lb 1.6 oz) Body mass index is 22.9 kg/m?. normal Weight has not changed significantly in past 2 months Last Wt 12/16/17 : 70.4 kg (155 lb 1.6 oz) 08/03/16 : 86.1 kg (189 lb 13.1 oz) 02/10/16 : 83.3 kg (183 lb 9.6 oz) 11/13/14 : 75.6 kg (166 lb 9.6 oz) 12/09/13 : 81.4 kg (179 lb 6 oz) 11/27/13 : 81.5 kg (179 lb 9.6 oz) 12/02/11 : 79.4 kg (175 lb) 05/15/11 : 81.8 kg (180 lb 5.4 oz) Resting Metabolic Rate: 1229 Estimated kilocalorie needs: 1800 kilocalories determined by 26 kcal/kg Estimated protein needs: 85 grams determined by 1.0-1.2 g/kg Current weight Estimated fluid needs: 0044-3018 milliliters based on 1 mL per kcal Temperature Max in 24 hours: Temp (24hrs), Av.7 ?C (98.1 ?F), Min:36.7 ?C (98 ?F), Max:36.8 ?C (98.2 ?F) BP (!) 115/44 Pulse 60 Temp 36.8 ?C (98.2 ?F) (Oral) Resp 16 Ht 175.3 cm (5' 9) Wt 70.4 kg (155 lb 1.6 oz) SpO2 97% BMI 22.90 kg/m? Recent Labs 12/18/17 0820 12/18/17 0607 12/18/17 0606 GLUC -- -- -- 93 BUN -- -- -- 34* CREAT -- -- -- 1.43* NA -- -- -- 134* K -- -- -- 4.1 CHLOR -- -- -- 106 CO2 -- -- -- 30 HB 7.8* 7.0* < > -- HCT 26.8* 24.1* < > -- WBC -- 7.2 -- -- < > = values in this interval not displayed. Potential Signs of Inflammation: no identifiable sources Current Facility-Administered Medications: 0.9% NaCl 2-10 mL 2-10 mL INTRAVENOUS q 12 H acetaminophen 650 mg tab(s) (TYLENOL) 650 mg ORAL q 6 H PRN oxyCODONE-acetaminophen 5-325 mg 1 tablet (PERCOCET) 1 tablet ORAL BID PRN oxyCODONE-acetaminophen 5-325 mg 1 tablet (PERCOCET) 1 tablet ORAL q 6 H PRN traMADol 50 mg tab(s) (ULTRAM) 50 mg ORAL q 6 H PRN amiodarone 200 mg tab(s) (PACERONE) 200 mg ORAL DAILY warfarin 0.5 mg tab(s) (COUMADIN) 0.5 mg ORAL DAILY metoprolol tartrate (short acting) 50 mg tab(s) (LOPRESSOR) 50 mg ORAL q 12 H ferrous sulfate 325 mg tab(s) 325 mg ORAL DAILY polyethylene glycol 3350 17 g packet (MIRALAX, GLYCOLAX) 17 g ORAL DAILY aspirin 81 mg chewable tab(s) 81 mg ORAL DAILY potassium chloride ER 20 mEq tab(s) (K-DUR, KLOR-CON) 20 mEq ORAL DAILY cyanocobalamin 1,000 mcg tab(s) (VITAMIN B-12) 1,000 mcg ORAL DAILY amLODIPine 5 mg tab(s) (NORVASC) 5 mg ORAL DAILY atorvastatin 10 mg tab(s) (LIPITOR) 10 mg ORAL AT BEDTIME furosemide 40 mg tab(s) (LASIX) 40 mg ORAL DAILY cefTRIAXone iv piggyback 2 g in dextrose (iso-osmotic) 50 mL (ROCEPHIN) 2 g INTRAVENOUS q 24 H Surgical Incision 12/16/17 1820 Knee - Right (Active) Dressing Status Clean, Dry AND Intact 12/17/2017 10:30 PM Dressing Change Due 12/19/17 12/17/2017 9:30 AM Dressing /Treatment Type Aquacel 12/17/2017 9:30 AM Drainage Description None 12/17/2017 10:30 PM Drainage Amount None 12/17/2017 10:30 PM Hematoma No 12/17/2017 10:30 PM Number of days: 1 MNT Billing Type: Initial Assess/15 min 2 units SIGNATURE: Bob Allen RD PATIENT NAME: Jennifer Whitlock DATE: December 18, 2017 TIME: 10:59 AM PAGER: THERAPY NT Observed: 12/18/2017 Status: COMPLETED Source: [place] 10:26 AM [facility] REPOSITORY HNO ID: [id number] Author: Juana Hilliard PT ASSIST Service: Physical Therapy Author Type: Nanofabrication Specialist Type: Therapy (PT/OT/Speech/Resp) Filed: 12/18/2017 10:31 AM Note Text: Attestation signed by Jewell Cooper PT at 12/18/2017 11:47 AM I reviewed and agree with the documentation corresponding to this therapy visit. SIGNATURE: Jewell Cooper PT DATE: December 18, 2017 TIME: 11:47 AM Physical Therapy [facility] Treatment SERVICE DATE: 12/18/2017 SERVICE TIME: 914 to 944 ROOM: [place] [address] Recommended Discharge Disposition: Home PT Anticipated Discharge Needs: Physical Assist at Home PT Recommendations to Nursing: Ambulate with device;To bathroom;OOB for Meals Device: Wheeled Walker Precautions/Activity Restrictions: Total Knee Replacement Isolation Type: None ASSESSMENT : Patient presents with patient amb with R toe walking , completed ex. with vc for tech, unable to demonstrate full extension states she never was able to fully extend her RLE, compelted nu-step L2 8min. Requires skilled PT for vc for ex. poc , tech and reps tactile cues for quad facilitation, . Patient Disposition at Start of Session: OOB in Chair Patient Disposition at End of Session: OOB in Chair;Call Bansal in Reach Tolerated Full Session Physical Therapy Problem List: Decreased Range Of Motion;Decreased Strength;Functional Mobility Impairment Patient /Caregiver Goals: Go Home Learning/Educational Needs: Discharge Plan;Equipment;Family Education/Training;Functional Activities/Mobility Goals for Plan of Care: Able to perform HEP with: Independent Transfer supine to/from sit with: Independent Transfer sit to/from stand with: Independent Ambulate with: Independent Distance: 200 Device: Wheeled Walker ROM: 5-110 Progress Toward Goals: Progressing as expected Rehab Potential: Good PLAN: Treatment Frequency (times per week): 7 Treatment Duration (number): 2 Weeks Treatment Interventions: Joint Mobility;Strengthening;Functional Mobility Training Plan of Care developed with: Patient TREATMENT INTERVENTIONS: Therapy Diagnosis: Abnormalities of gait and mobility-other Interventions Provided: Therapeutic Exercise (30687);Gait Training (10773) Therapeutic Exercise (24781) Treatment Minutes: 20 1 unit Skilled Intervention(s): Instruction in therapeutic exercise vc for ex. manual tactile cues to increase extension Ex per flow sheet supine and seated , nu-step L2 8 min Gait Training (72111) Treatment Minutes: 10 1 unit Skilled Intervention(s): Instruction in sit to stand technique with proper hand placement and body positioning at edge of bed/chair, Instruction in stand to sit technique with LE's touching chair/bed and reaching back for surface, Instruction in sequencing, gait pattern and Instruction in correction of gait deviations Total Timed Code Treatment Minutes: 30 Total Treatment Time (minutes): 30 SUBJECTIVE: Current Hospital Course: Chart reviewed and no significant medical updates relevant to therapy were noted Reason for Physical Therapy Consult : s/p revision of R TKR. Presents for skilled for mobility training post operatively Relevant Past Medical History: R TKR 3 years ago, CAD, DJD, HTN, OA, Pacemaker, [place] Patient Report:she has 2/10 pain in R knee right now and that her R LE never was able to get full extensioin no complaints Home Environment Patient Lives With: Self/Alone Assistance Available: PRN Entry To Home: No Stairs Number Of Stairs To Bed/Bath: 0 Equipment Owned: Cane;Commode-Raised;Shower Chair;Wheeled Walker Prior Functional Level: Within Functional Limits OBJECTIVE: CURRENT FUNCTIONAL STATUS: Gross Motor Function Range of Motion: WFL Except;Right LE Measurement Right Knee ROM: 7-102 Strength: WFL Except;Right LE Measurement Right Hip Flexion Strength: 4/5 Right Hip Extension Strength: 4+/5 Right Knee Flexion Strength: 4+/5 Right Knee Extension Strength: 4/5 Right Ankle Dorsiflexion Strength: 4+/5 Functional Mobility Assist Level Additional Information Rolling Independent Supine to Sit Modified Independent Sit to Supine Stand By Assistance Scooting Modified Independent Sit to Stand Stand By Assistance Stand to Sit Stand By Assistance Bed to Chair Contact Guard Assistance Bed To Chair Transfer Type: Stand Pivot Bed To Chair Transfer Equipment: Wheeled Walker Toilet/Commode Gait Contact Guard Assistance Gait Device: Wheeled Walker Gait Distance (feet): 60' Stairs Curb Step Car Transfer Gait Deviations Right Lower Extremity: Weight bearing decreased;Knee flexion during stance increased Please see discipline specific clinical documentation flowsheet for complete details for this therapy evaluation/treatment. SIGNATURE: Juana Hilliard PTA PATIENT NAME: Jennifer Whitlock DATE: December 18, 2017 TIME: 10:27 AM HGB Collected: 12/18/2017 Status: F Source: [facility] 8:20 AM HEALTH SYSTEM REPOSITORY TYPE CODE TESTS RESULT OUT OF RANGE REFERENCE UNITS LAB LHGBI(LOINC 12.0-16.0 g/dL ) Low Hgb 7.8 Performed By: #### LHGBI #### [place] [address] HCT Collected: 12/18/2017 Status: F Source: [facility] 8:20 AM HEALTH SYSTEM REPOSITORY TYPE CODE TESTS RESULT OUT OF RANGE REFERENCE UNITS LAB LHCTI(LOINC 37.0-47.0 % ) Low Hct 26.8 Performed By: #### LHCTI #### [place] [address] NURSING PROG Observed: 12/18/2017 Status: COMPLETED Source: [place] 8:[address] [facility] [place] REPOSITORY O ID: [id number] Author: Tracey (Rn) KIERRA Saenz Service: Nursing Author Type: Registered Nurse Type: Nursing Progress Note Filed: 12/18/2017 1:18 PM Note Text: Nursing Progress Note Patient Name: Jennifer Whitlock Patient Location: /-* Pt resting quietly in bed. All treatments and procedures were explained. Pt assisted up to BR with use of walker. Pt voided without difficulty. Pt did own maura care. Pt assisted up to chair at bedside for breakfast. No other requests or concerns were voiced at this time. Call light in reach. This note was completed by: Tracey Saenz RN PROTIME Collected: 12/18/2017 Status: F Source: [facility] 6:06 AM HEALTH SYSTEM REPOSITORY TYPE CODE TESTS RESULT OUT OF REFERENCE UNITS RANGE LAB LPTI(LOINC 9.7-13.0 sec ) Prothrombin High Time 20.6 LAB LINR(LOINC 0.90-1.30 ) INR High 2.11 Result Comment: Note: Reference Range Change Vitamin K Antagonist (VKA) Therapeutic Range: INR 2 to 3 (Target INR of 2.5) Note: For patients treated with VKA drugs, such as warfarin, the [employer] [employer] 2012 Guideline recommends a therapeutic INR range of 2 to 3 (target INR of 2.5). This recommendation includes high-risk patients with antiphospholipid syndrome with previous arterial or venous thromboembolism, current-generation mechanical or bioprosthetic aortic heart valve replacement. VKA Therapeutic Range for some Mechanical Valve Replacement: INR 2.5 to 3.5 (Target INR of 3) Note: Patients with mechanical aortic valve replacement and additional risk factors for thromboembolic events (atrial fibrillation, previous thromboembolism, LV dysfunction, hypercoagulable conditions) or an older generation mechanical AVR (i.e., ball in-Cage) or any mechanical MVR should have a INR therapeutic range of 2.5 to 3.5 target INR of 3). Faisal GH, et al. Chest 2012; 141:7S-47S Michelle RA, et al. [facility] 2017; 70: 252-289 Performed By: #### LPT #### [facility] [address] [place] [address] BASIC PANEL Collected: 12/18/2017 Status: F Source: [facility] 6:06 AM HEALTH SYSTEM REPOSITORY TYPE CODE TESTS RESULT OUT OF REFERENCE UNITS RANGE LAB COVERSTITCH MACHINE OPERATOR(LOINC) 136-145 mEq/L Low Sodium Blood 134 LAB LK(LOINC) 3.5-5.1 mEq/L Potassium Blood 4.1 LAB LCL(LOINC) 98-107 mEq/L Chloride Blood 106 LAB LCO2(LOINC 21-32 mEq/L ) CO2 Blood 30 LAB LGLU(LOINC 70-99 mg/dL ) Glucose Blood 93 LAB LBUN(LOINC 7-25 mg/dL ) BUN High Blood 34 LAB LCREA(LOIN 0.51-0.95 mg/dL C) High Creatinine Blood 1.43 LAB LCA(LOINC) 8.5-10.1 mg/dL Calcium Blood 9.3 LAB LANGP(LOIN 8-20 C) Low Anion Gap 2 LAB LBNCR(LOIN 10-20 C) High BUN/Creatinine 24 Ratio Performed By: #### LP8 #### [facility] [address] [place] [address] HISTORY PHYSICAL Observed: 12/17/2017 Status: COMPLETED Source: [place] 12:[address] [facility] REPOSITORY O ID: [id number] Author: Andrea Lopez Service: General Internal Medicine Author Type: Physician Type: HANDP Filed: 12/17/2017 12:34 PM Note Text: HISTORY AND PHYSICAL EXAMINATION SERVICE DATE: 12/17/2017 SERVICE TIME: 1218 PRIMARY CARE PHYSICIAN: Sathya Rowe MD Subjective CHIEF COMPLAINT: Orthopedic aftercare, status post right total knee revision HPI: This is a 82 year old female who presents as a transfer from [facility] after an elective right total knee revision due to a joint infection. She was admitted from 12/12-12/16. She denies any complications after the surgery. She has had problems with her knee since March. The patient denies any pain currently. The patient has no questions or concerns today. She is anxious to go home when able. FUNCTIONAL STATUS: Independent PAST MEDICAL HISTORY Diagnosis Date - Anemia - Aortic valve disorder aortic stenosis - C. difficile diarrhea - CAD (coronary artery disease) - Diverticulitis 07/21/2016 - DJD (degenerative joint disease) - Dyslipidemia - Hypertension - Hyponatremia - OA (osteoarthritis) of knee 11/27/2013 - Osteopenia - Pacemaker - Pulmonary granuloma (HCC) - Renal insufficiency PAST SURGICAL HISTORY Procedure Laterality Date - HEART SURGERY HX - JOINT REPLACEMENT HX 2013 rt total knee - OTHER SURGICAL HISTORY (PLEASE SPECIFY) HX aortic valve - PACEMAKER - PICC LINE INSERT/CONSULT 07/30/2016 - REVISION OF KNEE JOINT Right - TOTAL KNEE REPLACEMENT 2011 Knee replacement, total Lt. FAMILY HISTORY Problem Relation Age of Onset - other (pneumonia) Father - Hypertension Brother - Diabetes Brother Social History Substance Use Topics - Smoking status: Former Smoker Years: 10.00 Types: Cigarettes Quit date: 03/20/1971 - Smokeless tobacco: Never Used - Alcohol use No Prescriptions Prior to Admission: lactobacillus rhamnosus (CULTURELLE) 10 billion cell capsule Take 1 capsule by mouth once daily. Disp: Rfl: 0 warfarin (COUMADIN) 3 mg tablet Take 1 tablet by mouth once daily. Take 3 mg (1 tablet) every other day; Take 1.5 mg ( 0.5 tablet) every other day. Disp: Rfl: 0 metoprolol tartrate, short acting, (LOPRESSOR) 50 mg tablet Take 1 tablet by mouth every 12 hours. Disp: Rfl: 0 07/24/2016 at Unknown time polyethylene glycol 3350 (MIRALAX, GLYCOLAX) 17 gram packet Take 1 Packet by mouth once daily. Disp: Rfl: 0 07/23/2016 at Unknown time cyanocobalamin (VITAMIN B-12) 1,000 mcg tab Take 1 tablet by mouth once daily. Disp: Rfl: 0 07/24/2016 at Unknown time aspirin 81 mg chewable tablet Take 1 tablet by mouth once daily. Disp: Rfl: 0 07/23/2016 at Unknown time pantoprazole DR (PROTONIX) 40 mg tablet Take 1 tablet by mouth DAILY (6 AM). Disp: Rfl: 0 07/24/2016 at Unknown time ferrous sulfate 325 mg (65 mg iron) tablet Take 325 mg by mouth once daily. Disp: Rfl: 07/24/2016 at Unknown time potassium chloride ER (K-DUR, KLOR-CON) 20 mEq tablet Take 20 mEq by mouth as directed. Takes 1 tablet twice a day on Monday, Monday, and Monday Disp: Rfl: 07/22/2016 amiodarone (PACERONE) 200 mg tablet Take 200 mg by mouth once daily. Disp: Rfl: 07/24/2016 at Unknown time furosemide (LASIX) 80 mg tablet Take 1 tablet by mouth once daily. Disp: 30 tablet Rfl: 3 07/24/2016 at Unknown time calcium phosphate-vitamin D3 (CITRACAL + D3, CALCIUM PHOS,) 250 mg calcium- 250 unit chew Take 2 tablets by mouth once daily. Disp: Rfl: 07/23/2016 at Unknown time rosuvastatin (CRESTOR) 5 mg tablet Take 5 mg by mouth once daily. Disp: Rfl: 07/23/2016 at Unknown time VIT C/MICHELINE AC/LUT/COPPER/ZNOX (PRESERVISION LUTEIN ORAL) Take 1 mg by mouth once daily. Disp: Rfl: 07/23/2016 at Unknown time propylene glycol (SYSTANE BALANCE) 0.6 % drop Use 1 Drop in both eyes once daily. Disp: Rfl: 07/23/2016 at Unknown time ALLERGIES Allergen Reactions - Sweeta Hives Splenda COMPLETE REVIEW OF SYSTEMS: PAIN ASSESSMENT: Denies any pain currently GENERAL: No fevers or weakness. Positive weight loss. HEENT: No headache, changes to hearing or vision, congestion or sore throat RESPIRATORY: No cough or shortness of breath CARDIOVASCULAR: No chest pain, occasional palpitations, no edema GI: No abdominal pain, nausea, vomiting, diarrhea or constipation : No dysuria MUSCULOSKELETAL: Fall in the last 2 months, none more recently SKIN: No rashes PSYCH: No depression or anxiety NEURO: No dizziness, lightheadedness or fainting, no numbness or tingling Objective PHYSICAL EXAM: Physical Exam Performed: GENERAL: Alert, no distress, cooperative, sitting up in the chair, eating SKIN: Skin color, texture, turgor normal. No rashes or lesions. HEAD/SINUSES: No significant findings, atraumatic, normocephalic EYES: EOMI OROPHARYNX: Lips, mucosa, and tongue normal. Teeth and gums normal. Oropharynx normal. LUNGS: Lungs clear to auscultation, Good diaphragmatic excursion CARDIAC: Normal S1 and S2; no rubs, murmurs, or gallops ABDOMEN: Abdomen soft, non-tender, BS normal, No masses or organomegaly EXTREMITIES: No edema, right knee dressing is in place. Post surgical scar on left knee. NEURO: Negative. Alert and oriented x3 BP 127/47 Pulse 60 Temp (Src) 97.8 (Oral) Resp 16 Ht 5' 9 (1.75m) Wt 155 lb 1.6 oz (70.4kg) SpO2 100% BMI 22.89 kg/(m2). DATA: Diagnostic tests reviewed for today's visit: Outside chart from [facility] reviewed. Assessment/Plan Principal Problem: Orthopedic aftercare POA: Yes Assessment AND Plan: Will admit to the snf unit for physical and occupational therapy. Will consult social studies teacher for discharge planning. Active Problems: Status post revision of total replacement of right knee POA: Yes Assessment AND Plan: As above. Will continue IV antibiotics and pain medications as needed. CBC ordered weekly. Will follow up on PT/OT recommendations. Paroxysmal atrial fibrillation (HCC) POA: Yes Assessment AND Plan: Stable. Continue home medications. Labs ordered every Monday and Monday. Resolved Problems: * No resolved hospital problems. * Medication and Non-Pharmacologic VTE Prophylaxis/Anticoagulants Anticoagulant AND Antiplatelet Medications Start Dose Route Frequency Ordered Stop 12/16/17 1500 warfarin 0.5 mg tab(s) (COUMADIN) 0.5 mg ORAL DAILY 12/16/17 1448 -- 12/16/17 1500 aspirin 81 mg chewable tab(s) 81 mg ORAL DAILY 12/16/17 1448 -- 12/16/17 1745 vte non-pharmacologic prophylaxis - none indicated (al,id) 12/16/17 1745 vte current anticoag therapy (al,id) 12/16/17 1745 activity - mobilize patient ([place]) VTE Prophylaxis: VTE prophylaxis appropriate FULL CODE Disposition - The patient is hemodynamically stable. Will follow up on PT/OT recommendations. Anticipate discharge home with [facility] in 1-2 weeks. SIGNATURE: Andrea Lopez MD PATIENT NAME: Jennifer Whitlock DATE: December 17, 2017 TIME: 12:18 PM PAGER/CONTACT #: THERAPY NT Observed: 12/17/2017 Status: COMPLETED Source: [place] 12:[address] [facility] REPOSITORY HNO ID: [id number] Author: Annette (Pt) IVONNE Koenig Service: Physical Therapy Author Type: Physical Therapist Type: Therapy (PT/OT/Speech/Resp) Filed: 12/17/2017 12:06 PM Note Text: Physical Therapy [facility] Evaluation SERVICE DATE: 12/17/2017 SERVICE TIME: 1038 to 1101 ROOM: [place] [address] Recommended Discharge Disposition: Home PT Anticipated Discharge Needs: Physical Assist at Home PT Recommendations to Nursing: Ambulate with device;To bathroom;OOB for Meals Device: Wheeled Walker Precautions/Activity Restrictions: Total Knee Replacement Isolation Type: None ASSESSMENT : Patient presents with decline in functional mobility after recent I AND D R knee and polyexchange. Requires skilled PT for mobility training and ROM to R knee.. Tolerated Full Session Physical Therapy Problem List: Decreased Range Of Motion;Decreased Strength;Functional Mobility Impairment Patient /Caregiver Goals: Go Home Learning/Educational Needs: Discharge Plan;Equipment;Family Education/Training;Functional Activities/Mobility Goals for Plan of Care: Able to perform HEP with: Independent Transfer supine to/from sit with: Independent Transfer sit to/from stand with: Independent Ambulate with: Independent Distance: 200 Device: Wheeled Walker ROM: 5-110 Progress Toward Goals: Progressing as expected Rehab Potential: Good PLAN: Treatment Frequency (times per week): 7 Treatment Duration (number): 2 Weeks Treatment Interventions: Joint Mobility;Strengthening;Functional Mobility Training Plan of Care developed with: Patient TREATMENT INTERVENTIONS: Therapy Diagnosis: Abnormalities of gait and mobility-other Interventions Provided: Evaluation;Therapeutic Exercise (17711) $ Evaluation-Low (31934) Billed Units: 1 unit Therapeutic Exercise (47095) Treatment Minutes: 10 1 unit Skilled Intervention(s): Instruction in therapeutic exercise per flow sheet Verbal and tactile cuing for exercise technique. Facilitation of muscle control, optimal recruitment and alignment for quad recruitment. Total Timed Code Treatment Minutes: 10 Total Treatment Time (minutes): 23 SUBJECTIVE: Current Hospital Course: Chart reviewed; R IANDD and polyexchange to R TKR 12/12/17 Reason for Physical Therapy Consult : s/p revision of R TKR. Presents for skilled for mobility training post operatively Relevant Past Medical History: R TKR 3 years ago, CAD, DJD, HTN, OA, Pacemaker, [place] Patient Report: Reports she had fluid to both knees but they only did surgery to right knee. Plans to retrun home alone but family will assist as needed for shopping and meals. Son stops by 2x per day. Home Environment Patient Lives With: Self/Alone Assistance Available: PRN Entry To Home: No Stairs Number Of Stairs To Bed/Bath: 0 Equipment Owned: Cane;Commode-Raised;Shower Chair;Wheeled Walker Prior Functional Level: Within Functional Limits OBJECTIVE: CURRENT FUNCTIONAL STATUS: Gross Motor Function Range of Motion: WFL Except;Right LE Measurement Right Knee ROM: 7-102 Strength: WFL Except;Right LE Measurement Right Hip Flexion Strength: 4/5 Right Hip Extension Strength: 4+/5 Right Knee Flexion Strength: 4+/5 Right Knee Extension Strength: 4/5 Right Ankle Dorsiflexion Strength: 4+/5 Functional Mobility Assist Level Additional Information Rolling Independent Supine to Sit Modified Independent Sit to Supine Stand By Assistance Scooting Modified Independent Sit to Stand Stand By Assistance Stand to Sit Stand By Assistance Bed to Chair Contact Guard Assistance Bed To Chair Transfer Type: Stand Pivot Bed To Chair Transfer Equipment: Wheeled Walker Toilet/Commode Gait Contact Guard Assistance Gait Device: Wheeled Walker Gait Distance (feet): 60 Stairs Curb Step Car Transfer Gait Deviations Right Lower Extremity: Weight bearing decreased;Knee flexion during stance increased Please see discipline specific clinical documentation flowsheet for complete details for this therapy evaluation/treatment. SIGNATURE: Annette Koenig PT PATIENT NAME: Jennifer Whitlock DATE: December 17, 2017 TIME: 12:01 PM NURSING PROG Observed: 12/16/2017 Status: COMPLETED Source: [place] 8:[address] [facility] REPOSITORY [facility] ID: [id number] Author: Tracey (Rn) KIERRA Saenz Service: Nursing Author Type: Registered Nurse Type: Nursing Progress Note Filed: 12/17/2017 1:02 AM Note Text: Nursing Progress Note Patient Name: Jennifer Whitlock Patient Location: /-* Daily Note: Pt resting quietly in bed. All treatments and procedures were explained to pt. Pt verbalized understanding. Pt denies any pain at this time. Denies any SOB. Dressing changed to Left upper arm. Lesion approximately 4x5 cm red and oozing a scant amount of blood. Dressing done as per order. Adaptive, gauze, telfa and alyce wrap. Pt states, They were only changing it once a day. Order reviewed with pt from transfer orders from [facility]. Pt verbalized understanding. No questions or concerns were voiced at this time. This note was completed by: Tracey Saenz RN NURSING PROG Observed: 12/16/2017 Status: COMPLETED Source: [place] 6:[address] [facility] [place] REPOSITORY [facility] ID: [id number] Author: Juan (Rn) KIERRA Singleton Service: Nursing Author Type: Registered Nurse Type: Nursing Progress Note Filed: 12/16/2017 6:02 PM Note Text: Per report from [facility], pts inr is 2.25 and the nurse calling report stated there MD said start coumadin on Monday, however, it does not reflect this statement on the transfer orders so this rn spoke with dr lopez for direction and per dr lopez we can continue with the transfer orders as written, no need to hold doses until [place]ay. AMB OFFICE-PROGRESS Observed: 12/07/2017 Status: F Source: [facility] NOTES-PROVIDER 11:56 AM [facility] REPOSITORY Patient: JENNIFER WHITLOCK Age: 82 years Sex: Female : 1935 Associated Diagnoses: None Author: PARKER BRIGGS, SOTO Visit Information Visit type: New symptom. Accompanied by: No one. Source of history: Self. Referral source: Self. History limitation: None. Chief Complaint Office visit because of requiring urgent medical clearance for bilateral knee surgery because of the infection. Patient had a knee replacement in the past. She does have a history of paroxysmal atrial fibrillation, status post aortic valve replacement, hypertension and hyperlipidemia. Patient denies any cardiac symptoms and has been fairly active until recently. Chart and medications reviewed. Review of Systems Constitutional: No fever, No chills, No sweats. Eye: Negative. Ear/Nose/Mouth/Throat: Negative. Respiratory: No shortness of breath, No cough. Cardiovascular: No chest pain, No syncope. Gastrointestinal: No nausea, No vomiting. Genitourinary: Negative. Gynecologic Hematology/Lymphatics: No bruising tendency, No bleeding tendency. Endocrine: Negative. Musculoskeletal: Negative. Integumentary: No rash, No abrasions. Psychiatric: No anxiety, No depression. Health Status Allergies: Allergies (2) Active Reaction No Known Medication Allergies None Documented splenda artificial sugar None Documented Current medications: Home Medications (17) Active amiodarone 200 mg oral tablet See Instructions amLODIPine 2.5 mg oral tablet See Instructions aspirin 81 mg oral tablet 81 mg = 1 tab(s), ORAL, DAILY Citracal-D (calcium citrate 200mg- vit D 250 units) oral tab 2 tabs, ORAL, DAILY cyanocobalamin 1000 mcg oral tablet 1,000 mcg = 1 tabs, ORAL, DAILY Feosol 325 mg (65 mg elemental iron) oral tablet 325 mg = 1 tab(s), ORAL, DAILY Klor-Con M20 oral tablet, extended release 20 mEq = 1 tab(s), ORAL, TID lactobacillus rhamnosus Lasix 80 mg oral tablet 80 mg = 1 tabs, ORAL, DAILY Metoprolol Succinate ER 50 mg oral tablet, extended release See Instructions MiraLax , ORAL, DAILY pantoprazole 40 mg oral delayed release tablet 40 mg = 1 tabs, ORAL, DAILY PreserVision oral capsule 1 caps, ORAL, DAILY rosuvastatin 5 mg oral tablet See Instructions Systane Balance ophthalmic solution 1 drops, Both Eyes, DAILY warfarin 1 mg oral tablet See Instructions warfarin 1 mg oral tablet See Instructions Problem list: Active Problems (17) Aortic stenosis Aortic Valve Disorder Atherosclerosis Arteries Extrem W/Interm Claudication Atrial fibrillation Bradyarrhythmia Dehydration History of underactive thyroid Hyperlipidemia Hypertension Benign Hypertension Unspec Hypertensive Heart Disease Benign W/Heart Failure Mitral Valve Disorder Orthostatic dizziness Paroxysmal atrial fibrillation Rheumatic Aortic Stenosis S/P AVR (aortic valve replacement) Shortness of breath on exertion Histories Past Medical History: No qualifying data available Family History: Father: () Age at unknown. Whittaker of multiple sites Brother Cancer. High blood pressure.. Mother: Family History of Heart disease. Brother: Brothers Diabetes.. Procedure history: VALVE [id number] in 2014 at 80 Years. PACEMAKER IMPLANT in 2014 at 80 Years. ECHOCARDIOGRAM on 07/11/2014 at 79 Years. Cardiac Rehab on 12/03/2013 at 78 Years. KNEE REPLACEMENT on 11/18/2013 at 78 Years. Operative Result Knee Surgery on 09/14/2011 at 76 Years. Bilateral cataract extraction with lens implant. Bilateral total knee replacement. Social History Social & Psychosocial Habits Alcohol 01/07/2014 Risk Assessment: Denies Alcohol Use Other Comment: Daily Caffeine: Consumes on average 2 cups of regular coffee per day - 01/07/2014 13:31 - Amrita Ivan Substance Abuse 01/07/2014 Risk Assessment: Denies Substance Abuse Tobacco 01/07/2014 Use: Former smoker Comment: QUIT 30 YRS AGO - 01/07/2014 13:31 - Amrita Ivan . Physical Examination Temperature 96.8 (11:43) Systolic Blood Pressure 130 (11:53) Diastolic Blood Pressure 70 (11:53) Pulse 72 (11:43) SpO2 No result Respiratory Rate No result VS/Measurements Documented vital signs, Vital Signs (last 24 hrs) Last Charted Heart Rate Peripheral 72 bpm (DEC 07 11:41) SBP 130 mmHg (DEC 07 11:53) DBP 70 mmHg (DEC 07 11:53) Weight 69 kg (DEC 07 11:41) Height 175 cm (DEC 07 11:41) BMI 22.53 (DEC 07 11:41) General: Alert and oriented, No acute distress. Skin: No cyanosis, Not jaundiced. Eye: Normal conjunctiva. HENT: Normocephalic. Neck: Supple, Non-tender, No carotid bruit, No jugular venous distention, No lymphadenopathy, No thyromegaly. Respiratory: Symmetrical chest wall expansion, No chest wall tenderness. Breath sounds: Bilateral, Anterior, Posterior, No wheezing, No crackles present. Cardiovascular: Normal rate, Regular rhythm, No murmur, No gallop, Good pulses equal in all extremities, Normal peripheral perfusion, No edema. Gastrointestinal: Soft, Non-tender, Normal bowel sounds, No organomegaly. Genitourinary: No costovertebral angle tenderness. Lymphatics: No lymphadenopathy neck, axilla, groin. Musculoskeletal: Normal range of motion, Normal strength, No tenderness, No deformity. Integumentary: Warm. Neurologic: Alert, Oriented, No focal deficits. Psychiatric: Cooperative, Normal judgment. Review / Management No qualifying data available Impression and Plan 1. Status post aortic valve replacement clinically stable. 2. Paroxysmal atrial fibrillation remained in normal sinus rhythm. 3. Blood pressure is normal. 4. Hyperlipidemia. 5. Sick sinus syndrome status post pacemaker. Plan. 1. ECG done today remained in normal sinus rhythm with first- degree AV block. 2. Patient is clear for surgery from cardiology standpoint. 3. Follow-up appointment as is scheduled. Electronically signed by Dr. Cassie Rowe. AMB OFFICE-PROGRESS Observed: 09/28/2017 Status: F Source: [facility] NOTES-PROVIDER 3:03 PM [facility] REPOSITORY Patient: JENNIFER WHITLOCK Age: 82 years Sex: Female : 1935 Associated Diagnoses: None Author: PARKER BRIGGS, [facility] Visit Information Visit type: Scheduled follow-up. Accompanied by: No one. Source of history: Self. Referral source: Self. History limitation: None. Chief Complaint Follow-up appointment because of hypertension, hyperlipidemia, paroxysmal atrial fibrillation and status post aVR. Patient is doing very well cardiac-lindquist but having some RIGHT knee problem and being f ollowed by orthopaedic surgeon. Chart and medications reviewed. Review of Systems Constitutional: No fever, No chills, No sweats. Eye: Negative. Ear/Nose/Mouth/Throat: Negative. Respiratory: No shortness of breath, No cough. Cardiovascular: No chest pain, No syncope. Gastrointestinal: No nausea, No vomiting. Genitourinary: Negative. Gynecologic Hematology/Lymphatics: No bruising tendency, No bleeding tendency. Endocrine: Negative. Musculoskeletal: Negative. Integumentary: No rash, No abrasions. Psychiatric: No anxiety, No depression. Health Status Allergies: Allergies (2) Active Reaction No Known Medication Allergies None Documented splenda artificial sugar None Documented Current medications: Home Medications (16) Active amiodarone 200 mg oral tablet See Instructions amLODIPine 2.5 mg oral tablet See Instructions aspirin 81 mg oral tablet 81 mg = 1 tab(s), ORAL, DAILY Citracal-D (calcium citrate 200mg- vit D 250 units) oral tab 2 tabs, ORAL, DAILY cyanocobalamin 1000 mcg oral tablet 1,000 mcg = 1 tabs, ORAL, DAILY Feosol 325 mg (65 mg elemental iron) oral tablet 325 mg = 1 tab(s), ORAL, DAILY Klor-Con M20 oral tablet, extended release 20 mEq = 1 tab(s), ORAL, TID lactobacillus rhamnosus Lasix 80 mg oral tablet 80 mg = 1 tabs, ORAL, DAILY Metoprolol Succinate ER 50 mg oral tablet, extended release See Instructions MiraLax , ORAL, DAILY pantoprazole 40 mg oral delayed release tablet 40 mg = 1 tabs, ORAL, DAILY PreserVision oral capsule 1 caps, ORAL, DAILY rosuvastatin 5 mg oral tablet See Instructions Systane Balance ophthalmic solution 1 drops, Both Eyes, DAILY warfarin 1 mg oral tablet See Instructions Problem list: Active Problems (15) Aortic stenosis Aortic Valve Disorder Atherosclerosis Arteries Extrem W/Interm Claudication Atrial fibrillation Bradyarrhythmia Dehydration History of underactive thyroid Hyperlipidemia Hypertension Benign Hypertension Unspec Hypertensive Heart Disease Benign W/Heart Failure Mitral Valve Disorder Orthostatic dizziness Rheumatic Aortic Stenosis Shortness of breath on exertion Histories Past Medical History: No qualifying data available Family History: Father: () Age at unknown. Whittaker of multiple sites Brother Cancer. High blood pressure.. Mother: Family History of Heart disease. Brother: Brothers Diabetes.. Procedure history: VALVE [id number] in 2014 at 80 Years. PACEMAKER IMPLANT in 2014 at 80 Years. ECHOCARDIOGRAM on 07/11/2014 at 79 Years. Cardiac Rehab on 12/03/2013 at 78 Years. KNEE REPLACEMENT on 11/18/2013 at 78 Years. Operative Result Knee Surgery on 09/14/2011 at 76 Years. Bilateral cataract extraction with lens implant. Bilateral total knee replacement. Social History Social & Psychosocial Habits Alcohol 01/07/2014 Risk Assessment: Denies Alcohol Use Other Comment: Daily Caffeine: Consumes on average 2 cups of regular coffee per day - 01/07/2014 13:31 Amrita Gibbs Substance Abuse 01/07/2014 Risk Assessment: Denies Substance Abuse Tobacco 01/07/2014 Use: Former smoker Comment: QUIT 30 YRS AGO - 01/07/2014 13:31 Amrita Gibbs . Physical Examination Temperature 97.8 (14:52) Systolic Blood Pressure 122 (15:00) Diastolic Blood Pressure 70 (15:00) Pulse 74 (14:52) SpO2 No result Respiratory Rate No result VS/Measurements Documented vital signs, Vital Signs (last 24 hrs) Last Charted Heart Rate Apical 74 bpm (SEP 28 14:51) SBP 122 mmHg (SEP 28 15:00) DBP 70 mmHg (SEP 28 15:00) Weight 70 kg (SEP 28 14:51) Height 175 cm (SEP 28 14:51) BMI 22.86 (SEP 28 14:51) General: Alert and oriented, No acute distress. Skin: No cyanosis, Not jaundiced. Eye: Normal conjunctiva. HENT: Normocephalic. Neck: Supple, Non-tender, No carotid bruit, No jugular venous distention, No lymphadenopathy, No thyromegaly. Respiratory: Symmetrical chest wall expansion, No chest wall tenderness. Breath sounds: Bilateral, Anterior, Posterior, No wheezing, No crackles present. Cardiovascular: Normal rate, Regular rhythm, No murmur, No gallop, Good pulses equal in all extremities, Normal peripheral perfusion, No edema. Gastrointestinal: Soft, Non-tender, Normal bowel sounds, No organomegaly. Genitourinary: No costovertebral angle tenderness. Lymphatics: No lymphadenopathy neck, axilla, groin. Musculoskeletal: Normal range of motion, Normal strength, No tenderness, No deformity. Integumentary: Warm. Neurologic: Alert, Oriented, No focal deficits. Psychiatric: Cooperative, Normal judgment. Review / Management No qualifying data available Impression and Plan 1. Blood pressure is controlled. 2. Aortic stenosis status post aortic valve replacement asymptomatic. 3. Paroxysmal atrial fibrillation remained in normal sinus rhythm. 4. Hyperlipidemia on Crestor. Plan. 1. Advised to continue same medications except decrease Coumadin to 0.5 milligrams every day and repeat INR in 4 weeks. 2. Follow-up appointment in 4 months[address] Electronically [address] by Dr. Cassie APODACA OFFICE-PROGRESS Observed: 04/28/2017 Status: F Source: [facility] NOTES-PROVIDER 10:41 AM [facility] REPOSITORY Patient: JENNIFER WHITLOCK Age: 82 years Sex: Female : 1935 Associated Diagnoses: None Author: PARKER BRIGGS, SOTO Visit Information Visit type: Scheduled follow-up. Accompanied by: Family member. Source of history: Self. Referral source: Self. History limitation: None. Chief Complaint Follow-up appointment because of aortic stenosis status post aortic valve replaced pain, hypertension, hyperlipidemia, sick sinus syndrome status post pacemaker and paroxysmal atrial fibrillation. She is doing very well denies any cardiac symptoms and has been taking her medications on regular basis. Chart and medications reviewed. Review of Systems Constitutional: No fever, No chills, No sweats. Eye: Negative. Ear/Nose/Mouth/Throat: Negative. Respiratory: No shortness of breath, No cough. Cardiovascular: No chest pain, No syncope. Gastrointestinal: No nausea, No vomiting. Genitourinary: Negative. Gynecologic Hematology/Lymphatics: No bruising tendency, No bleeding tendency. Endocrine: Negative. Musculoskeletal: Negative. Integumentary: No rash, No abrasions. Psychiatric: No anxiety, No depression. Health Status Allergies: Allergies (2) Active Reaction No Known Medication Allergies None Documented splenda artificial sugar None Documented Current medications: Home Medications (16) Active amiodarone 200 mg oral tablet See Instructions amLODIPine 2.5 mg oral tablet See Instructions aspirin 81 mg oral tablet 81 mg = 1 tab(s), ORAL, DAILY Citracal-D (calcium citrate 200mg- vit D 250 units) oral tab 2 tabs, ORAL, DAILY cyanocobalamin 1000 mcg oral tablet 1,000 mcg = 1 tabs, ORAL, DAILY Feosol 325 mg (65 mg elemental iron) oral tablet 325 mg = 1 tab(s), ORAL, DAILY Klor-Con M20 oral tablet, extended release 20 mEq = 1 tab(s), ORAL, TID lactobacillus rhamnosus Lasix 80 mg oral tablet 80 mg = 1 tabs, ORAL, DAILY Metoprolol Succinate ER 50 mg oral tablet, extended release See Instructions MiraLax , ORAL, DAILY pantoprazole 40 mg oral delayed release tablet 40 mg = 1 tabs, ORAL, DAILY PreserVision oral capsule 1 caps, ORAL, DAILY rosuvastatin 5 mg oral tablet See Instructions Systane Balance ophthalmic solution 1 drops, Both Eyes, DAILY warfarin 1 mg oral tablet See Instructions Problem list: Active Problems (15) Aortic stenosis Aortic Valve Disorder Atherosclerosis Arteries Extrem W/Interm Claudication Atrial fibrillation Bradyarrhythmia Dehydration History of underactive thyroid Hyperlipidemia Hypertension Benign Hypertension Unspec Hypertensive Heart Disease Benign W/Heart Failure Mitral Valve Disorder Orthostatic dizziness Rheumatic Aortic Stenosis Shortness of breath on exertion Histories Past Medical History: No qualifying data available Family History: Father: () Age at unknown. Whittaker of multiple sites Brother Cancer. High blood pressure.. Mother: Family History of Heart disease. Brother: Brothers Diabetes.. Procedure history: VALVE [id number] in 2014 at 80 Years. PACEMAKER IMPLANT in 2015 at 80 Years. ECHOCARDIOGRAM on 07/11/2014 at 79 Years. Cardiac Rehab on 12/03/2013 at 78 Years. KNEE REPLACEMENT on 11/18/2013 at 78 Years. Operative Result Knee Surgery on 09/14/2011 at 76 Years. Bilateral cataract extraction with lens implant. Bilateral total knee replacement. Social History Social & Psychosocial Habits Alcohol 01/07/2014 Risk Assessment: Denies Alcohol Use Other Comment: Daily Caffeine: Consumes on average 2 cups of regular coffee per day - 01/07/2014 13:31 - Amrita Ivan Substance Abuse 01/07/2014 Risk Assessment: Denies Substance Abuse Tobacco 01/07/2014 Use: Former smoker Comment: QUIT 30 YRS AGO - 01/07/2014 13:31 - Amrita Ivan . Physical Examination Temperature 97.6 (10:29) Systolic Blood Pressure 122 (10:38) Diastolic Blood Pressure 70 (10:38) Pulse 74 (10:29) SpO2 No result Respiratory Rate No result Documented vital signs Vital Signs (last 24 hrs) Last Charted Minimum Maximum Heart Rate 74 (APR 28 10:27) 74 (APR 28 10:27) 74 (APR 28:27) SBP 122 (APR 28 10:38) 122 (APR 28 10:38) 122 (APR 28 10:38) DBP 70 (APR 28 10:38) 70 (APR 28 10:38) 70 (APR 28 10:38) Weight 78 (APR 28 10:27) Height 168 (APR 28 10:27) BMI 27.64 (APR 28 10:27) General: Alert and oriented, No acute distress. Skin: No cyanosis, Not jaundiced. Eye: Normal conjunctiva. HENT: Normocephalic. Neck: Supple, Non-tender, No carotid bruit, No jugular venous distention, No lymphadenopathy, No thyromegaly. Respiratory: Symmetrical chest wall expansion, No chest wall tenderness. Breath sounds: Bilateral, Anterior, Posterior, No wheezing, No crackles present. Cardiovascular: Normal rate, Regular rhythm, No murmur, No gallop, Good pulses equal in all extremities, Normal peripheral perfusion, No edema. Gastrointestinal: Soft, Non-tender, Normal bowel sounds, No organomegaly. Genitourinary: No costovertebral angle tenderness. Lymphatics: No lymphadenopathy neck, axilla, groin. Musculoskeletal Normal range of motion. Normal strength. No tenderness. No deformity. Integumentary: Warm. Neurologic: Alert, Oriented, No focal deficits. Psychiatric: Cooperative, Normal judgment. Review / Management No qualifying data available Impression and Plan 1. Blood pressure is controlled. 2. Status post aVR 3. Sick sinus syndrome status post pacemaker. 4. Paroxysmal atrial fibrillation he may need normal sinus rhythm. 5. Hyperlipidemia. Plan 1. Decrease Lasix to 40 milligrams every day and continue same potassium. 2. BMP in a month. 3. Continue same dose of Coumadin. 4. Follow-up appointment in 4 [address] Electronically [address] by Dr. Cassie Rowe. PHONE MSG Observed: 04/25/2017 Status: F Source: [facility] 7:46 AM [facility] REPOSITORY Entered by SOTO ROWE MD on April 25, 2017 07:46:44 EST From: SOTO ROWE MD To: [facility][id number] Sent: 04/25/2017 07:46:44 EST Subject: Medication Management Documented Complete:metoprolol (Metoprolol Tartrate 50 mg oral tablet) Signed by SOTO ROWE MD 04/25/2017 07:46:00 Approved metoprolol (METOPROLOL SUCC ER 50 MG TAB) TAKE 1 TABLET BY MOUTH TWICE A DAY Qty: 180 TB Days Supply: 90 Refills: 3 Substitutions Allowed Route To Pharmacy - [id number] From: [id number] To: SOTO ROWE MD Sent: April 25, 2017 1:32:50 AM EST Subject: Medication Management Due: April 26, 2017 1:32:50 AM EST On Hold Pending Signature Drug: metoprolol (Metoprolol Succinate ER 50 mg oral tablet, extended release) TAKE 1 TABLET BY MOUTH TWICE A DAY Quantity: 180 TB Days Supply: 90 Refills: 3 Substitutions Allowed Notes from Pharmacy: Dispensed Drug: metoprolol (Metoprolol Succinate ER 50 mg oral tablet, extended release) TAKE 1 TABLET BY MOUTH TWICE A DAY Quantity: 180 TB Days Supply: 90 Refills: 3 Substitutions Allowed Notes from Pharmacy: PHONE MSG Observed: 02/02/2017 Status: F Source: [facility] 8:06 AM [facility] REPOSITORY Entered by SOTO ROWE MD on February 02, 2017 08:06:27 EST From: SOTO ORWE MD To: [facility]/pharmacy #[id number] Sent: 02/02/2017 08:06:27 EST Subject: Medication Management Submitted: Complete:rosuvastatin (Crestor 5 mg oral tablet) Signed by SOTO ROWE MD 02/02/2017 08:06:00 Approved rosuvastatin (ROSUVASTATIN CALCIUM 5 MG TAB) TAKE 1 TABLET BY MOUTH ONCE DAILY Qty: 90 TB Days Supply: 90 Refills: 3 Substitutions Allowed Route To Pharmacy - [facility]/pharmacy #[id number] Patient matched by SOTO ROWE MD on 02/02/2017 08:05:38 EST From: [facility]/pharmacy #[id number] To: SOTO ROWE MD Sent: February 02, 2017 1:22:14 AM EST Subject: Medication Management Due: February 03, 2017 1:22:14 AM EST On Hold Pending Signature Drug: rosuvastatin (rosuvastatin 5 mg oral tablet) TAKE 1 TABLET BY MOUTH ONCE DAILY Quantity: 90 TB Days Supply: 90 Refills: 3 Substitutions Allowed Notes from Pharmacy: Dispensed Drug: rosuvastatin (rosuvastatin 5 mg oral tablet) TAKE 1 TABLET BY MOUTH ONCE DAILY Quantity: 90 TB Days Supply: 90 Refills: 3 Substitutions Allowed Notes from Pharmacy: ALLERGIES ALLERGIES DATE TYPE / CODE NAME / CODE REACTION SEVERITY SOURCE 03/01/2018 Drug sucralose/F006 Swelling [facility] Allergy/4160 809183(RXNORM) [facility] [address](SNOMED Repository CT) 12/02/2011 DRUG/[id number] [facility] 03(SNOMED Other [place]) Repository /[id number] [facility] (SNOMED CT) [facility] Repository ENCOUNTERS ENCOUNTERS ADMIT/DISCHARGE ACCOUNT NUMBER ADMITTING ENCOUNTER LOCATION SOURCE CLASS 03/28/2018/03/28/19 [id number] Ambulatory [place] [address] ing:[facility] Repository 03/27/2018/03/28/19 [id number] Ambulatory [address] Main [place] Repository 03/26/2018/03/27/19 [id number] Ambulatory [address] Main [place] Repository 03/26/2018/03/26/19 [id number] Ambulatory [address] [place] Repository 03/26/2018/03/26/19 [id number] Ambulatory [address] Main [place] Repository 03/12/[id number] [facility] Repository 03/06/2018/03/07/20 [id number] Ambulatory [address] [place] Repository 03/05/2018/03/06/20 [id number] Ambulatory [address] [place] Repository 03/05/2018/03/05/20 [id number] Ambulatory [address] [place] Repository 03/05/2018/03/05/20 [id number] Ambulatory [address] [place] Repository 03/01/2018 [id number] [facility] ding:MEDOUT Repository 02/28/2018/03/02/20 [id number] Ambulatory [place] [facility] Main [place] Repository 02/28/2018/02/29/20 [id number] Ambulatory [address] [place] Repository 02/28/2018/02/29/20 [id number] Ambulatory [address] Main [place] Repository 02/26/2018/02/28/20 [id number] [facility]ulatory [facility] Main [place] Repository 02/20/2018/02/22/20 [id number] Ambulatory [facility] Main [place] Repository 2018 [id number] Ambulatory [facility] MEDICAL Repository CENTERBuildi ng:HEOP 02/13/2018/02/15/20 [id number] Ambulatory [facility] Main [place] Repository 02/12/2018/02/14/20 [id number] Amb[facility] Main [place] Repository 02/09/2018 [id number] Ambulatory [facility] ding:RAD Repository 02/07/2018/02/10/20 [id number] Amb[facility] Main [place] Repository 02/07/2018/02/08/20 [id number] Ambulatory [facility] Main [place] Repository 02/07/2018/02/08/20 [id number] RAYMUNDO DOZIER Ambulatory [facility] Main [place] Repository 02/06/2018/02/07/20 [id number] Ambulatory [address] Main [place] Repository 02/06/2018 [id number] Ambulatory [facility] Other [place] Repository 02/06/2018 [id number] Ambulatory [facility] Other [place] Repository 02/01/2018/02/06/20 [id number] Ambulatory [facility] Main [place] Repository 01/30/2018 [id number] [facility] ing:[facility] Repository 01/30/2018 [id number] [facility]ulatory [facility] ing:[facility] Repository 01/30/2018/01/31/20 [id number] [facility]ulatory [facility] ing:[facility] General oom: [address] Center Repository 01/18/2018/01/19/20 [id number] [facility] 18 ing:[facility] Repository 01/11/2018 [id number] Ambulatory [facility] Repository 12/16/2017/12/28/19 [id number] JULIENNE, [facility] 18 [facility] Other [place] Repository 12/07/2017/12/08/19 [id number] Ambulatory [facility] ing:[facility] General oom: [address] Center Repository 11/01/2017/11/02/19 [id number] Ambulatory [facility] 18 ing:[facility] Repository 09/28/2017/09/29/19 [id number] Ambulatory [facility] ing:[facility] General oom: [address] Center Repository 09/24/2017/09/25/19 [id number] Ambulatory [facility] 18 ing:[facility] Repository 08/30/2017/08/31/19 [id number] Ambulatory [facility] 18 ing:[facility] Repository 08/09/2017/08/10/19 [id number] Ambulatory [facility] 18 ing:[facility] Repository 07/12/2017/07/13/19 [id number] Ambulatory [facility] 18 ing:[facility] Repository 06/20/2017/06/21/19 [id number] Ambulatory [facility] 18 ing:[facility] Repository 06/09/2017/06/10/19 [id number] Ambulatory [facility] 18 ing:[facility] Repository 05/24/2017/05/25/19 [id number] Ambulatory [facility] 18 ing:[facility] Repository 04/28/2017/04/28/19 [id number] Ambulatory [facility] 18 ing:[facility] General oom: [address] Repository 04/19/2017/04/19/19 [id number] Ambulatory [facility] 18 ing:[facility] Repository 04/13/2017/04/13/19 [id number] Ambulatory [facility] 18 ing:[facility] Repository 09/07/2016/12/12/19 [id number] Ambulatory [facility] 15 ing:[facility] Repository 05/06/2016/05/06/19 [id number] Ambulatory [facility] 17 ing:[facility] General om: [address] Repository PAYERS PAYERS ENCOUNTER GUARANTOR PAYER SUBSCRIBER SOURCE 03/28/2018 JENNIFER A Primary JENNIFER A [facility] YVONB: [facility] ZIJORYLERDOB: General Health [id number] cy Number: Effective [id number] [facility] Date:9219-18-57Ovxm 5 [facility], Name:TEREZA [facility] [address]Zty: [id number]~~No Email AddressTel: (hp) () (WP) 03/28/2018 Secondary JENNIFER A [place] Insurance:UNITED ZIEGLERDOB: General Health [facility] [id number] Center Number: Effective 5 [facility] Date:5265-42-93Jodu [place], [place] Name:ZUHAIR WEISS [id number]~~No Email [id number] [place] AddressTel: [id number]: [phone] () (WP) 03/12/2018 Jennifer Primary Jennifer [facility] Health ZieglerDOB: Insurance:MedicarePoli ZieglerDOB: System [id number] cy Number: Effective [id number] [facility] Date: [place], [place] [address]Edv: () 03/12/2018 Secondary Jennifer [facility] Health Insurance:MedicarePoli ZieglerDOB: System cy Number: Effective [id number] Repository Date: 03/12/2018 [facility]ertiary [facility]:United ZieglerDOB: System HealthcarePolicy [id number] Repository Number: Effective Date: 03/01/2018 JENNIFER A Primary JENNIFER A [place] [id number] Insurance:MEDICARE ZIEGLERDOB: [facility] PART A BPolicy Number: [id number] [facility], [id number] [place] [address]Gmm: Date:2018-02-28 () 03/01/2018 Secondary JENNIFER A [place] Insurance:[facility] ZIEGLERDOB: [facility] CARE [id number] Hospital Number: Repository [id number] Date:1446-23-60[address], [place] [address]JM: 03/01/2018 Tertiary NOT GIVENUNK Raul Insurance:SELF PAY [facility] INS[facility]ANCEKindred Healthcare Number: Effective Repository Date:2018-02-28 2018 JENNIFER A Primary JENNIFER A [facility] ZIEGLERDOB: Insurance:MEDICARE A ZIEGLERDOB: Health System AND BPolicy Number: [id number] [facility] [id number] [facility], Date: [place] [address]Ukc: () 2018 Secondary JENNIFER A [facility] Insurance:[facility] ZIEGLERDOB: Health System INDEMNITYPolic [id number] Repository Number: [id number] Date: 02/09/2018 JENNIFER A Primary JENNIFER A [place] [id number] Insurance:MEDICARE ZIEGLERDOB: [facility] PART A BPolicy Number: [id number], [id number] [place] [address]Cac: Date:2018-02-07 () 02/09/2018 Secondary JENNIFER A [place] Insurance:[facility] ZIEGLERDOB: [facility] [id number] Hospital Number: Repository [id number] Date:2745-05-24DA [facility] [id number], [place] [address]VR: 02/09/2018 Tertiary NOT GIVENUNK Raul Insurance:SELF PAY [facility] Number: Effective Repository Date:2018-02-07 01/30/2018 JENNIFER A Primary JENNIFER A [place] ZIEGLERDOB: Insurance:MEDICAREPol ZIEGLERDOB: General Health [id number] cy Number: Effective [id number] [facility] Date:2008-03-20 [place] Repository [facility], [id number] [address]Dey: Name:TEREZA Hopkins~~No Email AddressTel: ) () (WP) 01/30/2018 Secondary JENNIFER A [place] Insurance:[facility]: [facility] [id number] Center Number: Effective 5 [address] Repository Date:2008-03-20 - [place], [place] [id number] [address]~~No Email Name:ZUHAIR WEISS AddressTel: [address] [place] [address] [phone]: [phone] (WP) 01/30/2018 JENNIFER A Primary JENNIFER A [facility] ZIEGLERDOB: Insurance:[facility]ICARESurgical [facility]ty Center at Coordinated HealthLERDOB: [facility] cy Number: Effective [id number] [facility] Date:2008-03-20 [facility], [id number] [facility] [address]Vsg: Name:TEREZA Hopkins~~No Email AddressTel: () () (WP) 01/30/2018 Secondary JENNIFER A [facility] [id number] Center Number: Effective 5 [address] Repository Date:2008-03-20 - [place], [place] [id number]~~No Email Name:ZUHAIR WEISS AddressTel: [address] [place] [address] [phone]: [phone] ([phone] (WP) 01/30/2018 JENNIFER A Primary JENNIFER A [place] ZIEGLERDOB: Insurance:MEDICARELehigh Valley Hospital - HazeltonDOB: [facility] cy Number: Effective [id number] [facility] Date:2008-03-20 [place], [id number] [facility], [place] [address]Gxr: Name:TEREZA Hopkins~~No Email AddressTel: (QL) (HP) (WP) 01/30/2018 Secondary JENNIFER A [facility] Insurance:UNITED ZIEGLERDOB: General Health HEALTHCAREPolicy [id number] Center Number: Effective [place] Repository Date:2008-03-20 [place] [id number] [address]~~No Email Name:CP.Kayden WEISS AddressTel: [id number] [place] [address] [id number]: [phone] ([phone] (WP) 01/11/2018 Jennifer Primary Jennifer [facility] Health ZieglerDOB: Insurance:MedicarePoli ZieglerDOB: System [id number] cy Number: Effective [id number] [facility] Date: [place], [place] [address]Nca: () 01/11/2018 Secondary Jennifer [facility] Insurance:MedicarePoli ZieglerDOB: System cy Number: Effective [id number] Repository Date: 01/11/2018 Tertiary [facility] Insurance:[place] ZieglerDOB: System HealthcareEn[facility] Health [id number] Repository Number: Effective Date: 12/07/2017 JENNIFER A Primary JENNIFER A [place] ZIEGLERDOB: Insurance:MEDICAREPoli ZIEGLERDOB: General Health [id number] cy Number: Effective [id number] [facility] Date:2008-03-20 [place], [id number] [facility] [address]Aeg: Name:TEREZA Hopkins~~No Email AddressTel: (HP) (HP) (WP) 12/07/2017 Secondary JENNIFER A [place] Insurance:[facility]ITALEGLERDOB: [facility] [id number] Center Number: Effective 5 [place] Repository Date:2008-03-20 [place] [id number] [id number]~~No Email Name:ZUHAIR WEISS AddressTel: [id number] [place] [address] [phone]: [phone] ([phone] (WP)
== END ==
PROVIDERS: Family Provider Pathology Anatomic Pathology & Clinical Pathology; PCP Pathology Anatomic Pathology & Clinical Pathology; Referring Provider Internal Medicine Hematology & Oncology; Visit Provider Internal Medicine Hematology & Oncology
DX: C83.39 Diffuse large B-cell lymphoma, extranodal and solid organ sites (principal); D62 Acute posthemorrhagic anemia
CPT/HCPCS: 36430; 86850; 86900; 86920; 86922; J7040; P9016; A4216; J1940

== ENCOUNTER → 2018-04-16 08:41 | Outpatient (CLI) | payer MEDICARE, OTHER, SELFPAY ==
[2018-03-01 08:34] VITALS: BMI 24.5
[2018-04-16 09:04] VITALS: BP 121/56; PULSE 82; RESP 16; O2SAT 100; BMI 24.2
== END ==
PROVIDERS: Family Provider Pathology Anatomic Pathology & Clinical Pathology; PCP Pathology Anatomic Pathology & Clinical Pathology; Referring Provider Internal Medicine Hematology & Oncology; Visit Provider Internal Medicine Hematology & Oncology
DX: C83.30 Diffuse large B-cell lymphoma, unspecified site (principal)
CPT/HCPCS: 36569

== ENCOUNTER → 2018-05-07 11:55 | Outpatient (CLI) | payer MEDICARE, OTHER, SELFPAY ==
[2018-04-16 09:04] VITALS: BMI 24.2
== END ==
PROVIDERS: Family Provider Pathology Anatomic Pathology & Clinical Pathology; PCP Pathology Anatomic Pathology & Clinical Pathology; Referring Provider Internal Medicine Hematology & Oncology; Visit Provider Internal Medicine Hematology & Oncology
DX: C83.30 Diffuse large B-cell lymphoma, unspecified site (principal)
CPT/HCPCS: 36569